=== PATIENT | female | born 1965 | race Caucasian/White ===

== ENCOUNTER 2016-10-03 19:14 | Inpatient (IN) | payer OTHER ==
[~2016-10-03] VITALS: Ht 152.4 cm; Wt 115.0 kg
[2016-10-03] MEDS ORDERED: ASPIRIN 325 MG TAB PO ONE (21:30)
[2016-10-03] MEDS ORDERED: METF1000 PO (21:31)
[2016-10-03] MEDS ORDERED: FLUT16SP17 NASAL (21:31)
[2016-10-03] MEDS ORDERED: FURO40TA4 PO (21:32)
[2016-10-03] MEDS ORDERED: LISI10TA2 PO (21:32)
[2016-10-03] MEDS ORDERED: LORA10TA3 PO (21:33)
[2016-10-03] MEDS ORDERED: FER325 PO (21:33)
[2016-10-03] MEDS ORDERED: MONT10TA24 PO (21:33)
[2016-10-03] MEDS ORDERED: PRAV40TA76 PO (21:34)
[2016-10-03] MEDS ORDERED: APR50 PO (21:34)
[2016-10-03] MEDS ORDERED: ACET1TAB40 PO (21:35)
[2016-10-03] MEDS ORDERED: AMLO-147 PO (21:35)
[2016-10-03] MEDS ORDERED: BISA5TAB6 PO (21:36)
[2016-10-03] MEDS ORDERED: ALBU18HF INHALATION (21:36)
[2016-10-03] MEDS ORDERED: LANT3I SC (21:37)
[2016-10-03] MEDS ORDERED: MOME13HF INHALATION (21:37)
[2016-10-03 21:38] LABS: ADD SCAN DIFF NO
[2016-10-03] MEDS ORDERED: INSU100C SQ (21:38)
[2016-10-03 21:41] LABS: BASOPHILS % 0.4 % (0.0-2.0); EOSINOPHILS # 0.5 10^3/ul (0.0-0.5); EOSINOPHILS % 4.3 % (0.0-7.0); HEMATOCRIT 27.3 % (37.0-47.0); HEMOGLOBIN 8.6 g/dl (12.0-16.0); LYMPHOCYTES % 9.6 % (15.0-51.0); MEAN CORPUSCULAR HEMOGLOBIN 26.5 pg (29.0-33.0); MEAN CORPUSCULAR HGB CONC 31.5 g/dl (32.0-37.0); MEAN PLATELET VOLUME 10.1 fl (7.4-10.4); MONOCYTE # 0.7 10^3/ul (0.3-0.9); MONOCYTES % 6.6 % (0.0-11.0); NEUTROPHIL # 8.2 10^3/ul (1.6-7.5); NEUTROPHILS % 78.7 % (39.0-77.0); PLATELET COUNT 345 10^3/UL (140-415); RED BLOOD COUNT 3.25 10^6/ul (4.20-5.40); WHITE BLOOD COUNT 10.4 10^3/ul (4.8-10.8)
[2016-10-03 21:49] LABS: ALBUMIN 4.3 g/dl (3.3-4.9)
[2016-10-03 21:50] LABS: CHLORIDE 100 mmol/L (97-110); POTASSIUM 5.2 mmol/L (3.5-5.1); SODIUM 141 mmol/L (135-144)
[2016-10-03 21:52] LABS: ALKALINE PHOSPHATASE 79 IU/L (42-121); ANION GAP 21 (8-16); ASPARTATE AMINO TRANSFERASE 23 IU/L (15-46); BILIRUBIN,INDIRECT 0.1 mg/dl (0-1.1); BILIRUBIN,TOTAL 0.1 mg/dl (0.2-1.3); BLOOD UREA NITROGEN 58 mg/dl (7-20); CARBON DIOXIDE 25 mmol/L (21-31); CREATININE 1.66 mg/dl (0.44-1.00); TOTAL PROTEIN 8.2 g/dl (6.1-8.1)
[2016-10-03 21:53] LABS: ALANINE AMINOTRANSFERASE 28 IU/L (13-69); CALCIUM 9.2 mg/dl (8.4-10.2); GLUCOSE 180 mg/dl (70-220)
--- NOTE | 2016-10-03 21:53 | RADRPT ---
PROCEDURE: XR Chest. CLINICAL INDICATION: Shortness of breath. TECHNIQUE: Single frontal view of the chest was obtained COMPARISON: None FINDINGS: The soft tissues are normal. The bony elements are normal. The heart is enlarged. cardiomediastin al silhouette and hilar structures are normal. The pulmonary vasculature is equilibrated. There is a left-sided aorta. there are increased interstitial markings in the perihilar areas in bases of the lungs. The costophrenic angles are poorly visualized due to underpenetration of the radiograph. IMPRESSION: 1. Cardiomegaly with mild pulmonary venous obstruction. 2. Early interstitial pulmonary edema in the bases of the lungs versus interstitial prominence seco ndary to underpenetration of the radiograph. RPTAT:AAJJ Physician Mu Date Time Electronically viewed and signed by Andi Blue Physician on 10/03/2016 21:53 LEYLA/
[2016-10-03 22:00] VITALS: TEMP 98.2
[2016-10-03 22:02] LABS: B-TYPE NATRIURETIC PEPTIDE 2570 PG/ML (0-125)
[2016-10-03 22:15] LABS: TROPONIN-I < 0.012 ng/ml (0.00-0.12)
[2016-10-03] MEDS ORDERED: FUROSEMIDE 40 MG INJ IV ONE (23:00)
[2016-10-03] MEDS ORDERED: morphine 4 MG/ML VIAL IV STA (23:20)
[2016-10-03] MEDS ORDERED: ONDANSETRON 4 MG INJ IV STA (23:20)
--- NOTE | 2016-10-03 23:22 | ERA ---
ER Documentation Chief Complaint Date/Time DATE: 10/03/16 TIME: 23:21 Chief Complaint SHARMIN VILLEDA from [place],c/o SOB,HTN,CHF exacerbation,lower back pain HPI This is a 50-year-old female brought in by rescue ambulance from [place] complaint of shortness of breath hypertension. Patient has history of CHF and feels that she is having a CHF exacerbation. Denies any chest pain. Shortness breath progressively worse. Positive orthopnea. Positive dyspnea on exertion. No nausea no vomiting no fevers no chills. No other current complaints. ROS All systems reviewed and are negative except as per history of present illness. Medications Home Meds Reported Medications Insulin Lispro (Humalog) 100 Unit/1 Ml Cartridge, 5-10 UNIT SQ BEFORE MEALS 10/03/16 Insulin Glargine* (Lantus*) 100 Unit/Ml Soln, 60 UNIT SC QHS, #1 VIAL 10/03/16 Mometasone-Formoterol (Dulera) 200-5 Mcg/Inh - 13 Gm Hfa.aer.ad, 2 PUFFS INHALATION BID, #1 INHALER 10/03/16 Albuterol Sulfate* (Ventolin HFA*) 18 Gm Hfa.aer.ad, 2 PUFF INHALATION Q4H, #1 INHALER 10/03/16 Bisacodyl* (Bisacodyl*) 5 Mg Tablet.dr, 10 MG PO DAILY Y for CONSTIPATION, TAB 10/03/16 Acetaminophen with Codeine (Acetaminophen-Cod #3 Tablet) 1 Each Tablet, 1 TAB PO Q6H, #20 TAB 10/03/16 Amlodipine Besylate* (Amlodipine Besylate*) 10 Mg Tablet, 10 MG PO DAILY, #30 TAB 10/03/16 Hydralazine Hcl* (Hydralazine Hcl*) 50 Mg Tab, 75 MG PO BID, #60 TAB 10/03/16 Pravastatin Sodium* (Pravastatin Sodium*) 40 Mg Tablet, 40 MG PO HS, TAB 10/03/16 Montelukast Sodium* (Montelukast Sodium*) 10 Mg Tablet, 10 MG PO QHS, #30 TAB 10/03/16 Ferrous Sulfate* (Ferrous Sulfate*) 325 Mg Tabec, 325 MG PO DAILY, TAB 10/03/16 Loratadine* (Loratadine*) 10 Mg Tablet, 10 MG PO DAILY, #30 TAB 10/03/16 Lisinopril* (Lisinopril*) 10 Mg Tablet, 10 MG PO DAILY, #30 TAB 10/03/16 Furosemide* (Furosemide*) 40 Mg Tablet, 40 MG PO QAM, TAB 10/03/16 Metformin Hcl* (Metformin Hcl*) 1,000 Mg Tablet, 1000 MG PO WITH BREAKFAST DINNE , #60 TAB 10/03/16 Fluticasone Propionate* (Fluticasone Propionate* Nasal) 50 Mcg/[place] - 16 Gm [place].susp, 1 SPRAY NASAL BID, #1 BOTTLE TO EACH NOSTRIL 10/03/16 Allergies Allergies: Coded Allergies: theophylline (Verified Allergy, Unknown, 10/03/16) PMhx/Soc Anesthesia Reaction: No Hx Neurological Disorder: No Hx Respiratory Disorders: Yes (ASTHMA) Hx Cardiac Disorders: Yes (HTN) Hx Psychiatric Problems: No Hx Miscellaneous Medical Probl: Yes (ANEMIA) Hx Alcohol Use: No Hx Substance Use: No Hx Tobacco Use: No Smoking Status: Never smoker Physical Exam Vitals Vital Signs Date Time Temp Pulse Resp B/P Pulse Ox O2 Delivery O2 Flow Rate FiO2 10/03/16 22:00 98.2 83 18 134/51 100 Room Air 10/03/16 21:00 Nasal Cannula 2.0 10/03/16 19:21 98.1 88 18 138/58 98 Physical Exam Const: [] Head: Atraumatic Eyes: Normal Conjunctiva ENT: Normal External Ears, Nose and Mouth. Neck: Full range of motion..~ No meningismus. Resp: Clear to auscultation bilaterally Cardio: Regular rate and rhythm, no murmurs Abd: Soft, non tender, non distended. Normal bowel sounds Skin: No petechiae or rashes Back: No midline or flank tenderness Ext: No cyanosis, or edema Neur: Awake and alert Psych: Normal Mood and Affect Result Diagram: 10/03/16212910/03/162129 Results 24 hrs Laboratory Tests Test 10/03/16 21:30 10/03/16 21:41 White Blood Count 10.410^3/ul Red Blood Count 3.2510^6/ul Hemoglobin 8.6g/dl Hematocrit 27.3% Mean Corpuscular Volume 84.0fl Mean Corpuscular Hemoglobin 26.5pg Mean Corpuscular Hemoglobin Concent 31.5g/dl Red Cell Distribution Width 16.0% Platelet Count 44694^3/UL Mean Platelet Volume 10.1fl Neutrophils % 78.7% Lymphocytes % 9.6% Monocytes % 6.6% Eosinophils % 4.3% Basophils % 0.4% Nucleated Red Blood Cells % 0.0/100WBC Neutrophils # 8.210^3/ul Lymphocytes # 1.010^3/ul Monocytes # 0.710^3/ul Eosinophils # 0.510^3/ul Basophils # 0.010^3/ul Nucleated Red Blood Cells # 0.010^3/ul Sodium Level 141mmol/L Potassium Level 5.2mmol/L Chloride Level 100mmol/L Carbon Dioxide Level 25mmol/L Anion Gap 21 Blood Urea Nitrogen 58mg/dl Creatinine 1.66mg/dl Glucose Level 180mg/dl Calcium Level 9.2mg/dl Total Bilirubin 0.1mg/dl Direct Bilirubin 0.00mg/dl Indirect Bilirubin 0.1mg/dl Aspartate Amino Transf (AST/SGOT) 23IU/L Alanine Aminotransferase (ALT/SGPT) 28IU/L Alkaline Phosphatase 79IU/L Troponin I < 0.012ng/ml B-Type Natriuretic Peptide 2570PG/ML Total Protein 8.2g/dl Albumin 4.3g/dl Globulin 3.90g/dl Albumin/Globulin Ratio 1.10 Lipase 98U/L Bedside Glucose 181mg/dL Current Medications Medications (Trade) Dose Ordered Sig/Myke Route PRN Reason Start Time Stop Time Status Last Admin Dose Admin Aspirin (Aspirin) 325 mg ONCE ONCE PO 10/03/16 21:30 10/03/16 21:31 DC 10/03/16 21:38 Furosemide (Lasix) 40 mg ONCE ONCE IV 10/03/16 23:00 10/03/16 23:01 DC 10/03/16 23:12 Procedures/MDM EKG: Rate/Rhythm: [Normal Sinus Rhythm] QRS, ST, T-waves: [No changes consistent w/ acute ischemia] Impression: [No evidence of ischemia or arrhythmia] Chest X-ray 1V Interpreted by me: Soft Tissue: No acute abnormalities Bones: No acute abnormalities Mediastinum/Cardiac Silhouette/Lungs: Increased interstitial fluid markings. Impression: CHF Patient's heart failure symptoms is concerning for acute decompensation and will require inpatient workup and monitoring. Further w/u for ischemia, arrhythmia, PE or dissection will be deferred to the inpatient team. Accepting Care Team: Current data and ongoing care discussed. Time: 2320 Primary Provider: Hospitalist Consulting: [LILIBETH] Outstanding Data: none Departure Diagnosis: Primary Impression: CHF (congestive heart failure) Qualified Code: I50.9 - Acute on chronic congestive heart failure, unspecified congestive heart failure type Condition: Serious SUZI NIETO Oct 03, 2016 23:22
--- NOTE | 2016-10-04 00:01 | HP ---
Date/Time of Note Date/Time of Note DATE: 10/04/16 TIME: 00:00 Assessment/Plan VTE Prophylaxis VTE Prophylaxis Intervention: contraindicated VTE Contraindication Reason: bleeding (potential, possibly slow GI Bleed, outpatient work-up in process and LE EDEMA) Assessment/Plan Assessment/Plan 1) CHF (congestive heart failure) Qualified Code: I50.9 - Acute on chronic congestive heart failure, unspecified congestive heart failure type - Admit to Telemetry - Constant Carb Diet with Low Salt - AM Labs : CBC, BMP - Lasix 40 mg IV Q AM - Monitor for hypokalemia - Consider Telemetry Consult, particulllarly is symptoms worsen or don't continue to improve 2) Asthma - DuoNeb QID - Albuterol Neb Q 2 hours prn - Continue Singulair and other Inhalers. (Pharmacy to substitute prn 3) Anemia - Monitor (CBC in AM) - Outpatient work-up in process HPI/ROS Admit Date/Time Admit Date/Time 10/03/16 8711 Hx of Present Illness Chief Complaint SHARMIN VILLEDA from [place],c/o SOB,HTN,CHF exacerbation,lower back pain HPI This patient is transferred to us as a Direct Admit, for Insurance reasons, from [place]. As there are currently no Tele Beds, patient was brought to the ED and was evaluated there first. She originally presented to [place], but I currently have no records from there. Word is that she presented there with SOB. Patient states her main concern is that her legs have been swollen for the past 5 yo 6 days, but really bad for the past 4 days. She a 50-year- old female with a history of CHF and feels that she is having a CHF exacerbation. She is not comfortable laying flat and she gets SOB with walking. She also admits to being anemic, and there is no source. She is due to be scheduled for her first Colonoscopy and she has received an Infusion of Iron. She has had her stool tested for blood at home/stool smeared on cards and tested. Denies any chest pain. She complains of shaking chills off and on for 1 month, but no fevers cough or wheezing. No nausea, vomiting or diarrhea. No headache, vision change, sore throat, cough or wheeze. Patient admits to wearing a CPAP nightly. She can have it brought to her for use tomorrow night. Received IV Lasix in ER and responded very well to it per ER Physician. Currently she feels better, but is still more comfortable sleeping sitting up in chair and not in the bed. ROS General: Admits: Chills, Generally Feels Tired - not a new symptoms/more related to her Anemia Denies: Fever, Poor Appetite, Generalized Body Aches Eyes: Admits: Denies: Blurry Vision, Double Vision HENT: Admits: Denies: Ear Pain/Pressure, Runny/Stuffy Nose, Sore Throat Cardiovascular: Admits: Leg Swelling Denies: Chest Pain, Palpitations Pulmonary: Admits: Shortness of Breath with exertions or laying in bed Denies: Cough, Wheeze Gastrointestinal: Admits: Denies: Abdominal Pain, Nausea, Vomiting, Diarrhea, Blood in Stool, Black-Colored Stool Urogenital: Admits: Denies: Burning with Urination, Urinary Frequency, Blood in Urine, Vaginal Bleeding Musculoskeletal: Admits: Denies: Joint Pain, Joint Swelling, Muscle Pain Neurological: Admits: Denies: Headache, Dizziness, Numbness, Tingling, Shooting Pains Integumentary: Admits: Denies: Rash, Itch Hematological: Admits: Denies: Spontaneous Nose Bleeds, Bleeding Gums, Easy Bruising PMH/Family/Social Past Medical History Asthma; DM Type 2; HTN; Anemia (due to be scheduled for her first Colonoscopy) Past Surgical History Past Surgical Hx: no surgical history Social History Alcohol Use: none Smoking Status: Never smoker Drug Use: none Exam/Review of Systems Vital Signs Vitals Vital Signs Date Time Temp Pulse Resp B/P Pulse Ox O2 Delivery O2 Flow Rate FiO2 10/03/16 23:28 78 22 129/61 100 Nasal Cannula 2.0 10/03/16 22:00 98.2 Exam Exam General: Morbidly obese female who speaks and understands some Y[place]ut , sleeping, sitting up in her chair, rouses fairly easily, alert, in no acute distress with O2 via Nasal BiPAP Eyes: Sclera White, EOMI HENT: Normocephalic/Atraumatic, External Ears/Nose Normal, Moist Mucus Membranes Neck: Supple, Trachea Midline Cardiovascular: Normal Rate, Normal Rhythm, Normal S1 and S2, No Murmur, No Extra Sounds, Radial pulse +2/4. No pedal edema. Pulmonary: Clear to Auscultation Bilaterally, Normal Respiratory Effort, No Rales, Rhonchi or Wheezes Gastrointestinal: Normoactive Bowel Sounds, Soft, Non-Tender/Non-Distended, exam done while patient seated Musculoskeletal: Normal Muscle Bulk and Tone Neurological: CN II - XII Grossly Intact, Non-Focal, Speech Normal Integumentary: Normal Moisture and Temperature, Good Turgor, No Jaundice, No Rash Lymphatic: No Cervical Lymphadenopathy Psychiatric: Appropriate Mood and Affect, Good Eye Contact Labs Result Diagram: 10/03/16212910/03/162129 Medications Medications Home Meds Reported Medications Insulin Lispro (Humalog) 100 Unit/1 Ml Cartridge, 5-10 UNIT SQ BEFORE MEALS 10/03/16 Insulin Glargine* (Lantus*) 100 Unit/Ml Soln, 60 UNIT SC QHS, #1 VIAL 10/03/16 Mometasone-Formoterol (Dulera) 200-5 Mcg/Inh - 13 Gm Hfa.aer.ad, 2 PUFFS INHALATION BID, #1 INHALER 10/03/16 Albuterol Sulfate* (Ventolin HFA*) 18 Gm Hfa.aer.ad, 2 PUFF INHALATION Q4H, #1 INHALER 10/03/16 Bisacodyl* (Bisacodyl*) 5 Mg Tablet.dr, 10 MG PO DAILY Y for CONSTIPATION, TAB 10/03/16 Acetaminophen with Codeine (Acetaminophen-Cod #3 Tablet) 1 Each Tablet, 1 TAB PO Q6H, #20 TAB 10/03/16 Amlodipine Besylate* (Amlodipine Besylate*) 10 Mg Tablet, 10 MG PO DAILY, #30 TAB 10/03/16 Hydralazine Hcl* (Hydralazine Hcl*) 50 Mg Tab, 75 MG PO BID, #60 TAB 10/03/16 Pravastatin Sodium* (Pravastatin Sodium*) 40 Mg Tablet, 40 MG PO HS, TAB 10/03/16 Montelukast Sodium* (Montelukast Sodium*) 10 Mg Tablet, 10 MG PO QHS, #30 TAB 10/03/16 Ferrous Sulfate* (Ferrous Sulfate*) 325 Mg Tabec, 325 MG PO DAILY, TAB 10/03/16 Loratadine* (Loratadine*) 10 Mg Tablet, 10 MG PO DAILY, #30 TAB 10/03/16 Lisinopril* (Lisinopril*) 10 Mg Tablet, 10 MG PO DAILY, #30 TAB 10/03/16 Furosemide* (Furosemide*) 40 Mg Tablet, 40 MG PO QAM, TAB 10/03/16 Metformin Hcl* (Metformin Hcl*) 1,000 Mg Tablet, 1000 MG PO WITH BREAKFAST DINNE , #60 TAB 10/03/16 Fluticasone Propionate* (Fluticasone Propionate* Nasal) 50 Mcg/[place] - 16 Gm [place].susp, 1 SPRAY NASAL BID, #1 BOTTLE TO EACH NOSTRIL 10/03/16 Allergies Allergies: Coded Allergies: theophylline (Verified Allergy, Unknown, 10/03/16) Current Medications Medications (Trade) Dose Ordered Sig/Myke Route PRN Reason Start Time Stop Time Status Last Admin Dose Admin Aspirin (Aspirin) 325 mg ONCE ONCE PO 10/03/16 21:30 10/03/16 21:31 DC 10/03/16 21:38 Furosemide (Lasix) 40 mg ONCE ONCE IV 10/03/16 23:00 10/03/16 23:01 DC 10/03/16 23:12 Procedures Procedures Laboratory Tests Test 10/03/16 21:30 10/03/16 21:41 White Blood Count 10.410^3/ul Red Blood Count 3.2510^6/ul Hemoglobin 8.6g/dl Hematocrit 27.3% Mean Corpuscular Volume 84.0fl Mean Corpuscular Hemoglobin 26.5pg Mean Corpuscular Hemoglobin Concent 31.5g/dl Red Cell Distribution Width 16.0% Platelet Count 17861^3/UL Mean Platelet Volume 10.1fl Neutrophils % 78.7% Lymphocytes % 9.6% Monocytes % 6.6% Eosinophils % 4.3% Basophils % 0.4% Nucleated Red Blood Cells % 0.0/100WBC Neutrophils # 8.210^3/ul Lymphocytes # 1.010^3/ul Monocytes # 0.710^3/ul Eosinophils # 0.510^3/ul Basophils # 0.010^3/ul Nucleated Red Blood Cells # 0.010^3/ul Sodium Level 141mmol/L Potassium Level 5.2mmol/L Chloride Level 100mmol/L Carbon Dioxide Level 25mmol/L Anion Gap 21 Blood Urea Nitrogen 58mg/dl Creatinine 1.66mg/dl Glucose Level 180mg/dl Calcium Level 9.2mg/dl Total Bilirubin 0.1mg/dl Direct Bilirubin 0.00mg/dl Indirect Bilirubin 0.1mg/dl Aspartate Amino Transf (AST/SGOT) 23IU/L Alanine Aminotransferase (ALT/SGPT) 28IU/L Alkaline Phosphatase 79IU/L Troponin I < 0.012ng/ml B-Type Natriuretic Peptide 2570PG/ML Total Protein 8.2g/dl Albumin 4.3g/dl Globulin 3.90g/dl Albumin/Globulin Ratio 1.10 Lipase 98U/L Bedside Glucose 181mg/dL EKG: Rate/Rhythm: [Normal Sinus Rhythm] QRS, ST, T-waves: [No changes consistent w/ acute ischemia] Impression: [No evidence of ischemia or arrhythmia] RADIOLOGY: PROCEDURE: XR Chest. CLINICAL INDICATION: Shortness of breath. TECHNIQUE: Single frontal view of the chest was obtained COMPARISON: None IMPRESSION: 1. Cardiomegaly with mild pulmonary venous obstruction. 2. Early interstitial pulmonary edema in the bases of the lungs versus interstitial prominence secondary to underpenetration of the radiograph. GARY POSEY DO Oct 04, 2016 00:01 GARY POSEY DO Oct 04, 2016 00:01
[2016-10-04] MEDS ORDERED: ALBUTEROL/IPRATROPIUM (NEB) 3 ML AMP HHN PRN (02:00)
[2016-10-04] MEDS ORDERED: NACL 0.9% 3 ML SYG IV SCH (02:00)
[2016-10-04] MEDS ORDERED: METOCLOPRAMIDE 10 MG INJ IV PRN (02:00)
[2016-10-04] MEDS ORDERED: GLUCAGON 1 MG INJ IM PRN (02:30)
[2016-10-04] MEDS ORDERED: GLUCOSE GEL 15 GRAM TUBE PO PRN ×2 (02:30)
[2016-10-04] MEDS ORDERED: GLUCOSE GEL 15 GRAM TUBE BUCCAL PRN (02:30)
[2016-10-04] MEDS ORDERED: DEXTROSE 50% 50 ML SYRINGE IV PRN ×2 (02:30)
[2016-10-04] MEDS: ACETAMINOPHEN 325 MG TAB PO PRN ×3 (02:41→15:35)
[2016-10-04] MEDS ORDERED: ALBUTEROL/IPRATROPIUM (NEB) 3 ML AMP HHN STA (03:21)
[2016-10-04] MEDS ORDERED: NON-FORMULARY/PATIENT OWN MED (Insulin Lispro (Humalog) 0 UNIT) SQ SCH (07:30)
[2016-10-04] MEDS: INSULIN ASPART [NOVOLOG] 3 ML PEN SC SCH ×4 (08:00→21:57)
[2016-10-04] MEDS ORDERED: metFORMIN 500 MG TAB PO SCH (08:00)
[2016-10-04] MEDS ORDERED: NON-FORMULARY/PATIENT OWN MED (Mometasone-Formoterol (Dulera) 2 PUFFS) INHALATION SCH (09:00)
[2016-10-04] MEDS ORDERED: LISINOPRIL 10 MG TAB PO SCH (09:00)
[2016-10-04] MEDS ORDERED: ENOXAPARIN 40 MG/0.4 ML SYG SC SCH (09:00)
[2016-10-04] MEDS: LORATADINE 10 MG TAB PO SCH (09:08)
[2016-10-04] MEDS: FERROUS SULFATE (EC) 325 MG TAB PO SCH (09:09)
[2016-10-04] MEDS: SALMETEROL/FLUTICASONE 250/50 INHA INH SCH ×2 (09:11→21:55)
--- NOTE | 2016-10-04 11:52 | QN ---
Documentation Comment Observation Note: Time: 4 hours Family Hx: Negative for diabetes Evaluation: Multiple exams showed improving symptoms and no evidence of clinical decompensation. JORDANA DIAZ MD Oct 04, 2016 11:51
[2016-10-04 14:39] VITALS: PULSE 86
[2016-10-04 15:03] VITALS: PULSE 86
[2016-10-04 15:36] VITALS: Ht 152.4 cm; Wt 115.0 kg
[2016-10-04 16:00] VITALS: PULSE 85
[2016-10-04 16:16] LABS: CREATINE KINASE 145 IU/L (23-200)
[2016-10-04 16:25] LABS: CK-MB 1.56 ng/ml (0.0-2.4)
[2016-10-04 16:29] LABS: IRON 15 ug/dl (35-150)
[2016-10-04 16:31] LABS: TROPONIN-I < 0.012 ng/ml (0.00-0.12)
[2016-10-04 16:40] LABS: TOTAL IRON BINDING CAPACITY 333 ug/dl (241-421)
--- NOTE | 2016-10-04 17:04 | PN ---
Date/Time of Note Date/Time of Note DATE: 10/04/16 TIME: 16:51 Assessment/Plan VTE Prophylaxis VTE Prophylaxis Intervention: heparin Assessment/Plan Assessment/Plan 50 yo F with 1. CHF exacerbation 2. Asthma exacerbation 3. Acute renal failure r/o ckd 4. Hypochromic anemia r/o iron deficiency 5. Hyperkalemia 2/2 #3 6. Diabetes type 2 PLAN: * Repeat BMP to eval hypokalemia * Renal USS / UA to workup renal failure * Iron profile * Continue gentle diuresis * Hold Metformin and ACEi for now Prophylaxis: Heparin / pepcid Subjective 24 Hr Interval Summary Free Text/Dictation Patient doing better, still mildly SOB however Exam/Review of Systems Vital Signs Vitals Vital Signs Date Time Temp Pulse Resp B/P Pulse Ox O2 Delivery O2 Flow Rate FiO2 10/04/16 16:00 85 10/04/16 12:56 20 126/66 100 Nasal Cannula 2.0 10/03/16 22:00 98.2 Exam Constitutional: alert, obese, oriented Psych: nl mood/affect Head: normocephalic Eyes: PERRL ENMT: mucosa pink and moist Respiratory: diminished breath sounds, wheezing Cardiovascular: regular rate and rhythm, No murmurs/extra sounds Gastrointestinal: bowel sounds, non-tender, soft Extremities: edema (1-2+) Skin: No rash or lesions Results Result Diagram: 10/03/16212910/03/162129 Results 24 hrs Laboratory Tests Test 10/03/16 21:30 10/03/16 21:41 10/04/16 08:45 10/04/16 12:41 White Blood Count 10.4 Red Blood Count 3.25 L Hemoglobin 8.6 L Hematocrit 27.3 L Mean Corpuscular Volume 84.0 Mean Corpuscular Hemoglobin 26.5 L Mean Corpuscular Hemoglobin Concent 31.5 L Red Cell Distribution Width 16.0 H Platelet Count 345 Mean Platelet Volume 10.1 Neutrophils % 78.7 H Lymphocytes % 9.6 L Monocytes % 6.6 Eosinophils % 4.3 Basophils % 0.4 Nucleated Red Blood Cells % 0.0 Neutrophils # 8.2 H Lymphocytes # 1.0 Monocytes # 0.7 Eosinophils # 0.5 Basophils # 0.0 Nucleated Red Blood Cells # 0.0 Sodium Level 141 Potassium Level 5.2 H Chloride Level 100 Carbon Dioxide Level 25 Anion Gap 21 H Blood Urea Nitrogen 58 H Creatinine 1.66 H Glucose Level 180 Calcium Level 9.2 Iron Level 15 L Total Iron Binding Capacity 333 Percent Iron Saturation 5 L Total Bilirubin 0.1 L Direct Bilirubin 0.00 Indirect Bilirubin 0.1 Aspartate Amino Transf (AST/SGOT) 23 Alanine Aminotransferase (ALT/SGPT) 28 Alkaline Phosphatase 79 Troponin I < 0.012 B-Type Natriuretic Peptide 2570 H Total Protein 8.2 H Albumin 4.3 Globulin 3.90 H Albumin/Globulin Ratio 1.10 Lipase 98 Bedside Glucose 181 113 162 Test 10/04/16 15:35 Magnesium Level 2.2 Creatine Kinase 145 Creatine Kinase Index 1.1 Creatinine Kinase MB (Mass) 1.56 Troponin I < 0.012 Medications Medications Current Medications Acetaminophen (Tylenol Tab) 650 mg Q6H PRN PO PAIN LEVEL 1-3 OR FEVER Last administered on 10/04/16 15:35; Admin Dose 650 MG; Start 10/04/16 at 02:00 Ferrous Sulfate (Ferrous Sulfate (Ec)) 325 mg DAILY PO Last administered on 10/04 09:09; Admin Dose 325 MG; Start 10/04/16 at 09:00 Hydralazine HCl (Apresoline) 75 mg BID PO ; Start 10/04/16 at 09:00 Insulin Glargine (Lantus) 60 unit QHS SC ; Start 10/04/16 at 21:00 Loratadine (Claritin) 10 mg DAILY PO Last administered on 10/04/16 09:08; Admin Dose 10 MG; Start 10/04/16 at 09:00 Montelukast Sodium (Singulair) 10 mg QHS PO ; Start 10/04/16 at 21:00 Metoclopramide HCl (Reglan) 10 mg Q6 PRN IV NAUSEA AND/OR VOMITING; Start at 02:00 Diagnostic Test (Pha) (Accu-Chek) 1 ea 02 XX ; Start 10/05/16 at 02:00 Miscellaneous Information 1 ea NOTE XX ; Start 10/04/16 at 02:30 Glucose (Glutose) 15 gm Q15M PRN PO DECREASED GLUCOSE; Start 10/04/16 at 02:30 Glucose (Glutose) 22.5 gm Q15M PRN PO DECREASED GLUCOSE; Start 10/04/16 at 02:30 Dextrose (D50w Syringe) 25 ml Q15M PRN IV DECREASED GLUCOSE; Start 10/04/16 at 02:30 Dextrose (D50w Syringe) 50 ml Q15M PRN IV DECREASED GLUCOSE; Start 10/04/16 at 02:30 Glucagon (Glucagen) 1 mg Q15M PRN IM DECREASED GLUCOSE; Start 10/04/16 at 02:30 Glucose (Glutose) 15 gm Q15M PRN BUCCAL DECREASED GLUCOSE; Start 10/04/16 at 02: 30 Atorvastatin Calcium (Lipitor) 10 mg DAILY@21 PO ; Start 10/04/16 at 21:00 Salmeterol Xinafoate/ Fluticasone (Advair 250/50 Diskus) 1 inh BID INH Last administered on 10/04/16t 09:11; Admin Dose 1 INH; Start 10/04/16 at 09:00 Furosemide (Lasix) 40 mg DAILY IV ; Start 10/05/16 at 09:00; Stop 10/07/16 at 08: 59 Aspirin (Halfprin) 81 mg DAILY PO ; Start 10/05/16 at 09:00 Procedures Procedures PROCEDURE: XR Chest. CLINICAL INDICATION: Shortness of breath. TECHNIQUE: Single frontal view of the chest was obtained COMPARISON: None FINDINGS: The soft tissues are normal. The bony elements are normal. The heart is enlarged. cardiomediastinal silhouette and hilar structures are normal. The pulmonary vasculature is equilibrated. There is a left-sided aorta. there are increased interstitial markings in the perihilar areas in bases of the lungs. The costophrenic angles are poorly visualized due to underpenetration of the radiograph. IMPRESSION: 1. Cardiomegaly with mild pulmonary venous obstruction. 2. Early interstitial pulmonary edema in the bases of the lungs versus interstitial prominence secondary to underpenetration of the radiograph. RPTAT:AAJJ Physician Mu Date Time Electronically viewed and signed by Andi Blue Physician on 10/03/2016 21:53 JM/ CC: BRITTANY PAYNE MD,KACY Song Apr 4, 2017 17:02
[2016-10-04 17:54] LABS: POTASSIUM 5.7 mmol/L (3.5-5.1)
[2016-10-04 17:56] LABS: CREATININE 1.99 mg/dl (0.44-1.00)
[2016-10-04 17:57] LABS: CALCIUM 9.1 mg/dl (8.4-10.2)
--- NOTE | 2016-10-04 18:14 | RADRPT ---
PROCEDURE: Renal US. CLINICAL INDICATION: Renal dysfunction. TECHNIQUE: Multiple sonographic images of the kidneys and urinary bladder were obtained. The imag es were reviewed on a PACS workstation. COMPARISON: No prior studies are available for comparison. FINDINGS: The right kidney measures 9.4 cm. The left kidney measures 9.3 cm. There is no renal mass. There is no hydronephrosis. There is no renal calculus. Renal parenchymal thickness is normal bilaterally. Both kidneys are hyperechoic consistent with med ical renal disease. The perirenal regions are normal with no fluid collection or mass. There is a Iglesias catheter in the bladder. IMPRESSION: 1. Bilateral hyperechoic kidneys consistent with medical renal disease. 2. No hydronephrosis. 3. Iglesias catheter in the bladder. RPTAT: QQ .Willard Pereira MD, MD Date Time Electronically viewed and signed by .Willard Pereira MD, on 10/04/2016 18:13 .R/
[2016-10-04] MEDS: SOD FERRIC GLUC COMPLX 125 MG in SOD CHLORIDE 0.9% 100 ML IVPB SCH (18:30)
[2016-10-04 20:00] VITALS: BP 140/67; RESP 18
[2016-10-04 20:21] VITALS: PULSE 83
[2016-10-04] MEDS: ALBUTEROL 0.083% (NEB) 2.5 MG/3 ML AMP HHN PRN (20:30)
[2016-10-04] MEDS ORDERED: NON-FORMULARY/PATIENT OWN MED (Pravastatin Sodium* 40 MG) PO SCH (21:00)
[2016-10-04] MEDS: MONTELUKAST 10 MG TAB PO SCH (21:00)
[2016-10-04] MEDS: ATORVASTATIN 10 MG TAB PO SCH (21:16)
[2016-10-04] MEDS: FAMOTIDINE 20 MG TAB PO SCH (21:17)
[2016-10-04] MEDS: HEPARIN 5,000 UNIT/0.5 ML VIAL SC SCH (21:22)
[2016-10-04] MEDS: INSULIN GLARGINE [LANtus] 3 ML PEN SC SCH (21:57)
[2016-10-04] MEDS: ZOLPIDEM 5 MG TAB PO PRN (23:28)
[2016-10-05] VITALS (12 sets, daily range): BP systolic 118–164; BP diastolic 58–69; PULSE 77–101; RESP 17–20
[2016-10-05] MEDS: ACETAMINOPHEN 325 MG TAB PO PRN ×3 (01:08→23:27)
[2016-10-05] MEDS: ACCUCHECK AT 2AM (Patients on SS coverage) XX SCH (02:00)
[2016-10-05 06:43] LABS: ADD SCAN DIFF NO
[2016-10-05 06:46] LABS: BASOPHILS % 0.4 % (0.0-2.0); EOSINOPHILS # 0.4 10^3/ul (0.0-0.5); EOSINOPHILS % 6.2 % (0.0-7.0); HEMATOCRIT 24.8 % (37.0-47.0); HEMOGLOBIN 7.5 g/dl (12.0-16.0); LYMPHOCYTES # 0.9 10^3/ul (0.8-2.9); LYMPHOCYTES % 16.5 % (15.0-51.0); MEAN CORPUSCULAR HEMOGLOBIN 25.9 pg (29.0-33.0); MEAN CORPUSCULAR HGB CONC 30.2 g/dl (32.0-37.0); MEAN CORPUSCULAR VOLUME 85.5 fl (82.0-101.0); MEAN PLATELET VOLUME 10.3 fl (7.4-10.4); MONOCYTE # 0.7 10^3/ul (0.3-0.9); MONOCYTES % 11.5 % (0.0-11.0); NEUTROPHIL # 3.7 10^3/ul (1.6-7.5); NEUTROPHILS % 65.2 % (39.0-77.0); PLATELET COUNT 270 10^3/UL (140-415); WHITE BLOOD COUNT 5.7 10^3/ul (4.8-10.8)
[2016-10-05 06:55] LABS: ALBUMIN 3.7 g/dl (3.3-4.9)
[2016-10-05 06:56] LABS: POTASSIUM 5.1 mmol/L (3.5-5.1)
[2016-10-05 06:58] LABS: CREATININE 1.62 mg/dl (0.44-1.00)
[2016-10-05 06:59] LABS: BILIRUBIN,INDIRECT 0.1 mg/dl (0-1.1); BILIRUBIN,TOTAL 0.1 mg/dl (0.2-1.3); PHOSPHORUS 5.2 mg/dl (2.5-4.9); TOTAL PROTEIN 7.1 g/dl (6.1-8.1)
[2016-10-05 07:00] LABS: CALCIUM 8.5 mg/dl (8.4-10.2); CHOL/HDL RATIO 3.7 RATIO; MAGNESIUM 2.3 mg/dl (1.7-2.5)
[2016-10-05 07:29] LABS: THYROID STIMULATING HORMONE 1.14 MIU/L (0.465-4.680)
[2016-10-05] MEDS: INSULIN ASPART [NOVOLOG] 3 ML PEN SC SCH ×4 (08:00→21:00)
[2016-10-05] MEDS: LORATADINE 10 MG TAB PO SCH (10:12)
[2016-10-05] MEDS: FERROUS SULFATE (EC) 325 MG TAB PO SCH (10:12)
[2016-10-05] MEDS: ASPIRIN (EC) 81 MG TAB PO SCH (10:13)
[2016-10-05] MEDS: HEPARIN 5,000 UNIT/0.5 ML VIAL SC SCH ×2 (10:14→20:58)
[2016-10-05] MEDS: FUROSEMIDE 40 MG INJ IV SCH (10:14)
[2016-10-05] MEDS: SALMETEROL/FLUTICASONE 250/50 INHA INH SCH ×2 (10:16→20:53)
[2016-10-05 15:04] LABS: ADD UMIC YES; URINE BILIRUBIN (Dip) NEGATIVE (NEGATIVE); URINE BLOOD (Dip) NEGATIVE (NEGATIVE); URINE COLOR LT. YELLOW (YELLOW); URINE GLUCOSE (Dip) NEGATIVE (NEGATIVE); URINE KETONES (Dip) NEGATIVE (NEGATIVE); URINE LEUKOCYTE ESTERASE (Dip) TRACE (NEGATIVE); URINE NITRITE (Dip) NEGATIVE (NEGATIVE); URINE TOTAL PROTEIN (Dip) NEGATIVE (NEGATIVE); URINE UROBILINOGEN (Dip) 0.2 E.U./dL (0.1-1.0)
[2016-10-05 15:44] LABS: BACTERIA,URINE MANY; URINE RBCS 0-2 /HPF (0)
[2016-10-05] MEDS: SOD FERRIC GLUC COMPLX 125 MG in SOD CHLORIDE 0.9% 100 ML IVPB SCH (17:23)
--- NOTE | 2016-10-05 17:38 | PN ---
Date/Time of Note Date/Time of Note DATE: 10/05/16 TIME: 17:36 Assessment/Plan VTE Prophylaxis VTE Prophylaxis Intervention: heparin Lines/Catheters Urinary Cath still in place: No Assessment/Plan Assessment/Plan 1. CHF exacerbation 2. Asthma exacerbation 3. Acute renal failure r/o ckd 4. Hypochromic anemia r/o iron deficiency 5. Hyperkalemia 2/2 #3 6. Diabetes type 2 PLAN: * Repeat BMP to eval hypokalemia * Renal US showed medical renal disease * ECHO done but no result yet * Iron profile * Continue gentle diuresis Prophylaxis: Heparin / pepcid Subjective 24 Hr Interval Summary Free Text/Dictation doing ok, Bp stable, less SOB, no chest pain Exam/Review of Systems Vital Signs Vitals Vital Signs Date Time Temp Pulse Resp B/P Pulse Ox O2 Delivery O2 Flow Rate FiO2 10/05/16 16:59 101 10/05/16 15:46 98.7 20 145/64 92 10/05/16 05:16 2.0 10/04/16 20:35 21 10/04/16 12:56 Nasal Cannula Intake and Output 10/04/16 10/04/16 10/05/16 15:00 23:00 07:00 Intake Total 460 ml 450 ml Balance 460 ml 450 ml Exam Constitutional: alert, obese, oriented Psych: nl mood/affect Head: normocephalic Eyes: PERRL ENMT: mucosa pink and moist Respiratory: diminished breath sounds, wheezing Cardiovascular: regular rate and rhythm, No murmurs/extra sounds Gastrointestinal: bowel sounds, non-tender, soft Extremities: edema (1-2+) Skin: No rash or lesions Results Result Diagram: 10/05/16 0610 10/05/16 0610 Results 24 hrs Laboratory Tests Test 10/04/16 21:37 10/05/16 02:08 10/05/16 06:10 10/05/16 07:44 Bedside Glucose 196 180 122 White Blood Count 5.7 # Red Blood Count 2.90 L Hemoglobin 7.5 L Hematocrit 24.8 L Mean Corpuscular Volume 85.5 Mean Corpuscular Hemoglobin 25.9 L Mean Corpuscular Hemoglobin Concent 30.2 L Red Cell Distribution Width 16.0 H Platelet Count 270 # Mean Platelet Volume 10.3 Neutrophils % 65.2 Lymphocytes % 16.5 Monocytes % 11.5 H Eosinophils % 6.2 Basophils % 0.4 Nucleated Red Blood Cells % 0.0 Neutrophils # 3.7 Lymphocytes # 0.9 Monocytes # 0.7 Eosinophils # 0.4 Basophils # 0.0 Nucleated Red Blood Cells # 0.0 Sodium Level 137 Potassium Level 5.1 Chloride Level 106 Carbon Dioxide Level 25 Anion Gap 11 # Blood Urea Nitrogen 57 H Creatinine 1.62 H Glucose Level 128 # Hemoglobin A1c 6.2 H Calcium Level 8.5 Phosphorus Level 5.2 H Magnesium Level 2.3 Total Bilirubin 0.1 L Direct Bilirubin 0.00 Indirect Bilirubin 0.1 Aspartate Amino Transf (AST/SGOT) 20 Alanine Aminotransferase (ALT/SGPT) 31 Alkaline Phosphatase 64 Total Protein 7.1 # Albumin 3.7 Triglycerides Level 105 Cholesterol Level 90 L LDL Cholesterol, Calculated 45 HDL Cholesterol 24 L Cholesterol/HDL Ratio 3.7 Thyroid Stimulating Hormone (TSH) 1.140 Test 10/05/16 12:00 10/05/16 12:05 10/05/16 17:11 Urine Color LT. YELLOW Urine Clarity CLEAR Urine pH 5.5 Urine Specific [place] <=1.005 L Urine Ketones NEGATIVE Urine Nitrite NEGATIVE Urine Bilirubin NEGATIVE Urine Urobilinogen 0.2 E.U./dL Urine Leukocyte Esterase TRACE H Urine Microscopic RBC 0-2 Urine Microscopic WBC 2-5 Urine Epithelial Cells FEW Urine Bacteria MANY Urine Hemoglobin NEGATIVE Urine Glucose NEGATIVE Urine Total Protein NEGATIVE Bedside Glucose 184 158 Medications Medications Current Medications Acetaminophen (Tylenol Tab) 650 mg Q6H PRN PO PAIN LEVEL 1-3 OR FEVER Last administered on 10/05/16 13:05; Admin Dose 650 MG; Start 10/04/16 at 02:00 Ferrous Sulfate (Ferrous Sulfate (Ec)) 325 mg DAILY PO Last administered on 10/05 10:12; Admin Dose 325 MG; Start 10/04/16 at 09:00 Hydralazine HCl (Apresoline) 75 mg BID PO Last administered on 10/05/16 10:12; Admin Dose 75 MG; Start 10/04/16 at 09:00 Insulin Glargine (Lantus) 60 unit QHS SC Last administered on 10/04/16 21:57; Admin Dose 60 UNIT; Start 10/04/16 at 21:00 Loratadine (Claritin) 10 mg DAILY PO Last administered on 10/05/16 10:12; Admin Dose 10 MG; Start 10/04/16 at 09:00 Montelukast Sodium (Singulair) 10 mg QHS PO ; Start 10/04/16 at 21:00 Metoclopramide HCl (Reglan) 10 mg Q6 PRN IV NAUSEA AND/OR VOMITING; Start at 02:00 Diagnostic Test (Pha) (Accu-Chek) 1 ea 02 XX ; Start 10/05/16 at 02:00 Miscellaneous Information 1 ea NOTE XX ; Start 10/04/16 at 02:30 Glucose (Glutose) 15 gm Q15M PRN PO DECREASED GLUCOSE; Start 10/04/16 at 02:30 Glucose (Glutose) 22.5 gm Q15M PRN PO DECREASED GLUCOSE; Start 10/04/16 at 02:30 Dextrose (D50w Syringe) 25 ml Q15M PRN IV DECREASED GLUCOSE; Start 10/04/16 at 02:30 Dextrose (D50w Syringe) 50 ml Q15M PRN IV DECREASED GLUCOSE; Start 10/04/16 at 02:30 Glucagon (Glucagen) 1 mg Q15M PRN IM DECREASED GLUCOSE; Start 10/04/16 at 02:30 Glucose (Glutose) 15 gm Q15M PRN BUCCAL DECREASED GLUCOSE; Start 10/04/16 at 02: 30 Atorvastatin Calcium (Lipitor) 10 mg DAILY@21 PO Last administered on 10/04/16 21:16; Admin Dose 10 MG; Start 10/04/16 at 21:00 Salmeterol Xinafoate/ Fluticasone (Advair 250/50 Diskus) 1 inh BID INH Last administered on 10/05/16 10:16; Admin Dose 1 INH; Start 10/04/16 at 09:00 Furosemide (Lasix) 40 mg DAILY IV Last administered on 10/05/16 10:14; Admin Dose 40 MG; Start 10/05/16 at 09:00; Stop 10/07/16 at 08:59 Aspirin 81 mg 81 mg DAILY PO Last administered on 10/05/16 10:13; Admin Dose 81 MG; Start 10/05/16 at 09:00 Ferric Sodium Gluconate Complex/ Sodium Chloride (Ferrlecit/NS) 110 ml @ 100 mls/hr Q24H IVPB Last administered on 10/05/16 17:23; Admin Dose 100 MLS/HR; Start 10/04/16 at 18:00; Stop 10/06/16 at 19:05 Heparin Sodium (Porcine) (Heparin (5000 Units/0.5 ml)) 5,000 unit BID SC Last administered on 10/05/16 10:14; Admin Dose 5,000 UNIT; Start 10/04/16 at 21:00 Famotidine (Pepcid) 20 mg Q24H PO Last administered on 10/04/16 21:17; Admin Dose 20 MG; Start 10/04/16 at 21:00 JENNIFER ONEILL MD Oct 05, 2016 17:38
--- NOTE | 2016-10-05 18:08 | RADRPT ---
Echocardiogram Report Patient Name: NEERU REID Gender: Female Date: 1965 Study Date: 05-Oct-2016 Fighter Pilot: Duncan Pearce [facility] Location: 5562 Ref. Physician: KACY SOLOMON Quality: Adequate Procedures: Transthoracic echocardiogram with complete 2D, M-Mode, and doppler examination. Indications: Congestive Heart Failure. 2D/M Mode Doppler Measurement Value Normal Ranges Measurement Value Normal Ranges LVIDd 2D 6.1 3.5 - 5.6 cm AV Peak Yousuf 1.5 m/sec LVIDs 2D 3.1 2.1 - 4.1 cm AV Peak PG 8.8 mmHg LVPWd 2D 1.0 0.6 - 1.1 cm LVOT Peak Yousuf 1.1 m/sec IVSd 2D 1.0 0.6 - 1.1 cm LVOT Peak PG 5.1 mmHg AoR Diam 2D 2.5 2.0 - 3.7 cm MV E Peak Yousuf 1.0 m/sec EDV 2D 186.4 cm3 MV A Peak Yousuf 1.1 m/sec ESV 2D 29.8 cm3 MV E/A 0.9 LA Dimen 2D 3.7 2.3 - 4.0 cm MV Decel Time 131 msec MV Decel [place] 8 MV E/A 0.9 TR Peak Yousuf 2.6 m/sec TR Peak PG 27.0 mmHg RVSP 35.0 mmHg Findings Left Ventricle: Lower limits of normal systolic function. Mild concentric left ventricular hypertrophy. Moderate enlargement of left ventricle cavity. Ejection fraction is visually estimated at 50 %. Tissue Doppler/Mitral Doppler indices are consistent with impaired relaxation (Stage I diastolic dysfunction). Right Ventricle: Normal right ventricular size. Normal right ventricular systolic function. Left Atrium: The left atrium is normal in size. Right Atrium: The right atrium is normal in size. Mitral Valve: Mitral valve leaflets appear mildly thickened. Mild mitral annular calcification. Trace mitral regurgitation. Aortic Valve: Normal appearance of the aortic valve. No significant aortic stenosis or insufficiency. Tricuspid Valve: Estimated peak PA systolic pressure 35 mmHg. There is trace tricuspid regurgitation. Pulmonic Valve: Normal pulmonic valve appearance. Pericardium: Normal pericardium with no significant pericardial effusion. Aorta: Normal aortic root. IVC: Dilated IVC with respiratory collapse consistent with elevated right atrial pressure. Conclusions 1.Lower limits of normal systolic function. Mild concentric left ventricular hypertrophy. Moderate enlargement of left ventricle cavity. Ejection fraction is visually estimated at 50 %. Tissue Doppler/Mitral Doppler indices are consistent with impaired relaxation (Stage I diastolic dysfunction). 2.Mitral valve leaflets appear mildly thickened. Mild mitral annular calcification. Trace mitral regurgitation. 3.Estimated peak PA systolic pressure 35 mmHg. There is trace tricuspid regurgitation. Electronically Signed By: Darrell Clarke 05-Oct-2016 18:07:44 -0700 Patient Name: NEERU REID Study Date: 05-Oct-2016 [id number]
[2016-10-05] MEDS: ZOLPIDEM 5 MG TAB PO PRN ×2 (20:55→23:27)
[2016-10-05] MEDS: ATORVASTATIN 10 MG TAB PO SCH (20:56)
[2016-10-05] MEDS: MONTELUKAST 10 MG TAB PO SCH (20:56)
[2016-10-05] MEDS: FAMOTIDINE 20 MG TAB PO SCH (20:56)
[2016-10-05] MEDS: INSULIN GLARGINE [LANtus] 3 ML PEN SC SCH (20:58)
[2016-10-05] MEDS: ALBUTEROL 0.083% (NEB) 2.5 MG/3 ML AMP HHN PRN (21:40)
[2016-10-06] VITALS (10 sets, daily range): BP systolic 114–154; BP diastolic 51–70; PULSE 71–98; RESP 18–20
[2016-10-06] MEDS: ACCUCHECK AT 2AM (Patients on SS coverage) XX SCH (02:00)
[2016-10-06 07:41] LABS: ADD SCAN DIFF NO
[2016-10-06 07:53] LABS: BASOPHILS % 0.4 % (0.0-2.0); EOSINOPHILS # 0.3 10^3/ul (0.0-0.5); EOSINOPHILS % 4.5 % (0.0-7.0); HEMATOCRIT 28.5 % (37.0-47.0); HEMOGLOBIN 8.7 g/dl (12.0-16.0); LYMPHOCYTES % 13.6 % (15.0-51.0); MEAN CORPUSCULAR HGB CONC 30.5 g/dl (32.0-37.0); MEAN CORPUSCULAR VOLUME 85.3 fl (82.0-101.0); MEAN PLATELET VOLUME 10.2 fl (7.4-10.4); MONOCYTE # 0.9 10^3/ul (0.3-0.9); MONOCYTES % 11.7 % (0.0-11.0); NEUTROPHIL # 5.1 10^3/ul (1.6-7.5); NEUTROPHILS % 69.5 % (39.0-77.0); PLATELET COUNT 352 10^3/UL (140-415); RED BLOOD COUNT 3.34 10^6/ul (4.20-5.40); RED CELL DISTRIBUTION WIDTH 15.9 % (11.5-14.5); WHITE BLOOD COUNT 7.4 10^3/ul (4.8-10.8)
[2016-10-06] MEDS: INSULIN ASPART [NOVOLOG] 3 ML PEN SC SCH ×4 (08:00→21:35)
[2016-10-06 08:20] LABS: CALCIUM 9.3 mg/dl (8.4-10.2); CREATININE 1.49 mg/dl (0.44-1.00); POTASSIUM 5.2 mmol/L (3.5-5.1)
[2016-10-06] MEDS: ASPIRIN (EC) 81 MG TAB PO SCH (08:32)
[2016-10-06] MEDS: LORATADINE 10 MG TAB PO SCH (08:32)
[2016-10-06] MEDS: SALMETEROL/FLUTICASONE 250/50 INHA INH SCH ×2 (08:32→21:30)
[2016-10-06] MEDS: FERROUS SULFATE (EC) 325 MG TAB PO SCH (08:32)
[2016-10-06] MEDS: FUROSEMIDE 40 MG INJ IV SCH (08:33)
[2016-10-06] MEDS: HEPARIN 5,000 UNIT/0.5 ML VIAL SC SCH ×2 (08:35→21:35)
--- NOTE | 2016-10-06 11:58 | RADRPT ---
PROCEDURE: XR Chest. CLINICAL INDICATION: Shortness of breath. TECHNIQUE: Single frontal view of the chest was obtained COMPARISON: Chest x-ray 10/03/2016 09:44 p.m. FINDINGS: The soft tissues are normal. The bony elements are normal. The heart is enlarged. The cardiomedia stinal silhouette and hilar structures are normal. The pulmonary vasculature is equilibrated. There is a left-sided aorta. The lungs are clear. The costophrenic angles are normal. IMPRESSION: 1. Cardiomegaly. 2. Mild pulmonary venous obstruction which is unchanged. RPTAT:AAJJ Physician Mu Date Time Electronically viewed and signed by Andi Blue Physician on 10/06/2016 11:58 /
--- NOTE | 2016-10-06 13:09 | PN ---
Date/Time of Note Date/Time of Note DATE: 10/06/16 TIME: 13:08 Assessment/Plan VTE Prophylaxis VTE Prophylaxis Intervention: heparin Lines/Catheters IV [facility] Saline Lock Urinary Cath still in place: No Assessment/Plan Assessment/Plan 1. CHF exacerbation,acute, diastolic 2. Asthma exacerbation 3. Acute renal failure r/o ckd 4. Hypochromic anemia r/o iron deficiency 5. Hyperkalemia 2/2 #3 6. Diabetes type 2 PLAN: * ECHo showed EF 50%, stage I DD * Renal US showed medical renal disease * Iron profile * Continue gentle diuresis downgrade to med/surge Prophylaxis: Heparin / pepcid Subjective 24 Hr Interval Summary Free Text/Dictation less SOb, doing better, ECHO showed EF 50%, stage I Disastolic dysfunction Exam/Review of Systems Vital Signs Vitals Vital Signs Date Time Temp Pulse Resp B/P Pulse Ox O2 Delivery O2 Flow Rate FiO2 10/06/16 12:14 97.6 99 19 132/60 96 10/05/16 21:41 21 10/05/16 05:16 2.0 10/04/16 12:56 Nasal Cannula Intake and Output 10/05/16 10/05/16 10/06/16 15:00 23:00 07:00 Intake Total 1610 ml 400 ml Balance 1610 ml 400 ml Results Result Diagram: 10/06/16 0659 10/06/16 0656 Results 24 hrs Laboratory Tests Test 10/05/16 17:11 10/05/16 20:20 10/06/16 06:56 10/06/16 06:59 Bedside Glucose 158 166 Sodium Level 139 Potassium Level 5.2 H Chloride Level 105 Carbon Dioxide Level 26 Anion Gap 13 Blood Urea Nitrogen 43 #H Creatinine 1.49 H Glucose Level 117 Calcium Level 9.3 White Blood Count 7.4 # Red Blood Count 3.34 L Hemoglobin 8.7 L Hematocrit 28.5 L Mean Corpuscular Volume 85.3 Mean Corpuscular Hemoglobin 26.0 L Mean Corpuscular Hemoglobin Concent 30.5 L Red Cell Distribution Width 15.9 H Platelet Count 352 # Mean Platelet Volume 10.2 Neutrophils % 69.5 Lymphocytes % 13.6 L Monocytes % 11.7 H Eosinophils % 4.5 Basophils % 0.4 Nucleated Red Blood Cells % 0.0 Neutrophils # 5.1 Lymphocytes # 1.0 Monocytes # 0.9 Eosinophils # 0.3 Basophils # 0.0 Nucleated Red Blood Cells # 0.0 B-Type Natriuretic Peptide 1160 H Test 10/06/16 07:36 10/06/16 12:11 Bedside Glucose 117 147 Medications Medications Current Medications Acetaminophen (Tylenol Tab) 650 mg Q6H PRN PO PAIN LEVEL 1-3 OR FEVER Last administered on 10/05/16 23:27; Admin Dose 650 MG; Start 10/04/16 at 02:00 Ferrous Sulfate (Ferrous Sulfate (Ec)) 325 mg DAILY PO Last administered on 10/06 08:32; Admin Dose 325 MG; Start 10/04/16 at 09:00 Hydralazine HCl (Apresoline) 75 mg BID PO Last administered on 10/06/16 08:33; Admin Dose 75 MG; Start 10/04/16 at 09:00 Insulin Glargine (Lantus) 60 unit QHS SC Last administered on 10/05/16 20:58; Admin Dose 60 UNIT; Start 10/04/16 at 21:00 Loratadine (Claritin) 10 mg DAILY PO Last administered on 10/06/16 08:32; Admin Dose 10 MG; Start 10/04/16 at 09:00 Montelukast Sodium (Singulair) 10 mg QHS PO Last administered on 10/05/16 20:56 ; Admin Dose 10 MG; Start 10/04/16 at 21:00 Metoclopramide HCl (Reglan) 10 mg Q6 PRN IV NAUSEA AND/OR VOMITING; Start at 02:00 Diagnostic Test (Pha) (Accu-Chek) 1 ea 02 XX ; Start 10/05/16 at 02:00 Miscellaneous Information 1 ea NOTE XX ; Start 10/04/16 at 02:30 Glucose (Glutose) 15 gm Q15M PRN PO DECREASED GLUCOSE; Start 10/04/16 at 02:30 Glucose (Glutose) 22.5 gm Q15M PRN PO DECREASED GLUCOSE; Start 10/04/16 at 02:30 Dextrose (D50w Syringe) 25 ml Q15M PRN IV DECREASED GLUCOSE; Start 10/04/16 at 02:30 Dextrose (D50w Syringe) 50 ml Q15M PRN IV DECREASED GLUCOSE; Start 10/04/16 at 02:30 Glucagon (Glucagen) 1 mg Q15M PRN IM DECREASED GLUCOSE; Start 10/04/16 at 02:30 Glucose (Glutose) 15 gm Q15M PRN BUCCAL DECREASED GLUCOSE; Start 10/04/16 at 02: 30 Atorvastatin Calcium (Lipitor) 10 mg DAILY@21 PO Last administered on 10/05/16 20:56; Admin Dose 10 MG; Start 10/04/16 at 21:00 Salmeterol Xinafoate/ Fluticasone (Advair 250/50 Diskus) 1 inh BID INH Last administered on 10/06/16 08:32; Admin Dose 1 INH; Start 10/04/16 at 09:00 Furosemide (Lasix) 40 mg DAILY IV Last administered on 10/06/16 08:33; Admin Dose 40 MG; Start 10/05/16 at 09:00; Stop 10/07/16 at 08:59 Aspirin 81 mg 81 mg DAILY PO Last administered on 10/06/16 08:32; Admin Dose 81 MG; Start 10/05/16 at 09:00 Ferric Sodium Gluconate Complex/ Sodium Chloride (Ferrlecit/NS) 110 ml @ 100 mls/hr Q24H IVPB Last administered on 10/05/16 17:23; Admin Dose 100 MLS/HR; Start 10/04/16 at 18:00; Stop 10/06/16 at 19:05 Heparin Sodium (Porcine) (Heparin (5000 Units/0.5 ml)) 5,000 unit BID SC Last administered on 10/06/16 08:35; Admin Dose 5,000 UNIT; Start 10/04/16 at 21:00 Famotidine (Pepcid) 20 mg Q24H PO Last administered on 10/05/16 20:56; Admin Dose 20 MG; Start 10/04/16 at 21:00 JENNIFER ONEILL MD Oct 06, 2016 13:09
[2016-10-06] MEDS: SOD FERRIC GLUC COMPLX 125 MG in SOD CHLORIDE 0.9% 100 ML IVPB SCH (17:18)
[2016-10-06] MEDS: ZOLPIDEM 5 MG TAB PO PRN (21:31)
[2016-10-06] MEDS: ATORVASTATIN 10 MG TAB PO SCH (21:31)
[2016-10-06] MEDS: MONTELUKAST 10 MG TAB PO SCH (21:31)
[2016-10-06] MEDS: FAMOTIDINE 20 MG TAB PO SCH (21:31)
[2016-10-06] MEDS: INSULIN GLARGINE [LANtus] 3 ML PEN SC SCH (21:34)
[2016-10-06] MEDS: ALBUTEROL 0.083% (NEB) 2.5 MG/3 ML AMP HHN PRN (21:50)
[2016-10-07 01:50] VITALS: BP 140/58; RESP 20
[2016-10-07] MEDS: ACCUCHECK AT 2AM (Patients on SS coverage) XX SCH (02:00)
[2016-10-07] MEDS: ACETAMINOPHEN 325 MG TAB PO PRN (02:20)
[2016-10-07 05:40] LABS: ADD SCAN DIFF NO
[2016-10-07 05:48] LABS: BASOPHILS % 0.4 % (0.0-2.0); EOSINOPHILS # 0.4 10^3/ul (0.0-0.5); EOSINOPHILS % 3.8 % (0.0-7.0); HEMATOCRIT 28.6 % (37.0-47.0); HEMOGLOBIN 8.8 g/dl (12.0-16.0); LYMPHOCYTES # 1.3 10^3/ul (0.8-2.9); LYMPHOCYTES % 14.6 % (15.0-51.0); MEAN CORPUSCULAR HEMOGLOBIN 26.2 pg (29.0-33.0); MEAN CORPUSCULAR HGB CONC 30.8 g/dl (32.0-37.0); MEAN CORPUSCULAR VOLUME 85.1 fl (82.0-101.0); MEAN PLATELET VOLUME 10.1 fl (7.4-10.4); MONOCYTE # 1.1 10^3/ul (0.3-0.9); NEUTROPHIL # 6.3 10^3/ul (1.6-7.5); NEUTROPHILS % 68.9 % (39.0-77.0); PLATELET COUNT 342 10^3/UL (140-415); RED BLOOD COUNT 3.36 10^6/ul (4.20-5.40); RED CELL DISTRIBUTION WIDTH 16.1 % (11.5-14.5); WHITE BLOOD COUNT 9.2 10^3/ul (4.8-10.8)
[2016-10-07 07:00] LABS: CREATININE 1.48 mg/dl (0.44-1.00); POTASSIUM 4.4 mmol/L (3.5-5.1)
[2016-10-07] MEDS: INSULIN ASPART [NOVOLOG] 3 ML PEN SC SCH ×2 (07:50→11:40)
[2016-10-07 08:21] VITALS: BP 121/58; RESP 20
[2016-10-07] MEDS ORDERED: FUROSEMIDE 20 MG INJ IV SCH (09:00)
[2016-10-07] MEDS: SALMETEROL/FLUTICASONE 250/50 INHA INH SCH (09:27)
[2016-10-07] MEDS: FERROUS SULFATE (EC) 325 MG TAB PO SCH (09:28)
[2016-10-07] MEDS: LORATADINE 10 MG TAB PO SCH (09:28)
[2016-10-07] MEDS: ASPIRIN (EC) 81 MG TAB PO SCH (09:28)
[2016-10-07] MEDS: HEPARIN 5,000 UNIT/0.5 ML VIAL SC SCH (09:53)
--- NOTE | 2016-10-07 12:58 | PN ---
Date/Time of Note Date/Time of Note DATE: 10/07/16 TIME: 12:57 Assessment/Plan VTE Prophylaxis VTE Prophylaxis Intervention: SCD's Lines/Catheters IV [facility] Type (from [facility]): Saline Lock Urinary Cath still in place: No Assessment/Plan Assessment/Plan 1. CHF exacerbation,acute, diastolic 2. Asthma exacerbation 3. Acute renal failure r/o ckd 4. Hypochromic anemia r/o iron deficiency 5. Hyperkalemia 2/2 #3 6. Diabetes type 2 PLAN: * ECHo showed EF 50%, stage I DD * Renal US showed medical renal disease * Iron profile * Continue gentle diuresis downgrade to med/surge Prophylaxis: Heparin / pepcid Subjective 24 Hr Interval Summary Free Text/Dictation doing better, SOB better, no complaints Exam/Review of Systems Vital Signs Vitals Vital Signs Date Time Temp Pulse Resp B/P Pulse Ox O2 Delivery O2 Flow Rate FiO2 10/07/16 08:21 98.3 77 20 121/58 97 10/06/16 21:52 21 10/05/16 05:16 2.0 10/04/16 12:56 Nasal Cannula Intake and Output 10/06/16 10/06/16 10/07/16 15:00 23:00 07:00 Intake Total 1100 ml 750 ml Output Total 700 ml Balance 1100 ml 50 ml Results Result Diagram: 10/07/160 10/07/160 Results 24 hrs Laboratory Tests Test 10/06/16 17:17 10/06/16 20:50 10/07/16 02:17 10/07/16 04:40 Bedside Glucose 146 197 137 White Blood Count 9.2 # Red Blood Count 3.36 L Hemoglobin 8.8 L Hematocrit 28.6 L Mean Corpuscular Volume 85.1 Mean Corpuscular Hemoglobin 26.2 L Mean Corpuscular Hemoglobin Concent 30.8 L Red Cell Distribution Width 16.1 H Platelet Count 342 Mean Platelet Volume 10.1 Neutrophils % 68.9 Lymphocytes % 14.6 L Monocytes % 12.0 H Eosinophils % 3.8 Basophils % 0.4 Nucleated Red Blood Cells % 0.0 Neutrophils # 6.3 Lymphocytes # 1.3 Monocytes # 1.1 H Eosinophils # 0.4 Basophils # 0.0 Nucleated Red Blood Cells # 0.0 Sodium Level 139 Potassium Level 4.4 Chloride Level 105 Carbon Dioxide Level 25 Anion Gap 13 Blood Urea Nitrogen 42 H Creatinine 1.48 H Glucose Level 110 Calcium Level 9.0 Test 10/07/16 07:52 10/07/16 12:32 Bedside Glucose 89 132 Medications Medications Current Medications Acetaminophen (Tylenol Tab) 650 mg Q6H PRN PO PAIN LEVEL 1-3 OR FEVER Last administered on 10/07/16 02:20; Admin Dose 650 MG; Start 10/04/16 at 02:00 Ferrous Sulfate (Ferrous Sulfate (Ec)) 325 mg DAILY PO Last administered on 10/07 09:28; Admin Dose 325 MG; Start 10/04/16 at 09:00 Hydralazine HCl (Apresoline) 75 mg BID PO Last administered on 10/07/16 09:29; Admin Dose 75 MG; Start 10/04/16 at 09:00 Insulin Glargine (Lantus) 60 unit QHS SC Last administered on 10/06/16 21:34; Admin Dose 60 UNIT; Start 10/04/16 at 21:00 Loratadine (Claritin) 10 mg DAILY PO Last administered on 10/07/16 09:28; Admin Dose 10 MG; Start 10/04/16 at 09:00 Montelukast Sodium (Singulair) 10 mg QHS PO Last administered on 10/06/16 21:31 ; Admin Dose 10 MG; Start 10/04/16 at 21:00 Metoclopramide HCl (Reglan) 10 mg Q6 PRN IV NAUSEA AND/OR VOMITING; Start at 02:00 Diagnostic Test (Pha) (Accu-Chek) 1 ea 02 XX ; Start 10/05/16 at 02:00 Miscellaneous Information 1 ea NOTE XX ; Start 10/04/16 at 02:30 Glucose (Glutose) 15 gm Q15M PRN PO DECREASED GLUCOSE; Start 10/04/16 at 02:30 Glucose (Glutose) 22.5 gm Q15M PRN PO DECREASED GLUCOSE; Start 10/04/16 at 02:30 Dextrose (D50w Syringe) 25 ml Q15M PRN IV DECREASED GLUCOSE; Start 10/04/16 at 02:30 Dextrose (D50w Syringe) 50 ml Q15M PRN IV DECREASED GLUCOSE; Start 10/04/16 at 02:30 Glucagon (Glucagen) 1 mg Q15M PRN IM DECREASED GLUCOSE; Start 10/04/16 at 02:30 Glucose (Glutose) 15 gm Q15M PRN BUCCAL DECREASED GLUCOSE; Start 10/04/16 at 02: 30 Atorvastatin Calcium (Lipitor) 10 mg DAILY@21 PO Last administered on 10/06/16 21:31; Admin Dose 10 MG; Start 10/04/16 at 21:00 Salmeterol Xinafoate/ Fluticasone (Advair 250/50 Diskus) 1 inh BID INH Last administered on 10/07/16 09:27; Admin Dose 1 INH; Start 10/04/16 at 09:00 Aspirin (Halfprin) 81 mg DAILY PO Last administered on 10/07/16 09:28; Admin Dose 81 MG; Start 10/05/16 at 09:00 Heparin Sodium (Porcine) (Heparin (5000 Units/0.5 ml)) 5,000 unit BID SC Last administered on 10/07/16 09:53; Admin Dose 5,000 UNIT; Start 10/04/16 at 21:00 Famotidine (Pepcid) 20 mg Q24H PO Last administered on 10/06/16 21:31; Admin Dose 20 MG; Start 10/04/16 at 21:00 Furosemide (Lasix) 20 mg DAILY IV Last administered on 10/07/16 09:29; Admin Dose 20 MG; Start 10/07/16 at 09:00 JENNIFER ONEILL MD Oct 07, 2016 12:58
--- NOTE | 2016-10-07 12:59 | PDOCDIS ---
Discharge Instructions CONDITION Patient Condition: Good HOME CARE INSTRUCTIONS: Special Diet: 1800 yordan ada ACTIVITY: Activity Restrictions: Slowly Increase Activity Rest between Activity Avoid heavy lifting Avoid Heavy Housework FOLLOW UP/APPOINTMENTS Appointments follow up with her own PMD through HMO insurance in 1-2 week after discharge. JENNIFER ONEILL MD Oct 07, 2016 12:59
[2016-10-07] MEDS ORDERED: POTA10TA37 PO (13:00)
[2016-10-07] MEDS ORDERED: FURO40TA4 PO (13:00)
--- NOTE | 2016-10-11 17:04 | DS ---
DATE OF ADMISSION: 10/03/2016 DATE OF DISCHARGE: 10/07/2016 FINAL DISCHARGE DIAGNOSES: 1. Acute congestive heart failure exacerbation, diastolic. 2. Acute asthma exacerbation. 3. Acute kidney injury secondary to possible prerenal azotemia. 4. History of chronic kidney disease secondary to diabetic nephropathy. 5. Acute hyperkalemia secondary to acute kidney injury. 6. Iron deficiency anemia. 7. History of diabetes mellitus type 2. CONSULTATIONS DONE DURING THIS HOSPITALIZATION: None. PROCEDURES PERFORMED DURING THIS HOSPITALIZATION: The patient had an echocardiogram done during thi s hospitalization which shows ejection fraction of 50% with stage I diastolic dysfunction. HOSPITAL COURSE: This is a 50-year-old female with a past medical history of hypertension, hyperlip idemia, history of chronic kidney disease secondary to diabetic nephropathy, who presented with a co mplaint of shortness of breath. She was admitted for acute congestive heart failure exacerbation, w hich was acute on chronic with diastolic heart failure. She was diuresed with IV Lasix while being in the hospital. The patient had a 2D echocardiogram done which revealed ejection fraction 50% with stage I diastolic dysfunction. She remained symptomatically better. Her heart failure was improve d. She also had mild acute asthma exacerbation, which was treated with IV Solu-Medrol, , IV Le vaquin. She symptomatically got better. After getting stable vital signs and stable symptoms, she is getting discharged to home. DISPOSITION: To home. DISCHARGE CONDITION: Stable and improved compared to admission. DISCHARGE ACTIVITIES: As tolerated, slowly resume to normal baseline activities. DISCHARGE DIET: Low fat, low sodium diet. DISCHARGE MEDICATIONS: As per medical reconciliation. She is given prescriptions of Lasix 40 mg p. o. b.i.d. upon discharge, potassium chloride 10 mEq p.o. daily. DISCHARGE FOLLOWUP/INSTRUCTIONS: 1. The patient is to follow up with her own primary care doctor through her HMO insurance 1 to 2 we eks after discharge. 2. The patient is to follow up with Dr. Jennifer Oneill in outpatient nephrology clinic 1 to 2 weeks after discharge. She has been explained about the discharge plan and followup instructions. She un derstood and verbalized understanding. Dictated By: JENNIFER ONEILL MD, KP/EDUARDO Conf#: [id number] DID#: [id number]
== END 2016-10-07 17:20 | disposition home or self-care (01) | DRG 291 ==
LOC: E/R 19:14 → MS4 22:41 → E/R 10-04 14:10 → MS1 10-06 23:28
PROVIDERS: ADMIT Family Medicine; ATTEND Family Medicine
DX: I13.0 Hypertensive heart and chronic kidney disease with heart failure and stage 1 through stage 4 chronic kidney disease, or unspecified chronic kidney disease (principal); I50.33 Acute on chronic diastolic (congestive) heart failure; N17.9 Acute kidney failure, unspecified; E11.21 Type 2 diabetes mellitus with diabetic nephropathy; J45.901 Unspecified asthma with (acute) exacerbation; E87.6 Hypokalemia; E11.9 Type 2 diabetes mellitus without complications; D50.9 Iron deficiency anemia, unspecified; N18.9 Chronic kidney disease, unspecified; M54.5 Low back pain; Z79.4 Long term (current) use of insulin
CPT/HCPCS: 36415; 71010; 76775; 80048; 80053; 80061; 80076; 81001; 81003; 82550; 82553; 82962; 83036; 83540; 83690; 83735; 83880; 84100; 84443; 84484; 85025; 93005; 93306; 94640; 94664; 96372; 96374; 96375; J1940; J1644; J1815; J2270; J2405; J2916

== ENCOUNTER 2016-10-13 14:37 | Outpatient (CLI) | payer OTHER ==
[~2016-10-13] VITALS: Ht 152.4 cm; Wt 111.4 kg
[~2016-10-13 14:37] MED LIST: ACET1TAB40 PO; ALBU18HF INHALATION; AMLO-147 PO; BISA5TAB6 PO; FER325 PO; FLUT16SP17 NASAL; FURO40TA4 PO; HYDR-3672 PO; INSU100C SQ; LANT3I SC; LISI10TA2 PO; LORA10TA3 PO; METF1000 PO; MOME13HF INHALATION; MONT10TA24 PO; POTA10TA37 PO; PRAV40TA76 PO
[2016-10-13 14:43] VITALS: BP 118/58; PULSE 88; RESP 18; Ht 152.4 cm; Wt 111.4 kg
--- NOTE | 2016-10-13 15:20 | PN ---
Date/Time of Note Date/Time of Note DATE: 10/13/16 TIME: 15:14 Outpatient Progress Note Chief Complaint CHF/diabetes/asthma/anemia/hypertension/rheumatoid arthritis/renal insufficiency HPI CHF/patient was recently admitted with a CHF, patient denies any chest pain, no shortness of breath, no palpitation, ankle edema, improved significantly, Diabetes/no polydipsia polyuria hypoglycemia, gastroparesis, patient on insulin and oral medication, Asthma/no cough expectoration or wheezing, hemoptysis, on medication, Hypertension/no headache or dizziness, no local focal weakness, Rheumatoid arthritis/patient has slight back discomfort, no loss of bladder or bowel control, Renal insufficiency/no nausea vomiting, no pruritus, BUN/creatinine widely improved, Review of Systems Const: No Fever, no chills, no Wt. loss, no Fatigue, normal appetite, no diaphoresis. Eyes: No pain, no discharge, no redness, no visual change, no foreign body. ENT: No pain, no bleeding, no congestion, no sore throat, no dysphagia, no discharge or rhinitis. Lymph: No adenopathy, no tender nodes, no lymphedema. Resp: No SOB, no cough, no sputum, no wheezing, no chest pain. CV: No chest pain, no palpitaions, no DAVIDSON, no PND, no edema. GI: Normal appetite, no pain, no nausea, no vomiting, no diarrhea, no blood, no constipation. : No frequency, no urgency, no dysuria, no hematuria, no flank pain, no discharge, no bleeding. Musc: No bone/joint pain, no back pain, no neck pain, no knee pain, no restricted ROM. Skin: No rash, no skin lesions, no erythema, no laceration, no bruising, no pruritus. Neuro: No ZIMMERMAN, no dizziness, no syncope, no seizure, no focal-weakness. Endo: No polyuria, no polydypsia, no dry-skin, no temp-intolerance. Psych: No hallucinations, no depression, no anxiety, no suicidal ideation. Ext: No edema, no pain, no ulcer, no weakness. Physical Exam Vital Signs Date Time Temp Pulse Resp B/P Pulse Ox O2 Delivery O2 Flow Rate FiO2 10/13/16 14:43 98.6 88 18 118/58 93 Room Air General Appearance: A 50 year-old [female who appears well-developed, well- nourished, morbidly obese, in no acute distress. HEENT: Head normocephalic, atraumatic. Pupils equal, round, reactive to light and accommodate. Sclerae are no jaundice. Nasal turbinates pink without erythema or nasal discharge. Mucous membranes pink and moist without lesions. Oropharynx clear without any exudate or discharge. NECK: Supple. Trachea midline, No thyromegaly, No cervical lymphadenopathy, No mass, No carotid bruits, No JVD, Carotid pulses 2+ bilaterally. PULMONARY: Clear to auscultaion bilaterally, No retractions, Chest expansion symmetric bilaterally, no rales, no ronchi, no dulness on percussion. CARDIAC: Normal SI and S2, Regular rate and rythm, no murmur, gallop, or rub. GASTROINTESTINAL: Abdomen is soft, non-tender, Non Rigid, No distention, Positive bowel sounds x4 quadrants, Liver normal. SKIN: Warm, dry, no rash, no bruise, no echmosis. EXTREMITIES: Bilateral lower extremities normal, no edema, no phlabitus, pulse palpable, no contracture. MUSCULOSKELETAL: Spine Normal, Non-tender, Normal range of motion, No swelling, no deformity, no clubbing, or cyanosis, the patient has no edema to bilateral lower extremities, dorsalis pedis pulses palpable bilaterally. NEUROLOGIC: The patient is awake, alert, oriented, responding to yes/no questions appropriately, moving all extremities, cranial nerve intact, normal strenght, normal power, normal coordination, normal gait. Allergies Coded Allergies: theophylline (Verified Allergy, Unknown, 10/03/16) PMH Diabetes/hypertension/asthma/anemia/renal insufficiency/CHF/rheumatoid arthritis /back pain Social Hx No smoking no drinking, Family Hx Noncontributory Assessment/Plan Impression CHF improving/diabetes/ asthma/hypertension/rheumatoid arthritis/renal insufficiency Plan Patient education done about diabetes hypertension renal failure and medication , patient on metformin, when patient went to the hospital patient BUN was 58, and creatinine was 1.6, on a discharge BUN was 42, and creatinine was 1.4, Patient was put on Lasix, 1 twice a day dose, patient BUN and creatinine will go up, Patient advised to stop metformin, and will start Januvia, will start 100 mg p.o. daily, CBC and CMP in 2 weeks, patient to follow with the primary care physician, patient advised to lose weight, if she gained significant weight to check with the primary care physician, risks and complications of diabetes hypertension renal insufficiency explained to the patient, Patient very high risk for repeated admission in future, Patient does not have ferrous sulfate, will start give prescription ferrous sulfate 325 3 times daily, Medications Home Meds Active Scripts Potassium Chloride* (K-Dur*) 10 Meq Tab.prt.sr, 10 MEQ PO DAILY, #90 TAB Prov:JENNIFER ONEILL MD 10/07/16 Furosemide* (Furosemide*) 40 Mg Tablet, 40 MG PO BID, #180 TAB Prov:JENNIFER ONEILL MD 10/07/16 Reported Medications Insulin Lispro (Humalog) 100 Unit/1 Ml Cartridge, 5-10 UNIT SQ BEFORE MEALS 10/03/16 Insulin Glargine* (Lantus*) 100 Unit/Ml Soln, 60 UNIT SC QHS, #1 VIAL 10/03/16 Mometasone-Formoterol (Dulera) 200-5 Mcg/Inh - 13 Gm Hfa.aer.ad, 2 PUFFS INHALATION BID, #1 INHALER 10/03/16 Albuterol Sulfate* (Ventolin HFA*) 18 Gm Hfa.aer.ad, 2 PUFF INHALATION Q4H, #1 INHALER 10/03/16 Bisacodyl* (Bisacodyl*) 5 Mg Tablet.dr, 10 MG PO DAILY Y for CONSTIPATION, TAB 10/03/16 Amlodipine Besylate* (Amlodipine Besylate*) 10 Mg Tablet, 10 MG PO DAILY, #30 TAB 10/03/16 Hydralazine Hcl* (Hydralazine Hcl*) 50 Mg Tab, 75 MG PO BID, #60 TAB 10/03/16 Pravastatin Sodium* (Pravastatin Sodium*) 40 Mg Tablet, 40 MG PO HS, TAB 10/03/16 Montelukast Sodium* (Montelukast Sodium*) 10 Mg Tablet, 10 MG PO QHS, #30 TAB 10/03/16 Ferrous Sulfate* (Ferrous Sulfate*) 325 Mg Tabec, 325 MG PO DAILY, TAB 10/03/16 Loratadine* (Loratadine*) 10 Mg Tablet, 10 MG PO DAILY, #30 TAB 10/03/16 Lisinopril* (Lisinopril*) 10 Mg Tablet, 10 MG PO DAILY, #30 TAB 10/03/16 Metformin Hcl* (Metformin Hcl*) 1,000 Mg Tablet, 1000 MG PO WITH BREAKFAST DINNE , #60 TAB 10/03/16 Fluticasone Propionate* (Fluticasone Propionate* Nasal) 50 Mcg/[place] - 16 Gm [place].susp, 1 SPRAY NASAL BID, #1 BOTTLE TO EACH NOSTRIL 10/03/16 Discontinued Reported Medications Acetaminophen with Codeine (Acetaminophen-Cod #3 Tablet) 1 Each Tablet, 1 TAB PO Q6H, #20 TAB 10/03/16 GAIL ONEILL MD Oct 13, 2016 15:20
== END 2016-10-13 16:22 | disposition home or self-care (01) ==
LOC: DCC 14:37
PROVIDERS: ATTEND Internal Medicine
DX: I50.9 Heart failure, unspecified (principal); J45.909 Unspecified asthma, uncomplicated; I10 Essential (primary) hypertension; M06.9 Rheumatoid arthritis, unspecified; N28.9 Disorder of kidney and ureter, unspecified

== ENCOUNTER 2016-10-27 14:42 | Outpatient (CLI) | payer OTHER ==
[~2016-10-27] VITALS: Ht 152.4 cm; Wt 112.3 kg
[~2016-10-27 14:42] MED LIST changes: -ACET1TAB40 PO
[2016-10-27 14:49] VITALS: BP 153/71; PULSE 90; RESP 18; Ht 152.4 cm; Wt 112.3 kg
--- NOTE | 2016-10-27 15:22 | PN ---
Date/Time of Note Date/Time of Note DATE: 10/27/16 TIME: 15:18 Outpatient Progress Note Chief Complaint Edema/diabetes/asthma/anemia/hypertension/renal insufficiency HPI Ankle edema/patient has minimal ankle edema, no chest pain, no PND orthopnea, patient not drinking a lot of fluid, Diabetes/no polydipsia polyuria hypoglycemia, gastroparesis, blood sugar 90 and Asthma/no cough expectoration, no wheezing, no chest tightness, on medication, Anemia/no hematemesis or melena, no fatigue, no bleeding, Hypertension/no headache or dizziness, patient blood pressure at home 120 or 130 systolic, patient just walked him in few minutes ago, Renal insufficiency/no nausea vomiting, no pruritus, Review of Systems Const: [No Fever, no chills, no Wt. loss, no Fatigue, normal appetite, no diaphoresis.] Eyes: [No pain, no discharge, no redness, no visual change, no foreign body.] ENT: [No pain, no bleeding, no congestion, no sore throat, no dysphagia, no discharge or rhinitis.] Lymph: [No adenopathy, no tender nodes, no lymphedema.] Resp: [No SOB, no cough, no sputum, no wheezing, no chest pain.] CV: [No chest pain, no palpitaions, no DAVIDSON, no PND, no edema.] GI: [Normal appetite, no pain, no nausea, no vomiting, no diarrhea, no blood, no constipation.] : [No frequency, no urgency, no dysuria, no hematuria, no flank pain, no discharge, no bleeding.] Musc: [No bone/joint pain, no back pain, no neck pain, no knee pain, no restricted ROM.] Skin: [No rash, no skin lesions, no erythema, no laceration, no bruising, no pruritus.] Neuro: [No ZIMMERMAN, no dizziness, no syncope, no seizure, no focal-weakness.] Endo: [No polyuria, no polydypsia, no dry-skin, no temp-intolerance.] Psych: [No hallucinations, no depression, no anxiety, no suicidal ideation.] Ext::Mild ankle edema, no pain, no ulcer, no weakness.] Physical Exam Vital Signs Date Time Temp Pulse Resp B/P Pulse Ox O2 Delivery O2 Flow Rate FiO2 10/27/16 14:49 98.6 90 18 153/71 93 Room Air General Appearance: A [50year-old [female[who appears well-developed, well- nourished,morbidly obese, in no acute distress.] HEENT: [Head normocephalic, atraumatic. Pupils equal, round, reactive to light and accommodate. Sclerae are no jaundice. Nasal turbinates pink without erythema or nasal discharge. Mucous membranes pink and moist without lesions. Oropharynx clear without any exudate or discharge.] NECK: [Supple. Trachea midline, No thyromegaly, No cervical lymphadenopathy, No mass, No carotid bruits, No JVD, Carotid pulses 2+ bilaterally.] PULMONARY: [Clear to auscultaion bilaterally, No retractions, Chest expansion symmetric bilaterally, no rales, no ronchi, no dulness on percussion.] CARDIAC: [Normal SI and S2, Regular rate and rythm, no murmur, gallop, or rub.] GASTROINTESTINAL: [Abdomen is soft, non-tender, Non Rigid, No distention, Positive bowel sounds x4 quadrants, Liver normal.] SKIN: [Warm, dry, no rash, no bruise, no echmosis.] EXTREMITIES: [Bilateral lower extremities mild ankle edema, no phlabitus, pulse palpable, no contracture.] MUSCULOSKELETAL: [Spine Normal, Non-tender, Normal range of motion, No swelling , no deformity, no clubbing, or cyanosis, the patient has no edema to bilateral lower extremities, dorsalis pedis pulses palpable bilaterally.] NEUROLOGIC: [The patient is awake, alert, oriented, responding to yes/no questions appropriately, moving all extremities, cranial nerve intact, normal strenght, normal power, normal coordination, normal gait.] Allergies Coded Allergies: theophylline (Verified Allergy, Unknown, 10/03/16) PMH No change Social Hx No change Family Hx No change Assessment/Plan Impression Minimal ankle edema/diabetes/asthma/anemia/hypertension/renal insufficiency Plan Continue all medication, patient has all medication, patient education done, if ankle edema get worse to call the primary care physician's immediately, and patient encouraged to see primary care physician, Patient education done about about disease, Patient has all the medication, no need for new medication, at present, Patient's ankle edema could be secondary to medication, will monitor closely, and patient is not drinking a lot of fluid, so we'll check the kidney functions also, patient to follow with the primary care physician for further lab work, Medications Home Meds Active Scripts Potassium Chloride* (K-Dur*) 10 Meq Tab.prt.sr, 10 MEQ PO DAILY, #90 TAB Prov:JENNIFER ONEILL MD 10/07/16 Furosemide* (Furosemide*) 40 Mg Tablet, 40 MG PO BID, #180 TAB Prov:JENNIFER ONEILL MD 10/07/16 Reported Medications Insulin Lispro (Humalog) 100 Unit/1 Ml Cartridge, 5-10 UNIT SQ BEFORE MEALS 10/03/16 Insulin Glargine* (Lantus*) 100 Unit/Ml Soln, 60 UNIT SC QHS, #1 VIAL 10/03/16 Mometasone-Formoterol (Dulera) 200-5 Mcg/Inh - 13 Gm Hfa.aer.ad, 2 PUFFS INHALATION BID, #1 INHALER 10/03/16 Albuterol Sulfate* (Ventolin HFA*) 18 Gm Hfa.aer.ad, 2 PUFF INHALATION Q4H, #1 INHALER 10/03/16 Amlodipine Besylate* (Amlodipine Besylate*) 10 Mg Tablet, 10 MG PO DAILY, #30 TAB 10/03/16 Hydralazine Hcl* (Hydralazine Hcl*) 50 Mg Tab, 75 MG PO BID, #60 TAB 10/03/16 Pravastatin Sodium* (Pravastatin Sodium*) 40 Mg Tablet, 40 MG PO HS, TAB 10/03/16 Montelukast Sodium* (Montelukast Sodium*) 10 Mg Tablet, 10 MG PO QHS, #30 TAB 10/03/16 Ferrous Sulfate* (Ferrous Sulfate*) 325 Mg Tabec, 325 MG PO DAILY, TAB 10/03/16 Loratadine* (Loratadine*) 10 Mg Tablet, 10 MG PO DAILY, #30 TAB 10/03/16 Lisinopril* (Lisinopril*) 10 Mg Tablet, 10 MG PO DAILY, #30 TAB 10/03/16 Metformin Hcl* (Metformin Hcl*) 1,000 Mg Tablet, 1000 MG PO WITH BREAKFAST DINNE , #60 TAB 10/03/16 Fluticasone Propionate* (Fluticasone Propionate* Nasal) 50 Mcg/[place] - 16 Gm [place].susp, 1 SPRAY NASAL BID, #1 BOTTLE TO EACH NOSTRIL 10/03/16 Discontinued Reported Medications Bisacodyl* (Bisacodyl*) 5 Mg Tablet., 10 MG PO DAILY Y for CONSTIPATION, TAB 10/03/16 GAIL ONEILL MD Oct 27, 2016 15:22
== END 2016-10-27 16:00 | disposition home or self-care (01) ==
LOC: DCC 14:42
PROVIDERS: ATTEND Internal Medicine
DX: R60.0 Localized edema (principal); E11.9 Type 2 diabetes mellitus without complications; I10 Essential (primary) hypertension; D64.9 Anemia, unspecified; N28.9 Disorder of kidney and ureter, unspecified; J45.909 Unspecified asthma, uncomplicated

== ENCOUNTER 2017-01-29 11:01 | Inpatient (IN) | payer OTHER ==
[~2017-01-29] VITALS: Ht 154.9 cm; Wt 107.0 kg
[~2017-01-29 11:01] MED LIST changes: -BISA5TAB6 PO
[2017-01-29 11:05] VITALS: Ht 154.9 cm; Wt 107.0 kg
[2017-01-29] MEDS ORDERED: CLINDAMYCIN 900 MG/D5W (PMX) 50 ML IVPB STA (11:35)
[2017-01-29] MEDS ORDERED: PIPER-TAZO 3.375 GM IV (PMX) 100 ML IVPB STA (11:35)
[2017-01-29] MEDS ORDERED: VANCOMYCIN 1 GM (PMX) 250 ML IVPB STA (11:35)
[2017-01-29] MEDS ORDERED: SODIUM CHLORIDE 0.9% 1L BAG IV* STA (11:35)
[2017-01-29] MEDS ORDERED: morphine 4 MG/ML VIAL IV STA (11:39)
[2017-01-29] MEDS ORDERED: ONDANSETRON 4 MG INJ IV STA ×2 (11:39→12:41)
[2017-01-29 11:53] LABS: BASOPHILS % 0.2 % (0.0-2.0); EOSINOPHILS % 0.1 % (0.0-7.0); HEMATOCRIT 25.4 % (37.0-47.0); LYMPHOCYTES # 1.1 10^3/ul (0.8-2.9); MEAN CORPUSCULAR HEMOGLOBIN 27.1 pg (29.0-33.0); MEAN CORPUSCULAR HGB CONC 31.5 g/dl (32.0-37.0); MEAN CORPUSCULAR VOLUME 86.1 fl (82.0-101.0); MEAN PLATELET VOLUME 10.4 fl (7.4-10.4); MONOCYTES % 5.5 % (0.0-11.0); NEUTROPHIL # 15.4 10^3/ul (1.6-7.5); NEUTROPHILS % 87.6 % (39.0-77.0); PLATELET COUNT 250 10^3/UL (140-415); RED BLOOD COUNT 2.95 10^6/ul (4.20-5.40); WHITE BLOOD COUNT 17.6 10^3/ul (4.8-10.8)
[2017-01-29] MEDS ORDERED: TYL500 PO (11:57)
[2017-01-29] MEDS ORDERED: SITA100T8 PO (11:57)
[2017-01-29] MEDS ORDERED: ALLO100T PO (11:58)
[2017-01-29] MEDS ORDERED: LIRA0.6P SQ (11:58)
[2017-01-29 12:12] LABS: ALBUMIN 3.7 g/dl (3.3-4.9); ALBUMIN/GLOBULIN RATIO 0.94; BILIRUBIN,INDIRECT 0.2 mg/dl (0-1.1); BILIRUBIN,TOTAL 0.2 mg/dl (0.2-1.3); CALCIUM 8.5 mg/dl (8.4-10.2); CREATININE 1.98 mg/dl (0.44-1.00); POTASSIUM 4.3 mmol/L (3.5-5.1); TOTAL PROTEIN 7.6 g/dl (6.1-8.1)
[2017-01-29 12:16] LABS: INR 1.07; PROTIME 13.9 Sec (12.2-14.2); PT RATIO 1.1
[2017-01-29 12:17] LABS: PARTIAL THROMBOPLASTIN TIME 35.8 Sec (25.0-35.0)
[2017-01-29 12:22] LABS: TROPONIN-I 0.02 ng/ml (0.00-0.12)
--- NOTE | 2017-01-29 12:22 | RADRPT ---
PROCEDURE: XR Tibia and Fibula. CLINICAL INDICATION: Pain and swelling after fall TECHNIQUE: Two views of the left tibia and fibula are available for review. COMPARISON: None available FINDINGS: The left tibia and fibula are intact. No acute fracture or dislocation is seen. No radiopaque fore ign body is identified. There is diffuse soft tissue swelling. Atherosclerotic vascular calcificatio ns. IMPRESSION: 1. No acute osseous abnormality. 2. Soft tissue swelling. RPTAT: PP .Abhijeet Prescott MD, MD Date Time Electronically viewed and signed by .Abhijeet Prescott MD, MD on 01/29/2017 12:22 .d/
[2017-01-29 12:30] LABS: CK-MB 0.9 ng/ml (0.0-2.4); TROPONIN-I 0.022 ng/ml (0.00-0.12)
[2017-01-29] MEDS ORDERED: HYDROmorphONE 1 MG/ML SYG IV STA (12:41)
--- NOTE | 2017-01-29 13:10 | ERA ---
ER Documentation Chief Complaint Date/Time DATE: 01/29/17 TIME: 12:56 Chief Complaint LEFT LEG PAIN AND REDNESS SINCE MONDAY HPI This is a 51-year-old female with a known history of insulin-dependent diabetes and hypertension who presents to the emergency department complaining of left leg pain and redness that began , 3 days prior to arrival. The patient denies any blunt or penetrating trauma to the left leg. She denies any fever shaking or chills. He denies any shortness of breath at rest or exertion. She states that she noticed this morning upon awakening that the redness had extended to involve the entire left calf and now she was also experiencing pain in the left femur. There is no alleviating or exacerbating factors to the pain. She states it is 10 out of 10 in intensity and she did not take any analgesic medication prior to arrival. She denies any shortness of breath at rest or exertion. She denies any prolonged immobilization or recent surgical intervention. She has no chest pain or pressure that radiates the neck arm back or jaw. The patient does also state that she has kidney disease but is not on dialysis ROS All systems reviewed and are negative except as per history of present illness. Medications Home Meds Active Scripts Furosemide* (Furosemide*) 40 Mg Tablet, 40 MG PO BID, #180 TAB Prov:JENNIFER ONEILL MD 10/07/16 Reported Medications Liraglutide (Victoza 2-Amauri) 0.6 Mg/0.1 Ml Pen.injctr, 1.2 MG SQ QAM, SYR 01/29/17 Allopurinol* (Allopurinol*) 100 Mg Tablet, 100 MG PO DAILY, TAB 01/29/17 Sitagliptin* (Januvia*) 100 Mg Tablet, 100 MG PO DAILY, #30 TAB 01/29/17 Acetaminophen* (Tylenol*) 500 Mg Tab, 1000 MG PO Q4H Y for PAIN AND OR ELEVATED TEMP, TAB 01/29/17 Insulin Glargine* (Lantus*) 100 Unit/Ml Soln, 60 UNIT SC QHS, #1 VIAL 10/03/16 Mometasone-Formoterol (Dulera) 200-5 Mcg/Inh - 13 Gm Hfa.aer.ad, 2 PUFFS INHALATION BID, #1 INHALER 10/03/16 Amlodipine Besylate* (Amlodipine Besylate*) 10 Mg Tablet, 10 MG PO DAILY, #30 TAB 10/03/16 Hydralazine Hcl* (Hydralazine Hcl*) 50 Mg Tab, 75 MG PO BID, #60 TAB 10/03/16 Montelukast Sodium* (Montelukast Sodium*) 10 Mg Tablet, 10 MG PO QHS, #30 TAB 10/03/16 Ferrous Sulfate* (Ferrous Sulfate*) 325 Mg Tabec, 325 MG PO DAILY, TAB 10/03/16 Loratadine* (Loratadine*) 10 Mg Tablet, 10 MG PO DAILY, #30 TAB 10/03/16 Discontinued Reported Medications Insulin Lispro (Humalog) 100 Unit/1 Ml Cartridge, 5-10 UNIT SQ BEFORE MEALS 10/03/16 Albuterol Sulfate* (Ventolin HFA*) 18 Gm Hfa.aer.ad, 2 PUFF INHALATION Q4H, #1 INHALER 10/03/16 Pravastatin Sodium* (Pravastatin Sodium*) 40 Mg Tablet, 40 MG PO HS, TAB 10/03/16 Lisinopril* (Lisinopril*) 10 Mg Tablet, 10 MG PO DAILY, #30 TAB 10/03/16 Metformin Hcl* (Metformin Hcl*) 1,000 Mg Tablet, 1000 MG PO WITH BREAKFAST DINNE , #60 TAB 10/03/16 Fluticasone Propionate* (Fluticasone Propionate* Nasal) 50 Mcg/[place] - 16 Gm [place].susp, 1 SPRAY NASAL BID, #1 BOTTLE TO EACH NOSTRIL 10/03/16 Discontinued Scripts Potassium Chloride* (K-Dur*) 10 Meq Tab.prt.sr, 10 MEQ PO DAILY, #90 TAB Prov:JENNIFER ONEILL MD 10/07/16 Allergies Allergies: Coded Allergies: theophylline (Verified Allergy, Unknown, 01/29/17) PMhx/Soc History of Surgery: Yes (eye surgery) Anesthesia Reaction: No Hx Neurological Disorder: Yes (back pain) Hx Respiratory Disorders: Yes (Asthma) Hx Cardiac Disorders: Yes (enlarged heart, CHF) Hx Psychiatric Problems: No Hx Miscellaneous Medical Probl: No Hx Alcohol Use: No Hx Substance Use: No Hx Tobacco Use: No (many years since quit smoking) Smoking Status: Never smoker Physical Exam Vitals Vital Signs Date Time Temp Pulse Resp B/P Pulse Ox O2 Delivery O2 Flow Rate FiO2 7/30/17 11:05 98.1 96 18 131/59 99 Physical Exam Constitutional:Well-developed. Well-nourished. HEENT:Normocephalic. Atraumatic.Pupils were equal round reactive to light. Moist mucous membranes.No tonsillar exudates. Neck: No nuchal rigidity. No lymphadenopathy. No posterior cervical spine tenderness or step-offs. Respiratory: Not using accessory muscles of respiration.Lungs were clear to auscultation bilaterally. No rhonchi. No rales. No wheezing. Cardiovascular: Regular rate regular rhythm.No murmurs. No rubs were appreciated.S1, S2 normal. Distal pulses are palpable 2+ bilaterally. GI: Abdomen was soft. Nontender. Non Distended. No pulsatile abdominal masses or bruits. No rebound. No guarding. Bowel sounds were present and normal. Muscle skeletal: Full range of motion of both the upper and lower extremities bilaterally.Normal muscle tone. Positive Homans sign with significant tenderness and swelling of the left calf compared to the right Skin: No petechia, no purpura. No lesions on the palms or the soles of the feet. No maculopapular rash. Warmth and erythremia circumferentially of the left lower extremity with no evidence of compartment syndrome. Significant tenderness with palpation of the left calf and medial aspect of the distal left femur with no obvious bony deformity. No subcutaneous emphysema of the left lower extremity. NEURO: Patient was alert, awake, orientated x3.No facial droop. Gait observed and normal with no ataxia.Speech had regular rate and rhythm. No focal neurological deficits. Result Diagram: 01/29/17 1126 01/29/17 1126 Results 24 hrs Laboratory Tests Test 01/29/17 11:26 White Blood Count 17.610^3/ul Red Blood Count 2.9510^6/ul Hemoglobin 8.0g/dl Hematocrit 25.4% Mean Corpuscular Volume 86.1fl Mean Corpuscular Hemoglobin 27.1pg Mean Corpuscular Hemoglobin Concent 31.5g/dl Red Cell Distribution Width 15.0% Platelet Count 35155^3/UL Mean Platelet Volume 10.4fl Neutrophils % 87.6% Lymphocytes % 6.0% Monocytes % 5.5% Eosinophils % 0.1% Basophils % 0.2% Nucleated Red Blood Cells % 0.0/100WBC Neutrophils # 15.410^3/ul Lymphocytes # 1.110^3/ul Monocytes # 1.010^3/ul Eosinophils # 0.010^3/ul Basophils # 0.010^3/ul Nucleated Red Blood Cells # 0.010^3/ul Prothrombin Time 13.9Sec Prothrombin Time Ratio 1.1 INR International Normalized Ratio 1.07 Activated Partial Thromboplast Time 35.8Sec Sodium Level 138mmol/L Potassium Level 4.3mmol/L Chloride Level 100mmol/L Carbon Dioxide Level 22mmol/L Anion Gap 20 Blood Urea Nitrogen 38mg/dl Creatinine 1.98mg/dl Glucose Level 301mg/dl Lactic Acid Level 1.2mmol/L Calcium Level 8.5mg/dl Total Bilirubin 0.2mg/dl Direct Bilirubin 0.00mg/dl Indirect Bilirubin 0.2mg/dl Aspartate Amino Transf (AST/SGOT) 41IU/L Alanine Aminotransferase (ALT/SGPT) 40IU/L Alkaline Phosphatase 83IU/L Creatine Kinase 809IU/L Creatine Kinase Index 0.1 Creatinine Kinase MB (Mass) 0.90ng/ml Troponin I 0.022ng/ml C-Reactive Protein mg/dl B-Type Natriuretic Peptide 1920PG/ML Total Protein 7.6g/dl Albumin 3.7g/dl Globulin 3.90g/dl Albumin/Globulin Ratio 0.94 Current Medications Medications (Trade) Dose Ordered Sig/Myke Route PRN Reason Start Time Stop Time Status Last Admin Dose Admin Sodium Chloride 3320 ml 3,320 ml BOLUS OVER 2 HOURS STAT IV* 01/29/17 11:35 01/29/17 11:37 DC 01/29/17 11:49 Vancomycin HCl 250 ml @ 125 mls/hr ONCE STAT IVPB 01/29/17 11:35 01/29/17 13:34 Clindamycin HCl/ Dextrose 50 ml @ 50 mls/hr ONCE STAT IVPB 01/29/17 11:35 01/29/17 12:34 DC Piperacillin Sod/ Tazobactam Sod (Zosyn 3.375gm/ 100 ml (Pmx)) 100 ml @ 100 mls/hr ONCE STAT IVPB 01/29/17 11:35 01/29/17 12:34 DC 01/29/17 12:28 Morphine Sulfate (morphine) 4 mg ONCE STAT IV 01/29/17 11:39 01/29/17 11:44 DC 01/29/17 11:50 Ondansetron HCl (Zofran Inj) 4 mg ONCE STAT IV 01/29/17 11:39 01/29/17 11:44 DC 01/29/17 11:50 Hydromorphone HCl (Dilaudid) 1 mg ONCE STAT IV 01/29/17 12:41 01/29/17 12:42 DC 01/29/17 12:44 Ondansetron HCl (Zofran Inj) 4 mg ONCE STAT IV 01/29/17 12:41 01/29/17 12:42 DC 01/29/17 12:44 Ondansetron HCl (Zofran Inj) 4 mg ER BRIDGE PRN IV NAUSEA AND/OR VOMITING 01/29/17 13:30 01/30/17 13:29 Acetaminophen (Tylenol Tab) 650 mg ER BRIDGE PRN PO MILD PAIN/FEVER 01/29/17 13:30 01/30/17 13:29 Enoxaparin Sodium (Lovenox) 100 mg ONCE ONCE SC 01/29/17 13:30 01/29/17 13:31 Procedures/MDM The patient presented to the emergency department with a spreading erythematous superficial infection of the skin and subcutaneous tissues and left calf tenderness. My differential diagnosis included but was not limited to necrotizing fasciitis, lymphangitis, thrombophlebitis, deep vein thrombosis, allergic reaction, neoplasm, gout or abscess. Predisposing factors of the progressive spread of erythema, warmth, pain and tenderness was considered such as lymphedema, tinea pedis, open wounds, prior trauma or surgery, pre-existing skin lesion (furuncle), retained foreign body, injection drug use or vascular or immune compromise. The patient was placed on antibiotics to cover Staphylococcus aureus, including resistant strains such as community-acquired methicillin-resistant S. aureus. I felt it was necessary to broaden the spectrum given that the patient has underlying diabetes and therefore she received vancomycin and clindamycin and Zosyn. Blood cultures and urine cultures were obtained prior to antibiotic coverage. Venous duplex ultrasound of the left lower extremity ordered and reviewed by myself as well as the radiologist indicated that the patient had a deep vein nonocclusive thrombus in the mid and distal left superficial femoral vein. The patient was anemic with a hemoglobin of 8 and denied any signs of an upper or lower gastrointestinal bleed. The patient indicates she has never required a blood transfusion in the past. The patient was typed and screened. She was given subcutaneous Lovenox after she was described the risks and benefits of this medication. 12 Lead EKG tracing ordered and reviewed by myself showed: Normal sinus rhythm of 95 bpm and no arrhythmia. DC interval normal. QRS duration normal. No ST segment elevation No ST segment depression. No changes consistent with acute ischemia. Given that the patient had severe pain that could be from ischemia I also felt it was necessary to rule out the possibility of necrotizing fasciitis and therefore the patient is receiving an MRI. She will be admitted in serious condition to the hospitalist Dr. Bowling with an anticipated stay of greater than 2 midnights. The patient had hyperglycemia without ketosis. Blood glucose improved with IV fluids and insulin. Critical Care: Time: 50 minutes Treatments/Evaluations: Close monitoring and treatment of unstable vital signs, cardiorespiratory, and neurologic status, while maintaining tight balance of fluid, respiratory, and cardiac interventions. Time does not include performing any of the above billable procedures. Departure Diagnosis: Primary Impression: Deep vein thrombosis Qualified Code: I82.412 - Acute deep vein thrombosis (DVT) of femoral vein of left lower extremity Additional Impressions: Hyperglycemia without ketosis Leukocytosis Qualified Code: D72.829 - Leukocytosis, unspecified type Chronic kidney disease Qualified Code: N18.9 - Chronic kidney disease, unspecified stage Cellulitis Qualified Code: L03.116 - Cellulitis of left lower extremity Condition: SEB Najera Jan 29, 2017 13:06
--- NOTE | 2017-01-29 13:12 | RADRPT ---
PROCEDURE: Bilateral lower extremity venous ultrasound CLINICAL INDICATION: Bilateral leg pain and swelling TECHNIQUE: Multiple transverse and longitudinal images of the bilateral lower extremity were obtai tonya. COMPARISON: None FINDINGS: Right lower extremity: Normal compressibility and color flow in the bilateral common femoral vein t o the popliteal vein is seen. Normal respiratory variability and augmentation is seen. Left lower extremity: Normal compressibility and color flow is seen in the left common femoral vein and proximal segment of the left superficial femoral vein. In addition, normal compressibility and color flow in the left popliteal vein is seen. Noncompressibility is seen in the mid and distal le ft superficial femoral vein which demonstrates color flow. IMPRESSION: Nonocclusive thrombus in the mid and distal left superficial femoral vein. Results were discussed with Shanice Sherman at 01/29/2017 1:12:28 PM RPTAT: HPNM Physician Reuben Date Time Electronically viewed and signed by Yasmany Mooney Physician on 01/29/2017 13:12 /
[2017-01-29] MEDS ORDERED: ACETAMINOPHEN 325 MG TAB PO PRN ×2 (13:30→16:00)
[2017-01-29] MEDS ORDERED: ENOXAPARIN 100 MG/ML SYG SC ONE (13:30)
[2017-01-29] MEDS ORDERED: ONDANSETRON 4 MG INJ IV PRN ×2 (13:30→16:00)
[2017-01-29 13:40] LABS: C-REACTIVE PROTEIN 32.1 mg/dl (0.0-0.9)
[2017-01-29 14:57] VITALS: PULSE 101
[2017-01-29 15:27] VITALS: BP 145/67; RESP 18
[2017-01-29 15:42] LABS: ADD UMIC YES; UR ASCORBIC ACID NEGATIVE (NEGATIVE); UR BACTERIA FEW /HPF (NONE SEEN); UR BILIRUBIN (Dip) NEGATIVE (NEGATIVE); UR BLOOD (Dip) NEGATIVE (NEGATIVE); UR CLARITY SLIGHTLY CLOUDY (CLEAR); UR COLOR YELLOW (YELLOW); UR GLUCOSE (Dip) NEGATIVE (NEGATIVE); UR KETONES (Dip) NEGATIVE (NEGATIVE); UR LEUKOCYTE ESTERASE (Dip) 3+ Leu/ul (NEGATIVE); UR NITRITE (Dip) NEGATIVE (NEGATIVE); UR RBC 2 /HPF (0-5); UR SPECIFIC GRAVITY (Dip) 1.014 (1.003-1.030); UR SQUAMOUS EPITHELIAL CELL FEW /HPF (FEW); UR TOTAL PROTEIN (Dip) 1+ mg/dl (NEGATIVE); UR UROBILINOGEN (Dip) NEGATIVE (NEGATIVE)
[2017-01-29] MEDS: SOD CHLORIDE 0.9% 1,000 ML IV SCH (15:52)
[2017-01-29] MEDS ORDERED: ACETAMINOPHEN 500 MG TAB PO PRN (16:00)
[2017-01-29] MEDS ORDERED: ACETAMINOPHEN 650 MG SUPP PR PRN (16:00)
[2017-01-29] MEDS ORDERED: NACL 0.9% 3 ML SYG IV SCH (16:00)
[2017-01-29] MEDS ORDERED: morphine 2 MG INJ IV PRN (16:00)
[2017-01-29] MEDS ORDERED: BISACODYL 10 MG SUPP PR PRN (16:00)
--- NOTE | 2017-01-29 16:06 | HP ---
Date/Time of Note Date/Time of Note DATE: 01/29/17 TIME: 15:53 Assessment/Plan VTE Prophylaxis VTE Prophylaxis Intervention: LMWH Assessment/Plan Chief Complaint/Hosp Course Assessment and plan 1. Left lower extremity DVT. Patient was started on therapeutic dose of Lovenox. Surgical consult to follow. MRI was ordered in ER to rule out necrotizing fasciitis. Follow-up in result 2. Sepsis UTI. Follow-up on urine culture. Start on antibiotic. Will adjust to sensitivity 3. Diabetes. Follow-up on A1c. Several insulin regimen. Will adjust as needed. 4. Essential hypertension. Continue antihypertensives and adjust needed 5. Acute on insufficiency.Renal function unknown. Medications to be renally dosed. Start on IV fluids. Will get pharmacy delivery driver to follow. 6. Anemia. Monitor H&H. Follow-up on iron panel. 7. Suspect CHF exacerbation. Resume on diuretic. Follow-up with pharmacy delivery driver recommendations. Admission Process time: 40 minutes Discussed plan of care with Dr. Bowling Problems: HPI/ROS Admit Date/Time Admit Date/Time Jan 29, 2017 at 13:15 Hx of Present Illness This is a 51-year-old female with history of asthma, diabetes, hypertension, obesity, who came to [facility] due to reports of left lower extremity pain. According to the patient she started to have left lower extremity pain for 3 days duration. She reported increasing erythema and swelling. She reports unable inability to bear weight on foot. She denies any chest pain or shortness of breath or taking any contraceptives or any recent long travel or long travels in the car. She did report prior to incident that she was able to ambulate without difficulty. She subsequently went to [facility] for further evaluation. Upon examination she did have ultrasound of left lower extremity that did show a nonocclusive thrombus in the mid and distal left superficial femoral vein. She was also noted with a white count of 17.6 and slightly anemic with hemoglobin of 8.0 and hematocrit 25.4. She also was with acute renal insufficiency with creatinine of 1.98. An elevated creatinine kinase of 809. She also had elevated C-reactive protein and elevated BNP at 1820. She denies any chest pain or shortness of breath at this time. She was seen with a temperature 100.3 as well. And tachycardic. We will evaluate her for the aformentiond issues. ROS 12 point review of systems obtained and entirely negative except that mentioned in history of present illness PMH/Family/Social Past Medical History asthma, diabetes, hypertension, obesity Past Surgical History Past Surgical Hx: no surgical history Social History Alcohol Use: none Smoking Status: Never smoker Drug Use: none Exam/Review of Systems Vital Signs Vitals Vital Signs Date Time Temp Pulse Resp B/P Pulse Ox O2 Delivery O2 Flow Rate FiO2 01/29/17 15:27 100.3 109 18 145/67 94 01/29/17 14:01 Nasal Cannula 2.0 Exam Constitutional: alert, other (morbidly obese) Psych: nl mood/affect Respiratory: diminished breath sounds Cardiovascular: other (tachycardic) Gastrointestinal: soft, No tender Musculoskeletal: swelling (LLE with erythema) Neurological: WOOD TILE INSTALLATION HELPER II-XII intact, nl mental status, nl speech Labs Result Diagram: 01/29/17 1126 01/29/17 1126 Medications Medications Current Medications Acetaminophen (Tylenol Tab) 325 mg Q6H PRN PO PAIN AND OR ELEVATED TEMP; Start 01/29/17 at 16:00; Status UNV PING CLARK Jan 29, 2017 16:06
[2017-01-29 16:08] VITALS: PULSE 110
[2017-01-29] MEDS ORDERED: ALBUTEROL 0.083% (NEB) 2.5 MG/3 ML AMP ONE (16:32)
[2017-01-29] MEDS: ALBUTEROL 0.083% (NEB) 2.5 MG/3 ML AMP HHN PRN (16:49)
[2017-01-29] MEDS ORDERED: GLUCOSE GEL 15 GRAM TUBE BUCCAL PRN (17:00)
[2017-01-29] MEDS ORDERED: DEXTROSE 50% 50 ML SYRINGE IV PRN ×2 (17:00)
[2017-01-29] MEDS ORDERED: GLUCOSE GEL 15 GRAM TUBE PO PRN ×2 (17:00)
[2017-01-29] MEDS ORDERED: GLUCAGON 1 MG INJ IM PRN (17:00)
[2017-01-29] MEDS: HYDROCODONE/APAP (5/325) TAB PO PRN (17:22)
[2017-01-29] MEDS: INSULIN ASPART [NOVOLOG] 3 ML PEN SC SCH ×3 (19:06→21:08)
[2017-01-29] MEDS: CEFTRIAXONE 2 GM/50 ML (PMX) 50 ML IVPB SCH (19:16)
[2017-01-29 20:07] VITALS: PULSE 100
[2017-01-29 20:12] VITALS: BP 145/67; RESP 16
[2017-01-29] MEDS: SALMETEROL/FLUTICASONE 250/50 INHA INH SCH (20:56)
[2017-01-29] MEDS: MONTELUKAST 10 MG TAB PO SCH (20:58)
[2017-01-29] MEDS ORDERED: NON-FORMULARY/PATIENT OWN MED (Mometasone-Formoterol (Dulera) 2 PUFFS) INHALATION SCH (21:00)
[2017-01-29] MEDS: FUROSEMIDE 40 MG TAB PO SCH (21:00)
[2017-01-29] MEDS: INSULIN GLARGINE [LANtus] 3 ML PEN SC SCH (21:06)
[2017-01-29] MEDS: ENOXAPARIN 100 MG/ML SYG SC SCH (21:08)
[2017-01-30] VITALS (13 sets, daily range): BP systolic 126–139; BP diastolic 59–78; PULSE 95–119; RESP 17–22
[2017-01-30] MEDS: HYDROCODONE/APAP (5/325) TAB PO PRN ×3 (00:13→18:01)
[2017-01-30] MEDS ORDERED: ACCU-CHEK XX SCH (02:00)
[2017-01-30] MEDS: ACCU-CHEK XX SCH (02:28)
[2017-01-30] MEDS: PANTOPRAZOLE 40 MG INJ IV SCH (05:15)
[2017-01-30] MEDS: ALBUTEROL 0.083% (NEB) 2.5 MG/3 ML AMP HHN PRN ×3 (05:28→11:29)
[2017-01-30 05:45] LABS: WHITE BLOOD COUNT 12.5 10^3/ul (4.8-10.8)
[2017-01-30 05:46] LABS: BASOPHILS % 0.2 % (0.0-2.0); EOSINOPHILS % 0.2 % (0.0-7.0); HEMATOCRIT 22.3 % (37.0-47.0); HEMOGLOBIN 7.2 g/dl (12.0-16.0); LYMPHOCYTES % 7.6 % (15.0-51.0); MEAN CORPUSCULAR HEMOGLOBIN 28.2 pg (29.0-33.0); MEAN CORPUSCULAR HGB CONC 32.3 g/dl (32.0-37.0); MEAN CORPUSCULAR VOLUME 87.5 fl (82.0-101.0); MEAN PLATELET VOLUME 10.4 fl (7.4-10.4); MONOCYTE # 0.8 10^3/ul (0.3-0.9); MONOCYTES % 6.3 % (0.0-11.0); NEUTROPHIL # 10.5 10^3/ul (1.6-7.5); NEUTROPHILS % 84.5 % (39.0-77.0); PLATELET COUNT 211 10^3/UL (140-415); RED BLOOD COUNT 2.55 10^6/ul (4.20-5.40); RED CELL DISTRIBUTION WIDTH 14.9 % (11.5-14.5)
[2017-01-30 05:51] LABS: POSITIVE DIFF @See below
[2017-01-30 06:21] LABS: ALBUMIN 3.4 g/dl (3.3-4.9); ALBUMIN/GLOBULIN RATIO 0.91; BILIRUBIN,INDIRECT 0.1 mg/dl (0-1.1); BILIRUBIN,TOTAL 0.1 mg/dl (0.2-1.3); CHOL/HDL RATIO 5.5 RATIO; CREATININE 1.84 mg/dl (0.44-1.00); MAGNESIUM 1.8 mg/dl (1.7-2.5); PHOSPHORUS 3.9 mg/dl (2.5-4.9); POTASSIUM 4.4 mmol/L (3.5-5.1); TOTAL PROTEIN 7.1 g/dl (6.1-8.1)
[2017-01-30 06:52] LABS: T3 UPTAKE 49.2 % (23.5-40.5)
[2017-01-30 07:06] LABS: THYROID STIMULATING HORMONE 0.617 MIU/L (0.465-4.680)
[2017-01-30] MEDS: SOD CHLORIDE 0.9% 1,000 ML IV SCH ×2 (07:38→17:32)
[2017-01-30] MEDS: INSULIN ASPART [NOVOLOG] 3 ML PEN SC SCH ×7 (08:49→20:53)
[2017-01-30] MEDS ORDERED: AMLODIPINE 10 MG TAB PO SCH (09:00)
[2017-01-30] MEDS: SALMETEROL/FLUTICASONE 250/50 INHA INH SCH ×2 (09:03→20:48)
[2017-01-30] MEDS: ALLOPURINOL 100 MG TAB PO SCH (09:05)
[2017-01-30] MEDS: FUROSEMIDE 40 MG TAB PO SCH ×2 (09:05→20:46)
[2017-01-30] MEDS: FERROUS SULFATE (EC) 325 MG TAB PO SCH (09:06)
[2017-01-30] MEDS: LORATADINE 10 MG TAB PO SCH (09:06)
[2017-01-30] MEDS: ENOXAPARIN 100 MG/ML SYG SC SCH ×2 (09:47→20:51)
--- NOTE | 2017-01-30 10:26 | PN ---
Date/Time of Note Date/Time of Note DATE: 01/30/17 TIME: 10:00 Assessment/Plan VTE Prophylaxis VTE Prophylaxis Intervention: LMWH Lines/Catheters IV Catheter Type (from Nrsg): Peripheral IV Assessment/Plan Chief Complaint/Hosp Course 1. Left lower extremity cellulitis/ left second toe gangrenous ulcer. Xray with soft tissue swelling on Fibula/Tibia.Pending MRI to rule out necrotizing fasciitis. --ID/Podiatry consult -Broad spectrum abx -Wound care 2.Left lower extremity acute deep vein thrombosis with --Vascular on board and on therapeutic anticoagulation-Will monitor HH closely 3. Sepsis secondary to gram negative UTI and #1 -Continue current abx and will follow ID recs. -UC&S with gram negative growing and BC&S growing gram positive cocci.-f/u final cultures. 4. DMII. A1c 6.8. -Continue checks/ISS/Lantus.Resume Tradjenta 5. Essential hypertension. -DC CCB( patient with LE edema) and start Coreg and adjust needed 6. REMI on CKD with Diabetic nephropathy. -Renally dose meds-Monitor renal fxn closely and f/u with nephro recs. 7. Acute on Chronic Anemia. -Monitor H&H (pt on anticoagulation). Obtain iron panel and treat accordingly. 8. Congestive heart failure,not in exacerbation.Last known EF 50% (10/2016) -Start low dose Coreg and aspirin to prevent cardioembolic events. 9.Asthma. Stable. -Continue home meds. 10.Morbid obesity. Weight reduction advised. PLAN:F/u with consultants recs. Continue current medical management. Case discussed with . Problems: Subjective 24 Hr Interval Summary Free Text/Dictation Patient remains afebrile. Having minimal pain on LLE. Exam/Review of Systems Vital Signs Vitals Vital Signs Date Time Temp Pulse Resp B/P Pulse Ox O2 Delivery O2 Flow Rate FiO2 01/30/17 07:59 100 01/30/17 07:35 98.2 18 133/77 96 01/30/17 05:28 Nasal Cannula 6.0 Exam General: Obese female, not in any acute distress . HEENT: Normocephalic, Atraumatic, No laceration or hematoma; Eyes: PEERL, Conjunctiva clear, Anicteric sclera Neck: Supple without any lymphadenopathy, nontender, no JVD, no carotid bruits, trachea midline, no thyromegaly Cardiac: S1, S2 auscultated, regular rhythm and rate, no mumurs or gallop Pulmonary: Normal respiratory effort. Chest clear to auscultation bilaterally, no adventitious breath sounds GI: Abdomen obese to inspection. Soft, non- distended, no masses, no rebound tenderness or guarding. Bowel sounds active on all four quadrants Genitourinary: Deferred Extremities:Edema+ on BLE. LLE with edema/warmth/redness/tenderness,Dressing dry/intact. No cyanosis, clubbing, or edema. Pulses [2+] bilaterally. Full ROM on all four extremities. No focal weakness appreciated. Neurologic: Alert to person, place, time, and situation. Affect appropriate, intact sensation. Skin: Clean,dry, and intact. No ecchymosis, no rashes, or lesions Results Result Diagram: 01/30/17 0507 01/30/17 0507 Results 24 hrs Laboratory Tests Test 01/29/17 11:26 01/29/17 15:13 01/29/17 18:29 01/29/17 20:51 White Blood Count 17.6 #H Red Blood Count 2.95 L Hemoglobin 8.0 L Hematocrit 25.4 L Mean Corpuscular Volume 86.1 Mean Corpuscular Hemoglobin 27.1 L Mean Corpuscular Hemoglobin Concent 31.5 L Red Cell Distribution Width 15.0 H Platelet Count 250 # Mean Platelet Volume 10.4 Neutrophils % 87.6 H Lymphocytes % 6.0 L Monocytes % 5.5 Eosinophils % 0.1 Basophils % 0.2 Nucleated Red Blood Cells % 0.0 Neutrophils # 15.4 H Lymphocytes # 1.1 Monocytes # 1.0 H Eosinophils # 0.0 Basophils # 0.0 Nucleated Red Blood Cells # 0.0 Erythrocyte Sedimentation Rate 85 H Prothrombin Time 13.9 Prothrombin Time Ratio 1.1 INR International Normalized Ratio 1.07 Activated Partial Thromboplast Time 35.8 H Sodium Level 138 Potassium Level 4.3 Chloride Level 100 Carbon Dioxide Level 22 Anion Gap 20 H Blood Urea Nitrogen 38 H Creatinine 1.98 H Glucose Level 301 H Lactic Acid Level 1.2 Calcium Level 8.5 Total Bilirubin 0.2 Direct Bilirubin 0.00 Indirect Bilirubin 0.2 Aspartate Amino Transf (AST/SGOT) 41 Alanine Aminotransferase (ALT/SGPT) 40 Alkaline Phosphatase 83 Creatine Kinase 809 H Creatine Kinase Index 0.1 Creatinine Kinase MB (Mass) 0.90 Troponin I 0.022 C-Reactive Protein 32.1 H B-Type Natriuretic Peptide 1920 H Total Protein 7.6 Albumin 3.7 Globulin 3.90 H Albumin/Globulin Ratio 0.94 Urine Color YELLOW Urine Clarity SLIGHTLY CLOUDY A Urine pH 5.0 Urine Specific [place] 1.014 Urine Ketones NEGATIVE Urine Nitrite NEGATIVE Urine Bilirubin NEGATIVE Urine Urobilinogen NEGATIVE Urine Leukocyte Esterase 3+ H Urine Microscopic RBC 2 Urine Microscopic WBC 99 H Urine Squamous Epithelial Cells FEW Urine Bacteria FEW A Urine Hemoglobin NEGATIVE Urine Glucose NEGATIVE Urine Total Protein 1+ H Bedside Glucose 279 H 242 H Test 01/30/17 02:11 01/30/17 05:06 01/30/17 05:07 01/30/17 08:20 Bedside Glucose 215 194 Hemoglobin A1c 6.8 H White Blood Count 12.5 #H Red Blood Count 2.55 L Hemoglobin 7.2 L Hematocrit 22.3 L Mean Corpuscular Volume 87.5 Mean Corpuscular Hemoglobin 28.2 L Mean Corpuscular Hemoglobin Concent 32.3 Red Cell Distribution Width 14.9 H Platelet Count 211 Mean Platelet Volume 10.4 Neutrophils % 84.5 H Lymphocytes % 7.6 L Monocytes % 6.3 Eosinophils % 0.2 Basophils % 0.2 Nucleated Red Blood Cells % 0.0 Neutrophils # 10.5 H Lymphocytes # 1.0 Monocytes # 0.8 Eosinophils # 0.0 Basophils # 0.0 Nucleated Red Blood Cells # 0.0 Sodium Level 140 Potassium Level 4.4 Chloride Level 103 Carbon Dioxide Level 23 Anion Gap 18 H Blood Urea Nitrogen 36 H Creatinine 1.84 H Glucose Level 195 # Calcium Level 8.0 L Phosphorus Level 3.9 Magnesium Level 1.8 Total Bilirubin 0.1 L Direct Bilirubin 0.00 Indirect Bilirubin 0.1 Aspartate Amino Transf (AST/SGOT) 34 Alanine Aminotransferase (ALT/SGPT) 37 Alkaline Phosphatase 70 Total Protein 7.1 Albumin 3.4 Globulin 3.70 H Albumin/Globulin Ratio 0.91 Triglycerides Level 120 Cholesterol Level 110 LDL Cholesterol, Calculated 66 HDL Cholesterol 20 L Cholesterol/HDL Ratio 5.5 Thyroid Stimulating Hormone (TSH) 0.617 Free Thyroxine Index 3.49 Thyroxine (T4) 7.1 Triiodothyronine (T3) Uptake 49.2 H Medications Medications Current Medications Ceftriaxone Sodium (Rocephin) 50 ml @ 100 mls/hr Q24H IVPB Last administered on 01/29/17 19:16; Admin Dose 100 MLS/HR; Start 01/29/17 at 18:00 Acetaminophen (Tylenol Tab) 1,000 mg Q4H PRN PO PAIN AND OR ELEVATED TEMP; Start 01/29/17 at 16:00 Allopurinol (Zyloprim) 100 mg DAILY PO Last administered on 01/30/17 09:05; Admin Dose 100 MG; Start 01/30/17 at 09:00 Amlodipine Besylate (Norvasc) 10 mg DAILY PO Last administered on 01/30/17 09: 06; Admin Dose 10 MG; Start 01/30/17 at 09:00 Ferrous Sulfate (Ferrous Sulfate (Ec)) 325 mg DAILY PO Last administered on 09:06; Admin Dose 325 MG; Start 01/30/17 at 09:00 Furosemide (Lasix) 40 mg BID PO Last administered on 01/30/17 09:05; Admin Dose 40 MG; Start 01/29/17 at 21:00 Hydralazine HCl (Apresoline) 75 mg BID PO Last administered on 01/30/17 09:04 ; Admin Dose 75 MG; Start 01/29/17 at 21:00 Insulin Glargine (Lantus) 60 unit QHS SC Last administered on 01/29/17 21:06; Admin Dose 60 UNIT; Start 01/29/17 at 21:00 Loratadine (Claritin) 10 mg DAILY PO Last administered on 01/30/17 09:06; Admin Dose 10 MG; Start 01/30/17 at 09:00 Montelukast Sodium 10 mg 10 mg QHS PO Last administered on 01/29/17 20:58; Admin Dose 10 MG; Start 01/29/17 at 21:00 Sodium Chloride (NS) 1,000 ml @ 80 mls/hr [id number] IV Last administered on 01/29 15:52; Admin Dose 80 MLS/HR; Start 01/29/17 at 15:52 Ondansetron HCl (Zofran Inj) 4 mg Q6H PRN IV NAUSEA AND/OR VOMITING; Start at 16:00 Acetaminophen (Tylenol Tab) 650 mg Q6H PRN PO PAIN LEVEL 1-3 OR FEVER; Start at 16:00 Acetaminophen (Tylenol Supp) 650 mg Q6H PRN [place] PAIN LEVEL 1-3 OR FEVER; Start 01/29/17 at 16:00 Acetaminophen/ Hydrocodone Bitart ([employer] [place] (5/325)) 1 tab Q6H PRN PO MODERATE PAIN LEVEL 4-6; Start 01/29/17 at 16:00 Acetaminophen/ Hydrocodone Bitart ([employer] (5/325)) 2 tab Q6H PRN PO SEVERE PAIN LEVEL 7-10 Last administered on 01/30/17 00:13; Admin Dose 2 TAB; Start at 16:00 Morphine Sulfate (morphine) 2 mg Q4H PRN IV SEVERE PAIN LEVEL 7-10 Last administered on 01/30/17 09:04; Admin Dose 2 MG; Start 01/29/17 at 16:00 Docusate Sodium (Colace) 100 mg Q12H PRN PO CONSTIPATION; Start 01/29/17 at 16: 00 Magnesium Hydroxide (Milk Of Mag) 30 ml DAILY PRN PO CONSTIPATION; Start at 16:00 Bisacodyl (Dulcolax Supp) 10 mg DAILY PRN [place] CONSTIPATION; Start 01/29/17 at 16 :00 Pantoprazole (Protonix Iv) 40 mg DAILY@06 IV Last administered on 01/30/17 05: 15; Admin Dose 40 MG; Start 01/30/17 at 06:00 Diagnostic Test (Pha) (Accu-Chek) 1 ea 02 XX Last administered on 01/30/17 02: 28; Admin Dose 1 EA; Start 01/30/17 at 02:00 Enoxaparin Sodium (Lovenox) 105 mg Q12 SC Last administered on 01/30/17 09:47 ; Admin Dose 105 MG; Start 01/29/17 at 21:00 Salmeterol Xinafoate/ Fluticasone (Advair 250/50 Diskus) 1 inh BID INH Last administered on 01/30/17 09:03; Admin Dose 1 INH; Start 01/29/17 at 21:00 Albuterol (Proventil 0.083% (Neb)) 2.5 mg Q3 PRN HHN SHORTNESS OF BREATH Last administered on 01/30/17t 05:28; Admin Dose 2.5 MG; Start 01/29/17 at 16:20 Miscellaneous Information 1 ea NOTE XX ; Start 01/29/17 at 17:00 Glucose (Glutose) 15 gm Q15M PRN PO DECREASED GLUCOSE; Start 01/29/17 at 17:00 Glucose (Glutose) 22.5 gm Q15M PRN PO DECREASED GLUCOSE; Start 01/29/17 at 17: 00 Dextrose (D50w Syringe) 25 ml Q15M PRN IV DECREASED GLUCOSE; Start 01/29/17 at 17:00 Dextrose (D50w Syringe) 50 ml Q15M PRN IV DECREASED GLUCOSE; Start 01/29/17 at 17:00 Glucagon (Glucagen) 1 mg Q15M PRN IM DECREASED GLUCOSE; Start 01/29/17 at 17:00 Glucose (Glutose) 15 gm Q15M PRN BUCCAL DECREASED GLUCOSE; Start 01/29/17 at 17 :00 Linagliptin (Tradjenta) 5 mg DAILY PO ; Start 01/31/17 at 09:00 DEBBIE MESA NP Jan 30, 2017 10:13 DEBBIE MESA NP Jan 30, 2017 10:13
--- NOTE | 2017-01-30 10:42 | CONS ---
DATE OF ADMISSION: 01/29/2017 DATE OF CONSULTATION: 01/30/2017 REASON FOR CONSULTATION: Acute kidney injury. HISTORY OF PRESENT ILLNESS: This is a 51-year-old female with a past medical history of chronic kidney disease stage 2 with a baseline creatinine around 1.5-1.7 mg/dL, history of asthma, diabetes, history of diabetic nephropathy, hypertension, obesity, who presented to [facility] with left lower extremity pain. The patient states she started having left lower extremity pain for 3 days with noted erythema, swelling. She denied any shortness of breath. The patient came into the emergency room for evaluation. Upon arrival, the patient had an ultrasound of her left lower extremity which showed nonocclusive thrombus in the mid and distal superficial femoral vein. The patient also had a white count of 17,000 and was anemic, had a hemoglobin of 8 with a creatinine of 1.98 mg/dL. The patient in the emergency room was given IV fluids, IV antibiotics. Was given Lovenox and admitted to telemetry for evaluation. In terms of the patient's renal history, the patient has a baseline creatinine ranging from 1.5-1.7 mg/dL. The patient denies any recent NSAID use. The patient, however, does take diuretics at home. She denies any hemoptysis, hematemesis, or hematochezia. PAST MEDICAL HISTORY: As stated above. History of chronic kidney disease, history of asthma, diabetes, morbid obesity, hypertension. PAST SURGICAL HISTORY: None. ALLERGIES: NONE. FAMILY HISTORY: No family history of . SOCIAL HISTORY: Does not drink, smoke, or do drugs. MEDICATION: The patient's medications been reviewed. REVIEW OF SYSTEMS: A 14-point review of systems conducted. Pertinent positives in the HPI. Otherwise negative. PHYSICAL EXAMINATION: VITAL SIGNS: Blood pressure is 133/77, respirations 18, pulse 105, temperature 98.2. HEENT: Head is normocephalic. Pupils are reactive to light. NECK: Supple. HEART: Regular rate. LUNGS: Diminished breath sounds at the bases. ABDOMEN: Soft, nontender to palpation. No rebound or guarding. EXTREMITIES: No clubbing, cyanosis. Trace edema in the right lower leg. Left lower extremity is noted to have erythema, edema, and tenderness to palpation. NEUROLOGIC: No focal deficits. LABORATORY: The patient's laboratory data shows sodium 140, potassium , chloride 103. BUN 36, creatinine 1.84. White count 12.5, hemoglobin 10.2, hematocrit 22.3, platelet count of 211. IMAGING STUDIES: Doppler ultrasound shows nonocclusive thrombus of the superficial femoral vein, and x-ray shows no soft tissue swelling. ASSESSMENT AND PLAN: This is a 51-year-old female who presents with problem 1. Nonoliguric acute kidney injury on top of chronic kidney disease (CKD) stage 3 with previous baseline creatinine of 1.5- 1.8 mg/dL. Etiology of acute kidney injury (REMI) is likely secondary to hemodynamics, recent diuretic use. The patient's urinalysis is positive pyuria, proteinuria. No significant hematuria. The plan at this point is to continue gentle IV hydration. Would otherwise continue supportive care. Renally dose all medications. Avoid nephrotoxins. Monitor closely. 2. Anemia. Monitor hemoglobin and hematocrit levels. Consider blood transfusion. Will check an iron panel. 3. Mineral bone disorder. Monitor calcium and phosphorus levels. 4. Left lower extremity deep vein thrombosis (DVT). Continue Lovenox. 5. Sepsis secondary to urinary tract infection (UTI). Continue current antibiotic regimen. 6. Diabetes. Continue current insulin regimen. 7. Hypertension. Continue current blood pressure regimen. Thank you so much for this interesting consult. It will be a pleasure to follow the patient with you throughout the hospital course. Dictated By: Atul Wellington DO /cuca/sergey /Document#: [id number]
[2017-01-30] MEDS: ACETAMINOPHEN 325 MG TAB PO PRN (11:09)
[2017-01-30] MEDS ORDERED: FUROSEMIDE 40 MG INJ ONE (11:54)
[2017-01-30] MEDS ORDERED: FUROSEMIDE 40 MG INJ IV ONE (12:00)
[2017-01-30 13:19] LABS: AADO2 Arterial 114.4 mmHg (7.0-24.0); Allen Test ACCEPTAB; Arterial COHb 0.3 % (0.0-3.0); Arterial Fraction of Oxyhgb 94.4 % (93.0-99.0); Arterial HCO3 21.7 mmol/L (22.0-26.0); Arterial MetHb 0.5 % (0.0-1.5); Arterial Total Hemglobin 8.4 g/dl (12.0-18.0); MODE NASAL CANNULA
[2017-01-30] MEDS ORDERED: morphine 4 MG/ML VIAL IV PRN (14:30)
--- NOTE | 2017-01-30 15:01 | CONS ---
Date/Time of Note Date/Time of Note DATE: 01/30/17 TIME: 15:00 Consultation Date/Type/Reason Admit Date/Time Jan 29, 2017 at 13:15 Date of Consultation: Jan 30, 2017 Type of Consultation: ID Reason for Consultation Antibiotic management Psychological: nl mood/affect Past Surgical History Past Surgical Hx: no surgical history Social History Alcohol Use: none Smoking Status: Never smoker Drug Use: none Exam/Review of Systems Vital Signs Vitals Vital Signs Date Time Temp Pulse Resp B/P Pulse Ox O2 Delivery O2 Flow Rate FiO2 01/30/17 14:53 100.9 78 18 126/59 96 01/30/17 11:29 Nasal Cannula 5.0 Results Result Diagram: 01/30/17 0507 01/30/17 0507 Results 24 hrs Laboratory Tests Test 01/29/17 15:13 01/29/17 18:29 01/29/17 20:51 01/30/17 02:11 Urine Color YELLOW Urine Clarity SLIGHTLY CLOUDY A Urine pH 5.0 Urine Specific [place] 1.014 Urine Ketones NEGATIVE Urine Nitrite NEGATIVE Urine Bilirubin NEGATIVE Urine Urobilinogen NEGATIVE Urine Leukocyte Esterase 3+ H Urine Microscopic RBC 2 Urine Microscopic WBC 99 H Urine Squamous Epithelial Cells FEW Urine Bacteria FEW A Urine Hemoglobin NEGATIVE Urine Glucose NEGATIVE Urine Total Protein 1+ H Bedside Glucose 279 H 242 H 215 Test 01/30/17 05:06 01/30/17 05:07 01/30/17 08:20 01/30/17 11:48 Hemoglobin A1c 6.8 H White Blood Count 12.5 #H Red Blood Count 2.55 L Hemoglobin 7.2 L Hematocrit 22.3 L Mean Corpuscular Volume 87.5 Mean Corpuscular Hemoglobin 28.2 L Mean Corpuscular Hemoglobin Concent 32.3 Red Cell Distribution Width 14.9 H Platelet Count 211 Mean Platelet Volume 10.4 Neutrophils % 84.5 H Lymphocytes % 7.6 L Monocytes % 6.3 Eosinophils % 0.2 Basophils % 0.2 Nucleated Red Blood Cells % 0.0 Neutrophils # 10.5 H Lymphocytes # 1.0 Monocytes # 0.8 Eosinophils # 0.0 Basophils # 0.0 Nucleated Red Blood Cells # 0.0 Sodium Level 140 Potassium Level 4.4 Chloride Level 103 Carbon Dioxide Level 23 Anion Gap 18 H Blood Urea Nitrogen 36 H Creatinine 1.84 H Glucose Level 195 # Calcium Level 8.0 L Phosphorus Level 3.9 Magnesium Level 1.8 Total Bilirubin 0.1 L Direct Bilirubin 0.00 Indirect Bilirubin 0.1 Aspartate Amino Transf (AST/SGOT) 34 Alanine Aminotransferase (ALT/SGPT) 37 Alkaline Phosphatase 70 Total Protein 7.1 Albumin 3.4 Globulin 3.70 H Albumin/Globulin Ratio 0.91 Triglycerides Level 120 Cholesterol Level 110 LDL Cholesterol, Calculated 66 HDL Cholesterol 20 L Cholesterol/HDL Ratio 5.5 Thyroid Stimulating Hormone (TSH) 0.617 Free Thyroxine Index 3.49 Thyroxine (T4) 7.1 Triiodothyronine (T3) Uptake 49.2 H Bedside Glucose 194 Blood Gas Specimen Source Blood arterial Arterial Blood Date Drawn 01/30/2017 1:11:16 PM Arterial Blood pH (Temp corrected) 7.385 Arterial Blood pCO2 (Temp correct) 37.1 Arterial Blood pO2 (Temp corrected) 77.6 L Arterial Blood HCO3 21.7 L Arterial Blood Base Excess -3.0 Arterial Blood Oxygen Saturation 95.2 Rony Test ACCEPTAB Arterial Blood Gas Puncture Site Right Radial Arterial Blood Carboxyhemoglobin 0.3 Arterial Blood Methemoglobin 0.5 Blood Gas A-a O2 Differential 114.4 H Oxyhemoglobin Percent 94.4 Total Hemoglobin 8.4 L Blood Gas Temperature 37.0 Blood Gas Modality NASAL CANNULA FiO2 33.0 Blood Gas Notified Whom M.D. Blood Gas Notified Time 01/30/2017 1:19:49 PM Test 01/30/17 12:00 Bedside Glucose 140 Medications Medications Current Medications Ceftriaxone Sodium (Rocephin) 50 ml @ 100 mls/hr Q24H IVPB Last administered on 01/29/17 19:16; Admin Dose 100 MLS/HR; Start 01/29/17 at 18:00 Acetaminophen (Tylenol Tab) 1,000 mg Q4H PRN PO PAIN AND OR ELEVATED TEMP; Start 01/29/17 at 16:00 Allopurinol (Zyloprim) 100 mg DAILY PO Last administered on 01/30/17 09:05; Admin Dose 100 MG; Start 01/30/17 at 09:00 Ferrous Sulfate (Ferrous Sulfate (Ec)) 325 mg DAILY PO Last administered on 09:06; Admin Dose 325 MG; Start 01/30/17 at 09:00 Furosemide (Lasix) 40 mg BID PO Last administered on 01/30/17 09:05; Admin Dose 40 MG; Start 01/29/17 at 21:00 Hydralazine HCl (Apresoline) 75 mg BID PO Last administered on 01/30/17 09:04 ; Admin Dose 75 MG; Start 01/29/17 at 21:00 Insulin Glargine (Lantus) 60 unit QHS SC Last administered on 01/29/17 21:06; Admin Dose 60 UNIT; Start 01/29/17 at 21:00 Loratadine (Claritin) 10 mg DAILY PO Last administered on 01/30/17 09:06; Admin Dose 10 MG; Start 01/30/17 at 09:00 Montelukast Sodium 10 mg 10 mg QHS PO Last administered on 01/29/17 20:58; Admin Dose 10 MG; Start 01/29/17 at 21:00 Sodium Chloride (NS) 1,000 ml @ 80 mls/hr [id number] IV Last administered on 01/29 15:52; Admin Dose 80 MLS/HR; Start 01/29/17 at 15:52 Ondansetron HCl (Zofran Inj) 4 mg Q6H PRN IV NAUSEA AND/OR VOMITING; Start at 16:00 Acetaminophen (Tylenol Tab) 650 mg Q6H PRN PO PAIN LEVEL 1-3 OR FEVER Last administered on 01/30/17 11:09; Admin Dose 650 MG; Start 01/29/17 at 16:00 Acetaminophen (Tylenol Supp) 650 mg Q6H PRN [place] PAIN LEVEL 1-3 OR FEVER; Start 01/29/17 at 16:00 Acetaminophen/ Hydrocodone Bitart ([place] (5/325)) 1 tab Q6H PRN PO MODERATE PAIN LEVEL 4-6 Last administered on 01/30/17 11:09; Admin Dose 1 TAB; Start at 16:00 Acetaminophen/ Hydrocodone Bitart ([place] (5/325)) 2 tab Q6H PRN PO SEVERE PAIN LEVEL 7-10 Last administered on 01/30/17 00:13; Admin Dose 2 TAB; Start at 16:00 Docusate Sodium (Colace) 100 mg Q12H PRN PO CONSTIPATION; Start 01/29/17 at 16: 00 Magnesium Hydroxide (Milk Of Mag) 30 ml DAILY PRN PO CONSTIPATION; Start at 16:00 Bisacodyl (Dulcolax Supp) 10 mg DAILY PRN [place] CONSTIPATION; Start 01/29/17 at 16 :00 Pantoprazole (Protonix Iv) 40 mg DAILY@06 IV Last administered on 01/30/17 05: 15; Admin Dose 40 MG; Start 01/30/17 at 06:00 Diagnostic Test (Pha) (Accu-Chek) 1 ea 02 XX Last administered on 01/30/17 02: 28; Admin Dose 1 EA; Start 01/30/17 at 02:00 Enoxaparin Sodium (Lovenox) 105 mg Q12 SC Last administered on 01/30/17 09:47 ; Admin Dose 105 MG; Start 01/29/17 at 21:00 Salmeterol Xinafoate/ Fluticasone (Advair 250/50 Diskus) 1 inh BID INH Last administered on 01/30/17 09:03; Admin Dose 1 INH; Start 01/29/17 at 21:00 Miscellaneous Information 1 ea NOTE XX ; Start 01/29/17 at 17:00 Glucose (Glutose) 15 gm Q15M PRN PO DECREASED GLUCOSE; Start 01/29/17 at 17:00 Glucose (Glutose) 22.5 gm Q15M PRN PO DECREASED GLUCOSE; Start 01/29/17 at 17: 00 Dextrose (D50w Syringe) 25 ml Q15M PRN IV DECREASED GLUCOSE; Start 01/29/17 at 17:00 Dextrose (D50w Syringe) 50 ml Q15M PRN IV DECREASED GLUCOSE; Start 01/29/17 at 17:00 Glucagon (Glucagen) 1 mg Q15M PRN IM DECREASED GLUCOSE; Start 01/29/17 at 17:00 Glucose (Glutose) 15 gm Q15M PRN BUCCAL DECREASED GLUCOSE; Start 01/29/17 at 17 :00 Linagliptin (Tradjenta) 5 mg DAILY PO ; Start 01/31/17 at 09:00 Carvedilol (Coreg) 3.125 mg BID PO ; Start 01/30/17 at 21:00 Aspirin (Aspirin) 81 mg DAILY PO ; Start 01/31/17 at 09:00 Morphine Sulfate (morphine) 2 mg Q4H PRN IV SEVERE PAIN LEVEL 7-10; Start 01/30 at 14:30 JUN PIPER MD Jan 30, 2017 15:01
[2017-01-30] MEDS: ALBUTEROL/IPRATROPIUM (NEB) 3 ML AMP HHN PRN (17:20)
[2017-01-30] MEDS: CEFTRIAXONE 2 GM/50 ML (PMX) 50 ML IVPB SCH (17:31)
[2017-01-30] MEDS: MONTELUKAST 10 MG TAB PO SCH (20:46)
[2017-01-30] MEDS: INSULIN GLARGINE [LANtus] 3 ML PEN SC SCH (20:52)
[2017-01-31] VITALS (12 sets, daily range): BP systolic 130–159; BP diastolic 60–77; PULSE 80–100; RESP 18–24
[2017-01-31] MEDS: ACCU-CHEK XX SCH (02:00)
[2017-01-31] MEDS: ALBUTEROL/IPRATROPIUM (NEB) 3 ML AMP HHN PRN ×4 (02:25→22:19)
[2017-01-31] MEDS: HYDROCODONE/APAP (5/325) TAB PO PRN (02:48)
--- NOTE | 2017-01-31 05:06 | CONS ---
DATE OF ADMISSION: 01/29/2017 DATE OF CONSULTATION: 01/30/2017 INFECTIOUS DISEASE CONSULTATION REASON FOR CONSULTATION: Antibiotic management. HISTORY OF PRESENT ILLNESS: Nereida Raygoza is a 51-year-old female who has numerous problems and comes in with left lower extremity pain with erythema and swelling. Her past problems include: 1. Adult-onset diabetes mellitus. 2. Asthma. 3. Hypertension. 4. Obesity. The patient has had left lower extremity pain for 3 days. She reported increasing erythema and swelling and is unable to bear weight on her foot. She denies chest pain, or shortness of breath or taking any contraceptives, nor did she have long travel in a car. An ultrasound of the left lower extremity showed a nonocclusive thrombus in the mid and distal left superior superficial femoral vein. She was also noted to have a white count of 17.6, hemoglobin of 8.0, hematocrit 25.4. She had acute renal insufficiency with a creatinine of 1.98, a CPK of 809, an elevated C-reactive protein, and her BNP was 1820. Her temperature was 100.3 and she was tachycardic. PAST MEDICAL HISTORY: Operations none. FAMILY HISTORY: Noncontributory. SOCIAL HISTORY: She does not smoke, drink or abuse drugs. ALLERGIES: NONE TO PENICILLIN, SULFA OR FOODS. MEDICATIONS: Per chart. REVIEW OF SYSTEMS: As per HPI. PHYSICAL EXAMINATION: GENERAL: The patient is a moderately obese female who is alert, responsive, and in no acute distress. VITAL SIGNS: Stable. T-max is 100.3. SKIN: Without generalized rash. HEENT: Within normal limits. NECK: Supple. Lymph nodes nonpalpable. CHEST: Decreased breath sounds at the bases. HEART: Without murmur or gallop. ABDOMEN: Soft, nontender, without organosplenomegaly or masses. EXTREMITIES: She has a swollen left lower extremity with erythema. GENITOURINARY: Exam deferred. RECTAL: Exam deferred. NEUROLOGIC: No focal neurological abnormality. LABORATORY: Her BUN was 38, creatinine 1.98, random glucose of 301. Blood cultures were done. One set of blood cultures grew out gram-positive cocci in clusters. Her urine grew out gram-negative rods, from a catheter; at 1530 hours the clean catch had no growth. The patient currently is on ceftriaxone. We may want to do recheck of her blood cultures. An x-ray with soft tissue showed soft tissue swelling in the fibula and tibia area. MRI to rule out necrotizing fasciitis. ASSESSMENT AND PLAN: The patient is on broad-spectrum antibiotics. She was also seen by Dr. Atul Wellington for acute kidney injury. She has 4 sets of blood cultures pending, which should be enough. I will dictate my findings to the hospitalist. Dictated By: Jeff Cisneros MD JD/cuca/naya /Document#: [id number]
[2017-01-31] MEDS: PANTOPRAZOLE 40 MG INJ IV SCH (06:19)
[2017-01-31] MEDS: SOD CHLORIDE 0.9% 1,000 ML IV SCH ×2 (06:19→17:52)
[2017-01-31 06:24] LABS: ABNORMAL IP MESSAGE 1; HEMATOCRIT 21.7 % (37.0-47.0); MEAN CORPUSCULAR HEMOGLOBIN 27.9 pg (29.0-33.0); MEAN CORPUSCULAR HGB CONC 31.8 g/dl (32.0-37.0); MEAN CORPUSCULAR VOLUME 87.9 fl (82.0-101.0); MEAN PLATELET VOLUME 11.1 fl (7.4-10.4); PLATELET COUNT 205 10^3/UL (140-415); RED BLOOD COUNT 2.47 10^6/ul (4.20-5.40); RED CELL DISTRIBUTION WIDTH 15.4 % (11.5-14.5); WHITE BLOOD COUNT 9.7 10^3/ul (4.8-10.8)
[2017-01-31 06:33] LABS: POSITIVE DIFF @See below
[2017-01-31 06:35] LABS: HEMOGLOBIN 6.9 g/dl (12.0-16.0)
[2017-01-31 07:01] LABS: CALCIUM 8.5 mg/dl (8.4-10.2); CREATININE 1.86 mg/dl (0.44-1.00); POTASSIUM 4.3 mmol/L (3.5-5.1)
[2017-01-31 07:45] LABS: ADD UMIC NO; UR ASCORBIC ACID NEGATIVE (NEGATIVE); UR BILIRUBIN (Dip) NEGATIVE (NEGATIVE); UR BLOOD (Dip) NEGATIVE (NEGATIVE); UR CLARITY CLEAR (CLEAR); UR COLOR YELLOW (YELLOW); UR GLUCOSE (Dip) NEGATIVE (NEGATIVE); UR KETONES (Dip) NEGATIVE (NEGATIVE); UR LEUKOCYTE ESTERASE (Dip) NEGATIVE Leu/ul (NEGATIVE); UR NITRITE (Dip) NEGATIVE (NEGATIVE); UR SPECIFIC GRAVITY (Dip) 1.008 (1.003-1.030); UR TOTAL PROTEIN (Dip) NEGATIVE (NEGATIVE); UR UROBILINOGEN (Dip) NEGATIVE (NEGATIVE)
[2017-01-31] MEDS: INSULIN ASPART [NOVOLOG] 3 ML PEN SC SCH ×7 (08:27→20:44)
[2017-01-31] MEDS: ACETAMINOPHEN 325 MG TAB PO PRN ×2 (08:28→18:08)
--- NOTE | 2017-01-31 08:38 | HP ---
DATE OF ADMISSION: 01/29/2017 VASCULAR SURGERY HISTORY AND PHYSICAL: Dear Doctors: Ms. Raygoza is a 51-year-old female with a history of noncompliance with her diabetes who presented to [facility] secondary to having a left lower extremity, pain, swelling, discomfort and redness over the past three days. The patient had mentioned that her swelling and pain that had been increasingly getting worse. She is not necessarily an ambulatory patient and she has also had histories of prior cellulitis of the lower extremities. The patient has had a history of non-healing ulcer of her left second toe and she presented with acute renal failure as well. At the moment the patient has been started on antibiotics and upon ultrasound findings of the left lower extremity was identified the patient having a femoral vein deep vein thrombosis. Vascular surgery consultation was obtained for further evaluation. REVIEW OF SYSTEMS: 14-point review performed negative, except was mentioned in history of present illness. PAST MEDICAL HISTORY: 1. Asthma. 2. Diabetes. 3. Hypertension. 4. Morbidly obese, BMI of 44.6. 5. Noncompliance. 6. Hyperlipidemia. 7. Coronary artery disease. 8. Left lower extremity nonhealing ulcer. SURGICAL HISTORY: None reported. SOCIAL HISTORY: Denies tobacco, alcohol, or illicit drug use. FAMILY HISTORY: Positive for hypertension and diabetes. PHYSICAL EXAMINATION: Alert, oriented x3. No apparent distress. HEENT: Normocephalic, atraumatic. PERRLA. EOMI. Mucosa moist. NECK: Supple. No carotid bruit. LUNGS: Clear to auscultation bilaterally. No crackles. CARDIOVASCULAR: S1, S2 present. No murmurs. ABDOMEN: Soft, nontender, nondistended. Bowel sounds positive. Truncal obesity and pannus. EXTREMITIES: Right lower extremity, palpable femoral pulse. A faint pedal pulse. Motor sensory intact. Capillary refill 3 seconds. Presence of spider veins and telangiectasias. Left lower extremity, palpable femoral pulse. Nonpalpable pedal pulse. Motor sensory intact. Capillary refill 3 seconds. Left 2nd toe ulcer, nonhealing at the tip of the toe. Presence of edema that is about 4+ extending from the forefoot all the way up to the upper calf, tender upon palpation. Area of erythema extending from the medial aspect of the ankle all the way up to the knee. ASSESSMENT AND PLAN: 1. Bilateral lower extremity atherosclerosis with a left second toe nonhealing ulcer: The patient has some component of atherosclerotic disease in addition to her diabetes. At the moment, we will plan to obtain noninvasive vascular studies with arterial duplex for further evaluation of her infrainguinal disease. 2. Left lower extremity acute deep vein thrombosis: It seems that the patient has presented with femoral vein deep vein thrombosis and at the moment would recommend continue with anticoagulation and we will plan to follow the patient, as she has recurrent cellulitis and would require antibiotic treatment. 3. Optimize vascular status (nutrition, exercise, sugar control, antiplatelets weight loss). 4. Diabetic education on compliance. 5. Keep the left lower extremity elevated and apply [facility] wrap for alleviating her discomfort. Discussed findings, plan and management with the patient with a certified compliance nurse and she understands. Thank for allowing us to partake in the care of your patient. Please call with any questions. Dictated By: Barney Thornton MD /cuca/wade /Document#: [id number]
[2017-01-31] MEDS: LORATADINE 10 MG TAB PO SCH (09:00)
[2017-01-31] MEDS: SALMETEROL/FLUTICASONE 250/50 INHA INH SCH ×2 (09:00→20:41)
[2017-01-31 09:20] LABS: IRON 15 ug/dl (35-150)
[2017-01-31 09:29] LABS: TOTAL IRON BINDING CAPACITY 191 ug/dl (241-421)
--- NOTE | 2017-01-31 09:44 | PN ---
Date/Time of Note Date/Time of Note DATE: 01/31/17 TIME: 09:35 Assessment/Plan VTE Prophylaxis VTE Prophylaxis Intervention: LMWH Lines/Catheters IV Catheter Type (from Nrs): Peripheral IV Urinary Cath still in place: No Assessment/Plan Chief Complaint/Hosp Course 1. . Left lower extremity cellulitis/ left second toe gangrenous ulcer. Xray with soft tissue swelling on Fibula/Tibia.Pending MRI to rule out necrotizing fasciitis. --ID/Podiatry on board and will follow recs. -Continue Broad spectrum abx and follow-up final cultures. -Wound care protocol 2.Left lower extremity acute deep vein thrombosis with --Vascular on board and on therapeutic anticoagulation-Will monitor HH closely 3. Hypoxic respiratory failure, multifactorial most likely secondary to acute anemia, sepsis and underlying asthma and obesity induced hypoventilation. Will also rule out pulmonary embolism. -Due to poor renal clearance, patient is not a candidate for CT with IV contrast. Therefore, we will proceed with a VQ scan. -Meanwhile, transfuse blood, Continue [id number] bronchodilators. Obtain 2D echocardiogram and monitor chest x-ray and ABG -BiPAP standby and consider pulmonary if indicated. 4. Anemia, now acute on chronic. -Transfuse 2 units PRBC stat. -Monitor H&H closely and monitor for any bleeding. Of note, patient required anticoagulation per vascular. 5. Sepsis secondary to ESBL UTI -ID on board and we will follow recommendation on antibiotics. -Follow final blood culture. 6. DMII. A1c 6.8. -Continue accuchecks/ISS/Lantus/tradjenta 7. Essential hypertension. -Continue Coreg and adjust needed 8. REMI on CKD with Diabetic nephropathy. -Renally dose meds-Monitor renal fxn closely and f/u with nephro recs. 9. Diastolic congestive heart failure,not in exacerbation.Last known EF 50% () -Obtain 2D echocardiogram for reevaluation. -Continue Coreg and aspirin to prevent cardioembolic events. 10.Asthma. -Continue bronchodilators 11.Morbid obesity. Weight reduction advised. PLAN:F/u with consultants recs. Continue current medical management. Case discussed with . Problems: Subjective 24 Hr Interval Summary Free Text/Dictation Today patient feels more weaker, at present saturating 70s in room air requiring nasal cannula at 4-5 L/min. Exam/Review of Systems Vital Signs Vitals Vital Signs Date Time Temp Pulse Resp B/P Pulse Ox O2 Delivery O2 Flow Rate FiO2 01/31/17 08:00 100 01/31/17 07:25 101.3 18 130/65 93 01/31/17 02:27 4.0 01/30/17 19:53 Nasal Cannula Intake and Output 01/30/17 01/30/17 01/31/17 15:00 23:00 07:00 Intake Total 1330 ml 1380 ml Balance 1330 ml 1380 ml Exam General: Frail looking obese female HEENT: Normocephalic, Atraumatic, No laceration or hematoma; Eyes: PEERL, Conjunctiva clear, Anicteric sclera Neck: Supple without any lymphadenopathy, nontender, no JVD, no carotid bruits, trachea midline, no thyromegaly Cardiac: S1, S2 auscultated, regular rhythm and rate, no mumurs or gallop Pulmonary: Decreased breath sounds bibasilar. Normal respiratory effort. Chest clear to auscultation bilaterally, no adventitious breath sounds GI: Abdomen obese to inspection. Soft, non- distended, no masses, no rebound tenderness or guarding. Bowel sounds active on all four quadrants Genitourinary: Deferred Extremities:Edema+ on BLE. LLE with edema/warmth/redness/tenderness,Dressing dry/intact. No cyanosis, clubbing, or edema. Pulses [2+] bilaterally. Full ROM on all four extremities. No focal weakness appreciated. Neurologic: Alert to person, place, time, and situation. Affect appropriate, intact sensation. Skin: Pale looking. Clean,dry, and intact. No ecchymosis, no rashes, or lesions Results Result Diagram: 01/31/17 0545 01/31/17 0545 Results 24 hrs Laboratory Tests Test 01/30/17 11:48 01/30/17 12:00 01/30/17 17:03 01/30/17 17:07 Blood Gas Specimen Source Blood arterial Arterial Blood Date Drawn 01/30/2017 1:11:16 PM Arterial Blood pH (Temp corrected) 7.385 Arterial Blood pCO2 (Temp correct) 37.1 Arterial Blood pO2 (Temp corrected) 77.6 L Arterial Blood HCO3 21.7 L Arterial Blood Base Excess -3.0 Arterial Blood Oxygen Saturation 95.2 Rony Test ACCEPTAB Arterial Blood Gas Puncture Site Right Radial Arterial Blood Carboxyhemoglobin 0.3 Arterial Blood Methemoglobin 0.5 Blood Gas A-a O2 Differential 114.4 H Oxyhemoglobin Percent 94.4 Total Hemoglobin 8.4 L Blood Gas Temperature 37.0 Blood Gas Modality NASAL CANNULA FiO2 33.0 Blood Gas Notified Whom M.Omer Blood Gas Notified Time 01/30/2017 1:19:49 PM Bedside Glucose 140 163 Urine Color YELLOW Urine Clarity CLEAR Urine pH 5.0 Urine Specific [place] 1.008 Urine Ketones NEGATIVE Urine Nitrite NEGATIVE Urine Bilirubin NEGATIVE Urine Urobilinogen NEGATIVE Urine Leukocyte Esterase NEGATIVE Urine Hemoglobin NEGATIVE Urine Random Creatinine 36.00 Urine Random Sodium 89 Urine Glucose NEGATIVE Urine Total Protein 19.0 H Test 01/30/17 20:41 01/31/17 05:45 01/31/17 08:15 Bedside Glucose 146 172 White Blood Count 9.7 # Red Blood Count 2.47 L Hemoglobin 6.9 *L Hematocrit 21.7 L Mean Corpuscular Volume 87.9 Mean Corpuscular Hemoglobin 27.9 L Mean Corpuscular Hemoglobin Concent 31.8 L Red Cell Distribution Width 15.4 H Platelet Count 205 Mean Platelet Volume 11.1 H Neutrophils % Lymphocytes % Monocytes % Eosinophils % Basophils % Nucleated Red Blood Cells % 0.0 Neutrophils # Lymphocytes # Monocytes # Eosinophils # Basophils # Nucleated Red Blood Cells # Sodium Level 139 Potassium Level 4.3 Chloride Level 99 Carbon Dioxide Level 24 Anion Gap 20 H Blood Urea Nitrogen 42 H Creatinine 1.86 H Glucose Level 147 # Calcium Level 8.5 Iron Level 15 L Total Iron Binding Capacity 191 L Percent Iron Saturation 8 L Medications Medications Current Medications Ceftriaxone Sodium (Rocephin) 50 ml @ 100 mls/hr Q24H IVPB Last administered on 01/30/17 17:31; Admin Dose 100 MLS/HR; Start 01/29/17 at 18:00 Acetaminophen (Tylenol Tab) 1,000 mg Q4H PRN PO PAIN AND OR ELEVATED TEMP; Start 01/29/17 at 16:00 Allopurinol (Zyloprim) 100 mg DAILY PO Last administered on 01/30/17 09:05; Admin Dose 100 MG; Start 01/30/17 at 09:00 Ferrous Sulfate (Ferrous Sulfate (Ec)) 325 mg DAILY PO Last administered on 09:06; Admin Dose 325 MG; Start 01/30/17 at 09:00 Furosemide (Lasix) 40 mg BID PO Last administered on 01/30/17 20:46; Admin Dose 40 MG; Start 01/29/17 at 21:00 Hydralazine HCl (Apresoline) 75 mg BID PO Last administered on 01/30/17 20:47 ; Admin Dose 75 MG; Start 01/29/17 at 21:00 Insulin Glargine (Lantus) 60 unit QHS SC Last administered on 01/30/17 20:52; Admin Dose 60 UNIT; Start 01/29/17 at 21:00 Loratadine (Claritin) 10 mg DAILY PO Last administered on 01/30/17 09:06; Admin Dose 10 MG; Start 01/30/17 at 09:00 Montelukast Sodium 10 mg 10 mg QHS PO Last administered on 01/30/17 20:46; Admin Dose 10 MG; Start 01/29/17 at 21:00 Sodium Chloride (NS) 1,000 ml @ 80 mls/hr [id number] IV Last administered on 06:19; Admin Dose 80 MLS/HR; Start 01/29/17 at 15:52 Ondansetron HCl (Zofran Inj) 4 mg Q6H PRN IV NAUSEA AND/OR VOMITING; Start at 16:00 Acetaminophen (Tylenol Tab) 650 mg Q6H PRN PO PAIN LEVEL 1-3 OR FEVER Last administered on 01/31/17 08:28; Admin Dose 650 MG; Start 01/29/17 at 16:00 Acetaminophen (Tylenol Supp) 650 mg Q6H PRN [place] PAIN LEVEL 1-3 OR FEVER; Start 01/29/17 at 16:00 Acetaminophen/ Hydrocodone Bitart ([place] (5/325)) 1 tab Q6H PRN PO MODERATE PAIN LEVEL 4-6 Last administered on 01/30/17 18:01; Admin Dose 1 TAB; Start at 16:00 Acetaminophen/ Hydrocodone Bitart ([place] (5/325)) 2 tab Q6H PRN PO SEVERE PAIN LEVEL 7-10 Last administered on 01/31/17 02:48; Admin Dose 2 TAB; Start at 16:00 Docusate Sodium (Colace) 100 mg Q12H PRN PO CONSTIPATION; Start 01/29/17 at 16: 00 Magnesium Hydroxide (Milk Of Mag) 30 ml DAILY PRN PO CONSTIPATION; Start at 16:00 Bisacodyl (Dulcolax Supp) 10 mg DAILY PRN [place] CONSTIPATION; Start 01/29/17 at 16 :00 Pantoprazole (Protonix Iv) 40 mg DAILY@06 IV Last administered on 01/31/17 06: 19; Admin Dose 40 MG; Start 01/30/17 at 06:00 Diagnostic Test (Pha) (Accu-Chek) 1 ea 02 XX Last administered on 01/30/17 02: 28; Admin Dose 1 EA; Start 01/30/17 at 02:00 Enoxaparin Sodium (Lovenox) 105 mg Q12 SC Last administered on 01/30/17 20:51 ; Admin Dose 105 MG; Start 01/29/17 at 21:00 Salmeterol Xinafoate/ Fluticasone (Advair 250/50 Diskus) 1 inh BID INH Last administered on 01/30/17 20:48; Admin Dose 1 INH; Start 01/29/17 at 21:00 Miscellaneous Information 1 ea NOTE XX ; Start 01/29/17 at 17:00 Glucose (Glutose) 15 gm Q15M PRN PO DECREASED GLUCOSE; Start 01/29/17 at 17:00 Glucose (Glutose) 22.5 gm Q15M PRN PO DECREASED GLUCOSE; Start 01/29/17 at 17: 00 Dextrose (D50w Syringe) 25 ml Q15M PRN IV DECREASED GLUCOSE; Start 01/29/17 at 17:00 Dextrose (D50w Syringe) 50 ml Q15M PRN IV DECREASED GLUCOSE; Start 01/29/17 at 17:00 Glucagon (Glucagen) 1 mg Q15M PRN IM DECREASED GLUCOSE; Start 01/29/17 at 17:00 Glucose (Glutose) 15 gm Q15M PRN BUCCAL DECREASED GLUCOSE; Start 01/29/17 at 17 :00 Linagliptin (Tradjenta) 5 mg DAILY PO ; Start 01/31/17 at 09:00 Carvedilol (Coreg) 3.125 mg BID PO Last administered on 01/30/17 21:02; Admin Dose 3.125 MG; Start 01/30/17 at 21:00 Aspirin (Aspirin) 81 mg DAILY PO ; Start 01/31/17 at 09:00 Morphine Sulfate 2 mg 2 mg Q4H PRN IV SEVERE PAIN LEVEL 7-10; Start 01/30/17 at 14:30 Sodium Chloride (NS) 250 ml @ 0 mls/hr Q0M ONCE IV* ; Start 01/31/17 at 10:00; Stop 01/31/17 at 10:01 DEBBIE MESA NP Jan 31, 2017 09:44
[2017-01-31 09:59] LABS: ANISOCYTOSIS 1+ (0-0); MONOCYTES % (M) 9 % (0-11); PLATELET ESTIMATE NORMAL; POIKILOCYTOSIS 2+ (0-0); POLYCHROMASIA 3+ (0-0)
[2017-01-31] MEDS ORDERED: SOD CHLORIDE 0.9% 250 ML IV* ONE ×2 (10:00→21:42)
--- NOTE | 2017-01-31 10:42 | PN ---
DATE: 01/31/2017 SUBJECTIVE DATA: The patient continues to be febrile. No other acute events noted. No hemoptysis, hematemesis, hematochezia. OBJECTIVE DATA: VITAL SIGNS: Pressure is 130/68, temperature 101.3, pulse 70, respirations 18. HEENT: Head is normocephalic. Pupils are reactive to light. NECK: Supple. HEART: Regular rate. LUNGS: Diminished breath sounds at the base. ABDOMEN: Soft, nontender to palpation. No rebound or guarding. EXTREMITIES: Negative for clubbing, cyanosis. Positive edema. Positive erythema. DERMATOLOGIC: Clean, no rashes. MUSCULOSKELETAL: No joint effusion. NEUROLOGIC: No change in exam. MEDICATIONS: Reviewed. LABORATORY AND DIAGNOSTIC DATA: Sodium 139, potassium 4.3, BUN 42, creatinine 1.86. White count 9.7, hemoglobin 6.9, crit 21.7, platelet count is 205. The patient's urinalysis is bland with a protein/creatinine ratio of 500 mg/g of creatinine. ASSESSMENT AND PLAN: 1. Nonoliguric acute kidney injury on top of chronic kidney disease stage 3, P with previous baseline creatinine 1.5 to 1.8 mg/dL. Etiology of acute kidney injury is secondary to hemodynamics. The patient's renal function is near baseline. At this point, continue current treatment plan, supportive care, renally dose all meds. 2. Anemia. The patient had a drop in H and H levels. Consider blood transfusion. 3. Mineral bone disorder. Will monitor calcium and phosphorus levels. 4. Left lower extremity deep vein thrombosis. Continue Lovenox. 5. Sepsis secondary to urinary tract infection . Continue current antibiotic regimen. 6. Diabetes. Continue current insulin regimen. 7. Hypertension. Continue current blood pressure regimen. Dictated By: Atul Wellington DO /cuca/pieter /Document#: [id number]
[2017-01-31] MEDS: ASPIRIN 81 MG TAB PO SCH (10:45)
[2017-01-31] MEDS: FUROSEMIDE 40 MG TAB PO SCH ×2 (10:46→20:41)
[2017-01-31] MEDS: LINAGLIPTIN 5 MG TABLET PO SCH (10:46)
[2017-01-31] MEDS: ALLOPURINOL 100 MG TAB PO SCH (10:46)
[2017-01-31] MEDS: FERROUS SULFATE (EC) 325 MG TAB PO SCH (10:47)
[2017-01-31] MEDS: ENOXAPARIN 100 MG/ML SYG SC SCH ×2 (10:50→21:29)
[2017-01-31] MEDS: traMADol 50 MG TAB PO PRN (16:00)
--- NOTE | 2017-01-31 16:14 | RADRPT ---
PROCEDURE: Ventilation-perfusion lung scan CLINICAL INDICATION: 51 -year-old patient with DVT, shortness of breath. TECHNIQUE: Following the inhalation of approximately 1.0 mCi of Tc-99m stannous DTPA aerosol, vent ilation images were obtained. The patient was then given an intravenous injection of 4.0 mCi of Tc- 99m MAA, in perfusion images were obtained. COMPARISON: No prior VQ scans. FINDINGS: The cardiac silhouette is enlarged. Ventilation images demonstrate a central deposition of the radionuclide in both lungs and mildly non homogeneous distribution of activity in the lungs bilaterally. Perfusion images reveal matched nonhomogeneous distribution of activity in both lungs. The findings represent low probability for pulmonary embolus. IMPRESSION: 1. Low probability for pulmonary embolus. 2. Cardiomegaly. RPTAT: HH .Clary Sanders MD, MD Date Time Electronically viewed and signed by .Clary Sanders MD, on 01/31/2017 16:13 .L/
[2017-01-31] MEDS: CEFTRIAXONE 2 GM/50 ML (PMX) 50 ML IVPB SCH (18:08)
--- NOTE | 2017-01-31 18:25 | RADRPT ---
PROCEDURE: US bilateral lower extremity arteries. CLINICAL INDICATION: Bilateral leg pain. Claudication that interferes significantly with the yudy ent's lifestyle. TECHNIQUE: Multiple longitudinal and transverse images of the bilateral lower extremity arteries w ere obtained with dinero scale, pulsed Doppler, and color Doppler imaging. COMPARISON: No prior studies are available for comparison. FINDINGS: Right RUSSET REPAIRER:145 cm/sec PSFA:98 cm/sec MSFA:83 cm/sec DSFA:106 cm/sec POP:134 cm/sec BUSINESS MANAGER:70 cm/sec DPA:20 cm/sec Left RUSSET REPAIRER:131 cm/sec PSFA:175 cm/sec MSFA:356 cm/sec DSFA:156 cm/sec POP:156 cm/sec BUSINESS MANAGER:91 cm/sec DPA:92 cm/sec The right ankle-brachial index is 0.70 and the left ankle-brachial index is 0.53. Normal triphasic flow is present bilaterally in the femoral and popliteal systems. There is monopha sic flow bilaterally in the calf arteries. High velocity flow is present in the mid left superficia l femoral artery consistent with significant stenosis. IMPRESSION: 1. Abnormal flow bilaterally in the calf arteries consistent with significant stenosis. 2. Significant stenosis in the left mid superficial femoral artery. RPTAT: QQ .Willard Pereira MD, MD Date Time Electronically viewed and signed by .Wlilard Pereira MD, on 01/31/2017 18:25 .R/
[2017-01-31] MEDS: MONTELUKAST 10 MG TAB PO SCH (20:40)
[2017-01-31] MEDS: INSULIN GLARGINE [LANtus] 3 ML PEN SC SCH (21:23)
--- NOTE | 2017-01-31 23:52 | CONS ---
Date/Time of Note Date/Time of Note DATE: 01/31/17 TIME: 23:47 Assessment/Plan Assessment/Plan Problems: (1) Morbid obesity (2) Cellulitis Status: Acute Qualifiers: Qualified Code: L03.116 - Cellulitis of left lower extremity (3) Leukocytosis Status: Acute Qualifiers: Qualified Code: D72.829 - Leukocytosis, unspecified type (4) Deep vein thrombosis Status: Acute Qualifiers: Qualified Code: I82.412 - Acute deep vein thrombosis (DVT) of femoral vein of left lower extremity (5) Chronic kidney disease Status: Acute Qualifiers: Qualified Code: N18.9 - Chronic kidney disease, unspecified stage (6) Hyperglycemia without ketosis Status: Acute Additional Assessment/Plan No surgery recommended for patient as far as her feet. Patient is on IV antibiotics I would like her to continue that. I will follow patient in-house. Thank you very much for involving me in the care of this patient. Consultation Date/Type/Reason Admit Date/Time Jan 29, 2017 at 13:15 Date of Consultation: Jan 31, 2017 Type of Consultation: Foot and ankle surgery Reason for Consultation Left lower extremity cellulitis Hx of Present Illness Thank you very much for involving in the care of this patient. As you very well know this is a 51-year-old female patient with multiple medical problems including diabetes mellitus, hypertension, obesity and asthma who came to [facility] secondary to reports of left lower extremity pain. According to patient patient has had pain for about 3-4 days. Patient stated that the redness and swelling of her left lower leg is increased. She points to the mid leg area and reports pain in that site. She denies trauma and reports no open wound. I was consulted for evaluation and treatment.l Constitutional: no complaints Eyes: no complaints ENT: no complaints Respiratory: no complaints Cardiovascular: no complaints Psychological: nl mood/affect Past Medical History As per history of present illness. Past Surgical History As per history of present illness. Past Surgical Hx: no surgical history Social History As per history of present illness. Alcohol Use: none Smoking Status: Never smoker Drug Use: none Exam/Review of Systems Vital Signs Vitals Vital Signs Date Time Temp Pulse Resp B/P Pulse Ox O2 Delivery O2 Flow Rate FiO2 01/31/17 22:20 92 20 92 Nasal Cannula 6.0 01/31/17 20:38 98.0 146/65 01/31/17 09:42 21 Intake and Output 01/30/17 01/30/17 01/31/17 15:00 23:00 07:00 Intake Total 1330 ml 1380 ml Balance 1330 ml 1380 ml Exam Morbidly obese female laying supine in bed. There is an Duke bandage intact to the left lower extremity which appears to be loose and not properly applied. Duke bandage was removed from the left lower extremity. I do not see any open wound in the left lower leg but there is erythema and edema of the leg. Temperature gradient has decreased. Dorsalis pedis and posterior tibial pulse is weak on both feet. Patient has decreased sensation to sharp, dull, vibratory temperature stimuli. Labs reviewed. Imaging reviewed. There is nonocclusive thrombus noted on the lower extremity venous ultrasound. Results Result Diagram: 01/31/17 0545 01/31/17 0545 Results 24 hrs Laboratory Tests Test 01/31/17 05:45 01/31/17 08:15 01/31/17 12:14 01/31/17 17:39 White Blood Count 9.7 # Red Blood Count 2.47 L Hemoglobin 6.9 *L Hematocrit 21.7 L Mean Corpuscular Volume 87.9 Mean Corpuscular Hemoglobin 27.9 L Mean Corpuscular Hemoglobin Concent 31.8 L Red Cell Distribution Width 15.4 H Platelet Count 205 Mean Platelet Volume 11.1 H Neutrophils % Segmented Neutrophils % (Manual) 81 H Band Neutrophils % (Manual) 1 Lymphocytes % Lymphocytes % (Manual) 10 L Monocytes % Monocytes % (Manual) 9 Eosinophils % Basophils % Nucleated Red Blood Cells % 0.0 Neutrophils # Neutrophils # (Manual) 7.9 H Band Neutrophils # 0.0 Absolute Lymphocytes (Manual) 0.9 Lymphocytes # Monocytes # Absolute Monocytes (Manual) 0.8 Eosinophils # Basophils # Nucleated Red Blood Cells # Smudge Cells % 1 H Platelet Estimate NORMAL Polychromasia 3+ Poikilocytosis 2+ Anisocytosis 1+ Macrocytosis 1+ Sodium Level 139 Potassium Level 4.3 Chloride Level 99 Carbon Dioxide Level 24 Anion Gap 20 H Blood Urea Nitrogen 42 H Creatinine 1.86 H Glucose Level 147 # Calcium Level 8.5 Iron Level 15 L Total Iron Binding Capacity 191 L Percent Iron Saturation 8 L Bedside Glucose 172 212 191 Test 01/31/17 20:38 Bedside Glucose 163 Medications Medications Current Medications Ceftriaxone Sodium (Rocephin) 50 ml @ 100 mls/hr Q24H IVPB Last administered on 01/31/17 18:08; Admin Dose 100 MLS/HR; Start 01/29/17 at 18:00 Acetaminophen (Tylenol Tab) 1,000 mg Q4H PRN PO PAIN AND OR ELEVATED TEMP; Start 01/29/17 at 16:00 Allopurinol (Zyloprim) 100 mg DAILY PO Last administered on 01/31/17 10:46; Admin Dose 100 MG; Start 01/30/17 at 09:00 Ferrous Sulfate (Ferrous Sulfate (Ec)) 325 mg DAILY PO Last administered on 01/31 10:47; Admin Dose 325 MG; Start 01/30/17 at 09:00 Furosemide (Lasix) 40 mg BID PO Last administered on 01/31/17 20:41; Admin Dose 40 MG; Start 01/29/17 at 21:00 Hydralazine HCl (Apresoline) 75 mg BID PO Last administered on 01/31/17 20:40; Admin Dose 75 MG; Start 01/29/17 at 21:00 Insulin Glargine (Lantus) 60 unit QHS SC Last administered on 01/31/17 21:23; Admin Dose 60 UNIT; Start 01/29/17 at 21:00 Loratadine (Claritin) 10 mg DAILY PO Last administered on 01/30/17 09:06; Admin Dose 10 MG; Start 01/30/17 at 09:00 Montelukast Sodium 10 mg 10 mg QHS PO Last administered on 01/31/17 20:40; Admin Dose 10 MG; Start 01/29/17 at 21:00 Sodium Chloride (NS) 1,000 ml @ 80 mls/hr [id number] IV Last administered on 06:19; Admin Dose 80 MLS/HR; Start 01/29/17 at 15:52 Ondansetron HCl (Zofran Inj) 4 mg Q6H PRN IV NAUSEA AND/OR VOMITING; Start at 16:00 Acetaminophen (Tylenol Tab) 650 mg Q6H PRN PO PAIN LEVEL 1-3 OR FEVER Last administered on 01/31/17 18:08; Admin Dose 650 MG; Start 01/29/17 at 16:00 Acetaminophen (Tylenol Supp) 650 mg Q6H PRN [place] PAIN LEVEL 1-3 OR FEVER; Start 01/29/17 at 16:00 Acetaminophen/ Hydrocodone Bitart ([place] (5/325)) 1 tab Q6H PRN PO MODERATE PAIN LEVEL 4-6 Last administered on 01/30/17 18:01; Admin Dose 1 TAB; Start at 16:00 Acetaminophen/ Hydrocodone Bitart ([place] (5/325)) 2 tab Q6H PRN PO SEVERE PAIN LEVEL 7-10 Last administered on 01/31/17 02:48; Admin Dose 2 TAB; Start at 16:00 Docusate Sodium (Colace) 100 mg Q12H PRN PO CONSTIPATION; Start 01/29/17 at 16: 00 Magnesium Hydroxide (Milk Of Mag) 30 ml DAILY PRN PO CONSTIPATION; Start at 16:00 Bisacodyl (Dulcolax Supp) 10 mg DAILY PRN [place] CONSTIPATION; Start 01/29/17 at 16 :00 Pantoprazole (Protonix Iv) 40 mg DAILY@06 IV Last administered on 01/31/17 06: 19; Admin Dose 40 MG; Start 01/30/17 at 06:00 Diagnostic Test (Pha) (Accu-Chek) 1 ea 02 XX Last administered on 01/30/17 02: 28; Admin Dose 1 EA; Start 01/30/17 at 02:00 Enoxaparin Sodium (Lovenox) 105 mg Q12 SC Last administered on 01/31/17 21:29; Admin Dose 105 MG; Start 01/29/17 at 21:00 Salmeterol Xinafoate/ Fluticasone (Advair 250/50 Diskus) 1 inh BID INH Last administered on 01/31/17 20:41; Admin Dose 1 INH; Start 01/29/17 at 21:00 Miscellaneous Information 1 ea NOTE XX ; Start 01/29/17 at 17:00 Glucose (Glutose) 15 gm Q15M PRN PO DECREASED GLUCOSE; Start 01/29/17 at 17:00 Glucose (Glutose) 22.5 gm Q15M PRN PO DECREASED GLUCOSE; Start 01/29/17 at 17: 00 Dextrose (D50w Syringe) 25 ml Q15M PRN IV DECREASED GLUCOSE; Start 01/29/17 at 17:00 Dextrose (D50w Syringe) 50 ml Q15M PRN IV DECREASED GLUCOSE; Start 01/29/17 at 17:00 Glucagon (Glucagen) 1 mg Q15M PRN IM DECREASED GLUCOSE; Start 01/29/17 at 17:00 Glucose (Glutose) 15 gm Q15M PRN BUCCAL DECREASED GLUCOSE; Start 01/29/17 at 17 :00 Linagliptin (Tradjenta) 5 mg DAILY PO Last administered on 01/31/17 10:46; Admin Dose 5 MG; Start 01/31/17 at 09:00 Carvedilol (Coreg) 3.125 mg BID PO Last administered on 01/31/17 20:51; Admin Dose 3.125 MG; Start 01/30/17 at 21:00 Aspirin (Aspirin) 81 mg DAILY PO Last administered on 01/31/17 10:45; Admin Dose 81 MG; Start 01/31/17 at 09:00 Morphine Sulfate (morphine) 2 mg Q4H PRN IV SEVERE PAIN LEVEL 7-10; Start 01/30 at 14:30 Tramadol HCl (Ultram) 50 mg Q6H PRN PO pain 6-10 Last administered on 01/31/17 16:00; Admin Dose 50 MG; Start 01/31/17 at 10:30 FARA HADLEY DPM Jan 31, 2017 23:52
[2017-02-01] VITALS (11 sets, daily range): BP systolic 136–152; BP diastolic 60–75; PULSE 76–94; RESP 20
[2017-02-01] MEDS: HYDROCODONE/APAP (5/325) TAB PO PRN (00:54)
[2017-02-01] MEDS: ACCU-CHEK XX SCH (01:40)
[2017-02-01] MEDS: SOD CHLORIDE 0.9% 1,000 ML IV SCH (06:22)
[2017-02-01 06:40] LABS: BASOPHILS % 0.2 % (0.0-2.0); EOSINOPHILS % 0.4 % (0.0-7.0); HEMOGLOBIN 7.6 g/dl (12.0-16.0); LYMPHOCYTES # 1.2 10^3/ul (0.8-2.9); LYMPHOCYTES % 10.9 % (15.0-51.0); MEAN CORPUSCULAR HEMOGLOBIN 28.4 pg (29.0-33.0); MEAN CORPUSCULAR VOLUME 85.8 fl (82.0-101.0); MEAN PLATELET VOLUME 10.8 fl (7.4-10.4); MONOCYTE # 0.8 10^3/ul (0.3-0.9); MONOCYTES % 7.3 % (0.0-11.0); NEUTROPHIL # 8.8 10^3/ul (1.6-7.5); NEUTROPHILS % 79.5 % (39.0-77.0); PLATELET COUNT 246 10^3/UL (140-415); RED BLOOD COUNT 2.68 10^6/ul (4.20-5.40); RED CELL DISTRIBUTION WIDTH 15.1 % (11.5-14.5); WHITE BLOOD COUNT 11.1 10^3/ul (4.8-10.8)
[2017-02-01] MEDS: ALBUTEROL/IPRATROPIUM (NEB) 3 ML AMP HHN PRN (06:45)
[2017-02-01 07:07] LABS: CALCIUM 8.4 mg/dl (8.4-10.2); CREATININE 1.85 mg/dl (0.44-1.00); POTASSIUM 3.7 mmol/L (3.5-5.1)
[2017-02-01 07:14] LABS: MAGNESIUM 1.7 mg/dl (1.7-2.5); PHOSPHORUS 4.1 mg/dl (2.5-4.9)
[2017-02-01] MEDS: PANTOPRAZOLE 40 MG INJ IV SCH (07:17)
[2017-02-01] MEDS ORDERED: SOD CHLORIDE 0.9% 250 ML IV* ONE (08:03)
--- NOTE | 2017-02-01 08:03 | PN ---
Date/Time of Note Date/Time of Note DATE: 02/01/17 TIME: 08:01 Assessment/Plan VTE Prophylaxis VTE Prophylaxis Intervention: LMWH Lines/Catheters IV Catheter Type (from Nrs): Peripheral IV Urinary Cath still in place: No Assessment/Plan Chief Complaint/Hosp Course 1. . Left lower extremity cellulitis/ left second toe gangrenous ulcer. Xray with soft tissue swelling on Fibula/Tibia.Pending MRI to rule out necrotizing fasciitis. --ID/Podiatry on board and will follow recs. -Continue Broad spectrum abx and follow-up final cultures. -Wound care protocol 2.Left lower extremity acute deep vein thrombosis. VQ scan with low probability for PE. --Vascular on board and was placed on therapeutic anticoagulation-now with significant drop in H&H, we will hold Lovenox dose today and will have GI evaluate patient for endoscopy. Consider IVC filter and this will be deferred to vascular. 3. Hypoxic respiratory failure, multifactorial most likely secondary to acute anemia, sepsis and underlying asthma and obesity -Continue [id number] bronchodilators. Follow-up with 2D echocardiogram and monitor chest x-ray and ABG as needed -BiPAP standby and consider pulmonary if indicated. 4. Anemia, now acute on chronic. H&H improved with transfusion. No evidence of bleeding. -We will transfuse 2 more unit PRBC today to optimize H&H status as patient is receiving anticoagulation. -Hold anticoagulation for now and obtain GI consult to rule out GI bleed, patient would need endoscopic evaluation. -Monitor H&H closely and monitor for any bleeding. 5. Sepsis secondary to ESBL UTI -ID on board and on appropriate antibiotics.. -Follow final blood culture. 6. DMII. A1c 6.8. -Continue accuchecks/ISS/Lantus/tradjenta 7. Essential hypertension. -Continue Coreg and adjust needed 8. REMI on CKD with Diabetic nephropathy. -Renally dose meds-Monitor renal fxn closely and f/u with nephro recs. 9. Diastolic congestive heart failure,not in exacerbation.Last known EF 50% () -Follow-up 1 2D echocardiogram for reevaluation. -Continue Coreg and aspirin to prevent cardioembolic events. 10.Asthma. -Continue bronchodilators 11.Morbid obesity. Weight reduction advised. PLAN: We will keep patient n.p.o. for possible plan for endoscopy and IVC filter today. This will be discussed with GI team and vascular team. Continue current medical management. Case discussed with . Problems: Subjective 24 Hr Interval Summary Free Text/Dictation Today, patient feels much improvement in respiratory status. Tolerating nasal cannula well. Had low-grade fever overnight. Denied any hematochezia, melena, hematemesis or other bleeding episodes. Exam/Review of Systems Vital Signs Vitals Vital Signs Date Time Temp Pulse Resp B/P Pulse Ox O2 Delivery O2 Flow Rate FiO2 02/01/17 07:50 97.6 75 20 139/60 100 02/01/17 06:48 6.0 02/01/17 06:48 Nasal Cannula 01/31/17 09:42 21 Intake and Output 01/31/17 01/31/17 02/01/17 15:00 23:00 07:00 Intake Total 660 ml 1250 ml Output Total 700 ml 1200 ml Balance -40 ml 50 ml Exam General: Frail looking obese female HEENT: Normocephalic, Atraumatic, No laceration or hematoma; Eyes: PEERL, Conjunctiva clear, Anicteric sclera Neck: Supple without any lymphadenopathy, nontender, no JVD, no carotid bruits, trachea midline, no thyromegaly Cardiac: S1, S2 auscultated, regular rhythm and rate, no mumurs or gallop Pulmonary: Decreased breath sounds bibasilar. Normal respiratory effort. Chest clear to auscultation bilaterally, no adventitious breath sounds GI: Abdomen obese to inspection. Soft, non- distended, no masses, no rebound tenderness or guarding. Bowel sounds active on all four quadrants Genitourinary: Deferred Extremities:Edema+ on BLE. LLE with edema/warmth/redness/tenderness,Dressing dry/intact. No cyanosis, clubbing, or edema. Pulses [2+] bilaterally. Full ROM on all four extremities. No focal weakness appreciated. Neurologic: Alert to person, place, time, and situation. Affect appropriate, intact sensation. Skin: Pale looking. Clean,dry, and intact. No ecchymosis, no rashes, or lesions Results Result Diagram: 02/01/17 0534 02/01/17 0534 Results 24 hrs Laboratory Tests Test 01/31/17 08:15 01/31/17 12:14 01/31/17 17:39 01/31/17 20:38 Bedside Glucose 172 212 191 163 Test 02/01/17 05:34 02/01/17 05:44 White Blood Count 11.1 H Red Blood Count 2.68 L Hemoglobin 7.6 L Hematocrit 23.0 L Mean Corpuscular Volume 85.8 Mean Corpuscular Hemoglobin 28.4 L Mean Corpuscular Hemoglobin Concent 33.0 Red Cell Distribution Width 15.1 H Platelet Count 246 Mean Platelet Volume 10.8 H Neutrophils % 79.5 H Lymphocytes % 10.9 L Monocytes % 7.3 Eosinophils % 0.4 Basophils % 0.2 Nucleated Red Blood Cells % 0.0 Neutrophils # 8.8 H Lymphocytes # 1.2 Monocytes # 0.8 Eosinophils # 0.0 Basophils # 0.0 Nucleated Red Blood Cells # 0.0 Sodium Level 139 Potassium Level 3.7 Chloride Level 99 Carbon Dioxide Level 24 Anion Gap 20 H Blood Urea Nitrogen 42 H Creatinine 1.85 H Glucose Level 172 Calcium Level 8.4 Phosphorus Level 4.1 Magnesium Level 1.7 Lab Scanned Report BLOOD TRANSFUSION Medications Medications Current Medications Ceftriaxone Sodium (Rocephin) 50 ml @ 100 mls/hr Q24H IVPB Last administered on 01/31/17 18:08; Admin Dose 100 MLS/HR; Start 01/29/17 at 18:00 Acetaminophen (Tylenol Tab) 1,000 mg Q4H PRN PO PAIN AND OR ELEVATED TEMP; Start 01/29/17 at 16:00 Allopurinol (Zyloprim) 100 mg DAILY PO Last administered on 01/31/17 10:46; Admin Dose 100 MG; Start 01/30/17 at 09:00 Ferrous Sulfate (Ferrous Sulfate (Ec)) 325 mg DAILY PO Last administered on 01/31 10:47; Admin Dose 325 MG; Start 01/30/17 at 09:00 Furosemide (Lasix) 40 mg BID PO Last administered on 01/31/17 20:41; Admin Dose 40 MG; Start 01/29/17 at 21:00 Hydralazine HCl (Apresoline) 75 mg BID PO Last administered on 01/31/17 20:40; Admin Dose 75 MG; Start 01/29/17 at 21:00 Insulin Glargine (Lantus) 60 unit QHS SC Last administered on 01/31/17 21:23; Admin Dose 60 UNIT; Start 01/29/17 at 21:00 Loratadine (Claritin) 10 mg DAILY PO Last administered on 01/30/17 09:06; Admin Dose 10 MG; Start 01/30/17 at 09:00 Montelukast Sodium 10 mg 10 mg QHS PO Last administered on 01/31/17 20:40; Admin Dose 10 MG; Start 01/29/17 at 21:00 Sodium Chloride (NS) 1,000 ml @ 80 mls/hr [id number] IV Last administered on 06:19; Admin Dose 80 MLS/HR; Start 01/29/17 at 15:52 Ondansetron HCl (Zofran Inj) 4 mg Q6H PRN IV NAUSEA AND/OR VOMITING; Start at 16:00 Acetaminophen (Tylenol Tab) 650 mg Q6H PRN PO PAIN LEVEL 1-3 OR FEVER Last administered on 01/31/17 18:08; Admin Dose 650 MG; Start 01/29/17 at 16:00 Acetaminophen (Tylenol Supp) 650 mg Q6H PRN [place] PAIN LEVEL 1-3 OR FEVER; Start 01/29/17 at 16:00 Acetaminophen/ Hydrocodone Bitart ([place] (5/325)) 1 tab Q6H PRN PO MODERATE PAIN LEVEL 4-6 Last administered on 01/30/17 18:01; Admin Dose 1 TAB; Start at 16:00 Acetaminophen/ Hydrocodone Bitart ([place] (5/325)) 2 tab Q6H PRN PO SEVERE PAIN LEVEL 7-10 Last administered on 02/01/17 00:54; Admin Dose 2 TAB; Start at 16:00 Docusate Sodium (Colace) 100 mg Q12H PRN PO CONSTIPATION; Start 01/29/17 at 16: 00 Magnesium Hydroxide (Milk Of Mag) 30 ml DAILY PRN PO CONSTIPATION; Start at 16:00 Bisacodyl (Dulcolax Supp) 10 mg DAILY PRN [place] CONSTIPATION; Start 01/29/17 at 16 :00 Pantoprazole (Protonix Iv) 40 mg DAILY@06 IV Last administered on 02/01/17 07: 17; Admin Dose 40 MG; Start 01/30/17 at 06:00 Diagnostic Test (Pha) (Accu-Chek) 1 ea 02 XX Last administered on 01/30/17 02: 28; Admin Dose 1 EA; Start 01/30/17 at 02:00 Enoxaparin Sodium (Lovenox) 105 mg Q12 SC Last administered on 01/31/17 21:29; Admin Dose 105 MG; Start 01/29/17 at 21:00 Salmeterol Xinafoate/ Fluticasone (Advair 250/50 Diskus) 1 inh BID INH Last administered on 01/31/17 20:41; Admin Dose 1 INH; Start 01/29/17 at 21:00 Miscellaneous Information 1 ea NOTE XX ; Start 01/29/17 at 17:00 Glucose (Glutose) 15 gm Q15M PRN PO DECREASED GLUCOSE; Start 01/29/17 at 17:00 Glucose (Glutose) 22.5 gm Q15M PRN PO DECREASED GLUCOSE; Start 01/29/17 at 17: 00 Dextrose (D50w Syringe) 25 ml Q15M PRN IV DECREASED GLUCOSE; Start 01/29/17 at 17:00 Dextrose (D50w Syringe) 50 ml Q15M PRN IV DECREASED GLUCOSE; Start 01/29/17 at 17:00 Glucagon (Glucagen) 1 mg Q15M PRN IM DECREASED GLUCOSE; Start 01/29/17 at 17:00 Glucose (Glutose) 15 gm Q15M PRN BUCCAL DECREASED GLUCOSE; Start 01/29/17 at 17 :00 Linagliptin (Tradjenta) 5 mg DAILY PO Last administered on 01/31/17 10:46; Admin Dose 5 MG; Start 01/31/17 at 09:00 Carvedilol (Coreg) 3.125 mg BID PO Last administered on 01/31/17 20:51; Admin Dose 3.125 MG; Start 01/30/17 at 21:00 Aspirin (Aspirin) 81 mg DAILY PO Last administered on 01/31/17 10:45; Admin Dose 81 MG; Start 01/31/17 at 09:00 Morphine Sulfate (morphine) 2 mg Q4H PRN IV SEVERE PAIN LEVEL 7-10; Start 01/30 at 14:30 Tramadol HCl (Ultram) 50 mg Q6H PRN PO pain 6-10 Last administered on 01/31/17t 16:00; Admin Dose 50 MG; Start 01/31/17 at 10:30 DEBBIE MESA NP Feb 01, 2017 08:03
[2017-02-01] MEDS: INSULIN ASPART [NOVOLOG] 3 ML PEN SC SCH ×7 (08:42→21:00)
[2017-02-01] MEDS: LORATADINE 10 MG TAB PO SCH (09:23)
[2017-02-01] MEDS: ALLOPURINOL 100 MG TAB PO SCH (09:23)
[2017-02-01] MEDS: LINAGLIPTIN 5 MG TABLET PO SCH (09:23)
[2017-02-01] MEDS: ASPIRIN 81 MG TAB PO SCH (09:23)
[2017-02-01] MEDS: FERROUS SULFATE (EC) 325 MG TAB PO SCH (09:23)
[2017-02-01] MEDS: FUROSEMIDE 40 MG TAB PO SCH ×2 (09:25→22:07)
--- NOTE | 2017-02-01 09:28 | PN ---
DATE: 02/01/2017 SUBJECTIVE DATA: Patient remains in some mild distress. She is on 6 L nasal cannula. No other events noted. No hemoptysis, hematemesis, hematochezia. OBJECTIVE DATA: VITAL SIGNS: Blood pressure 139/67, respirations 20, pulse 75, temperature 97.6. I's and O's: 1900 in, 1900 out. HEENT: Head is normocephalic. NECK: Supple. HEART: Regular rate. LUNGS: Showed diminished breath sounds at the base. Positive rhonchi. ABDOMEN: Soft, nontender to palpation. No rebound or guarding. EXTREMITIES: Negative for clubbing, cyanosis. Positive for edema and erythema in the lower extremity. DERMATOLOGIC: Clean. No rashes. MUSCULOSKELETAL: No joint effusion. NEUROLOGIC: No change in exam. LABORATORY AND DIAGNOSTIC DATA: Shows white count 11.1, hemoglobin 7.6, crit of 23.0, platelet count is 236. Sodium 139, potassium 3.7, chloride 99, BUN 42, creatinine 1.85. ASSESSMENT AND PLAN: 1. Nonoliguric acute kidney injury on top of chronic kidney disease stage 3B with a previous baseline creatinine 1.5 to 1.8 mg/dL. Etiology of acute kidney injury secondary to hemodynamics. Renal function appears to be stabilizing near baseline. Would continue current treatment plans, supportive care. Renally dose all meds. 2. Anemia. The patient's hemoglobin levels remained low. Continue to monitor. The patient is status post Epogen. Monitor closely for any signs of bleeding. 3. Mineral bone disorder. Monitor calcium and phosphorus levels. 4. Left lower extremity deep vein thrombosis. The patient's anticoagulation will continue. 5. Sepsis secondary to urinary tract infection. Continue current medical management. Continue intravenous antibiotics. 6. Hypoxemic respiratory failure. Etiology is multifactorial secondary to anemia, asthma, obesity. The patient is status post CT scan. Low suspicion for pulmonary embolus. Continue current medical management. Continue supplemental oxygen. Continue BiPAP. Consider pulmonary consult. 7. History of diastolic heart failure. Continue current medical management. We will give intermittent diuretic therapy as needed. 8. History of asthma. Continue current medical management. 9. Morbid obesity. Continue dietary modification. 10. Hypertension. Continue current blood pressure regimen. Dictated By: Atul Wellington DO /cuca/pieter /Document#: [id number]
[2017-02-01] MEDS: SALMETEROL/FLUTICASONE 250/50 INHA INH SCH ×2 (09:30→21:58)
[2017-02-01] MEDS: ENOXAPARIN 100 MG/ML SYG SC SCH (09:30)
[2017-02-01] MEDS: traMADol 50 MG TAB PO PRN (09:41)
[2017-02-01] MEDS: ALBUTEROL/IPRATROPIUM (NEB) 3 ML AMP HHN SCH ×3 (12:05→20:07)
--- NOTE | 2017-02-01 14:08 | CONS ---
Date/Time of Note Date/Time of Note DATE: 02/01/17 TIME: 13:55 Assessment/Plan Assessment/Plan Additional Assessment/Plan Assessment * Anemia Upper GI bleed Bleeding peptic ulcer vs others vs iron deficiency * Deep venous thrombosis left femoral * Cellulitis left lower extremities * Acute kidney injury Plan * EGD on Monday ,risks and benefit explained to patient agreed with the planned procedure * continue present management * IVC filter c/o vascular surgery Consultation Date/Type/Reason Admit Date/Time Jan 29, 2017 at 13:15 Date of Consultation: Feb 01, 2017 Type of Consultation: Gastroenterology Reason for Consultation Anemia Referring Provider: ALEJO CARTER MD Hx of Present Illness 51 year old female referred for evaluation of sudden drop of Hemoglobin.Past medical history includes asthma,diabetes mellitus,hypertension .Patient initially consulted at emergency room because of left leg pain x1 week.Workup revealed Nonocclusive thrombus in the mid and distal left superficial femoral vein.by venous Doppler.Arterial study revealed . Abnormal flow bilaterally in the calf arteries consistent with significant stenosis. Significant stenosis in the left mid superficial femoral artery.Patient was subsequently admitted diagnosis of DVT,Cellulitis.On the floor hemoglobin dropped to 6.9 transfuse 2 units of PRBC ,present hemoglobin 7.6,PT 13.9.INR 1.07 No evidenced of abdominal pain,hematemesis ,hematochezia.She is scheduled for IVC filter today , so planned EGD after IVC filter placement Constitutional: no complaints Eyes: no complaints ENT: no complaints Respiratory: no complaints Cardiovascular: no complaints Gastrointestinal: no complaints Genitourinary: no complaints Musculoskeletal: other (leg pain), swelling Skin: no complaints Neurologic: no complaints Endocrine: no complaints Lymphatic: no complaints Psychological: nl mood/affect Immunologic: no complaints Past Medical History Medical History: deep vein thrombosis, diabetes, hypertension Past Surgical History Past Surgical Hx: no surgical history Social History Alcohol Use: none Smoking Status: Never smoker Drug Use: none Exam/Review of Systems Vital Signs Vitals Vital Signs Date Time Temp Pulse Resp B/P Pulse Ox O2 Delivery O2 Flow Rate FiO2 02/01/17 12:05 87 20 97 Nasal Cannula 6.0 02/01/17 11:15 98.0 141/66 01/31/17 09:42 21 Intake and Output 01/31/17 01/31/17 02/01/17 14:59 22:59 06:59 Intake Total 660 ml 1250 ml Output Total 700 ml 1200 ml Balance -40 ml 50 ml Exam Constitutional: alert, oriented, well developed Psych: nl mood/affect, no complaints Head: atraumatic, normocephalic Eyes: EOMI, PERRL, nl conjunctiva, nl lids, nl sclera ENMT: nl external ears & nose, nl lips & teeth, nl nasal mucosa & septum Neck: non-tender, supple Respiratory: clear to auscultation, normal air movement Cardiovascular: nl pulses, regular rate and rhythm Gastrointestinal: nl liver, spleen, non-tender, soft Musculoskeletal: swelling (left leg,tender) Extremities: normal pulses Neurological: nl speech, nl strength Skin: nl turgor, No rash or lesions Lymph: nl lymph nodes Results Result Diagram: 02/01/17 0534 02/01/17 0534 Results 24 hrs Laboratory Tests Test 01/31/17 17:39 01/31/17 20:38 02/01/17 05:34 02/01/17 05:44 Bedside Glucose 191 163 White Blood Count 11.1 H Red Blood Count 2.68 L Hemoglobin 7.6 L Hematocrit 23.0 L Mean Corpuscular Volume 85.8 Mean Corpuscular Hemoglobin 28.4 L Mean Corpuscular Hemoglobin Concent 33.0 Red Cell Distribution Width 15.1 H Platelet Count 246 Mean Platelet Volume 10.8 H Neutrophils % 79.5 H Lymphocytes % 10.9 L Monocytes % 7.3 Eosinophils % 0.4 Basophils % 0.2 Nucleated Red Blood Cells % 0.0 Neutrophils # 8.8 H Lymphocytes # 1.2 Monocytes # 0.8 Eosinophils # 0.0 Basophils # 0.0 Nucleated Red Blood Cells # 0.0 Sodium Level 139 Potassium Level 3.7 Chloride Level 99 Carbon Dioxide Level 24 Anion Gap 20 H Blood Urea Nitrogen 42 H Creatinine 1.85 H Glucose Level 172 Calcium Level 8.4 Phosphorus Level 4.1 Magnesium Level 1.7 Lab Scanned Report BLOOD TRANSFUSION Test 02/01/17 08:27 02/01/17 11:39 Bedside Glucose 170 175 Medications Medications Current Medications Ceftriaxone Sodium (Rocephin) 50 ml @ 100 mls/hr Q24H IVPB Last administered on 01/31/17t 18:08; Admin Dose 100 MLS/HR; Start 01/29/17 at 18:00 Acetaminophen (Tylenol Tab) 1,000 mg Q4H PRN PO PAIN AND OR ELEVATED TEMP; Start 01/29/17 at 16:00 Allopurinol (Zyloprim) 100 mg DAILY PO Last administered on 02/01/17 09:23; Admin Dose 100 MG; Start 01/30/17 at 09:00 Ferrous Sulfate (Ferrous Sulfate (Ec)) 325 mg DAILY PO Last administered on 02/01 09:23; Admin Dose 325 MG; Start 01/30/17 at 09:00 Furosemide (Lasix) 40 mg BID PO Last administered on 02/01/17 09:25; Admin Dose 40 MG; Start 01/29/17 at 21:00 Hydralazine HCl (Apresoline) 75 mg BID PO Last administered on 02/01/17 09:25; Admin Dose 75 MG; Start 01/29/17 at 21:00 Insulin Glargine (Lantus) 60 unit QHS SC Last administered on 01/31/17 21:23; Admin Dose 60 UNIT; Start 01/29/17 at 21:00 Loratadine (Claritin) 10 mg DAILY PO Last administered on 02/01/17 09:23; Admin Dose 10 MG; Start 01/30/17 at 09:00 Montelukast Sodium (Singulair) 10 mg QHS PO Last administered on 01/31/17 20:40 ; Admin Dose 10 MG; Start 01/29/17 at 21:00 Ondansetron HCl (Zofran Inj) 4 mg Q6H PRN IV NAUSEA AND/OR VOMITING; Start at 16:00 Acetaminophen (Tylenol Tab) 650 mg Q6H PRN PO PAIN LEVEL 1-3 OR FEVER Last administered on 01/31/17 18:08; Admin Dose 650 MG; Start 01/29/17 at 16:00 Acetaminophen (Tylenol Supp) 650 mg Q6H PRN MD PAIN LEVEL 1-3 OR FEVER; Start 01/29/17 at 16:00 Acetaminophen/ Hydrocodone Bitart ([place] (5/325)) 1 tab Q6H PRN PO MODERATE PAIN LEVEL 4-6 Last administered on 01/30/17 18:01; Admin Dose 1 TAB; Start at 16:00 Acetaminophen/ Hydrocodone Bitart ([place] (5/325)) 2 tab Q6H PRN PO SEVERE PAIN LEVEL 7-10 Last administered on 02/01/17 00:54; Admin Dose 2 TAB; Start at 16:00 Docusate Sodium (Colace) 100 mg Q12H PRN PO CONSTIPATION; Start 01/29/17 at 16: 00 Magnesium Hydroxide (Milk Of Mag) 30 ml DAILY PRN PO CONSTIPATION; Start at 16:00 Bisacodyl (Dulcolax Supp) 10 mg DAILY PRN MD CONSTIPATION; Start 01/29/17 at 16 :00 Pantoprazole (Protonix Iv) 40 mg DAILY@06 IV Last administered on 02/01/17 07: 17; Admin Dose 40 MG; Start 01/30/17 at 06:00 Diagnostic Test (Pha) (Accu-Chek) 1 ea 02 XX Last administered on 01/30/17 02: 28; Admin Dose 1 EA; Start 01/30/17 at 02:00 Enoxaparin Sodium (Lovenox) 105 mg Q12 SC Last administered on 02/01/17 09:30; Admin Dose 105 MG; Start 01/29/17 at 21:00; Status Future Hold Salmeterol Xinafoate/ Fluticasone (Advair 250/50 Diskus) 1 inh BID INH Last administered on 02/01/17 09:30; Admin Dose 1 INH; Start 01/29/17 at 21:00 Miscellaneous Information 1 ea NOTE XX ; Start 01/29/17 at 17:00 Glucose (Glutose) 15 gm Q15M PRN PO DECREASED GLUCOSE; Start 01/29/17 at 17:00 Glucose (Glutose) 22.5 gm Q15M PRN PO DECREASED GLUCOSE; Start 01/29/17 at 17: 00 Dextrose (D50w Syringe) 25 ml Q15M PRN IV DECREASED GLUCOSE; Start 01/29/17 at 17:00 Dextrose (D50w Syringe) 50 ml Q15M PRN IV DECREASED GLUCOSE; Start 01/29/17 at 17:00 Glucagon (Glucagen) 1 mg Q15M PRN IM DECREASED GLUCOSE; Start 01/29/17 at 17:00 Glucose (Glutose) 15 gm Q15M PRN BUCCAL DECREASED GLUCOSE; Start 01/29/17 at 17 :00 Linagliptin (Tradjenta) 5 mg DAILY PO Last administered on 02/01/17 09:23; Admin Dose 5 MG; Start 01/31/17 at 09:00 Carvedilol (Coreg) 3.125 mg BID PO Last administered on 02/01/17 09:24; Admin Dose 3.125 MG; Start 01/30/17 at 21:00 Aspirin (Aspirin) 81 mg DAILY PO Last administered on 02/01/17 09:23; Admin Dose 81 MG; Start 01/31/17 at 09:00 Morphine Sulfate (morphine) 2 mg Q4H PRN IV SEVERE PAIN LEVEL 7-10; Start 01/30 at 14:30 Tramadol HCl (Ultram) 50 mg Q6H PRN PO pain 6-10 Last administered on 02/01/17 09:41; Admin Dose 50 MG; Start 01/31/17 at 10:30 ANGE CALDERÓN MD Feb 01, 2017 14:08
[2017-02-01 14:22] LABS: MICROALBUMIN 2.1 mg/dL
[2017-02-01] MEDS: ACETAMINOPHEN 325 MG TAB PO PRN (14:23)
--- NOTE | 2017-02-01 14:26 | RADRPT ---
Echocardiogram Report Patient Name: NEERU REID Gender: Female Date: 1965 Study Date: 31-Jan-2017 Trimming Machine Operator: Duncan Pearce RDCS Location: [facility] Ref. Physician: DEBBIE MESA Quality: Adequate Procedures: Transthoracic echocardiogram with complete 2D, M-Mode, and doppler examination. Indications: Shortness of breath. 2D/M Mode Doppler Measurement Value Normal Ranges Measurement Value Normal Ranges LVIDd 2D 6.2 3.5 - 5.6 cm AV Peak Yousuf 1.8 m/sec LVIDs 2D 4.9 2.1 - 4.1 cm AV Peak PG 13.4 mmHg LVPWd 2D 1.2 0.6 - 1.1 cm LVOT Peak Yousuf 1.0 m/sec IVSd 2D 1.1 0.6 - 1.1 cm LVOT Peak PG 4.1 mmHg AoR Diam 2D 3.0 2.0 - 3.7 cm MV E Peak Yousuf 1.0 m/sec EDV 2D 191.1 cm3 MV A Peak Yousuf 0.9 m/sec ESV 2D 116.9 cm3 MV E/A 1.2 LA Dimen 2D 3.9 2.3 - 4.0 cm MV Decel Time 164 msec MV Decel [place] 6 MV E/A 1.2 TR Peak Yousuf 3.2 m/sec TR Peak PG 41.8 mmHg RVSP 57.0 mmHg Findings Left Ventricle: Lower limits of normal systolic function. Severe enlargement of left ventricle cavity. Ejection fraction is visually estimated at 5055 %. Right Ventricle: Normal right ventricular size. Normal right ventricular systolic function. Left Atrium: The left atrium is normal in size. Right Atrium: The right atrium is normal in size. Mitral Valve: Normal appearance of the mitral valve. Mild mitral annular calcification. Mild mitral valve regurgitation. Aortic Valve: Normal appearance of the aortic valve. No significant aortic stenosis or insufficiency. Tricuspid Valve: Normal appearance of the tricuspid valve. Estimated peak PA systolic pressure 57 mmHg. There is mild tricuspid regurgitation. Pulmonic Valve: Pulmonic valve not well visualized. Pericardium: Trivial pericardial effusion. Aorta: Normal aortic root. IVC: Dilated IVC without respiratory collapse consistent with elevated right atrial pressure. Conclusions 1.The left ventricle is severely enlarged with lower limits of normal systolic function. 2.Estimated left ventricular ejection fraction of 50-55%. 3.Pulmonary hypertension with estimated RVSP of 57 mmHg. Electronically Signed By: Miles Morris 01-Feb-2017 14:25:22 -0700 Patient Name: NEERU REID Study Date: 31-Jan-2017 [id number]
[2017-02-01] MEDS ORDERED: MIDAZOLAM 1 MG/ML 2 ML INJ ONE (17:54)
[2017-02-01] MEDS ORDERED: FENTAnyl 50 MCG/ML VIAL ONE (17:54)
--- NOTE | 2017-02-01 17:57 | OPR ---
Date/Time of Note Date/Time of Note DATE: 02/01/17 TIME: 17:54 Operative Report Free Text/Dictation DATE OF OPERATION: 02/01/17 SURGEON: Barney Ayala MD PREOPERATIVE DIAGNOSIS: Left lower extremity DVT and GI Bleed POSTOPERATIVE DIAGNOSIS: same ANESTHESIA: Local with Sedation BLOOD LOSS: minimal COMPLICATIONS: None. HEPARIN: None CONTRAST: CO2 Angiogram ACCESS: 6Fr Sheath right BRAIN SURGEON CLOSURE: Manual compression INDICATIONS: This is a 51-year-old female whom had presented with left lower extremity deep vein thrombosis, and acute GI Bleed with dropping hemoglobin and hematocrit. Patient has been informed of the alternatives, risks, and benefits of angiogram, balloon angioplasty, and filter placement. Risks including but not limited to bleeding, thrombosis, embolization, myocardial infarction, , stroke, device malfunction, infection, and nephrotoxicity and patient has agreed to proceed. This is the first diagnostic angiogram in this clinical setting PROCEDURE: 1. Ultrasound guided access of the right common femoral vein 2. Right Iliac venogram 3. Inferior vena cava venogram 4. Intravascular ultrasound of Right common femoral, external iliac, common iliac veins, and inferior vena cava 5. Placement of IVC Filter FINDINGS: -Patent right iliac venous system -Patent IVC DESCRIPTION OF THE PROCEDURE: The patient was brought to the angio suite and positioned in the supine position on the fluoroscopic table. The right groin was prepped and draped in the standard fashion. Using 1% lidocaine, the area overlying the common femoral vein was anesthetized. The common femoral vein was punctured with the Seldinger needle and a guide wire placed into the vena cava to the level of the second lumbar vertebrae under fluoroscopic guidance. A pigtail catheter was placed into the vena cava over a guide wire. Contrast venography was performed and there was no thrombus within the vena cava or iliac veins. Intravascular ultrasound was performed and findings as stated above. The vena cava is 20 mm in diameter. The renal veins and iliac veins confluence is identified and marked on the screen. The tract was serially dilated over the guide wire and the provided sheath placed into the vena cava under fluoroscopy. The sheath was flushed with heparin solution. The device was inserted over the wire into the sheath and positioned below the lowest renal vein. The sheath was withdrawn, exposing the filter. With continuous fluoroscopic imaging, the filter was deployed in the infrarenal vena cava. Completion venogram and IVUS shows good filter position within the vena cava without thrombus formation. The device and sheath were removed and 15 min of pressure applied to the puncture site for hemostasis. Dressings were applied. The patient tolerated the procedure well and was taken to the postanesthesia care unit in stable condition. BARNEY AYALA MD Feb 01, 2017 17:57
[2017-02-01] MEDS ORDERED: LIDOCAINE 1% (MDV) 20 ML INJ ONE (17:58)
[2017-02-01] MEDS: INSULIN GLARGINE [LANtus] 3 ML PEN SC SCH (22:03)
[2017-02-01] MEDS: MONTELUKAST 10 MG TAB PO SCH (22:07)
[2017-02-01] MEDS: CEFTRIAXONE 2 GM/50 ML (PMX) 50 ML IVPB SCH (22:10)
[2017-02-02] VITALS (12 sets, daily range): BP systolic 121–149; BP diastolic 56–76; PULSE 74–91; RESP 19–23
[2017-02-02] MEDS: ALBUTEROL/IPRATROPIUM (NEB) 3 ML AMP HHN PRN ×2 (00:25→04:13)
--- NOTE | 2017-02-02 01:05 | RADRPT ---
PROCEDURE: Noncontrast MRI of the left lower extremity. CLINICAL INDICATION: Cellulitis. DVT. Severe pain in the left lower extremity with concern for nec rotizing fasciitis. TECHNIQUE: Noncontrast MRI examination left lower extremity, from knee to ankle, with axial, sagitta l and coronal reformatted images. T1-weighted and T2-weighted images were obtained. Fat saturation technique was employed. COMPARISON: Ultrasound examination of the bilateral lower extremities dated 01/31/2017. Ultrasound examination of the bilateral lower extremities dated 01/29/2017 FINDINGS: No acute fracture, dislocation or marrow replacement process. Extensive subcutaneous edema is seen throughout the left leg. Fatty atrophy seen in the distal gastrocnemius, and the Achilles tendon is unremarkable. No evident edema in the musculature of the left leg. No fluid collections is seen to suggest an abs cess. IV contrast enhanced MRI examination may be of further use if there is strong persistent adela rn for necrotizing fasciitis. IMPRESSION: 1. Subcutaneous edema over the left leg. 2. No fluid collection to suggest an abscess. 3. Fatty atrophy in the distal gastrocnemius, and the Achilles tendon is otherwise unremarkable. 4. No evident muscular edema. 5. No acute fracture. RPTAT: [facility] Physician Lucinda Date Time Electronically viewed and signed by Physician Lucinda on 02/02/2017 01:05 NELLIE/
[2017-02-02] MEDS: ACCU-CHEK XX SCH (02:00)
[2017-02-02] MEDS: PANTOPRAZOLE 40 MG INJ IV SCH (05:14)
[2017-02-02 06:42] LABS: BASOPHILS % 0.2 % (0.0-2.0); EOSINOPHILS % 0.3 % (0.0-7.0); HEMATOCRIT 24.7 % (37.0-47.0); LYMPHOCYTES % 7.9 % (15.0-51.0); MEAN CORPUSCULAR HEMOGLOBIN 27.7 pg (29.0-33.0); MEAN CORPUSCULAR HGB CONC 32.4 g/dl (32.0-37.0); MEAN CORPUSCULAR VOLUME 85.5 fl (82.0-101.0); MEAN PLATELET VOLUME 10.5 fl (7.4-10.4); MONOCYTE # 0.8 10^3/ul (0.3-0.9); MONOCYTES % 6.5 % (0.0-11.0); NEUTROPHIL # 10.1 10^3/ul (1.6-7.5); NEUTROPHILS % 82.3 % (39.0-77.0); PLATELET COUNT 305 10^3/UL (140-415); RED BLOOD COUNT 2.89 10^6/ul (4.20-5.40); RED CELL DISTRIBUTION WIDTH 15.1 % (11.5-14.5); WHITE BLOOD COUNT 12.3 10^3/ul (4.8-10.8)
[2017-02-02 07:16] LABS: CALCIUM 8.5 mg/dl (8.4-10.2); CREATININE 1.57 mg/dl (0.44-1.00)
[2017-02-02] MEDS: INSULIN ASPART [NOVOLOG] 3 ML PEN SC SCH ×7 (08:40→20:37)
[2017-02-02] MEDS: ALBUTEROL/IPRATROPIUM (NEB) 3 ML AMP HHN SCH ×4 (08:43→20:31)
[2017-02-02] MEDS: SALMETEROL/FLUTICASONE 250/50 INHA INH SCH ×2 (09:20→20:15)
[2017-02-02] MEDS: MAGNESIUM HYDROXIDE 30ML CUP PO PRN (09:20)
[2017-02-02] MEDS: FERROUS SULFATE (EC) 325 MG TAB PO SCH (09:21)
[2017-02-02] MEDS: FUROSEMIDE 40 MG TAB PO SCH (09:22)
[2017-02-02] MEDS: ASPIRIN 81 MG TAB PO SCH (09:22)
[2017-02-02] MEDS: LORATADINE 10 MG TAB PO SCH (09:22)
[2017-02-02] MEDS: LINAGLIPTIN 5 MG TABLET PO SCH (09:22)
[2017-02-02] MEDS: ALLOPURINOL 100 MG TAB PO SCH (09:22)
--- NOTE | 2017-02-02 10:36 | PN ---
DATE: 02/02/2017 SUBJECTIVE DATA: The patient is stable. No events overnight. No fevers, chills, nausea or vomiting. OBJECTIVE DATA: VITAL SIGNS: Blood pressure 149/72, temperature 98.3, pulse 81. HEENT: Head is normocephalic. NECK: Supple. HEART: Regular rate. LUNGS: Diminished breath sounds at the base. ABDOMEN: Soft, nontender to palpation. No guarding. EXTREMITIES: Negative for clubbing or cyanosis. Positive edema. DERMATOLOGIC: No rashes. MUSCULOSKELETAL: No joint effusion. NEUROLOGIC: Unchanged exam. MEDICATIONS: Reviewed. LABORATORY AND DIAGNOSTIC DATA: Sodium 140, potassium 4.2, chloride 145, creatinine 1.57. White count 12.3, hemoglobin 8.0, hematocrit 24.7, platelet count 305. ASSESSMENT AND PLAN: 1. Nonoliguric acute kidney injury on top of chronic kidney disease stage IIIB with previous baseline creatinine 1.5 to 1.8 mg/dL. Etiology of acute kidney injury secondary to hemodynamics. Renal function appears to be stabilizing. Returning back to baseline. At this point, continue current treatment plan. Supportive care. Renally dose all medications. 2. Anemia. Monitor H and H levels. The patient is status post Epogen. 3. Minderal bone disorder. Monitor calcium and phosphorus levels. 4. Left lower extremity deep vein thrombosis. Continue current anticoagulation. 5. Sepsis secondary to urinary tract infection. Continue current antibiotic regimen. 6. Hypoxic respiratory failure. Etiology multifactorial secondary to anemia, asthma and obesity. Continue current medical management. 7. History of diastolic heart failure. Continue current treatment plan. Continue diuretic therapy. 8. History of asthma. 9. Morbid obesity. Continue dietary modification. 10. Hypertension. Continue current blood pressure regimen. Dictated By: Atul Wellington DO /cuca/ /Document#: [id number]
--- NOTE | 2017-02-02 10:44 | PN ---
Date/Time of Note Date/Time of Note DATE: 02/02/17 TIME: 10:35 Assessment/Plan VTE Prophylaxis VTE Prophylaxis Intervention: other (hold for today for procedure.) Lines/Catheters IV Catheter Type (from Nrs): Peripheral IV Urinary Cath still in place: No Assessment/Plan Chief Complaint/Hosp Course 1. . Left lower extremity cellulitis/ left second toe gangrenous ulcer. Xray with soft tissue swelling on Fibula/Tibia. MRI without evidence of necrotizing fasciitis. No improvement. --ID/Podiatry on board and will follow recs. -On Broad spectrum abx and follow-up final cultures. -Wound care protocol 2.Left lower extremity acute deep vein thrombosis. VQ scan with low probability for PE. --Status post IVC filter placed on 02/01/2017. Given the plan for endoscopic tomorrow, we will hold anticoagulation today. -As per vascular, patient will need Eliquis versus Xarelto-this will be taken care after endoscopy. 3. Systolic and diastolic congestive heart failure. Echocardiogram with lower limits systolic function with ejection fraction 50-55%. -IV diuretics-we will change to 20 twice daily, monitor renal function closely as diuretics can worsen renal function further. -Continue beta-blockers and aspirin and cardiology consult. 4. Hypoxic respiratory failure, multifactorial most likely secondary to possible CHF, pulmonary hypertension, acute anemia, sepsis and underlying asthma and obesity. Resolved. -Continue oxygen and bronchodilators. 5. Anemia, now acute on chronic. H&H improved with transfusion. No evidence of bleeding. -Hold anticoagulation for now and obtain GI consult to rule out GI bleed, patient would need endoscopic evaluation. -Monitor H&H closely and monitor for any bleeding. -Pending stool OB 5. Resolving sepsis secondary to ESBL UTI -ID on board . On ceftriaxone ?? Start carbapenem?? -Repeat cultures negative. 6. DMII. A1c 6.8. -Continue accuchecks/ISS/Lantus/tradjenta 7. Essential hypertension. -Continue Coreg and adjust needed 8. REMI on CKD with Diabetic nephropathy. -Renally dose meds-Monitor renal fxn closely and f/u with nephro recs. 9. Pulmonary hypertension -Oxygen and diuretics. 10.Asthma. -Continue bronchodilators 11.Morbid obesity. Weight reduction advised. PLAN: Continue current medical management. Follow-up with endoscopy findings. Follow-up with cardiology recommendations Case discussed with . Problems: Subjective 24 Hr Interval Summary Free Text/Dictation No acute overnight episodes. LLE remains edematous and tender. No reported bleeding. Remains on O2. Exam/Review of Systems Vital Signs Vitals Vital Signs Date Time Temp Pulse Resp B/P Pulse Ox O2 Delivery O2 Flow Rate FiO2 02/02/17 08:47 95 5.0 02/02/17 08:45 80 24 Nasal Cannula 02/02/17 07:14 98.3 149/70 01/31/17 09:42 21 Intake and Output 02/01/17 02/01/17 02/02/17 15:00 23:00 07:00 Intake Total 50 ml 700 ml Balance 50 ml 700 ml Exam General: Morbidly obese female HEENT: Normocephalic, Atraumatic, No laceration or hematoma; Eyes: PEERL, Conjunctiva clear, Anicteric sclera Neck: Supple without any lymphadenopathy, nontender, no JVD, no carotid bruits, trachea midline, no thyromegaly Cardiac: S1, S2 auscultated, regular rhythm and rate, no mumurs or gallop Pulmonary: Decreased breath sounds bibasilar. Normal respiratory effort. Chest clear to auscultation bilaterally, no adventitious breath sounds GI: Abdomen obese to inspection. Soft, non- distended, no masses, no rebound tenderness or guarding. Bowel sounds active on all four quadrants Genitourinary: Deferred Extremities:Edema+ on BLE. LLE with edema/warmth/redness/tenderness- no significant improvement. Dressing dry/intact. No cyanosis, clubbing, or edema. Pulses [2+] bilaterally. Full ROM on all four extremities. No focal weakness appreciated. Neurologic: Alert to person, place, time, and situation. Affect appropriate, intact sensation. Skin: Pale looking. Clean,dry, and intact. No ecchymosis, no rashes, or lesions Results Result Diagram: 02/02/17 0551 02/02/17 0551 Results 24 hrs Laboratory Tests Test 02/01/17 11:39 02/01/17 21:57 02/02/17 05:27 02/02/17 05:51 Bedside Glucose 175 175 Lab Scanned Report BLOOD TRANSFUSION White Blood Count 12.3 H Red Blood Count 2.89 L Hemoglobin 8.0 L Hematocrit 24.7 L Mean Corpuscular Volume 85.5 Mean Corpuscular Hemoglobin 27.7 L Mean Corpuscular Hemoglobin Concent 32.4 Red Cell Distribution Width 15.1 H Platelet Count 305 # Mean Platelet Volume 10.5 H Neutrophils % 82.3 H Lymphocytes % 7.9 L Monocytes % 6.5 Eosinophils % 0.3 Basophils % 0.2 Nucleated Red Blood Cells % 0.0 Neutrophils # 10.1 H Lymphocytes # 1.0 Monocytes # 0.8 Eosinophils # 0.0 Basophils # 0.0 Nucleated Red Blood Cells # 0.0 Sodium Level 140 Potassium Level 4.0 Chloride Level 100 Carbon Dioxide Level 26 Anion Gap 18 H Blood Urea Nitrogen 45 H Creatinine 1.57 H Glucose Level 151 Calcium Level 8.5 Test 02/02/17 08:18 Bedside Glucose 140 Medications Medications Current Medications Ceftriaxone Sodium (Rocephin) 50 ml @ 100 mls/hr Q24H IVPB Last administered on 02/01/17 22:10; Admin Dose 100 MLS/HR; Start 01/29/17 at 18:00 Acetaminophen (Tylenol Tab) 1,000 mg Q4H PRN PO PAIN AND OR ELEVATED TEMP; Start 01/29/17 at 16:00 Allopurinol (Zyloprim) 100 mg DAILY PO Last administered on 02/02/17 09:22; Admin Dose 100 MG; Start 01/30/17 at 09:00 Ferrous Sulfate (Ferrous Sulfate (Ec)) 325 mg DAILY PO Last administered on 02/02 09:21; Admin Dose 325 MG; Start 01/30/17 at 09:00 Furosemide (Lasix) 40 mg BID PO Last administered on 02/02/17 09:22; Admin Dose 40 MG; Start 01/29/17 at 21:00 Hydralazine HCl (Apresoline) 75 mg BID PO Last administered on 02/02/17 09:29; Admin Dose 75 MG; Start 01/29/17 at 21:00 Insulin Glargine (Lantus) 60 unit QHS SC Last administered on 02/01/17 22:03; Admin Dose 60 UNIT; Start 01/29/17 at 21:00 Loratadine (Claritin) 10 mg DAILY PO Last administered on 02/02/17 09:22; Admin Dose 10 MG; Start 01/30/17 at 09:00 Montelukast Sodium (Singulair) 10 mg QHS PO Last administered on 02/01/17 22:07 ; Admin Dose 10 MG; Start 01/29/17 at 21:00 Ondansetron HCl (Zofran Inj) 4 mg Q6H PRN IV NAUSEA AND/OR VOMITING; Start at 16:00 Acetaminophen (Tylenol Tab) 650 mg Q6H PRN PO PAIN LEVEL 1-3 OR FEVER Last administered on 02/01/17 14:23; Admin Dose 650 MG; Start 01/29/17 at 16:00 Acetaminophen (Tylenol Supp) 650 mg Q6H PRN [place] PAIN LEVEL 1-3 OR FEVER; Start 01/29/17 at 16:00 Acetaminophen/ Hydrocodone Bitart ([place] (5/325)) 1 tab Q6H PRN PO MODERATE PAIN LEVEL 4-6 Last administered on 01/30/17 18:01; Admin Dose 1 TAB; Start at 16:00 Acetaminophen/ Hydrocodone Bitart ([place] (5/325)) 2 tab Q6H PRN PO SEVERE PAIN LEVEL 7-10 Last administered on 02/01/17 00:54; Admin Dose 2 TAB; Start at 16:00 Docusate Sodium (Colace) 100 mg Q12H PRN PO CONSTIPATION; Start 01/29/17 at 16: 00 Magnesium Hydroxide (Milk Of Mag) 30 ml DAILY PRN PO CONSTIPATION Last administered on 02/02/17 09:20; Admin Dose 30 ML; Start 01/29/17 at 16:00 Bisacodyl (Dulcolax Supp) 10 mg DAILY PRN [place] CONSTIPATION; Start 01/29/17 at 16 :00 Pantoprazole (Protonix Iv) 40 mg DAILY@06 IV Last administered on 02/02/17 05: 14; Admin Dose 40 MG; Start 01/30/17 at 06:00 Diagnostic Test (Pha) (Accu-Chek) 1 ea 02 XX Last administered on 01/30/17 02: 28; Admin Dose 1 EA; Start 01/30/17 at 02:00 Enoxaparin Sodium (Lovenox) 105 mg Q12 SC Last administered on 02/01/17 09:30; Admin Dose 105 MG; Start 01/29/17 at 21:00; Status Future Hold Salmeterol Xinafoate/ Fluticasone (Advair 250/50 Diskus) 1 inh BID INH Last administered on 02/02/17 09:20; Admin Dose 1 INH; Start 01/29/17 at 21:00 Miscellaneous Information 1 ea NOTE XX ; Start 01/29/17 at 17:00 Glucose (Glutose) 15 gm Q15M PRN PO DECREASED GLUCOSE; Start 01/29/17 at 17:00 Glucose (Glutose) 22.5 gm Q15M PRN PO DECREASED GLUCOSE; Start 01/29/17 at 17: 00 Dextrose (D50w Syringe) 25 ml Q15M PRN IV DECREASED GLUCOSE; Start 01/29/17 at 17:00 Dextrose (D50w Syringe) 50 ml Q15M PRN IV DECREASED GLUCOSE; Start 01/29/17 at 17:00 Glucagon (Glucagen) 1 mg Q15M PRN IM DECREASED GLUCOSE; Start 01/29/17 at 17:00 Glucose (Glutose) 15 gm Q15M PRN BUCCAL DECREASED GLUCOSE; Start 01/29/17 at 17 :00 Linagliptin (Tradjenta) 5 mg DAILY PO Last administered on 02/02/17 09:22; Admin Dose 5 MG; Start 01/31/17 at 09:00 Carvedilol (Coreg) 3.125 mg BID PO Last administered on 02/02/17 09:23; Admin Dose 3.125 MG; Start 01/30/17 at 21:00 Aspirin (Aspirin) 81 mg DAILY PO Last administered on 02/02/17 09:22; Admin Dose 81 MG; Start 01/31/17 at 09:00 Morphine Sulfate (morphine) 2 mg Q4H PRN IV SEVERE PAIN LEVEL 7-10; Start 01/30 at 14:30 Tramadol HCl (Ultram) 50 mg Q6H PRN PO pain 6-10 Last administered on 02/01/17 09:41; Admin Dose 50 MG; Start 01/31/17 at 10:30 DEBBIE MESA NP Feb 02, 2017 10:44
[2017-02-02] MEDS: HYDROCODONE/APAP (5/325) TAB PO PRN ×2 (11:53→22:47)
--- NOTE | 2017-02-02 12:09 | RADRPT ---
PROCEDURE: Chest radiograph. CLINICAL INDICATION: Congestive heart failure. TECHNIQUE: Single portable frontal view. COMPARISON: Radiograph from 10/06/2016. FINDINGS: Mild pulmonary vascular congestion. Small left and trace right pleural effusion, which have increased since October 2016. The heart is mildly enlarged. No suspicious bone lesion. IMPRESSION: Mild pulmonary vascular congestion with pleural effusions, findings suggesting congestive heart fail ure. RPTAT: PP Soheila Spears Physician Date Time Electronically viewed and signed by Soheila Spears Physician on 02/02/2017 12:09 LG/
--- NOTE | 2017-02-02 15:11 | PN ---
Date/Time of Note Date/Time of Note DATE: 02/02/17 TIME: 15:08 Assessment/Plan VTE Prophylaxis VTE Prophylaxis Intervention: contraindicated VTE Contraindication Reason: bleeding Lines/Catheters IV Catheter Type (from Nrs): Peripheral IV Urinary Cath still in place: No Assessment/Plan Assessment/Plan Assessment * Anemia Upper GI bleed Bleeding peptic ulcer vs others vs iron deficiency * Deep venous thrombosis left femoral * Cellulitis left lower extremities * Acute kidney injury Plan * EGD on Monday ,risks and benefit explained to patient agreed with the planned procedure * continue present management * case discussed with DR Okeefe * further orders will depend on clinical course Subjective 24 Hr Interval Summary Free Text/Dictation * Course reviewed with RN * Patient seen and examined * No untoward events overnight Exam/Review of Systems Vital Signs Vitals Vital Signs Date Time Temp Pulse Resp B/P Pulse Ox O2 Delivery O2 Flow Rate FiO2 02/02/17 13:52 98 5.0 02/02/17 13:51 77 22 Nasal Cannula 02/02/17 11:06 99.4 121/56 01/31/17 09:42 21 Intake and Output 02/01/17 02/01/17 02/02/17 15:00 23:00 07:00 Intake Total 50 ml 700 ml Balance 50 ml 700 ml Exam Constitutional: alert, oriented Psych: no complaints Neck: non-tender, supple Respiratory: clear to auscultation, normal air movement Cardiovascular: nl pulses, regular rate and rhythm Gastrointestinal: nl liver, spleen, non-tender, soft Musculoskeletal: muscle weakness Extremities: normal pulses Neurological: nl speech, nl strength Skin: nl turgor, No rash or lesions Lymph: nl lymph nodes Results Result Diagram: 02/02/17 0551 02/02/17 0551 Results 24 hrs Laboratory Tests Test 02/01/17 21:57 02/02/17 05:27 02/02/17 05:51 02/02/17 08:18 Bedside Glucose 175 140 Lab Scanned Report BLOOD TRANSFUSION White Blood Count 12.3 H Red Blood Count 2.89 L Hemoglobin 8.0 L Hematocrit 24.7 L Mean Corpuscular Volume 85.5 Mean Corpuscular Hemoglobin 27.7 L Mean Corpuscular Hemoglobin Concent 32.4 Red Cell Distribution Width 15.1 H Platelet Count 305 # Mean Platelet Volume 10.5 H Neutrophils % 82.3 H Lymphocytes % 7.9 L Monocytes % 6.5 Eosinophils % 0.3 Basophils % 0.2 Nucleated Red Blood Cells % 0.0 Neutrophils # 10.1 H Lymphocytes # 1.0 Monocytes # 0.8 Eosinophils # 0.0 Basophils # 0.0 Nucleated Red Blood Cells # 0.0 Sodium Level 140 Potassium Level 4.0 Chloride Level 100 Carbon Dioxide Level 26 Anion Gap 18 H Blood Urea Nitrogen 45 H Creatinine 1.57 H Glucose Level 151 Calcium Level 8.5 Test 02/02/17 11:52 Bedside Glucose 199 Medications Medications Current Medications Ceftriaxone Sodium (Rocephin) 50 ml @ 100 mls/hr Q24H IVPB Last administered on 02/01/17 22:10; Admin Dose 100 MLS/HR; Start 01/29/17 at 18:00 Acetaminophen (Tylenol Tab) 1,000 mg Q4H PRN PO PAIN AND OR ELEVATED TEMP; Start 01/29/17 at 16:00 Allopurinol (Zyloprim) 100 mg DAILY PO Last administered on 02/02/17 09:22; Admin Dose 100 MG; Start 01/30/17 at 09:00 Ferrous Sulfate (Ferrous Sulfate (Ec)) 325 mg DAILY PO Last administered on 02/02 09:21; Admin Dose 325 MG; Start 01/30/17 at 09:00 Hydralazine HCl (Apresoline) 75 mg BID PO Last administered on 02/02/17 09:29; Admin Dose 75 MG; Start 01/29/17 at 21:00 Insulin Glargine (Lantus) 60 unit QHS SC Last administered on 02/01/17 22:03; Admin Dose 60 UNIT; Start 01/29/17 at 21:00 Loratadine (Claritin) 10 mg DAILY PO Last administered on 02/02/17 09:22; Admin Dose 10 MG; Start 01/30/17 at 09:00 Montelukast Sodium (Singulair) 10 mg QHS PO Last administered on 02/01/17 22:07 ; Admin Dose 10 MG; Start 01/29/17 at 21:00 Ondansetron HCl (Zofran Inj) 4 mg Q6H PRN IV NAUSEA AND/OR VOMITING; Start at 16:00 Acetaminophen (Tylenol Tab) 650 mg Q6H PRN PO PAIN LEVEL 1-3 OR FEVER Last administered on 02/01/17 14:23; Admin Dose 650 MG; Start 01/29/17 at 16:00 Acetaminophen (Tylenol Supp) 650 mg Q6H PRN [place] PAIN LEVEL 1-3 OR FEVER; Start 01/29/17 at 16:00 Acetaminophen/ Hydrocodone Bitart ([place] (5/325)) 1 tab Q6H PRN PO MODERATE PAIN LEVEL 4-6 Last administered on 02/02/17 11:53; Admin Dose 1 TAB; Start at 16:00 Acetaminophen/ Hydrocodone Bitart ([place] (5/325)) 2 tab Q6H PRN PO SEVERE PAIN LEVEL 7-10 Last administered on 02/01/17 00:54; Admin Dose 2 TAB; Start at 16:00 Docusate Sodium (Colace) 100 mg Q12H PRN PO CONSTIPATION; Start 01/29/17 at 16: 00 Magnesium Hydroxide (Milk Of Mag) 30 ml DAILY PRN PO CONSTIPATION Last administered on 02/02/17 09:20; Admin Dose 30 ML; Start 01/29/17 at 16:00 Bisacodyl (Dulcolax Supp) 10 mg DAILY PRN [place] CONSTIPATION; Start 01/29/17 at 16 :00 Pantoprazole (Protonix Iv) 40 mg DAILY@06 IV Last administered on 02/02/17 05: 14; Admin Dose 40 MG; Start 01/30/17 at 06:00 Diagnostic Test (Pha) (Accu-Chek) 1 ea 02 XX Last administered on 01/30/17 02: 28; Admin Dose 1 EA; Start 01/30/17 at 02:00 Enoxaparin Sodium (Lovenox) 105 mg Q12 SC Last administered on 02/01/17 09:30; Admin Dose 105 MG; Start 01/29/17 at 21:00; Status Future Hold Salmeterol Xinafoate/ Fluticasone (Advair 250/50 Diskus) 1 inh BID INH Last administered on 02/02/17 09:20; Admin Dose 1 INH; Start 01/29/17 at 21:00 Miscellaneous Information 1 ea NOTE XX ; Start 01/29/17 at 17:00 Glucose (Glutose) 15 gm Q15M PRN PO DECREASED GLUCOSE; Start 01/29/17 at 17:00 Glucose (Glutose) 22.5 gm Q15M PRN PO DECREASED GLUCOSE; Start 01/29/17 at 17: 00 Dextrose (D50w Syringe) 25 ml Q15M PRN IV DECREASED GLUCOSE; Start 01/29/17 at 17:00 Dextrose (D50w Syringe) 50 ml Q15M PRN IV DECREASED GLUCOSE; Start 01/29/17 at 17:00 Glucagon (Glucagen) 1 mg Q15M PRN IM DECREASED GLUCOSE; Start 01/29/17 at 17:00 Glucose (Glutose) 15 gm Q15M PRN BUCCAL DECREASED GLUCOSE; Start 01/29/17 at 17 :00 Linagliptin (Tradjenta) 5 mg DAILY PO Last administered on 02/02/17 09:22; Admin Dose 5 MG; Start 01/31/17 at 09:00 Carvedilol (Coreg) 3.125 mg BID PO Last administered on 02/02/17 09:23; Admin Dose 3.125 MG; Start 01/30/17 at 21:00 Aspirin (Aspirin) 81 mg DAILY PO Last administered on 02/02/17 09:22; Admin Dose 81 MG; Start 01/31/17 at 09:00 Morphine Sulfate (morphine) 2 mg Q4H PRN IV SEVERE PAIN LEVEL 7-10; Start 01/30 at 14:30 Tramadol HCl (Ultram) 50 mg Q6H PRN PO pain 6-10 Last administered on 02/01/17 09:41; Admin Dose 50 MG; Start 01/31/17 at 10:30 JIMMY MICHAUD NP Feb 02, 2017 15:11
[2017-02-02] MEDS: FUROSEMIDE 20 MG INJ IV SCH (17:36)
--- NOTE | 2017-02-02 18:43 | CONS ---
Date/Time of Note Date/Time of Note DATE: 02/02/17 TIME: 18:14 Assessment/Plan Assessment/Plan Chief Complaint/Hosp Course ID PROGRESS NOTE CURRENT ABX: Ceftriaxone #5-> DC today + START MERREM TOTAL ABX DAY #5 s/p Zosyn/Clinda 01/29-> DC'd 24 HOUR INTERVAL SUMMARY * Feeling better, no fevers, WBC down * [facility] ES[facility] RX --------- --- AMPICILLIN >=32 R CEFAZOLIN R CEFEPIME 8 S CEFOTAXIME R CEFTAZIDIME 16 R CIPROFLOXACIN >=4 R GENTAMICIN <=1 S IMIPENEM <=0.25 S LEVOFLOXACIN >=8 R NITROFURANTOIN <=16 S TOBRAMYCIN <=1 S TRIMETHOPRIM/SULFAMETHOXAZOLE <=20 S PIPERACILLIN/TAZOBACTAM <=4 S Exam Constitutional: alert, oriented, well developed Head: atraumatic, normocephalic Eyes: EOMI, PERRL Respiratory: clear to auscultation, normal air movement Cardiovascular: nl pulses, regular rate and rhythm Gastrointestinal: Soft (+)BS Extremities: LLEXT cellulitis + gangrenous changes 2nd toe ulcer Neurological: nl mental status, nl speech, nl strength ID ASSESSMENT 51 yo F PMHx morbid obesity admit with: 1. Resolving sepsis secondary to ESBL UTI 2. E.Coli-ESBL UTI 01/29 * Repeat Urine 01/29 (-) 3. Bacteremia 07/04 bottles from ED: BLOOD CULTURE Final COAGULASE NEGATIVE STAPH * Repeat cultures negative. 4. Left lower extremity cellulitis/ left second toe gangrenous ulcer. * Xray with soft tissue swelling on Fibula/Tibia. MRI without evidence of necrotizing fasciitis. 5. Peripheral vascular disease (PVD)=> Venous + Arterial * PAD:Arterial Duplex=> 1. Abnormal flow bilaterally in the calf arteries consistent with significant stenosis. 2. Significant stenosis in the left mid superficial femoral artery. * VENOUS: Left lower extremity acute deep vein thrombosis. VQ scan with low probability for PE. -- -Status post IVC filter placed on 02/01/2017 6. Systolic and diastolic congestive heart failure. Echo EF ~50-55%. 7 . Hypoxic respiratory failure, multifactorial most likely secondary to possible CHF, pulmonary hypertension, acute anemia, sepsis and underlying asthma and obesity=> RESOLVED 8. Anemia, now acute on chronic. H&H improved with transfusion. No evidence of bleeding. * GI -> EGD planned 02/03/17 9. DMII. A1c 6.8. 10. Essential hypertension. 11. REMI on CKD with Diabetic nephropathy. * Avoid renal toxic ABX - patient need diuretic Rx per card 13. COPD: Asthma + restrictive component due to obesity; possibly obesity hypoventilation syndrome suspected 14. Pulmonary hypertension-> 08/04 #13 15. DDx silent aspiration pneumonitis vs pna per multiple risk factors below: * CXR: Mild pulmonary vascular congestion with pleural effusions, findings suggesting congestive heart failure. * Wet lungs at risk bacterial infection * Asthma * Obesity * Suspect GERD * Suspect obesity hypoventilation syndrome CURRENT ABX: Ceftriaxone #5-> DC today + START MERREM TOTAL ABX DAY #5 s/p Zosyn/Clinda 01/29-> DC'd ID RECOMMENDATIONS 1. Start Merrem for ESBL coverage; although urine has cleared ESBL; her LLEXT cellulitis/gangrene at risk of ESBL 2. Swab nares for MRSA -> check need for empiric MRSA coverage for cellulitis 3. Send toe ulcer wound for culture 4. Avoid renal toxic ABX-> Cards needs room for diuretics . Problems: Consultation Date/Type/Reason Admit Date/Time Jan 29, 2017 at 13:15 Initial Consult Date Type of Consultation: ID Referring Provider: ALEJO CARTER MD Exam/Review of Systems Vital Signs Vitals Vital Signs Date Time Temp Pulse Resp B/P Pulse Ox O2 Delivery O2 Flow Rate FiO2 02/02/17 16:47 5.0 02/02/17 16:46 88 22 95 Nasal Cannula 02/02/17 15:23 98.1 146/71 01/31/17 09:42 21 Intake and Output 02/01/17 02/01/17 02/02/17 15:00 23:00 07:00 Intake Total 50 ml 700 ml Balance 50 ml 700 ml Results Result Diagram: 02/02/17 0551 02/02/17 0551 Results 24 hrs Laboratory Tests Test 02/01/17 21:57 8/3/17 05:27 02/02/17 05:51 02/02/17 08:18 Bedside Glucose 175 140 Lab Scanned Report BLOOD TRANSFUSION White Blood Count 12.3 H Red Blood Count 2.89 L Hemoglobin 8.0 L Hematocrit 24.7 L Mean Corpuscular Volume 85.5 Mean Corpuscular Hemoglobin 27.7 L Mean Corpuscular Hemoglobin Concent 32.4 Red Cell Distribution Width 15.1 H Platelet Count 305 # Mean Platelet Volume 10.5 H Neutrophils % 82.3 H Lymphocytes % 7.9 L Monocytes % 6.5 Eosinophils % 0.3 Basophils % 0.2 Nucleated Red Blood Cells % 0.0 Neutrophils # 10.1 H Lymphocytes # 1.0 Monocytes # 0.8 Eosinophils # 0.0 Basophils # 0.0 Nucleated Red Blood Cells # 0.0 Sodium Level 140 Potassium Level 4.0 Chloride Level 100 Carbon Dioxide Level 26 Anion Gap 18 H Blood Urea Nitrogen 45 H Creatinine 1.57 H Glucose Level 151 Calcium Level 8.5 Test 02/02/17 11:52 02/02/17 17:35 Bedside Glucose 199 181 Medications Medications Current Medications Ceftriaxone Sodium (Rocephin) 50 ml @ 100 mls/hr Q24H IVPB Last administered on 02/01/17 22:10; Admin Dose 100 MLS/HR; Start 01/29/17 at 18:00 Acetaminophen (Tylenol Tab) 1,000 mg Q4H PRN PO PAIN AND OR ELEVATED TEMP; Start 01/29/17 at 16:00 Allopurinol (Zyloprim) 100 mg DAILY PO Last administered on 02/02/17 09:22; Admin Dose 100 MG; Start 01/30/17 at 09:00 Ferrous Sulfate (Ferrous Sulfate (Ec)) 325 mg DAILY PO Last administered on 02/02 09:21; Admin Dose 325 MG; Start 01/30/17 at 09:00 Hydralazine HCl (Apresoline) 75 mg BID PO Last administered on 02/02/17 09:29; Admin Dose 75 MG; Start 01/29/17 at 21:00 Insulin Glargine (Lantus) 60 unit QHS SC Last administered on 02/01/17 22:03; Admin Dose 60 UNIT; Start 01/29/17 at 21:00 Loratadine (Claritin) 10 mg DAILY PO Last administered on 02/02/17 09:22; Admin Dose 10 MG; Start 01/30/17 at 09:00 Montelukast Sodium (Singulair) 10 mg QHS PO Last administered on 02/01/17 22:07 ; Admin Dose 10 MG; Start 01/29/17 at 21:00 Ondansetron HCl (Zofran Inj) 4 mg Q6H PRN IV NAUSEA AND/OR VOMITING; Start at 16:00 Acetaminophen (Tylenol Tab) 650 mg Q6H PRN PO PAIN LEVEL 1-3 OR FEVER Last administered on 02/01/17 14:23; Admin Dose 650 MG; Start 01/29/17 at 16:00 Acetaminophen (Tylenol Supp) 650 mg Q6H PRN [place] PAIN LEVEL 1-3 OR FEVER; Start 01/29/17 at 16:00 Acetaminophen/ Hydrocodone Bitart ([place] (5/325)) 1 tab Q6H PRN PO MODERATE PAIN LEVEL 4-6 Last administered on 02/02/17 11:53; Admin Dose 1 TAB; Start at 16:00 Acetaminophen/ Hydrocodone Bitart ([place] (5/325)) 2 tab Q6H PRN PO SEVERE PAIN LEVEL 7-10 Last administered on 02/01/17 00:54; Admin Dose 2 TAB; Start at 16:00 Docusate Sodium (Colace) 100 mg Q12H PRN PO CONSTIPATION; Start 01/29/17 at 16: 00 Magnesium Hydroxide (Milk Of Mag) 30 ml DAILY PRN PO CONSTIPATION Last administered on 02/02/17 09:20; Admin Dose 30 ML; Start 01/29/17 at 16:00 Bisacodyl (Dulcolax Supp) 10 mg DAILY PRN [place] CONSTIPATION; Start 01/29/17 at 16 :00 Pantoprazole (Protonix Iv) 40 mg DAILY@06 IV Last administered on 02/02/17 05: 14; Admin Dose 40 MG; Start 01/30/17 at 06:00 Diagnostic Test (Pha) (Accu-Chek) 1 ea 02 XX Last administered on 01/30/17 02: 28; Admin Dose 1 EA; Start 01/30/17 at 02:00 Enoxaparin Sodium (Lovenox) 105 mg Q12 SC Last administered on 02/01/17 09:30; Admin Dose 105 MG; Start 01/29/17 at 21:00; Status Future Hold Salmeterol Xinafoate/ Fluticasone (Advair 250/50 Diskus) 1 inh BID INH Last administered on 02/02/17 09:20; Admin Dose 1 INH; Start 01/29/17 at 21:00 Miscellaneous Information 1 ea NOTE XX ; Start 01/29/17 at 17:00 Glucose (Glutose) 15 gm Q15M PRN PO DECREASED GLUCOSE; Start 01/29/17 at 17:00 Glucose (Glutose) 22.5 gm Q15M PRN PO DECREASED GLUCOSE; Start 01/29/17 at 17: 00 Dextrose (D50w Syringe) 25 ml Q15M PRN IV DECREASED GLUCOSE; Start 01/29/17 at 17:00 Dextrose (D50w Syringe) 50 ml Q15M PRN IV DECREASED GLUCOSE; Start 01/29/17 at 17:00 Glucagon (Glucagen) 1 mg Q15M PRN IM DECREASED GLUCOSE; Start 01/29/17 at 17:00 Glucose (Glutose) 15 gm Q15M PRN BUCCAL DECREASED GLUCOSE; Start 01/29/17 at 17 :00 Linagliptin (Tradjenta) 5 mg DAILY PO Last administered on 02/02/17 09:22; Admin Dose 5 MG; Start 01/31/17 at 09:00 Carvedilol (Coreg) 3.125 mg BID PO Last administered on 02/02/17 09:23; Admin Dose 3.125 MG; Start 01/30/17 at 21:00 Aspirin (Aspirin) 81 mg DAILY PO Last administered on 02/02/17 09:22; Admin Dose 81 MG; Start 01/31/17 at 09:00 Morphine Sulfate (morphine) 2 mg Q4H PRN IV SEVERE PAIN LEVEL 7-10; Start 01/30 at 14:30 Tramadol HCl (Ultram) 50 mg Q6H PRN PO pain 6-10 Last administered on 02/01/17 09:41; Admin Dose 50 MG; Start 01/31/17 at 10:30 TAHIR LOPEZ NP Feb 02, 2017 18:29
[2017-02-02] MEDS: MEROPENEM 1 GM/50ML(PMX) 50 ML IVPB SCH (20:15)
--- NOTE | 2017-02-02 20:18 | CONS ---
Date/Time of Note Date/Time of Note DATE: 02/02/17 TIME: 20:05 Assessment/Plan Assessment/Plan Chief Complaint/Hosp Course Assessment: Acute on chronic diastolic heart failure - LVEF 50-55% on echocardiogram Pulmonary hypertension - RVSP 57 mmHg on echocardiogram Acute kidney injury on chronic kidney disease Acute on chronic anemia - status post pRBC transfusions, upper endoscopy pending Left lower extremity cellulitis and left second toe gangrenous ulcer - on antibiotics per infectious disease Bilateral peripheral vascular disease - per vascular surgery Left lower extremity deep vein thrombosis - V/Q scan low probability for pulmonary embolism, status post IVC filter 02/01/2017 ESBL urinary tract infection - resolving Hypertension Diabetes mellitus Asthma Morbid obesity Recommendations: -continue Lasix 20mg IV BID, monitor renal function -continue carvedilol 3.125mg BID and hydralazine 75mg BID, up titrate as needed for blood pressure control -follow up endoscopy results, resume on anticoagulation as able Problems: Consultation Date/Type/Reason Admit Date/Time Jan 29, 2017 at 13:15 Type of Consultation: Cardiology Reason for Consultation congestive heart failure Hx of Present Illness The patient is a 51 year-old female who presented with left lower extremity pain. She has been found to have left lower extremity cellulitis, left second toe gangrenous ulcer, nonocclusive left lower extremity deep vein thrombosis, and bilateral lower extremity peripheral arterial disease. She was initially started on anticoagulation, but this has been held after a drop in hemoglobin to 6.9. She is status post IVC filter placement, and she is planned for upper endoscopy. She is noted to have mild pulmonary vascular congestion on chest x-ray and BNP is elevated at 1920, consistent with congestive heart failure. Transthoracic echocardiogram showed a left ventricular ejection fraction of 50-55%. She denies shortness of breath, though she is currently requiring supplemental oxygen via nasal canula. 14 point review of systems negative other than per HPI. Past Medical History Hypertension Diabetes mellitus Asthma Past Surgical History Past Surgical Hx: no surgical history Family History Significant Family History: no pertinent family hx Social History Alcohol Use: none Smoking Status: Never smoker Drug Use: none Exam/Review of Systems Vital Signs Vitals Vital Signs Date Time Temp Pulse Resp B/P Pulse Ox O2 Delivery O2 Flow Rate FiO2 02/02/17 20:00 83 02/02/17 19:55 99.0 19 144/73 98 02/02/17 16:47 5.0 02/02/17 16:46 Nasal Cannula 01/31/17 09:42 21 Intake and Output 02/01/17 02/01/17 02/02/17 15:00 23:00 07:00 Intake Total 50 ml 700 ml Balance 50 ml 700 ml Exam Constitutional: alert, obese Psych: nl mood/affect, no complaints Head: atraumatic, normocephalic Eyes: nl conjunctiva, nl lids ENMT: nl external ears & nose, nl nasal mucosa & septum Neck: non-tender, supple Respiratory: diminished breath sounds, No wheezing Cardiovascular: regular rate and rhythm, No murmurs/extra sounds Gastrointestinal: non-tender, soft Extremities: edema, pitting pedal edema, No clubbing, No cyanosis Neurological: nl mental status, nl speech Skin: other (left lower extremity erythema) Results Result Diagram: 02/02/17 0551 02/02/17 0551 Results 24 hrs Laboratory Tests Test 02/01/17 21:57 02/02/17 05:27 02/02/17 05:51 02/02/17 08:18 Bedside Glucose 175 140 Lab Scanned Report BLOOD TRANSFUSION White Blood Count 12.3 H Red Blood Count 2.89 L Hemoglobin 8.0 L Hematocrit 24.7 L Mean Corpuscular Volume 85.5 Mean Corpuscular Hemoglobin 27.7 L Mean Corpuscular Hemoglobin Concent 32.4 Red Cell Distribution Width 15.1 H Platelet Count 305 # Mean Platelet Volume 10.5 H Neutrophils % 82.3 H Lymphocytes % 7.9 L Monocytes % 6.5 Eosinophils % 0.3 Basophils % 0.2 Nucleated Red Blood Cells % 0.0 Neutrophils # 10.1 H Lymphocytes # 1.0 Monocytes # 0.8 Eosinophils # 0.0 Basophils # 0.0 Nucleated Red Blood Cells # 0.0 Sodium Level 140 Potassium Level 4.0 Chloride Level 100 Carbon Dioxide Level 26 Anion Gap 18 H Blood Urea Nitrogen 45 H Creatinine 1.57 H Glucose Level 151 Calcium Level 8.5 Test 02/02/17 11:52 02/02/17 17:35 Bedside Glucose 199 181 Medications Medications Current Medications Acetaminophen (Tylenol Tab) 1,000 mg Q4H PRN PO PAIN AND OR ELEVATED TEMP; Start 01/29/17 at 16:00 Allopurinol (Zyloprim) 100 mg DAILY PO Last administered on 02/02/17 09:22; Admin Dose 100 MG; Start 01/30/17 at 09:00 Ferrous Sulfate (Ferrous Sulfate (Ec)) 325 mg DAILY PO Last administered on 02/02 09:21; Admin Dose 325 MG; Start 01/30/17 at 09:00 Hydralazine HCl (Apresoline) 75 mg BID PO Last administered on 02/02/17 09:29; Admin Dose 75 MG; Start 01/29/17 at 21:00 Insulin Glargine (Lantus) 60 unit QHS SC Last administered on 02/01/17 22:03; Admin Dose 60 UNIT; Start 01/29/17 at 21:00 Loratadine (Claritin) 10 mg DAILY PO Last administered on 02/02/17 09:22; Admin Dose 10 MG; Start 01/30/17 at 09:00 Montelukast Sodium (Singulair) 10 mg QHS PO Last administered on 02/01/17 22:07 ; Admin Dose 10 MG; Start 01/29/17 at 21:00 Ondansetron HCl (Zofran Inj) 4 mg Q6H PRN IV NAUSEA AND/OR VOMITING; Start at 16:00 Acetaminophen (Tylenol Tab) 650 mg Q6H PRN PO PAIN LEVEL 1-3 OR FEVER Last administered on 02/01/17 14:23; Admin Dose 650 MG; Start 01/29/17 at 16:00 Acetaminophen (Tylenol Supp) 650 mg Q6H PRN [place] PAIN LEVEL 1-3 OR FEVER; Start 01/29/17 at 16:00 Acetaminophen/ Hydrocodone Bitart ([place] (5/325)) 1 tab Q6H PRN PO MODERATE PAIN LEVEL 4-6 Last administered on 02/02/17 11:53; Admin Dose 1 TAB; Start at 16:00 Acetaminophen/ Hydrocodone Bitart ([place] (5/325)) 2 tab Q6H PRN PO SEVERE PAIN LEVEL 7-10 Last administered on 02/01/17 00:54; Admin Dose 2 TAB; Start at 16:00 Docusate Sodium (Colace) 100 mg Q12H PRN PO CONSTIPATION; Start 01/29/17 at 16: 00 Magnesium Hydroxide (Milk Of Mag) 30 ml DAILY PRN PO CONSTIPATION Last administered on 02/02/17 09:20; Admin Dose 30 ML; Start 01/29/17 at 16:00 Bisacodyl (Dulcolax Supp) 10 mg DAILY PRN [place] CONSTIPATION; Start 01/29/17 at 16 :00 Pantoprazole (Protonix Iv) 40 mg DAILY@06 IV Last administered on 02/02/17 05: 14; Admin Dose 40 MG; Start 01/30/17 at 06:00 Diagnostic Test (Pha) (Accu-Chek) 1 ea 02 XX Last administered on 01/30/17 02: 28; Admin Dose 1 EA; Start 01/30/17 at 02:00 Enoxaparin Sodium (Lovenox) 105 mg Q12 SC Last administered on 02/01/17 09:30; Admin Dose 105 MG; Start 01/29/17 at 21:00; Status Future Hold Salmeterol Xinafoate/ Fluticasone (Advair 250/50 Diskus) 1 inh BID INH Last administered on 02/02/17 09:20; Admin Dose 1 INH; Start 01/29/17 at 21:00 Miscellaneous Information 1 ea NOTE XX ; Start 01/29/17 at 17:00 Glucose (Glutose) 15 gm Q15M PRN PO DECREASED GLUCOSE; Start 01/29/17 at 17:00 Glucose (Glutose) 22.5 gm Q15M PRN PO DECREASED GLUCOSE; Start 01/29/17 at 17: 00 Dextrose (D50w Syringe) 25 ml Q15M PRN IV DECREASED GLUCOSE; Start 01/29/17 at 17:00 Dextrose (D50w Syringe) 50 ml Q15M PRN IV DECREASED GLUCOSE; Start 01/29/17 at 17:00 Glucagon (Glucagen) 1 mg Q15M PRN IM DECREASED GLUCOSE; Start 01/29/17 at 17:00 Glucose (Glutose) 15 gm Q15M PRN BUCCAL DECREASED GLUCOSE; Start 01/29/17 at 17 :00 Linagliptin (Tradjenta) 5 mg DAILY PO Last administered on 02/02/17 09:22; Admin Dose 5 MG; Start 01/31/17 at 09:00 Carvedilol (Coreg) 3.125 mg BID PO Last administered on 02/02/17 09:23; Admin Dose 3.125 MG; Start 01/30/17 at 21:00 Aspirin (Aspirin) 81 mg DAILY PO Last administered on 02/02/17 09:22; Admin Dose 81 MG; Start 01/31/17 at 09:00 Morphine Sulfate (morphine) 2 mg Q4H PRN IV SEVERE PAIN LEVEL 7-10; Start 01/30 at 14:30 Tramadol HCl 50 mg 50 mg Q6H PRN PO pain 6-10 Last administered on 02/01/17 09: 41; Admin Dose 50 MG; Start 01/31/17 at 10:30 Meropenem/Sodium Chloride (Merrem 1 Gm/50 ml (Pmx)) 50 ml @ 100 mls/hr Q12 IVPB ; Start 02/02/17 at 20:00 BONNY MIGUEL MD Feb 02, 2017 20:15
[2017-02-02] MEDS: MONTELUKAST 10 MG TAB PO SCH (20:21)
[2017-02-02] MEDS: INSULIN GLARGINE [LANtus] 3 ML PEN SC SCH (20:36)
[2017-02-03] VITALS (17 sets, daily range): BP systolic 133–175; BP diastolic 62–89; PULSE 63–99; RESP 16–28
[2017-02-03] MEDS: ACCU-CHEK XX SCH (02:00)
[2017-02-03] MEDS: PANTOPRAZOLE 40 MG INJ IV SCH ×2 (05:20→18:52)
[2017-02-03] MEDS: FUROSEMIDE 20 MG INJ IV SCH ×2 (05:21→18:53)
[2017-02-03] MEDS: DOCUSATE SODIUM 100 MG CAP PO PRN ×2 (05:31→09:05)
[2017-02-03 06:27] LABS: BASOPHILS % 0.3 % (0.0-2.0); EOSINOPHILS # 0.1 10^3/ul (0.0-0.5); EOSINOPHILS % 0.6 % (0.0-7.0); HEMATOCRIT 25.7 % (37.0-47.0); HEMOGLOBIN 8.2 g/dl (12.0-16.0); LYMPHOCYTES # 1.1 10^3/ul (0.8-2.9); LYMPHOCYTES % 9.6 % (15.0-51.0); MEAN CORPUSCULAR HEMOGLOBIN 27.6 pg (29.0-33.0); MEAN CORPUSCULAR HGB CONC 31.9 g/dl (32.0-37.0); MEAN CORPUSCULAR VOLUME 86.5 fl (82.0-101.0); MEAN PLATELET VOLUME 9.9 fl (7.4-10.4); MONOCYTE # 0.9 10^3/ul (0.3-0.9); MONOCYTES % 7.4 % (0.0-11.0); NEUTROPHIL # 9.5 10^3/ul (1.6-7.5); NEUTROPHILS % 79.7 % (39.0-77.0); PLATELET COUNT 350 10^3/UL (140-415); RED BLOOD COUNT 2.97 10^6/ul (4.20-5.40); RED CELL DISTRIBUTION WIDTH 14.8 % (11.5-14.5); WHITE BLOOD COUNT 11.9 10^3/ul (4.8-10.8)
[2017-02-03 06:47] LABS: CALCIUM 8.8 mg/dl (8.4-10.2); CREATININE 1.45 mg/dl (0.44-1.00)
[2017-02-03] MEDS: ALBUTEROL/IPRATROPIUM (NEB) 3 ML AMP HHN SCH ×3 (07:52→20:28)
[2017-02-03] MEDS: INSULIN ASPART [NOVOLOG] 3 ML PEN SC SCH ×7 (07:55→21:47)
[2017-02-03] MEDS: LORATADINE 10 MG TAB PO SCH (09:05)
[2017-02-03] MEDS: ASPIRIN 81 MG TAB PO SCH (09:05)
[2017-02-03] MEDS: LINAGLIPTIN 5 MG TABLET PO SCH (09:05)
[2017-02-03] MEDS: SALMETEROL/FLUTICASONE 250/50 INHA INH SCH ×2 (09:05→21:35)
[2017-02-03] MEDS: FERROUS SULFATE (EC) 325 MG TAB PO SCH (09:05)
[2017-02-03] MEDS: ALLOPURINOL 100 MG TAB PO SCH (09:06)
[2017-02-03] MEDS: MEROPENEM 1 GM/50ML(PMX) 50 ML IVPB SCH ×2 (09:08→20:24)
[2017-02-03] MEDS: MAGNESIUM HYDROXIDE 30ML CUP PO PRN (09:09)
--- NOTE | 2017-02-03 09:17 | PN ---
DATE: 02/03/2017 SUBJECTIVE DATA: The patient is stable. No acute events overnight. No fevers, chills, nausea, vomiting. OBJECTIVE DATA: VITAL SIGNS: Blood pressure is 149/62, respirations 19, pulse 81, temperature 98.2. HEENT: Head is normocephalic. NECK: Supple. HEART: Regular rate. LUNGS: Show diminished breath sounds at the base. ABDOMEN: Soft, nontender to palpation. No rebound or guarding. EXTREMITIES: Negative for clubbing, cyanosis. No edema. DERMATOLOGIC: Clean. No rashes. MUSCULOSKELETAL: No joint effusion. NEUROLOGIC: Unchanged exam. MEDICATIONS: Reviewed. LABORATORY AND DIAGNOSTIC DATA: Shows sodium 143, potassium 4.0, chloride 99, BUN 26, creatinine 1.45. White count 11.9, hemoglobin 8.2, crit 25.7, platelet count is 350. ASSESSMENT AND PLAN: 1. Nonoliguric acute kidney injury on top of chronic kidney disease, stage 3B, with previous baseline creatinine 1.5 to 1.0 mg/dL. Etiology of acute kidney injury secondary to hemodynamics. Renal function is stabilizing. At this point, continue current treatment, supportive care. Renally dose all meds. 2. Anemia. Monitor H and H levels. The patient is status post Epogen. 3. Mineral bone disorder. Continue to monitor calcium and phosphorus levels. 4. Lower extremity deep vein thrombosis. Continue current anticoagulation. 5. Sepsis secondary to urinary tract infection. Continue current antibiotic regimen. 6. Hypoxemic respiratory failure. Etiology is multifactorial, improving. Continue to monitor. Continue medical management. 7. History of diastolic heart failure. Continue current treatment plan. 8. History of asthma. 9. Morbid obesity. Continue dietary modification. 10. Hypertension. Continue current blood pressure regimen. Dictated By: Atul Wellington DO /cuca/pieter /Document#: [id number]
--- NOTE | 2017-02-03 10:28 | PN ---
Date/Time of Note Date/Time of Note DATE: 02/03/17 TIME: 10:19 Assessment/Plan VTE Prophylaxis VTE Prophylaxis Intervention: other (Eliquis) Lines/Catheters IV Catheter Type (from Nrs): Peripheral IV Urinary Cath still in place: No Assessment/Plan Chief Complaint/Hosp Course 1. . Left lower extremity cellulitis/ left second toe gangrenous ulcer.No significant improvement. --ID/Podiatry on board and will follow recs. -On [employer] spectrum abx -Wound care protocol 2.Left lower extremity acute deep vein thrombosis. VQ scan with low probability for PE. --Status post IVC filter placed on 02/01/2017. -Start Eliquis today after endoscopy. 3. Systolic and diastolic congestive heart failure. Echocardiogram with lower limits systolic function with ejection fraction 50-55%. -Cardiology on board. -Continue Lasix 20 twice daily- monitor renal function closely -Continue beta-blockers and aspirin 4. Hypoxic respiratory failure, multifactorial most likely secondary to possible CHF, pulmonary hypertension, acute anemia, sepsis and underlying asthma and obesity. Still requiring 5L O2. -Pulmonary consult -Continue oxygen and bronchodilators. 5. Anemia, now acute on chronic. H&H improved with transfusion. No evidence of bleeding. -For EGD eval today -Monitor H&H closely and monitor for any bleeding. -Pending stool OB 5. Resolving sepsis secondary to ESBL UTI -ID on board and on appropriate antibiotics.. -Repeat cultures negative. 6. DMII. A1c 6.8. -Continue accuchecks/ISS/Lantus/tradjenta 7. Essential hypertension. -Continue Coreg and adjust needed 8. REMI on CKD with Diabetic nephropathy. -Renally dose meds-Monitor renal fxn closely and f/u with nephro recs. 9. Pulmonary hypertension -Oxygen and diuretics. 10.Asthma. -Continue bronchodilators 11.Morbid obesity. Weight reduction advised. PLAN: Overall LLE symptoms without significant improvement. Morbid obesity is a major issue with recovery for this pleasant lady. I have repeatedly educated her on TLC and adherence to PCP follow-up and medications. Case discussed with . Problems: Subjective 24 Hr Interval Summary Free Text/Dictation Sitting up in chair. Needs 5 L oxygen. No chest pain/SOB/Fever or chills. LLE edema and erythema has worsened. Exam/Review of Systems Vital Signs Vitals Vital Signs Date Time Temp Pulse Resp B/P Pulse Ox O2 Delivery O2 Flow Rate FiO2 02/03/17 08:09 81 02/03/17 07:56 5.0 02/03/17 07:53 22 96 Nasal Cannula 02/03/17 07:46 98.2 149/62 01/31/17 09:42 21 Intake and Output 02/02/17 02/02/17 02/03/17 15:00 23:00 07:00 Intake Total 600 ml Balance 600 ml Exam General: Morbidly obese female HEENT: Normocephalic, Atraumatic, No laceration or hematoma; Eyes: PEERL, Conjunctiva clear, Anicteric sclera Neck: Supple without any lymphadenopathy, nontender, no JVD, no carotid bruits, trachea midline, no thyromegaly Cardiac: S1, S2 auscultated, regular rhythm and rate, no mumurs or gallop Pulmonary: Decreased breath sounds bibasilar. Normal respiratory effort. Chest clear to auscultation bilaterally, no adventitious breath sounds GI: Abdomen obese to inspection. Soft, non- distended, no masses, no rebound tenderness or guarding. Bowel sounds active on all four quadrants Genitourinary: Deferred Extremities:Edema+ on BLE. LLE with edema/warmth/redness/tenderness-Worsened from previous exam.Dressing dry/intact. Pulses [1+] bilaterally. Full ROM on all four extremities. No focal weakness appreciated. Neurologic: Alert to person, place, time, and situation. Affect appropriate, intact sensation. Skin: Pale looking. Clean,dry, and intact. No ecchymosis, no rashes, or lesions Results Result Diagram: 02/03/17 0600 02/03/17 0600 Results 24 hrs Laboratory Tests Test 02/02/17 11:52 02/02/17 17:35 02/02/17 20:29 02/03/17 02:09 Bedside Glucose 199 181 244 H 144 Test 02/03/17 06:00 02/03/17 08:11 White Blood Count 11.9 H Red Blood Count 2.97 L Hemoglobin 8.2 L Hematocrit 25.7 L Mean Corpuscular Volume 86.5 Mean Corpuscular Hemoglobin 27.6 L Mean Corpuscular Hemoglobin Concent 31.9 L Red Cell Distribution Width 14.8 H Platelet Count 350 Mean Platelet Volume 9.9 Neutrophils % 79.7 H Lymphocytes % 9.6 L Monocytes % 7.4 Eosinophils % 0.6 Basophils % 0.3 Nucleated Red Blood Cells % 0.0 Neutrophils # 9.5 H Lymphocytes # 1.1 Monocytes # 0.9 Eosinophils # 0.1 Basophils # 0.0 Nucleated Red Blood Cells # 0.0 Sodium Level 143 Potassium Level 4.0 Chloride Level 99 Carbon Dioxide Level 27 Anion Gap 21 H Blood Urea Nitrogen 46 H Creatinine 1.45 H Glucose Level 136 Calcium Level 8.8 Bedside Glucose 131 Medications Medications Current Medications Acetaminophen (Tylenol Tab) 1,000 mg Q4H PRN PO PAIN AND OR ELEVATED TEMP; Start 01/29/17 at 16:00 Allopurinol (Zyloprim) 100 mg DAILY PO Last administered on 02/03/17 09:06; Admin Dose 100 MG; Start 01/30/17 at 09:00 Ferrous Sulfate (Ferrous Sulfate (Ec)) 325 mg DAILY PO Last administered on 02/03 09:05; Admin Dose 325 MG; Start 01/30/17 at 09:00 Hydralazine HCl (Apresoline) 75 mg BID PO Last administered on 02/03/17 09:08; Admin Dose 75 MG; Start 01/29/17 at 21:00 Insulin Glargine (Lantus) 60 unit QHS SC Last administered on 02/02/17 20:36; Admin Dose 60 UNIT; Start 01/29/17 at 21:00 Loratadine (Claritin) 10 mg DAILY PO Last administered on 02/03/17 09:05; Admin Dose 10 MG; Start 01/30/17 at 09:00 Montelukast Sodium (Singulair) 10 mg QHS PO Last administered on 02/02/17 20:21 ; Admin Dose 10 MG; Start 01/29/17 at 21:00 Ondansetron HCl (Zofran Inj) 4 mg Q6H PRN IV NAUSEA AND/OR VOMITING; Start at 16:00 Acetaminophen (Tylenol Tab) 650 mg Q6H PRN PO PAIN LEVEL 1-3 OR FEVER Last administered on 02/01/17 14:23; Admin Dose 650 MG; Start 01/29/17 at 16:00 Acetaminophen (Tylenol Supp) 650 mg Q6H PRN [place] PAIN LEVEL 1-3 OR FEVER; Start 01/29/17 at 16:00 Acetaminophen/ Hydrocodone Bitart ([place] (5/325)) 1 tab Q6H PRN PO MODERATE PAIN LEVEL 4-6 Last administered on 02/02/17 22:47; Admin Dose 1 TAB; Start at 16:00 Acetaminophen/ Hydrocodone Bitart ([place] (5/325)) 2 tab Q6H PRN PO SEVERE PAIN LEVEL 7-10 Last administered on 02/01/17 00:54; Admin Dose 2 TAB; Start at 16:00 Docusate Sodium (Colace) 100 mg Q12H PRN PO CONSTIPATION Last administered on 09:05; Admin Dose 100 MG; Start 01/29/17 at 16:00 Magnesium Hydroxide (Milk Of Mag) 30 ml DAILY PRN PO CONSTIPATION Last administered on 02/03/17 09:09; Admin Dose 30 ML; Start 01/29/17 at 16:00 Bisacodyl (Dulcolax Supp) 10 mg DAILY PRN [place] CONSTIPATION; Start 01/29/17 at 16 :00 Pantoprazole (Protonix Iv) 40 mg DAILY@06 IV Last administered on 02/03/17 05: 20; Admin Dose 40 MG; Start 01/30/17 at 06:00 Diagnostic Test (Pha) (Accu-Chek) 1 ea 02 XX Last administered on 02/03/17 02: 00; Admin Dose 1 EA; Start 01/30/17 at 02:00 Salmeterol Xinafoate/ Fluticasone (Advair 250/50 Diskus) 1 inh BID INH Last administered on 02/03/17 09:05; Admin Dose 1 INH; Start 01/29/17 at 21:00 Miscellaneous Information 1 ea NOTE XX ; Start 01/29/17 at 17:00 Glucose (Glutose) 15 gm Q15M PRN PO DECREASED GLUCOSE; Start 01/29/17 at 17:00 Glucose (Glutose) 22.5 gm Q15M PRN PO DECREASED GLUCOSE; Start 01/29/17 at 17: 00 Dextrose (D50w Syringe) 25 ml Q15M PRN IV DECREASED GLUCOSE; Start 01/29/17 at 17:00 Dextrose (D50w Syringe) 50 ml Q15M PRN IV DECREASED GLUCOSE; Start 01/29/17 at 17:00 Glucagon (Glucagen) 1 mg Q15M PRN IM DECREASED GLUCOSE; Start 01/29/17 at 17:00 Glucose (Glutose) 15 gm Q15M PRN BUCCAL DECREASED GLUCOSE; Start 01/29/17 at 17 :00 Linagliptin (Tradjenta) 5 mg DAILY PO Last administered on 02/03/17 09:05; Admin Dose 5 MG; Start 01/31/17 at 09:00 Carvedilol (Coreg) 3.125 mg BID PO Last administered on 02/03/17 09:08; Admin Dose 3.125 MG; Start 01/30/17 at 21:00 Aspirin (Aspirin) 81 mg DAILY PO Last administered on 02/03/17 09:05; Admin Dose 81 MG; Start 01/31/17 at 09:00 Morphine Sulfate (morphine) 2 mg Q4H PRN IV SEVERE PAIN LEVEL 7-10; Start 01/30 at 14:30 Tramadol HCl 50 mg 50 mg Q6H PRN PO pain 6-10 Last administered on 02/01/17 09: 41; Admin Dose 50 MG; Start 01/31/17 at 10:30 Meropenem/Sodium Chloride (Merrem 1 Gm/50 ml (Pmx)) 50 ml @ 100 mls/hr Q12 IVPB Last administered on 02/03/17 09:08; Admin Dose 100 MLS/HR; Start 02/02/17 at 20:00 Apixaban (Eliquis) 10 mg BID PO ; Start 02/03/17 at 21:00; Stop 02/10/17 at 20:59 Apixaban (Eliquis) 5 mg BID PO ; Start 02/11/17 at 09:00 DEBBIE MESA NP Feb 03, 2017 10:28
--- NOTE | 2017-02-03 13:58 | CONS ---
Date/Time of Note Date/Time of Note DATE: 02/03/17 TIME: 13:53 Assessment/Plan Assessment/Plan Additional Assessment/Plan Multiple imaging studies were reviewed including lower extremity ultrasound which is showing left common superficial femoral vein thrombus. Chest x-ray also was reviewed from admission which is showing mild vascular congestion. Assessment recommendations; 1. Patient admitted with left lower extremity DVT with possibly superimposed cellulitis. 2. Gram-positive bacteremia. 3. Morbid obesity. Possibly underlying sleep apnea. 4. Hypertension. 5. Diabetes. 6. Status post [place] filter placement. 7. Renal insufficiency. Continue current treatment. Consultation Date/Type/Reason Admit Date/Time Jan 29, 2017 at 13:15 Date of Consultation: Feb 03, 2017 Type of Consultation: Pulmonary Reason for Consultation Pulmonary consultation requested for evaluation of shortness of breath. Patient admitted for left lower extremity DVT. History of present illness; patient is a pleasant 51-year-old lady was admitted on the of last month with complaints of sore throat. Upon further evaluation patient was diagnosed with left lower extremity DVT because of significant swelling and pain. Which according to the patient has been going on for the last few days prior to presentation to the hospital. Since then the patient has undergone inferior vena cava filter placement. And has been started on chronic anticoagulation. Patient is feeling significantly improved. Still complains of pain and swelling involving left lower extremity. But denies any shortness of breath, chest pain, hemoptysis coughing or sputum production. Past medical history; 1. Patient with a history of diabetes 2. Renal insufficiency. 3. Hypertension next #4. No prior history of DVT or cellulitis. Medications; reviewed. Allergies; theophylline. Social history; patient quit smoking 7 years ago was smoking pack a day at that time. No strep alcohol or drug abuse. Family history; she is single. She has 2 children. Occupational history; patient works at a store. Review of systems; denies any headache, visual changes. Sinus symptoms. Denies any chest pain, angina, wheezing, cough or sputum production. Denies any abdominal pain, nausea vomiting. Denies any skin changes other than redness involving left lower extremity. Has gained weight. Complains of snoring off and on. General exam; middle-aged woman, morbidly obese, currently in no distress. Awake and alert. Psychological: nl mood/affect, no complaints Past Surgical History Past Surgical Hx: no surgical history Social History Alcohol Use: none Smoking Status: Never smoker Drug Use: none Exam/Review of Systems Vital Signs Vitals Vital Signs Date Time Temp Pulse Resp B/P Pulse Ox O2 Delivery O2 Flow Rate FiO2 02/03/17 13:14 4.0 02/03/17 12:14 63 02/03/17 12:06 20 98 Nasal Cannula 02/03/17 11:43 98.5 152/62 01/31/17 09:42 21 Intake and Output 02/02/17 02/02/17 02/03/17 15:00 23:00 07:00 Intake Total 600 ml Balance 600 ml Exam HEENT exam; supple neck, no JVD. No lymphadenopathy. Midline trachea. No thyromegaly. Pharynx is clear. Patient has fair dentition. Nipples are midsize and reactive to light. Neck Chest exam; clear to auscultation. S1-S2 audible, no murmurs. Regular rhythm. Abdomen exam; soft, no organomegaly. Bowel sounds audible. Protuberant. Extremity exam; there is significant erythema and tenderness as well as edema involving left lower extremity from knee below. [employer] exam; no focal deficit. Results Result Diagram: 02/03/17 0600 02/03/17 0600 Results 24 hrs Laboratory Tests Test 02/02/17 17:35 02/02/17 20:29 02/03/17 02:09 02/03/17 06:00 Bedside Glucose 181 244 H 144 White Blood Count 11.9 H Red Blood Count 2.97 L Hemoglobin 8.2 L Hematocrit 25.7 L Mean Corpuscular Volume 86.5 Mean Corpuscular Hemoglobin 27.6 L Mean Corpuscular Hemoglobin Concent 31.9 L Red Cell Distribution Width 14.8 H Platelet Count 350 Mean Platelet Volume 9.9 Neutrophils % 79.7 H Lymphocytes % 9.6 L Monocytes % 7.4 Eosinophils % 0.6 Basophils % 0.3 Nucleated Red Blood Cells % 0.0 Neutrophils # 9.5 H Lymphocytes # 1.1 Monocytes # 0.9 Eosinophils # 0.1 Basophils # 0.0 Nucleated Red Blood Cells # 0.0 Sodium Level 143 Potassium Level 4.0 Chloride Level 99 Carbon Dioxide Level 27 Anion Gap 21 H Blood Urea Nitrogen 46 H Creatinine 1.45 H Glucose Level 136 Calcium Level 8.8 Test 02/03/17 08:11 02/03/17 11:46 Bedside Glucose 131 171 Medications Medications Current Medications Acetaminophen (Tylenol Tab) 1,000 mg Q4H PRN PO PAIN AND OR ELEVATED TEMP; Start 01/29/17 at 16:00 Allopurinol (Zyloprim) 100 mg DAILY PO Last administered on 02/03/17 09:06; Admin Dose 100 MG; Start 01/30/17 at 09:00 Ferrous Sulfate (Ferrous Sulfate (Ec)) 325 mg DAILY PO Last administered on 02/03 09:05; Admin Dose 325 MG; Start 01/30/17 at 09:00 Hydralazine HCl (Apresoline) 75 mg BID PO Last administered on 02/03/17 09:08; Admin Dose 75 MG; Start 01/29/17 at 21:00 Insulin Glargine (Lantus) 60 unit QHS SC Last administered on 02/02/17 20:36; Admin Dose 60 UNIT; Start 01/29/17 at 21:00 Loratadine (Claritin) 10 mg DAILY PO Last administered on 02/03/17 09:05; Admin Dose 10 MG; Start 01/30/17 at 09:00 Montelukast Sodium (Singulair) 10 mg QHS PO Last administered on 02/02/17 20:21 ; Admin Dose 10 MG; Start 01/29/17 at 21:00 Ondansetron HCl (Zofran Inj) 4 mg Q6H PRN IV NAUSEA AND/OR VOMITING; Start at 16:00 Acetaminophen (Tylenol Tab) 650 mg Q6H PRN PO PAIN LEVEL 1-3 OR FEVER Last administered on 02/01/17 14:23; Admin Dose 650 MG; Start 01/29/17 at 16:00 Acetaminophen (Tylenol Supp) 650 mg Q6H PRN [place] PAIN LEVEL 1-3 OR FEVER; Start 01/29/17 at 16:00 Acetaminophen/ Hydrocodone Bitart ([place] (5/325)) 1 tab Q6H PRN PO MODERATE PAIN LEVEL 4-6 Last administered on 02/02/17 22:47; Admin Dose 1 TAB; Start at 16:00 Acetaminophen/ Hydrocodone Bitart ([place] (5/325)) 2 tab Q6H PRN PO SEVERE PAIN LEVEL 7-10 Last administered on 02/01/17 00:54; Admin Dose 2 TAB; Start at 16:00 Docusate Sodium (Colace) 100 mg Q12H PRN PO CONSTIPATION Last administered on 09:05; Admin Dose 100 MG; Start 01/29/17 at 16:00 Magnesium Hydroxide (Milk Of Mag) 30 ml DAILY PRN PO CONSTIPATION Last administered on 02/03/17 09:09; Admin Dose 30 ML; Start 01/29/17 at 16:00 Bisacodyl (Dulcolax Supp) 10 mg DAILY PRN [place] CONSTIPATION; Start 01/29/17 at 16 :00 Pantoprazole (Protonix Iv) 40 mg DAILY@06 IV Last administered on 02/03/17 05: 20; Admin Dose 40 MG; Start 01/30/17 at 06:00 Diagnostic Test (Pha) (Accu-Chek) 1 ea 02 XX Last administered on 02/03/17 02: 00; Admin Dose 1 EA; Start 01/30/17 at 02:00 Salmeterol Xinafoate/ Fluticasone (Advair 250/50 Diskus) 1 inh BID INH Last administered on 02/03/17 09:05; Admin Dose 1 INH; Start 01/29/17 at 21:00 Miscellaneous Information 1 ea NOTE XX ; Start 01/29/17 at 17:00 Glucose (Glutose) 15 gm Q15M PRN PO DECREASED GLUCOSE; Start 01/29/17 at 17:00 Glucose (Glutose) 22.5 gm Q15M PRN PO DECREASED GLUCOSE; Start 01/29/17 at 17: 00 Dextrose (D50w Syringe) 25 ml Q15M PRN IV DECREASED GLUCOSE; Start 01/29/17 at 17:00 Dextrose (D50w Syringe) 50 ml Q15M PRN IV DECREASED GLUCOSE; Start 01/29/17 at 17:00 Glucagon (Glucagen) 1 mg Q15M PRN IM DECREASED GLUCOSE; Start 01/29/17 at 17:00 Glucose (Glutose) 15 gm Q15M PRN BUCCAL DECREASED GLUCOSE; Start 01/29/17 at 17 :00 Linagliptin (Tradjenta) 5 mg DAILY PO Last administered on 02/03/17 09:05; Admin Dose 5 MG; Start 01/31/17 at 09:00 Carvedilol (Coreg) 3.125 mg BID PO Last administered on 02/03/17 09:08; Admin Dose 3.125 MG; Start 01/30/17 at 21:00 Aspirin (Aspirin) 81 mg DAILY PO Last administered on 02/03/17 09:05; Admin Dose 81 MG; Start 01/31/17 at 09:00 Morphine Sulfate (morphine) 2 mg Q4H PRN IV SEVERE PAIN LEVEL 7-10; Start 01/30 at 14:30 Tramadol HCl 50 mg 50 mg Q6H PRN PO pain 6-10 Last administered on 02/01/17 09: 41; Admin Dose 50 MG; Start 01/31/17 at 10:30 Meropenem/Sodium Chloride (Merrem 1 Gm/50 ml (Pmx)) 50 ml @ 100 mls/hr Q12 IVPB Last administered on 02/03/17 09:08; Admin Dose 100 MLS/HR; Start 02/02/17 at 20:00 Apixaban (Eliquis) 10 mg BID PO ; Start 02/03/17 at 21:00; Stop 02/10/17 at 20:59 Apixaban (Eliquis) 5 mg BID PO ; Start 02/11/17 at 09:00 CHINO STRICKLAND Feb 03, 2017 13:58
--- NOTE | 2017-02-03 14:52 | CONS ---
Date/Time of Note Date/Time of Note DATE: 02/03/17 TIME: 14:39 Assessment/Plan Assessment/Plan Chief Complaint/Hosp Course ID PROGRESS NOTE CURRENT ABX: => MERREM #2 + Daptomycin #1 TOTAL ABX DAY #5 Ceftriaxone #5-> DC 8/3 s/p Zosyn/Clinda 01/29-> DC'd 24 HOUR INTERVAL SUMMARY * A/A./O-> No fevers, WBC still elevated , s/p IVC filter placed for (+)DVT LLEXT * LLEXT still w/significant edema and fluid small vesicle formation weeping edema * [facility] ESBL [facility].I.[facility]. RX --------- --- AMPICILLIN >=32 R CEFAZOLIN R CEFEPIME 8 S CEFOTAXIME R CEFTAZIDIME 16 R CIPROFLOXACIN >=4 R GENTAMICIN <=1 S IMIPENEM <=0.25 S LEVOFLOXACIN >=8 R NITROFURANTOIN <=16 S TOBRAMYCIN <=1 S TRIMETHOPRIM/SULFAMETHOXAZOLE <=20 S PIPERACILLIN/TAZOBACTAM <=4 S Exam Constitutional: alert, oriented, well developed Head: atraumatic, normocephalic Eyes: EOMI, PERRL Respiratory: clear to auscultation, normal air movement Cardiovascular: nl pulses, regular rate and rhythm Gastrointestinal: Soft (+)BS Extremities: LLEXT cellulitis + gangrenous changes 2nd toe ulcer Neurological: nl mental status, nl speech, nl strength ID ASSESSMENT 51 yo F PMHx morbid obesity admit with: 1. Resolving sepsis secondary to ESBL UTI 2. E.Coli-ESBL UTI 01/29 * Repeat Urine 01/29 (-) 3. Bacteremia 07/04 bottles from ED: BLOOD CULTURE Final COAGULASE NEGATIVE STAPH * Repeat cultures negative. 4. Left lower extremity cellulitis/ left second toe gangrenous ulcer. * Xray with soft tissue swelling on Fibula/Tibia. MRI without evidence of necrotizing fasciitis. 5. Peripheral vascular disease (PVD)=> Venous + Arterial * PAD:Arterial Duplex=> 1. Abnormal flow bilaterally in the calf arteries consistent with significant stenosis. 2. Significant stenosis in the left mid superficial femoral artery. * VENOUS: Left lower extremity acute deep vein thrombosis. VQ scan with low probability for PE. -- -Status post IVC filter placed on 02/01/2017 6. Systolic and diastolic congestive heart failure. Echo EF ~50-55%. 7 . Hypoxic respiratory failure, multifactorial most likely secondary to possible CHF, pulmonary hypertension, acute anemia, sepsis and underlying asthma and obesity=> RESOLVED 8. Anemia, now acute on chronic. H&H improved with transfusion. No evidence of bleeding. * GI -> EGD planned 02/03/17 9. DMII. A1c 6.8. 10. Essential hypertension. 11. REMI on CKD with Diabetic nephropathy. * Avoid renal toxic ABX - patient need diuretic Rx per card 13. COPD: Asthma + restrictive component due to obesity; possibly obesity hypoventilation syndrome suspected 14. Pulmonary hypertension-> / #13 15. DDx silent aspiration pneumonitis vs pna per multiple risk factors below: * CXR: Mild pulmonary vascular congestion with pleural effusions, findings suggesting congestive heart failure. * Wet lungs at risk bacterial infection * Asthma * Obesity * Suspect GERD * Suspect obesity hypoventilation syndrome CURRENT ABX: => MERREM #2 + Daptomycin #1 TOTAL ABX DAY #5 Ceftriaxone #5-> DC 02/02 s/p Zosyn/Clinda 01/29-> DC'd ID RECOMMENDATIONS 1. Continue MERREM for hx of ESBL + Start Daptomycin for empiric MRSA coverage * Send baseline CK, ESR,CRP to guide DAPTO Rx * NO STATIN RX WHILE ON DAPTO => Please do not start vs HOLD Statin 2. Swab nares for MRSA ->pending 3 Avoid renal toxic ABX-> Cards needs room for diuretics . . Problems: Consultation Date/Type/Reason Admit Date/Time Jan 29, 2017 at 13:15 Initial Consult Date Type of Consultation: id Referring Provider: ALEJO CARTER MD Exam/Review of Systems Vital Signs Vitals Vital Signs Date Time Temp Pulse Resp B/P Pulse Ox O2 Delivery O2 Flow Rate FiO2 02/03/17 13:14 4.0 02/03/17 12:14 63 02/03/17 12:06 20 98 Nasal Cannula 02/03/17 11:43 98.5 152/62 01/31/17 09:42 21 Intake and Output 8/3/17 8/3/17 8/4/17 15:00 23:00 07:00 Intake Total 600 ml Balance 600 ml Results Result Diagram: 02/03/17 0600 02/03/17 0600 Results 24 hrs Laboratory Tests Test 02/02/17 17:35 02/02/17 20:29 02/03/17 02:09 02/03/17 06:00 Bedside Glucose 181 244 H 144 White Blood Count 11.9 H Red Blood Count 2.97 L Hemoglobin 8.2 L Hematocrit 25.7 L Mean Corpuscular Volume 86.5 Mean Corpuscular Hemoglobin 27.6 L Mean Corpuscular Hemoglobin Concent 31.9 L Red Cell Distribution Width 14.8 H Platelet Count 350 Mean Platelet Volume 9.9 Neutrophils % 79.7 H Lymphocytes % 9.6 L Monocytes % 7.4 Eosinophils % 0.6 Basophils % 0.3 Nucleated Red Blood Cells % 0.0 Neutrophils # 9.5 H Lymphocytes # 1.1 Monocytes # 0.9 Eosinophils # 0.1 Basophils # 0.0 Nucleated Red Blood Cells # 0.0 Sodium Level 143 Potassium Level 4.0 Chloride Level 99 Carbon Dioxide Level 27 Anion Gap 21 H Blood Urea Nitrogen 46 H Creatinine 1.45 H Glucose Level 136 Calcium Level 8.8 Test 02/03/17 08:11 02/03/17 11:46 Bedside Glucose 131 171 Medications Medications Current Medications Acetaminophen (Tylenol Tab) 1,000 mg Q4H PRN PO PAIN AND OR ELEVATED TEMP; Start 01/29/17 at 16:00 Allopurinol (Zyloprim) 100 mg DAILY PO Last administered on 02/03/17 09:06; Admin Dose 100 MG; Start 01/30/17 at 09:00 Ferrous Sulfate (Ferrous Sulfate (Ec)) 325 mg DAILY PO Last administered on 02/03 09:05; Admin Dose 325 MG; Start 01/30/17 at 09:00 Hydralazine HCl (Apresoline) 75 mg BID PO Last administered on 02/03/17 09:08; Admin Dose 75 MG; Start 01/29/17 at 21:00 Insulin Glargine (Lantus) 60 unit QHS SC Last administered on 02/02/17 20:36; Admin Dose 60 UNIT; Start 01/29/17 at 21:00 Loratadine (Claritin) 10 mg DAILY PO Last administered on 02/03/17 09:05; Admin Dose 10 MG; Start 01/30/17 at 09:00 Montelukast Sodium (Singulair) 10 mg QHS PO Last administered on 02/02/17 20:21 ; Admin Dose 10 MG; Start 01/29/17 at 21:00 Ondansetron HCl (Zofran Inj) 4 mg Q6H PRN IV NAUSEA AND/OR VOMITING; Start at 16:00 Acetaminophen (Tylenol Tab) 650 mg Q6H PRN PO PAIN LEVEL 1-3 OR FEVER Last administered on 02/01/17 14:23; Admin Dose 650 MG; Start 01/29/17 at 16:00 Acetaminophen (Tylenol Supp) 650 mg Q6H PRN [place] PAIN LEVEL 1-3 OR FEVER; Start 01/29/17 at 16:00 Acetaminophen/ Hydrocodone Bitart ([place] (5/325)) 1 tab Q6H PRN PO MODERATE PAIN LEVEL 4-6 Last administered on 02/02/17 22:47; Admin Dose 1 TAB; Start at 16:00 Acetaminophen/ Hydrocodone Bitart ([place] (5/325)) 2 tab Q6H PRN PO SEVERE PAIN LEVEL 7-10 Last administered on 02/01/17 00:54; Admin Dose 2 TAB; Start at 16:00 Docusate Sodium (Colace) 100 mg Q12H PRN PO CONSTIPATION Last administered on 09:05; Admin Dose 100 MG; Start 01/29/17 at 16:00 Magnesium Hydroxide (Milk Of Mag) 30 ml DAILY PRN PO CONSTIPATION Last administered on 02/03/17 09:09; Admin Dose 30 ML; Start 01/29/17 at 16:00 Bisacodyl (Dulcolax Supp) 10 mg DAILY PRN [place] CONSTIPATION; Start 01/29/17 at 16 :00 Pantoprazole (Protonix Iv) 40 mg DAILY@06 IV Last administered on 02/03/17 05: 20; Admin Dose 40 MG; Start 01/30/17 at 06:00 Diagnostic Test (Pha) (Accu-Chek) 1 ea 02 XX Last administered on 02/03/17 02: 00; Admin Dose 1 EA; Start 01/30/17 at 02:00 Salmeterol Xinafoate/ Fluticasone (Advair 250/50 Diskus) 1 inh BID INH Last administered on 02/03/17 09:05; Admin Dose 1 INH; Start 01/29/17 at 21:00 Miscellaneous Information 1 ea NOTE XX ; Start 01/29/17 at 17:00 Glucose (Glutose) 15 gm Q15M PRN PO DECREASED GLUCOSE; Start 01/29/17 at 17:00 Glucose (Glutose) 22.5 gm Q15M PRN PO DECREASED GLUCOSE; Start 01/29/17 at 17: 00 Dextrose (D50w Syringe) 25 ml Q15M PRN IV DECREASED GLUCOSE; Start 01/29/17 at 17:00 Dextrose (D50w Syringe) 50 ml Q15M PRN IV DECREASED GLUCOSE; Start 01/29/17 at 17:00 Glucagon (Glucagen) 1 mg Q15M PRN IM DECREASED GLUCOSE; Start 01/29/17 at 17:00 Glucose (Glutose) 15 gm Q15M PRN BUCCAL DECREASED GLUCOSE; Start 01/29/17 at 17 :00 Linagliptin (Tradjenta) 5 mg DAILY PO Last administered on 02/03/17 09:05; Admin Dose 5 MG; Start 01/31/17 at 09:00 Carvedilol (Coreg) 3.125 mg BID PO Last administered on 02/03/17 09:08; Admin Dose 3.125 MG; Start 01/30/17 at 21:00 Aspirin (Aspirin) 81 mg DAILY PO Last administered on 02/03/17 09:05; Admin Dose 81 MG; Start 01/31/17 at 09:00 Morphine Sulfate (morphine) 2 mg Q4H PRN IV SEVERE PAIN LEVEL 7-10; Start 01/30 at 14:30 Tramadol HCl 50 mg 50 mg Q6H PRN PO pain 6-10 Last administered on 02/01/17 09: 41; Admin Dose 50 MG; Start 01/31/17 at 10:30 Meropenem/Sodium Chloride (Merrem 1 Gm/50 ml (Pmx)) 50 ml @ 100 mls/hr Q12 IVPB Last administered on 02/03/17 09:08; Admin Dose 100 MLS/HR; Start 02/02/17 at 20:00 Apixaban (Eliquis) 10 mg BID PO ; Start 02/03/17 at 21:00; Stop 02/10/17 at 20:59 Apixaban (Eliquis) 5 mg BID PO ; Start 02/11/17 at 09:00 TAHIR LOPEZ NP Feb 03, 2017 14:52
--- NOTE | 2017-02-03 15:43 | CONS ---
Date/Time of Note Date/Time of Note DATE: 02/03/17 TIME: 15:41 Assessment/Plan Assessment/Plan Chief Complaint/Hosp Course Assessment: Acute on chronic diastolic heart failure - LVEF 50-55% on echocardiogram Pulmonary hypertension - RVSP 57 mmHg on echocardiogram Acute kidney injury on chronic kidney disease Acute on chronic anemia - status post pRBC transfusions, upper endoscopy pending Left lower extremity cellulitis and left second toe gangrenous ulcer - on antibiotics per infectious disease Bilateral peripheral vascular disease - per vascular surgery Left lower extremity deep vein thrombosis - V/Q scan low probability for pulmonary embolism, status post IVC filter 02/01/2017 ESBL urinary tract infection - resolving Hypertension Diabetes mellitus Asthma Morbid obesity Recommendations: -continue Lasix 20mg IV BID, monitor renal function -increase hydralazine to 75mg TID, continue carvedilol 3.125mg BID, up titrate as needed for blood pressure control -follow up endoscopy results, resume on anticoagulation as able Problems: Consultation Date/Type/Reason Admit Date/Time Jan 29, 2017 at 13:15 Initial Consult Date 02/03/17 Type of Consultation: Cardiology 24 HR Interval Summary Free Text/Dictation No acute events. Awaiting upper endoscopy today. Detailed Summary Additional Comments 14 point review of systems without changes. Exam/Review of Systems Vital Signs Vitals Vital Signs Date Time Temp Pulse Resp B/P Pulse Ox O2 Delivery O2 Flow Rate FiO2 02/03/17 15:36 98.0 80 19 160/67 96 02/03/17 13:14 4.0 02/03/17 12:06 Nasal Cannula 01/31/17 09:42 21 Intake and Output 02/02/17 02/02/17 02/03/17 15:00 23:00 07:00 Intake Total 600 ml Balance 600 ml Exam Constitutional: alert, obese Psych: nl mood/affect, no complaints Head: atraumatic, normocephalic Eyes: nl conjunctiva, nl lids ENMT: nl external ears & nose, nl nasal mucosa & septum Neck: non-tender, supple Respiratory: diminished breath sounds, No wheezing Cardiovascular: regular rate and rhythm, No murmurs/extra sounds Gastrointestinal: non-tender, soft Extremities: edema, pitting pedal edema, No clubbing, No cyanosis Neurological: nl mental status, nl speech Skin: other (left lower extremity erythema) Results Result Diagram: 02/03/17 0600 02/03/17 0600 Results 24 hrs Laboratory Tests Test 02/02/17 17:35 02/02/17 20:29 02/03/17 02:09 02/03/17 06:00 Bedside Glucose 181 244 H 144 White Blood Count 11.9 H Red Blood Count 2.97 L Hemoglobin 8.2 L Hematocrit 25.7 L Mean Corpuscular Volume 86.5 Mean Corpuscular Hemoglobin 27.6 L Mean Corpuscular Hemoglobin Concent 31.9 L Red Cell Distribution Width 14.8 H Platelet Count 350 Mean Platelet Volume 9.9 Neutrophils % 79.7 H Lymphocytes % 9.6 L Monocytes % 7.4 Eosinophils % 0.6 Basophils % 0.3 Nucleated Red Blood Cells % 0.0 Neutrophils # 9.5 H Lymphocytes # 1.1 Monocytes # 0.9 Eosinophils # 0.1 Basophils # 0.0 Nucleated Red Blood Cells # 0.0 Sodium Level 143 Potassium Level 4.0 Chloride Level 99 Carbon Dioxide Level 27 Anion Gap 21 H Blood Urea Nitrogen 46 H Creatinine 1.45 H Glucose Level 136 Calcium Level 8.8 Test 02/03/17 08:11 02/03/17 11:46 Bedside Glucose 131 171 Medications Medications Current Medications Acetaminophen (Tylenol Tab) 1,000 mg Q4H PRN PO PAIN AND OR ELEVATED TEMP; Start 01/29/17 at 16:00 Allopurinol (Zyloprim) 100 mg DAILY PO Last administered on 02/03/17 09:06; Admin Dose 100 MG; Start 01/30/17 at 09:00 Ferrous Sulfate (Ferrous Sulfate (Ec)) 325 mg DAILY PO Last administered on 02/03 09:05; Admin Dose 325 MG; Start 01/30/17 at 09:00 Hydralazine HCl (Apresoline) 75 mg BID PO Last administered on 02/03/17 09:08; Admin Dose 75 MG; Start 01/29/17 at 21:00 Insulin Glargine (Lantus) 60 unit QHS SC Last administered on 02/02/17 20:36; Admin Dose 60 UNIT; Start 01/29/17 at 21:00 Loratadine (Claritin) 10 mg DAILY PO Last administered on 02/03/17 09:05; Admin Dose 10 MG; Start 01/30/17 at 09:00 Montelukast Sodium (Singulair) 10 mg QHS PO Last administered on 02/02/17 20:21 ; Admin Dose 10 MG; Start 01/29/17 at 21:00 Ondansetron HCl (Zofran Inj) 4 mg Q6H PRN IV NAUSEA AND/OR VOMITING; Start at 16:00 Acetaminophen (Tylenol Tab) 650 mg Q6H PRN PO PAIN LEVEL 1-3 OR FEVER Last administered on 02/01/17 14:23; Admin Dose 650 MG; Start 01/29/17 at 16:00 Acetaminophen (Tylenol Supp) [address] PAIN LEVEL 1-3 OR FEVER; Start 01/29/17 at 16:00 Acetaminophen/ Hydrocodone Bitart ([place] (5/325)) 1 tab Q6H PRN PO MODERATE PAIN LEVEL 4-6 Last administered on 02/02/17 22:47; Admin Dose 1 TAB; Start at 16:00 Acetaminophen/ Hydrocodone Bitart ([place] (5/325)) 2 tab Q6H PRN PO SEVERE PAIN LEVEL 7-10 Last administered on 02/01/17 00:54; Admin Dose 2 TAB; Start at 16:00 Docusate Sodium (Colace) 100 mg Q12H PRN PO CONSTIPATION Last administered on 09:05; Admin Dose 100 MG; Start 01/29/17 at 16:00 Magnesium Hydroxide (Milk Of Mag) 30 ml DAILY PRN PO CONSTIPATION Last administered on 02/03/17 09:09; Admin Dose 30 ML; Start 01/29/17 at 16:00 Bisacodyl (Dulcolax Supp) [address] CONSTIPATION; Start 01/29/17 at 16 :00 Pantoprazole (Protonix Iv) 40 mg DAILY@06 IV Last administered on 02/03/17 05: 20; Admin Dose 40 MG; Start 01/30/17 at 06:00 Diagnostic Test (Pha) (Accu-Chek) 1 ea 02 XX Last administered on 02/03/17 02: 00; Admin Dose 1 EA; Start 01/30/17 at 02:00 Salmeterol Xinafoate/ Fluticasone (Advair 250/50 Diskus) 1 inh BID INH Last administered on 02/03/17 09:05; Admin Dose 1 INH; Start 01/29/17 at 21:00 Miscellaneous Information 1 ea NOTE XX ; Start 01/29/17 at 17:00 Glucose (Glutose) 15 gm Q15M PRN PO DECREASED GLUCOSE; Start 01/29/17 at 17:00 Glucose (Glutose) 22.5 gm Q15M PRN PO DECREASED GLUCOSE; Start 01/29/17 at 17: 00 Dextrose (D50w Syringe) 25 ml Q15M PRN IV DECREASED GLUCOSE; Start 01/29/17 at 17:00 Dextrose (D50w Syringe) 50 ml Q15M PRN IV DECREASED GLUCOSE; Start 01/29/17 at 17:00 Glucagon (Glucagen) 1 mg Q15M PRN IM DECREASED GLUCOSE; Start 01/29/17 at 17:00 Glucose (Glutose) 15 gm Q15M PRN BUCCAL DECREASED GLUCOSE; Start 01/29/17 at 17 :00 Linagliptin (Tradjenta) 5 mg DAILY PO Last administered on 02/03/17 09:05; Admin Dose 5 MG; Start 01/31/17 at 09:00 Carvedilol (Coreg) 3.125 mg BID PO Last administered on 02/03/17 09:08; Admin Dose 3.125 MG; Start 01/30/17 at 21:00 Aspirin (Aspirin) 81 mg DAILY PO Last administered on 02/03/17 09:05; Admin Dose 81 MG; Start 01/31/17 at 09:00 Morphine Sulfate (morphine) 2 mg Q4H PRN IV SEVERE PAIN LEVEL 7-10; Start 01/30 at 14:30 Tramadol HCl 50 mg 50 mg Q6H PRN PO pain 6-10 Last administered on 02/01/17 09: 41; Admin Dose 50 MG; Start 01/31/17 at 10:30 Meropenem/Sodium Chloride (Merrem 1 Gm/50 ml (Pmx)) 50 ml @ 100 mls/hr Q12 IVPB Last administered on 02/03/17 09:08; Admin Dose 100 MLS/HR; Start 02/02/17 at 20:00 Apixaban (Eliquis) 10 mg BID PO ; Start 02/03/17 at 21:00; Stop 02/10/17 at 20:59 Apixaban 5 mg 5 mg BID PO ; Start 02/11/17 at 09:00 Daptomycin/Sodium Chloride (Cubicin/NS) 100 ml @ 200 mls/hr Q24H IVPB ; Start 02/03/17 at 17:00 BONNY MIGUEL MD Feb 03, 2017 15:43
[2017-02-03 16:12] LABS: CREATINE KINASE 105 IU/L (23-200)
[2017-02-03 16:23] LABS: CK-MB 1.24 ng/ml (0.0-2.4)
[2017-02-03 16:33] LABS: TROPONIN-I < 0.012 ng/ml (0.00-0.12)
[2017-02-03 17:07] LABS: C-REACTIVE PROTEIN 14.7 mg/dl (0.0-0.9)
[2017-02-03] MEDS ORDERED: PROPOFOL 40 ML ONE (17:52)
--- NOTE | 2017-02-03 18:13 | OPR ---
Date/Time of Note Date/Time of Note DATE: 02/03/17 TIME: 18:11 Operative Report Preoperative Diagnosis Anemia/GI bleeding Postoperative Diagnosis Impression: * Severe erosive/ulcerated esophagitis * Probable [place] esophagitis. Biopsies obtained * Moderate gastritis. Rule out H. pylori infection. Biopsies obtained Plan: * Protonix 40 mg twice daily * Diflucan 100 mg daily 5 days . Operation/Procedure Performed EGD of plus biopsies Surgeon: ANGE CALDERÓN MD Anesthesia: MAC Estimated Blood Loss: minimal Specimens Gastric body and antrum Esophagus Grafts/Implants None Complications: None ANGE CALDERÓN MD Feb 03, 2017 18:13
[2017-02-03] MEDS: FLUCONAZOLE 100 MG TAB PO SCH (18:53)
[2017-02-03] MEDS: SOD CHLORIDE 0.9% IVPB SCH (19:58)
[2017-02-03] MEDS: DAPTOMYCIN IVPB SCH (19:58)
[2017-02-03] MEDS: HYDROCODONE/APAP (5/325) TAB PO PRN (19:58)
[2017-02-03] MEDS: MONTELUKAST 10 MG TAB PO SCH (20:26)
[2017-02-03] MEDS: APIXABAN 5 MG TABLET PO SCH (20:26)
[2017-02-03] MEDS: INSULIN GLARGINE [LANtus] 3 ML PEN SC SCH ×2 (21:00→21:30)
[2017-02-04] VITALS (11 sets, daily range): BP systolic 133–169; BP diastolic 64–78; PULSE 60–86; RESP 19–24
[2017-02-04] MEDS: ACCU-CHEK XX SCH (02:00)
[2017-02-04] MEDS: HYDROCODONE/APAP (5/325) TAB PO PRN ×2 (02:06→20:45)
[2017-02-04 05:42] LABS: BASOPHILS % 0.2 % (0.0-2.0); EOSINOPHILS # 0.1 10^3/ul (0.0-0.5); EOSINOPHILS % 0.6 % (0.0-7.0); HEMATOCRIT 24.3 % (37.0-47.0); HEMOGLOBIN 7.7 g/dl (12.0-16.0); LYMPHOCYTES # 1.1 10^3/ul (0.8-2.9); LYMPHOCYTES % 10.8 % (15.0-51.0); MEAN CORPUSCULAR HGB CONC 31.7 g/dl (32.0-37.0); MEAN CORPUSCULAR VOLUME 88.4 fl (82.0-101.0); MEAN PLATELET VOLUME 9.7 fl (7.4-10.4); MONOCYTE # 0.9 10^3/ul (0.3-0.9); MONOCYTES % 8.4 % (0.0-11.0); NEUTROPHIL # 7.9 10^3/ul (1.6-7.5); NEUTROPHILS % 78.5 % (39.0-77.0); PLATELET COUNT 382 10^3/UL (140-415); RED BLOOD COUNT 2.75 10^6/ul (4.20-5.40); RED CELL DISTRIBUTION WIDTH 14.7 % (11.5-14.5); WHITE BLOOD COUNT 10.1 10^3/ul (4.8-10.8)
[2017-02-04] MEDS: PANTOPRAZOLE 40 MG INJ IV SCH ×2 (06:00→17:33)
[2017-02-04] MEDS: FUROSEMIDE 20 MG INJ IV SCH ×2 (06:00→17:34)
[2017-02-04 06:01] LABS: CALCIUM 8.6 mg/dl (8.4-10.2); CREATININE 1.48 mg/dl (0.44-1.00); POTASSIUM 4.1 mmol/L (3.5-5.1)
[2017-02-04] MEDS: ALBUTEROL/IPRATROPIUM (NEB) 3 ML AMP HHN SCH ×4 (07:44→20:04)
[2017-02-04] MEDS: INSULIN ASPART [NOVOLOG] 3 ML PEN SC SCH ×7 (07:55→20:41)
[2017-02-04] MEDS: ASPIRIN 81 MG TAB PO SCH (08:26)
[2017-02-04] MEDS: FLUCONAZOLE 100 MG TAB PO SCH (08:26)
[2017-02-04] MEDS: LINAGLIPTIN 5 MG TABLET PO SCH (08:26)
[2017-02-04] MEDS: ALLOPURINOL 100 MG TAB PO SCH (08:26)
[2017-02-04] MEDS: FERROUS SULFATE (EC) 325 MG TAB PO SCH ×2 (08:26→20:36)
[2017-02-04] MEDS: APIXABAN 5 MG TABLET PO SCH ×2 (08:28→20:36)
[2017-02-04] MEDS: LORATADINE 10 MG TAB PO SCH (08:28)
[2017-02-04] MEDS: SALMETEROL/FLUTICASONE 250/50 INHA INH SCH ×2 (08:28→20:35)
[2017-02-04] MEDS: MEROPENEM 1 GM/50ML(PMX) 50 ML IVPB SCH ×2 (08:31→20:45)
--- NOTE | 2017-02-04 09:46 | PN ---
Date/Time of Note Date/Time of Note DATE: 02/04/17 TIME: 09:39 Assessment/Plan VTE Prophylaxis VTE Prophylaxis Intervention: LMWH, other (Novel oral anticoagulant) Lines/Catheters [facility] Saline Lock Urinary Cath still in place: No Assessment/Plan Problems: (1) UTI due to extended-spectrum beta lactamase (ESBL) producing Escherichia coli Status: Acute Comment: Her antibiotics have been adjusted by infectious diseases to be Merrem. In addition she is on an antifungal agent and is on treatment presumptively for MRSA while those results are pending. She is clinically improving nicely. We will continue the antibiotics as appropriate. Appreciate input from infectious diseases (2) S/P insertion of IVC (inferior vena caval) filter Onset Date: ~ 02/01/2017 Status: Acute Comment: She had had an acute DVT with no evidence on imaging studies for pulmonary embolism and none clinically. Regardless she now has the IVC filter will be on long-term novel oral anticoagulant therapy. This does not appear to be a suppurative DVT (3) Peripheral vascular disease due to secondary diabetes Status: Chronic Comment: Vascular surgery is involved with the case. At this time there is no specific indication for immediate intervention although I suspect she will be needing something in the future. (4) Obesity hypoventilation syndrome Status: Chronic Comment: Patient has been counseled on this. Calorie restriction diet (5) Asthma, moderate persistent Status: Chronic Comment: She is stable on her current regimen using a controller medication and Montelukast. Qualifiers: Asthma complication type: uncomplicated Qualified Code: J45.40 - Moderate persistent asthma without complication (6) Hyperuricemia Status: Chronic Comment: She is on low-dose allopurinol without complications. (7) Diastolic dysfunction with chronic heart failure Status: Chronic Comment: Given her asthma a disagree with usage of the noncardioselective beta- koko carvedilol. This would be best treated with metoprolol XL which is indicated for this function. (8) Acute kidney injury (nontraumatic) Status: Acute Comment: This is resolved (9) Chronic kidney disease, stage III (moderate) Status: Chronic Comment: She had previously been on lisinopril and this was discontinued due to modest hyperkalemia not to not due to aggravation of her serum creatinine. An ideal world I would actually resume the lisinopril with very low-dose Florinef as a protective effect of the lisinopril as far in excess of what she was given as an outpatient which was amlodipine. Should also be a better drug given her known heart disease. Would appreciate input from renal and cardio. (10) Iron deficiency anemia Status: Chronic Comment: She is on iron replacement. GI is involved in the case to look for possible secondary causes. Please see report for upper endoscopy. Please note that the medications for her to treat this will modestly interfere with absorption of iron. Qualifiers: Iron deficiency anemia type: chronic blood loss Qualified Code: D50.0 - Iron deficiency anemia due to chronic blood loss (11) Left leg DVT Status: Acute Comment: She has an IVC filter in and she is anticoagulated. Please note the anticoagulation must be done in tempered fashion given the GI issues in the anemia. I do believe that the anticoagulation benefits exceed the risks Qualifiers: Affected thrombotic vein of extremity: femoral Chronicity: acute Qualified Code: I82.412 - Acute deep vein thrombosis (DVT) of femoral vein of left lower extremity (12) Cellulitis of left leg Status: Acute Comment: She is on antibiotics for this and this is improving. Please note we may have to be forced to address the peripheral vascular disease (13) Diabetes mellitus type 2, controlled, with complications Status: Chronic Comment: Well-controlled on current regimen. Qualifiers: Diabetes mellitus fpc insulin use: with ferry terminal agent use Qualified Code : E11.8 - Controlled type 2 diabetes mellitus with complication, with long- term current use of insulin Assessment/Plan Please note that her primary care physician is Dr. Armando Hebert Subjective 24 Hr Interval Summary Free Text/Dictation Patient reports she is feeling somewhat better. Constitutional: no complaints (Denies fevers chills or sweats) Respiratory: no complaints Cardiovascular: no complaints Gastrointestinal: no complaints Genitourinary: no complaints Exam/Review of Systems Vital Signs Vitals Vital Signs Date Time Temp Pulse Resp B/P Pulse Ox O2 Delivery O2 Flow Rate FiO2 02/04/17 08:00 60 02/04/17 07:44 4.0 02/04/17 07:40 20 98 Nasal Cannula 02/04/17 06:59 98.2 138/65 01/31/17 09:42 21 Intake and Output 02/03/17 02/03/17 02/04/17 15:00 23:00 07:00 Intake Total 300 ml 400 ml Output Total 600 ml Balance 300 ml -200 ml Exam Constitutional: alert, oriented Respiratory: clear to auscultation, normal air movement Cardiovascular: nl pulses, regular rate and rhythm Gastrointestinal: nl liver, spleen, non-tender, soft Results Result Diagram: 02/04/17 0519 02/04/17 0519 Results 24 hrs Laboratory Tests Test 02/03/17 11:46 02/03/17 15:32 02/03/17 16:51 02/03/17 21:36 Bedside Glucose 171 134 245 H Erythrocyte Sedimentation Rate 120 H Creatine Kinase 105 Creatine Kinase Index 1.2 Creatinine Kinase MB (Mass) 1.24 Troponin I < 0.012 C-Reactive Protein 14.7 H Test 02/04/17 01:58 02/04/17 05:19 02/04/17 08:08 Bedside Glucose 153 101 White Blood Count 10.1 Red Blood Count 2.75 L Hemoglobin 7.7 L Hematocrit 24.3 L Mean Corpuscular Volume 88.4 Mean Corpuscular Hemoglobin 28.0 L Mean Corpuscular Hemoglobin Concent 31.7 L Red Cell Distribution Width 14.7 H Platelet Count 382 Mean Platelet Volume 9.7 Neutrophils % 78.5 H Lymphocytes % 10.8 L Monocytes % 8.4 Eosinophils % 0.6 Basophils % 0.2 Nucleated Red Blood Cells % 0.0 Neutrophils # 7.9 H Lymphocytes # 1.1 Monocytes # 0.9 Eosinophils # 0.1 Basophils # 0.0 Nucleated Red Blood Cells # 0.0 Sodium Level 144 Potassium Level 4.1 Chloride Level 100 Carbon Dioxide Level 30 Anion Gap 18 H Blood Urea Nitrogen 43 H Creatinine 1.48 H Glucose Level 114 Calcium Level 8.6 Medications Medications Current Medications Acetaminophen (Tylenol Tab) 1,000 mg Q4H PRN PO PAIN AND OR ELEVATED TEMP; Start 01/29/17 at 16:00 Allopurinol (Zyloprim) 100 mg DAILY PO Last administered on 02/04/17 08:26; Admin Dose 100 MG; Start 01/30/17 at 09:00 Ferrous Sulfate (Ferrous Sulfate (Ec)) 325 mg DAILY PO Last administered on 02/04 08:26; Admin Dose 325 MG; Start 01/30/17 at 09:00 Insulin Glargine (Lantus) 60 unit QHS SC Last administered on 02/03/17 21:30; Admin Dose 60 UNIT; Start 01/29/17 at 21:00 Loratadine (Claritin) 10 mg DAILY PO Last administered on 02/04/17 08:28; Admin Dose 10 MG; Start 01/30/17 at 09:00 Montelukast Sodium (Singulair) 10 mg QHS PO Last administered on 02/03/17 20:26 ; Admin Dose 10 MG; Start 01/29/17 at 21:00 Ondansetron HCl (Zofran Inj) 4 mg Q6H PRN IV NAUSEA AND/OR VOMITING; Start at 16:00 Acetaminophen (Tylenol Tab) 650 mg Q6H PRN PO PAIN LEVEL 1-3 OR FEVER Last administered on 02/01/17 14:23; Admin Dose 650 MG; Start 01/29/17 at 16:00 Acetaminophen (Tylenol Supp) 650 mg Q6H PRN [place] PAIN LEVEL 1-3 OR FEVER; Start 01/29/17 at 16:00 Acetaminophen/ Hydrocodone Bitart ([place] (5/325)) 1 tab Q6H PRN PO MODERATE PAIN LEVEL 4-6 Last administered on 02/02/17 22:47; Admin Dose 1 TAB; Start at 16:00 Acetaminophen/ Hydrocodone Bitart ([place] (5/325)) 2 tab Q6H PRN PO SEVERE PAIN LEVEL 7-10 Last administered on 02/04/17 02:06; Admin Dose 2 TAB; Start at 16:00 Docusate Sodium (Colace) 100 mg Q12H PRN PO CONSTIPATION Last administered on 09:05; Admin Dose 100 MG; Start 01/29/17 at 16:00 Magnesium Hydroxide (Milk Of Mag) 30 ml DAILY PRN PO CONSTIPATION Last administered on 02/03/17 09:09; Admin Dose 30 ML; Start 01/29/17 at 16:00 Bisacodyl (Dulcolax Supp) 10 mg DAILY PRN [place] CONSTIPATION; Start 01/29/17 at 16 :00 Diagnostic Test (Pha) (Accu-Chek) 1 ea 02 XX Last administered on 02/03/17 02: 00; Admin Dose 1 EA; Start 01/30/17 at 02:00 Salmeterol Xinafoate/ Fluticasone (Advair 250/50 Diskus) 1 inh BID INH Last administered on 02/04/17 08:28; Admin Dose 1 INH; Start 01/29/17 at 21:00 Miscellaneous Information 1 ea NOTE XX ; Start 01/29/17 at 17:00 Glucose (Glutose) 15 gm Q15M PRN PO DECREASED GLUCOSE; Start 01/29/17 at 17:00 Glucose (Glutose) 22.5 gm Q15M PRN PO DECREASED GLUCOSE; Start 01/29/17 at 17: 00 Dextrose (D50w Syringe) 25 ml Q15M PRN IV DECREASED GLUCOSE; Start 01/29/17 at 17:00 Dextrose (D50w Syringe) 50 ml Q15M PRN IV DECREASED GLUCOSE; Start 01/29/17 at 17:00 Glucagon (Glucagen) 1 mg Q15M PRN IM DECREASED GLUCOSE; Start 01/29/17 at 17:00 Glucose (Glutose) 15 gm Q15M PRN BUCCAL DECREASED GLUCOSE; Start 01/29/17 at 17 :00 Linagliptin (Tradjenta) 5 mg DAILY PO Last administered on 02/04/17 08:26; Admin Dose 5 MG; Start 01/31/17 at 09:00 Carvedilol (Coreg) 3.125 mg BID PO Last administered on 02/04/17 08:27; Admin Dose 3.125 MG; Start 01/30/17 at 21:00 Aspirin (Aspirin) 81 mg DAILY PO Last administered on 02/04/17 08:26; Admin Dose 81 MG; Start 01/31/17 at 09:00 Morphine Sulfate (morphine) 2 mg Q4H PRN IV SEVERE PAIN LEVEL 7-10; Start 01/30 at 14:30 Tramadol HCl 50 mg 50 mg Q6H PRN PO pain 6-10 Last administered on 02/01/17 09: 41; Admin Dose 50 MG; Start 01/31/17 at 10:30 Meropenem/Sodium Chloride (Merrem 1 Gm/50 ml (Pmx)) 50 ml @ 100 mls/hr Q12 IVPB Last administered on 02/04/17 08:31; Admin Dose 100 MLS/HR; Start 02/02/17 at 20:00 Apixaban (Eliquis) 10 mg BID PO Last administered on 02/04/17 08:28; Admin Dose 10 MG; Start 02/03/17 at 21:00; Stop 02/10/17 at 20:59 Apixaban 5 mg 5 mg BID PO ; Start 02/11/17 at 09:00 Daptomycin/Sodium Chloride (Cubicin/NS) 100 ml @ 200 mls/hr Q24H IVPB Last administered on 02/03/17 19:58; Admin Dose 200 MLS/HR; Start 02/03/17 at 17:00 Hydralazine HCl (Apresoline) 75 mg TID PO Last administered on 02/04/17 08:27; Admin Dose 75 MG; Start 02/03/17 at 16:00 Pantoprazole (Protonix Iv) 40 mg BID@06,18 IV Last administered on 02/04/17 06: 00; Admin Dose 40 MG; Start 02/03/17 at 18:30 Fluconazole (Diflucan) 100 mg DAILY PO Last administered on 02/04/17 08:26; Admin Dose 100 MG; Start 02/03/17 at 18:30; Stop 02/07/17 at 09:01 VALERIY RUDOLPH MD Feb 04, 2017 09:46
[2017-02-04] MEDS: FLUDROCORTISONE 0.1 MG TAB PO SCH (11:15)
[2017-02-04] MEDS: LISINOPRIL 5 MG TAB PO SCH (11:15)
--- NOTE | 2017-02-04 11:48 | PN ---
Date/Time of Note Date/Time of Note DATE: 02/04/17 TIME: 11:40 Assessment/Plan VTE Prophylaxis VTE Prophylaxis Intervention: SCD's Lines/Catheters IV [facility] (from [facility] Saline Lock Urinary Cath still in place: No Assessment/Plan Assessment/Plan Assessment * Anemia * GI bleed EGD 02/03/2017 Impression: * Severe erosive/ulcerated esophagitis * Probable [place] esophagitis. Biopsies obtained * Moderate gastritis. Rule out H. pylori infection. Biopsies obtained * Deep venous thrombosis left femoral * Cellulitis left lower extremities * Acute kidney injury Plan * Continue Protonix twice daily plus Diflucan * Review pathology as soon as available * Monitor H&H Subjective 24 Hr Interval Summary Free Text/Dictation Course reviewed with nursing staff Results from endoscopy explained to the patient She has no GI complaints at present time Complains of leg pain Tolerating diet Pathology pending Exam/Review of Systems Vital Signs Vitals Vital Signs Date Time Temp Pulse Resp B/P Pulse Ox O2 Delivery O2 Flow Rate FiO2 02/04/17 11:03 98.5 69 19 140/78 98 02/04/17 10:33 Nasal Cannula 5.0 01/31/17 09:42 21 Intake and Output 02/03/17 02/03/17 02/04/17 15:00 23:00 07:00 Intake Total 300 ml 400 ml Output Total 600 ml Balance 300 ml -200 ml Exam Constitutional: alert, oriented, morbidly obese Psych: no complaints Neck: non-tender, supple Respiratory: clear to auscultation, normal air movement Cardiovascular: nl pulses, regular rate and rhythm Gastrointestinal: nl liver, spleen, non-tender, soft Musculoskeletal: muscle weakness Extremities: normal pulses Neurological: nl speech, nl strength Skin: nl turgor, No rash or lesions Lymph: nl lymph nodes Results Result Diagram: 02/04/17 0519 02/04/17 0519 Results 24 hrs Laboratory Tests Test 02/03/17 11:46 02/03/17 15:32 02/03/17 16:51 02/03/17 21:36 Bedside Glucose 171 134 245 H Erythrocyte Sedimentation Rate 120 H Creatine Kinase 105 Creatine Kinase Index 1.2 Creatinine Kinase MB (Mass) 1.24 Troponin I < 0.012 C-Reactive Protein 14.7 H Test 02/04/17 01:58 02/04/17 05:19 02/04/17 08:08 02/04/17 11:16 Bedside Glucose 153 101 167 White Blood Count 10.1 Red Blood Count 2.75 L Hemoglobin 7.7 L Hematocrit 24.3 L Mean Corpuscular Volume 88.4 Mean Corpuscular Hemoglobin 28.0 L Mean Corpuscular Hemoglobin Concent 31.7 L Red Cell Distribution Width 14.7 H Platelet Count 382 Mean Platelet Volume 9.7 Neutrophils % 78.5 H Lymphocytes % 10.8 L Monocytes % 8.4 Eosinophils % 0.6 Basophils % 0.2 Nucleated Red Blood Cells % 0.0 Neutrophils # 7.9 H Lymphocytes # 1.1 Monocytes # 0.9 Eosinophils # 0.1 Basophils # 0.0 Nucleated Red Blood Cells # 0.0 Sodium Level 144 Potassium Level 4.1 Chloride Level 100 Carbon Dioxide Level 30 Anion Gap 18 H Blood Urea Nitrogen 43 H Creatinine 1.48 H Glucose Level 114 Calcium Level 8.6 Medications Medications Current Medications Acetaminophen (Tylenol Tab) 1,000 mg Q4H PRN PO PAIN AND OR ELEVATED TEMP; Start 01/29/17 at 16:00 Allopurinol (Zyloprim) 100 mg DAILY PO Last administered on 02/04/17 08:26; Admin Dose 100 MG; Start 01/30/17 at 09:00 Insulin Glargine (Lantus) 60 unit QHS SC Last administered on 02/03/17 21:30; Admin Dose 60 UNIT; Start 01/29/17 at 21:00 Loratadine (Claritin) 10 mg DAILY PO Last administered on 02/04/17 08:28; Admin Dose 10 MG; Start 01/30/17 at 09:00 Montelukast Sodium (Singulair) 10 mg QHS PO Last administered on 02/03/17 20:26 ; Admin Dose 10 MG; Start 01/29/17 at 21:00 Ondansetron HCl (Zofran Inj) 4 mg Q6H PRN IV NAUSEA AND/OR VOMITING; Start at 16:00 Acetaminophen (Tylenol Tab) 650 mg Q6H PRN PO PAIN LEVEL 1-3 OR FEVER Last administered on 02/01/17 14:23; Admin Dose 650 MG; Start 01/29/17 at 16:00 Acetaminophen (Tylenol Supp) 650 mg Q6H PRN [place] PAIN LEVEL 1-3 OR FEVER; Start 01/29/17 at 16:00 Acetaminophen/ Hydrocodone Bitart ([place] (5/325)) 1 tab Q6H PRN PO MODERATE PAIN LEVEL 4-6 Last administered on 02/02/17 22:47; Admin Dose 1 TAB; Start at 16:00 Acetaminophen/ Hydrocodone Bitart ([place] (5/325)) 2 tab Q6H PRN PO SEVERE PAIN LEVEL 7-10 Last administered on 02/04/17 02:06; Admin Dose 2 TAB; Start at 16:00 Docusate Sodium (Colace) 100 mg Q12H PRN PO CONSTIPATION Last administered on 09:05; Admin Dose 100 MG; Start 01/29/17 at 16:00 Magnesium Hydroxide (Milk Of Mag) 30 ml DAILY PRN PO CONSTIPATION Last administered on 02/03/17 09:09; Admin Dose 30 ML; Start 01/29/17 at 16:00 Bisacodyl (Dulcolax Supp) 10 mg DAILY PRN [place] CONSTIPATION; Start 01/29/17 at 16 :00 Diagnostic Test (Pha) (Accu-Chek) 1 ea 02 XX Last administered on 02/03/17 02: 00; Admin Dose 1 EA; Start 01/30/17 at 02:00 Salmeterol Xinafoate/ Fluticasone (Advair 250/50 Diskus) 1 inh BID INH Last administered on 02/04/17 08:28; Admin Dose 1 INH; Start 01/29/17 at 21:00 Miscellaneous Information 1 ea NOTE XX ; Start 01/29/17 at 17:00 Glucose (Glutose) 15 gm Q15M PRN PO DECREASED GLUCOSE; Start 01/29/17 at 17:00 Glucose (Glutose) 22.5 gm Q15M PRN PO DECREASED GLUCOSE; Start 01/29/17 at 17: 00 Dextrose (D50w Syringe) 25 ml Q15M PRN IV DECREASED GLUCOSE; Start 01/29/17 at 17:00 Dextrose (D50w Syringe) 50 ml Q15M PRN IV DECREASED GLUCOSE; Start 01/29/17 at 17:00 Glucagon (Glucagen) 1 mg Q15M PRN IM DECREASED GLUCOSE; Start 01/29/17 at 17:00 Glucose (Glutose) 15 gm Q15M PRN BUCCAL DECREASED GLUCOSE; Start 01/29/17 at 17 :00 Linagliptin (Tradjenta) 5 mg DAILY PO Last administered on 02/04/17 08:26; Admin Dose 5 MG; Start 01/31/17 at 09:00 Aspirin (Aspirin) 81 mg DAILY PO Last administered on 02/04/17 08:26; Admin Dose 81 MG; Start 01/31/17 at 09:00 Morphine Sulfate (morphine) 2 mg Q4H PRN IV SEVERE PAIN LEVEL 7-10; Start 01/30 at 14:30 Tramadol HCl 50 mg 50 mg Q6H PRN PO pain 6-10 Last administered on 02/01/17 09: 41; Admin Dose 50 MG; Start 01/31/17 at 10:30 Meropenem/Sodium Chloride (Merrem 1 Gm/50 ml (Pmx)) 50 ml @ 100 mls/hr Q12 IVPB Last administered on 02/04/17 08:31; Admin Dose 100 MLS/HR; Start 02/02/17 at 20:00 Apixaban (Eliquis) 10 mg BID PO Last administered on 02/04/17 08:28; Admin Dose 10 MG; Start 02/03/17 at 21:00; Stop 02/10/17 at 20:59 Apixaban 5 mg 5 mg BID PO ; Start 02/11/17 at 09:00 Daptomycin/Sodium Chloride (Cubicin/NS) 100 ml @ 200 mls/hr Q24H IVPB Last administered on 02/03/17 19:58; Admin Dose 200 MLS/HR; Start 02/03/17 at 17:00 Pantoprazole (Protonix Iv) 40 mg BID@06,18 IV Last administered on 02/04/17 06: 00; Admin Dose 40 MG; Start 02/03/17 at 18:30 Fluconazole (Diflucan) 100 mg DAILY PO Last administered on 02/04/17 08:26; Admin Dose 100 MG; Start 02/03/17 at 18:30; Stop 02/07/17 at 09:01 Ferrous Sulfate (Ferrous Sulfate (Ec)) 325 mg BID PO ; Start 02/04/17 at 21:00; Stop 03/06/17 at 20:59 Hydralazine HCl (Apresoline) 50 mg BID PO ; Start 02/04/17 at 21:00 Metoprolol Succinate (Toprol Xl) 25 mg BID PO ; Start 02/04/17 at 21:00 Ascorbic Acid (Vitamin C) 500 mg BID PO ; Start 02/04/17 at 21:00; Stop 03/06/17 at 20:59 Lisinopril (Zestril) 5 mg DAILY PO Last administered on 02/04/17 11:15; Admin Dose 5 MG; Start 02/04/17 at 09:30 Fludrocortisone Acetate 0.05 mg 0.05 mg DAILY PO Last administered on 02/04/17 11:15; Admin Dose 0.05 MG; Start 02/04/17 at 11:00 Ferric Sodium Gluconate Complex/ Sodium Chloride (Ferrlecit/NS) 110 ml @ 100 mls/hr Q24H IVPB ; Start 02/04/17 at 11:00; Stop 02/06/17 at 12:05 ANGE CALDERÓN MD Feb 04, 2017 11:48
[2017-02-04] MEDS ORDERED: morphine 2 MG INJ IV PRN (12:00)
[2017-02-04] MEDS: SOD FERRIC GLUC COMPLX 125 MG in SOD CHLORIDE 0.9% 100 ML IVPB SCH (12:37)
--- NOTE | 2017-02-04 15:28 | CONS ---
Date/Time of Note Date/Time of Note DATE: 02/04/17 TIME: 15:26 Consult Date/Type/Reason Admit Date/Time Jan 29, 2017 at 13:15 Initial Consult Date 02/03/17 Type of Consultation: Pulm Subjective No events. Remains on 4 L/NC Objective Vital Signs Date Time Temp Pulse Resp B/P Pulse Ox O2 Delivery O2 Flow Rate FiO2 02/04/17 15:20 98.2 74 19 143/64 96 02/04/17 12:41 Nasal Cannula 4.0 01/31/17 09:42 21 Intake and Output 02/03/17 02/03/17 02/04/17 15:00 23:00 07:00 Intake Total 300 ml 400 ml Output Total 600 ml Balance 300 ml -200 ml Exam HEENT: Neck supple; no JVD; no LAD CVS: RRR, S1 and S2 CHEST: Clear with mild basilar rales ABD: obese, NT, + BS EXT: No c/c/ + edema and erythema Results/Medications Result Diagram: 02/04/17 0519 02/04/17 0519 Results 24 hrs Laboratory Tests Test 02/03/17 15:32 02/03/17 16:51 02/03/17 21:36 02/04/17 01:58 Erythrocyte Sedimentation Rate 120 H Creatine Kinase 105 Creatine Kinase Index 1.2 Creatinine Kinase MB (Mass) 1.24 Troponin I < 0.012 C-Reactive Protein 14.7 H Bedside Glucose 134 245 H 153 Test 02/04/17 05:19 02/04/17 08:08 02/04/17 11:16 White Blood Count 10.1 Red Blood Count 2.75 L Hemoglobin 7.7 L Hematocrit 24.3 L Mean Corpuscular Volume 88.4 Mean Corpuscular Hemoglobin 28.0 L Mean Corpuscular Hemoglobin Concent 31.7 L Red Cell Distribution Width 14.7 H Platelet Count 382 Mean Platelet Volume 9.7 Neutrophils % 78.5 H Lymphocytes % 10.8 L Monocytes % 8.4 Eosinophils % 0.6 Basophils % 0.2 Nucleated Red Blood Cells % 0.0 Neutrophils # 7.9 H Lymphocytes # 1.1 Monocytes # 0.9 Eosinophils # 0.1 Basophils # 0.0 Nucleated Red Blood Cells # 0.0 Sodium Level 144 Potassium Level 4.1 Chloride Level 100 Carbon Dioxide Level 30 Anion Gap 18 H Blood Urea Nitrogen 43 H Creatinine 1.48 H Glucose Level 114 Calcium Level 8.6 Hepatitis B Surface Antigen NEGATIVE Hepatitis C Antibody NEGATIVE Bedside Glucose 101 167 Medications Current Medications Acetaminophen (Tylenol Tab) 1,000 mg Q4H PRN PO PAIN AND OR ELEVATED TEMP; Start 01/29/17 at 16:00 Allopurinol (Zyloprim) 100 mg DAILY PO Last administered on 02/04/17 08:26; Admin Dose 100 MG; Start 01/30/17 at 09:00 Insulin Glargine (Lantus) 60 unit QHS SC Last administered on 02/03/17 21:30; Admin Dose 60 UNIT; Start 01/29/17 at 21:00 Loratadine (Claritin) 10 mg DAILY PO Last administered on 02/04/17 08:28; Admin Dose 10 MG; Start 01/30/17 at 09:00 Montelukast Sodium (Singulair) 10 mg QHS PO Last administered on 02/03/17 20:26 ; Admin Dose 10 MG; Start 01/29/17 at 21:00 Ondansetron HCl (Zofran Inj) 4 mg Q6H PRN IV NAUSEA AND/OR VOMITING; Start at 16:00 Acetaminophen (Tylenol Tab) 650 mg Q6H PRN PO PAIN LEVEL 1-3 OR FEVER Last administered on 02/01/17 14:23; Admin Dose 650 MG; Start 01/29/17 at 16:00 Acetaminophen (Tylenol Supp) 650 mg Q6H PRN [place] PAIN LEVEL 1-3 OR FEVER; Start 01/29/17 at 16:00 Acetaminophen/ Hydrocodone Bitart ([place] (5/325)) 1 tab Q6H PRN PO MODERATE PAIN LEVEL 4-6 Last administered on 02/02/17 22:47; Admin Dose 1 TAB; Start at 16:00 Acetaminophen/ Hydrocodone Bitart ([place] (5/325)) 2 tab Q6H PRN PO SEVERE PAIN LEVEL 7-10 Last administered on 02/04/17 02:06; Admin Dose 2 TAB; Start at 16:00 Docusate Sodium (Colace) 100 mg Q12H PRN PO CONSTIPATION Last administered on 09:05; Admin Dose 100 MG; Start 01/29/17 at 16:00 Magnesium Hydroxide (Milk Of Mag) 30 ml DAILY PRN PO CONSTIPATION Last administered on 02/03/17 09:09; Admin Dose 30 ML; Start 01/29/17 at 16:00 Bisacodyl (Dulcolax Supp) 10 mg DAILY PRN [place] CONSTIPATION; Start 01/29/17 at 16 :00 Diagnostic Test (Pha) (Accu-Chek) 1 ea 02 XX Last administered on 02/03/17 02: 00; Admin Dose 1 EA; Start 01/30/17 at 02:00 Salmeterol Xinafoate/ Fluticasone (Advair 250/50 Diskus) 1 inh BID INH Last administered on 02/04/17 08:28; Admin Dose 1 INH; Start 01/29/17 at 21:00 Miscellaneous Information 1 ea NOTE XX ; Start 01/29/17 at 17:00 Glucose (Glutose) 15 gm Q15M PRN PO DECREASED GLUCOSE; Start 01/29/17 at 17:00 Glucose (Glutose) 22.5 gm Q15M PRN PO DECREASED GLUCOSE; Start 01/29/17 at 17: 00 Dextrose (D50w Syringe) 25 ml Q15M PRN IV DECREASED GLUCOSE; Start 01/29/17 at 17:00 Dextrose (D50w Syringe) 50 ml Q15M PRN IV DECREASED GLUCOSE; Start 01/29/17 at 17:00 Glucagon (Glucagen) 1 mg Q15M PRN IM DECREASED GLUCOSE; Start 01/29/17 at 17:00 Glucose (Glutose) 15 gm Q15M PRN BUCCAL DECREASED GLUCOSE; Start 01/29/17 at 17 :00 Linagliptin (Tradjenta) 5 mg DAILY PO Last administered on 02/04/17 08:26; Admin Dose 5 MG; Start 01/31/17 at 09:00 Aspirin (Aspirin) 81 mg DAILY PO Last administered on 02/04/17 08:26; Admin Dose 81 MG; Start 01/31/17 at 09:00 Tramadol HCl 50 mg 50 mg Q6H PRN PO pain 6-10 Last administered on 02/01/17 09: 41; Admin Dose 50 MG; Start 01/31/17 at 10:30 Meropenem/Sodium Chloride (Merrem 1 Gm/50 ml (Pmx)) 50 ml @ 100 mls/hr Q12 IVPB Last administered on 02/04/17 08:31; Admin Dose 100 MLS/HR; Start 02/02/17 at 20:00 Apixaban (Eliquis) 10 mg BID PO Last administered on 02/04/17 08:28; Admin Dose 10 MG; Start 02/03/17 at 21:00; Stop 02/10/17 at 20:59 Apixaban 5 mg 5 mg BID PO ; Start 02/11/17 at 09:00 Daptomycin/Sodium Chloride (Cubicin/NS) 100 ml @ 200 mls/hr Q24H IVPB Last administered on 02/03/17 19:58; Admin Dose 200 MLS/HR; Start 02/03/17 at 17:00 Pantoprazole (Protonix Iv) 40 mg BID@06,18 IV Last administered on 02/04/17 06: 00; Admin Dose 40 MG; Start 02/03/17 at 18:30 Fluconazole (Diflucan) 100 mg DAILY PO Last administered on 02/04/17 08:26; Admin Dose 100 MG; Start 02/03/17 at 18:30; Stop 02/07/17 at 09:01 Ferrous Sulfate (Ferrous Sulfate (Ec)) 325 mg BID PO ; Start 02/04/17 at 21:00; Stop 03/06/17 at 20:59 Hydralazine HCl (Apresoline) 50 mg BID PO ; Start 02/04/17 at 21:00 Metoprolol Succinate (Toprol Xl) 25 mg BID PO ; Start 02/04/17 at 21:00 Ascorbic Acid (Vitamin C) 500 mg BID PO ; Start 02/04/17 at 21:00; Stop 03/06/17 at 20:59 Lisinopril (Zestril) 5 mg DAILY PO Last administered on 02/04/17 11:15; Admin Dose 5 MG; Start 02/04/17 at 09:30 Fludrocortisone Acetate 0.05 mg 0.05 mg DAILY PO Last administered on 02/04/17 11:15; Admin Dose 0.05 MG; Start 02/04/17 at 11:00 Ferric Sodium Gluconate Complex/ Sodium Chloride (Ferrlecit/NS) 110 ml @ 100 mls/hr Q24H IVPB Last administered on 02/04/17 12:37; Admin Dose 100 MLS/HR; Start 02/04/17 at 11:00; Stop 02/06/17 at 12:05 Morphine Sulfate (morphine) 2 mg Q4H PRN IV SEVERE PAIN LEVEL 7-10; Start at 12:00 Assessment/Plan Additional Assessment/Plan IMP: 1. Mild hypoxemic resp insufficiency--likely due to pulm edema and ATX. Doubt PE 2. DVT s/p IVCF and anticoag 3. Cellulitis 4. UTI RECS: 1. ICS 2. Mobilize OOB 3. Gentle diuresis LORETA ESPINOSA MD Feb 04, 2017 15:28
[2017-02-04] MEDS: DAPTOMYCIN IVPB SCH (17:33)
[2017-02-04] MEDS: SOD CHLORIDE 0.9% IVPB SCH (17:33)
--- NOTE | 2017-02-04 17:51 | CONS ---
Date/Time of Note Date/Time of Note DATE: 02/04/17 TIME: 17:48 Assessment/Plan Assessment/Plan Chief Complaint/Hosp Course ID PROGRESS NOTE CURRENT ABX: => MERREM #3 + Daptomycin #2 TOTAL ABX DAY #6 Ceftriaxone #5-> DC 8/3 s/p Zosyn/Clinda 01/29-> DC'd 24 HOUR INTERVAL SUMMARY * OOB->Commode -- still has LLEXT edema without much improvement * fevers, WBC still elevated , s/p IVC filter placed for (+)DVT LLEXT * UTI (+)ESBL ECOLI ESBL M.I.C. RX --------- --- AMPICILLIN >=32 R CEFAZOLIN R CEFEPIME 8 S CEFOTAXIME R CEFTAZIDIME 16 R CIPROFLOXACIN >=4 R GENTAMICIN <=1 S IMIPENEM <=0.25 S LEVOFLOXACIN >=8 R NITROFURANTOIN <=16 S TOBRAMYCIN <=1 S TRIMETHOPRIM/SULFAMETHOXAZOLE <=20 S PIPERACILLIN/TAZOBACTAM <=4 S Exam Constitutional: alert, oriented, well developed Head: atraumatic, normocephalic Eyes: EOMI, PERRL Respiratory: clear to auscultation, normal air movement Cardiovascular: nl pulses, regular rate and rhythm Gastrointestinal: Soft (+)BS Extremities: LLEXT cellulitis + gangrenous changes 2nd toe ulcer * LLEXT still w/significant edema and fluid small vesicle formation weeping edema Neurological: nl mental status, nl speech, nl strength ID ASSESSMENT 51 yo F PMHx morbid obesity admit with: 1. Resolving sepsis secondary to ESBL UTI 2. E.Coli-ESBL UTI 01/29 * Repeat Urine 01/29 (-) 3. Bacteremia / bottles from ED: BLOOD CULTURE Final COAGULASE NEGATIVE STAPH * Repeat cultures negative. 4. Left lower extremity cellulitis/ left second toe gangrenous ulcer. * Xray with soft tissue swelling on Fibula/Tibia. MRI without evidence of necrotizing fasciitis. 5. Peripheral vascular disease (PVD)=> Venous + Arterial * PAD:Arterial Duplex=> 1. Abnormal flow bilaterally in the calf arteries consistent with significant stenosis. 2. Significant stenosis in the left mid superficial femoral artery. * VENOUS: Left lower extremity acute deep vein thrombosis. VQ scan with low probability for PE. -- -Status post IVC filter placed on 02/01/2017 6. Systolic and diastolic congestive heart failure. Echo EF ~50-55%. 7 . Hypoxic respiratory failure, multifactorial most likely secondary to possible CHF, pulmonary hypertension, acute anemia, sepsis and underlying asthma and obesity=> RESOLVED 8. Anemia, now acute on chronic. H&H improved with transfusion. No evidence of bleeding. * GI -> EGD planned 02/03/17 9. DMII. A1c 6.8. 10. Essential hypertension. 11. REMI on CKD with Diabetic nephropathy. * Avoid renal toxic ABX - patient need diuretic Rx per card 13. COPD: Asthma + restrictive component due to obesity; possibly obesity hypoventilation syndrome suspected 14. Pulmonary hypertension-> 2/2 #13 15. DDx silent aspiration pneumonitis vs pna per multiple risk factors below: * CXR: Mild pulmonary vascular congestion with pleural effusions, findings suggesting congestive heart failure. * Wet lungs at risk bacterial infection * Asthma * Obesity * Suspect GERD * Suspect obesity hypoventilation syndrome CURRENT ABX: => MERREM #3 + Daptomycin #2 TOTAL ABX DAY #6 Ceftriaxone #5-> DC 02/02 s/p Zosyn/Clinda 01/29-> DC'd ID RECOMMENDATIONS 1. Continue MERREM for hx of ESBL + Start Daptomycin for empiric MRSA coverage * Send baseline CK, ESR,CRP to guide DAPTO Rx * NO STATIN RX WHILE ON DAPTO => Please do not start vs HOLD Statin 2. Swab nares for MRSA ->pending 3 Avoid renal toxic ABX-> Cards needs room for diuretics . . Problems: Consultation Date/Type/Reason Admit Date/Time Jan 29, 2017 at 13:15 Initial Consult Date Type of Consultation: ID Exam/Review of Systems Vital Signs Vitals Vital Signs Date Time Temp Pulse Resp B/P Pulse Ox O2 Delivery O2 Flow Rate FiO2 02/04/17 17:06 70 20 97 Nasal Cannula 4.0 02/04/17 15:20 98.2 143/64 01/31/17 09:42 21 Intake and Output 8/402/03/17 02/04/17 15:00 23:00 07:00 Intake Total 300 ml 400 ml Output Total 600 ml Balance 300 ml -200 ml Results Result Diagram: 02/04/17 0519 02/04/17 0519 Results 24 hrs Laboratory Tests Test 02/03/17 21:36 02/04/17 01:58 02/04/17 05:19 02/04/17 08:08 Bedside Glucose 245 H 153 101 White Blood Count 10.1 Red Blood Count 2.75 L Hemoglobin 7.7 L Hematocrit 24.3 L Mean Corpuscular Volume 88.4 Mean Corpuscular Hemoglobin 28.0 L Mean Corpuscular Hemoglobin Concent 31.7 L Red Cell Distribution Width 14.7 H Platelet Count 382 Mean Platelet Volume 9.7 Neutrophils % 78.5 H Lymphocytes % 10.8 L Monocytes % 8.4 Eosinophils % 0.6 Basophils % 0.2 Nucleated Red Blood Cells % 0.0 Neutrophils # 7.9 H Lymphocytes # 1.1 Monocytes # 0.9 Eosinophils # 0.1 Basophils # 0.0 Nucleated Red Blood Cells # 0.0 Sodium Level 144 Potassium Level 4.1 Chloride Level 100 Carbon Dioxide Level 30 Anion Gap 18 H Blood Urea Nitrogen 43 H Creatinine 1.48 H Glucose Level 114 Calcium Level 8.6 Hepatitis B Surface Antigen NEGATIVE Hepatitis C Antibody NEGATIVE Test 02/04/17 11:16 02/04/17 17:32 Bedside Glucose 167 174 Medications Medications Current Medications Acetaminophen (Tylenol Tab) 1,000 mg Q4H PRN PO PAIN AND OR ELEVATED TEMP; Start 01/29/17 at 16:00 Allopurinol (Zyloprim) 100 mg DAILY PO Last administered on 02/04/17 08:26; Admin Dose 100 MG; Start 01/30/17 at 09:00 Insulin Glargine (Lantus) 60 unit QHS SC Last administered on 02/03/17 21:30; Admin Dose 60 UNIT; Start 01/29/17 at 21:00 Loratadine (Claritin) 10 mg DAILY PO Last administered on 02/04/17 08:28; Admin Dose 10 MG; Start 01/30/17 at 09:00 Montelukast Sodium (Singulair) 10 mg QHS PO Last administered on 02/03/17 20:26 ; Admin Dose 10 MG; Start 01/29/17 at 21:00 Ondansetron HCl (Zofran Inj) 4 mg Q6H PRN IV NAUSEA AND/OR VOMITING; Start at 16:00 Acetaminophen (Tylenol Tab) 650 mg Q6H PRN PO PAIN LEVEL 1-3 OR FEVER Last administered on 02/01/17 14:23; Admin Dose 650 MG; Start 01/29/17 at 16:00 Acetaminophen (Tylenol Supp) 650 mg Q6H PRN [place] PAIN LEVEL 1-3 OR FEVER; Start 01/29/17 at 16:00 Acetaminophen/ Hydrocodone Bitart ([place] (5/325)) 1 tab Q6H PRN PO MODERATE PAIN LEVEL 4-6 Last administered on 02/02/17 22:47; Admin Dose 1 TAB; Start at 16:00 Acetaminophen/ Hydrocodone Bitart ([place] (5/325)) 2 tab Q6H PRN PO SEVERE PAIN LEVEL 7-10 Last administered on 02/04/17 02:06; Admin Dose 2 TAB; Start at 16:00 Docusate Sodium (Colace) 100 mg Q12H PRN PO CONSTIPATION Last administered on 09:05; Admin Dose 100 MG; Start 01/29/17 at 16:00 Magnesium Hydroxide (Milk Of Mag) 30 ml DAILY PRN PO CONSTIPATION Last administered on 02/03/17 09:09; Admin Dose 30 ML; Start 01/29/17 at 16:00 Bisacodyl (Dulcolax Supp) 10 mg DAILY PRN [place] CONSTIPATION; Start 01/29/17 at 16 :00 Diagnostic Test (Pha) (Accu-Chek) 1 ea 02 XX Last administered on 02/03/17 02: 00; Admin Dose 1 EA; Start 01/30/17 at 02:00 Salmeterol Xinafoate/ Fluticasone (Advair 250/50 Diskus) 1 inh BID INH Last administered on 02/04/17 08:28; Admin Dose 1 INH; Start 01/29/17 at 21:00 Miscellaneous Information 1 ea NOTE XX ; Start 01/29/17 at 17:00 Glucose (Glutose) 15 gm Q15M PRN PO DECREASED GLUCOSE; Start 01/29/17 at 17:00 Glucose (Glutose) 22.5 gm Q15M PRN PO DECREASED GLUCOSE; Start 01/29/17 at 17: 00 Dextrose (D50w Syringe) 25 ml Q15M PRN IV DECREASED GLUCOSE; Start 01/29/17 at 17:00 Dextrose (D50w Syringe) 50 ml Q15M PRN IV DECREASED GLUCOSE; Start 01/29/17 at 17:00 Glucagon (Glucagen) 1 mg Q15M PRN IM DECREASED GLUCOSE; Start 01/29/17 at 17:00 Glucose (Glutose) 15 gm Q15M PRN BUCCAL DECREASED GLUCOSE; Start 01/29/17 at 17 :00 Linagliptin (Tradjenta) 5 mg DAILY PO Last administered on 02/04/17 08:26; Admin Dose 5 MG; Start 01/31/17 at 09:00 Aspirin (Aspirin) 81 mg DAILY PO Last administered on 02/04/17 08:26; Admin Dose 81 MG; Start 01/31/17 at 09:00 Tramadol HCl 50 mg 50 mg Q6H PRN PO pain 6-10 Last administered on 02/01/17 09: 41; Admin Dose 50 MG; Start 01/31/17 at 10:30 Meropenem/Sodium Chloride ([place] 1 Gm/50 ml (Pmx)) 50 ml @ 100 mls/hr Q12 IVPB Last administered on 02/04/17 08:31; Admin Dose 100 MLS/HR; Start 02/02/17 at 20:00 Apixaban (Eliquis) 10 mg BID PO Last administered on 02/04/17 08:28; Admin Dose 10 MG; Start 02/03/17 at 21:00; Stop 02/10/17 at 20:59 Apixaban 5 mg 5 mg BID PO ; Start 02/11/17 at 09:00 Daptomycin/Sodium Chloride (Cubicin/NS) 100 ml @ 200 mls/hr Q24H IVPB Last administered on 02/04/17 17:33; Admin Dose 200 MLS/HR; Start 02/03/17 at 17:00 Pantoprazole (Protonix Iv) 40 mg BID@06,18 IV Last administered on 02/04/17 17: 33; Admin Dose 40 MG; Start 02/03/17 at 18:30 Fluconazole (Diflucan) 100 mg DAILY PO Last administered on 02/04/17 08:26; Admin Dose 100 MG; Start 02/03/17 at 18:30; Stop 02/07/17 at 09:01 Ferrous Sulfate (Ferrous Sulfate (Ec)) 325 mg BID PO ; Start 02/04/17 at 21:00; Stop 03/06/17 at 20:59 Hydralazine HCl (Apresoline) 50 mg BID PO ; Start 02/04/17 at 21:00 Metoprolol Succinate (Toprol Xl) 25 mg BID PO ; Start 02/04/17 at 21:00 Ascorbic Acid (Vitamin C) 500 mg BID PO ; Start 02/04/17 at 21:00; Stop 03/06/17 at 20:59 Lisinopril (Zestril) 5 mg DAILY PO Last administered on 02/04/17 11:15; Admin Dose 5 MG; Start 02/04/17 at 09:30 Fludrocortisone Acetate 0.05 mg 0.05 mg DAILY PO Last administered on 02/04/17 11:15; Admin Dose 0.05 MG; Start 02/04/17 at 11:00 Ferric Sodium Gluconate Complex/ Sodium Chloride (Ferrlecit/NS) 110 ml @ 100 mls/hr Q24H IVPB Last administered on 02/04/17 12:37; Admin Dose 100 MLS/HR; Start 02/04/17 at 11:00; Stop 02/06/17 at 12:05 Morphine Sulfate (morphine) 2 mg Q4H PRN IV SEVERE PAIN LEVEL 7-10; Start at 12:00 TAHIR LOPEZ NP Feb 04, 2017 17:51
[2017-02-04] MEDS: ASCORBIC ACID 500 MG TAB PO SCH (20:36)
[2017-02-04] MEDS: MONTELUKAST 10 MG TAB PO SCH (20:36)
[2017-02-04] MEDS: METOPROLOL (XL) 25 MG TAB PO SCH (20:37)
[2017-02-04] MEDS: INSULIN GLARGINE [LANtus] 3 ML PEN SC SCH (20:41)
--- NOTE | 2017-02-04 22:23 | CONS ---
Date/Time of Note Date/Time of Note DATE: 02/04/17 TIME: 22:18 Assessment/Plan Assessment/Plan Chief Complaint/Hosp Course Assessment: Acute on chronic diastolic heart failure - LVEF 50-55% on echocardiogram Pulmonary hypertension - RVSP 57 mmHg on echocardiogram Acute kidney injury on chronic kidney disease Acute on chronic anemia - status post pRBC transfusions, upper endoscopy pending Left lower extremity cellulitis and left second toe gangrenous ulcer - on antibiotics per infectious disease Bilateral peripheral vascular disease - per vascular surgery Left lower extremity deep vein thrombosis - V/Q scan low probability for pulmonary embolism, status post IVC filter 02/01/2017 ESBL urinary tract infection - resolving Hypertension Diabetes mellitus Asthma Morbid obesity Recommendations: -continue Lasix 20mg IV BID, monitor renal function -carvedilol was switched to metoprolol succinate by primary team -continue hydralazine Problems: Consultation Date/Type/Reason Admit Date/Time Jan 29, 2017 at 13:15 Initial Consult Date 02/03/17 Type of Consultation: Cardiology 24 HR Interval Summary Free Text/Dictation Upper endoscopy yesterday showed esophagitis and gastritis, but no active bleeding. Detailed Summary Additional Comments 14 point review of systems without changes. Exam/Review of Systems Vital Signs Vitals Vital Signs Date Time Temp Pulse Resp B/P Pulse Ox O2 Delivery O2 Flow Rate FiO2 02/04/17 20:07 78 02/04/17 20:05 4.0 02/04/17 20:05 18 98 Nasal Cannula 02/04/17 20:00 98.6 169/74 01/31/17 09:42 21 Intake and Output 02/03/17 02/03/17 02/04/17 15:00 23:00 07:00 Intake Total 300 ml 400 ml Output Total 600 ml Balance 300 ml -200 ml Exam Constitutional: alert, obese Psych: nl mood/affect, no complaints Head: atraumatic, normocephalic Eyes: nl conjunctiva, nl lids ENMT: nl external ears & nose, nl nasal mucosa & septum Neck: non-tender, supple Respiratory: diminished breath sounds, No wheezing Cardiovascular: regular rate and rhythm, No murmurs/extra sounds Gastrointestinal: non-tender, soft Extremities: edema, pitting pedal edema, No clubbing, No cyanosis Neurological: nl mental status, nl speech Skin: other (left lower extremity erythema) Results Result Diagram: 02/04/17 0519 02/04/17 0519 Results 24 hrs Laboratory Tests Test 02/04/17 01:58 02/04/17 05:19 02/04/17 08:08 02/04/17 11:16 Bedside Glucose 153 101 167 White Blood Count 10.1 Red Blood Count 2.75 L Hemoglobin 7.7 L Hematocrit 24.3 L Mean Corpuscular Volume 88.4 Mean Corpuscular Hemoglobin 28.0 L Mean Corpuscular Hemoglobin Concent 31.7 L Red Cell Distribution Width 14.7 H Platelet Count 382 Mean Platelet Volume 9.7 Neutrophils % 78.5 H Lymphocytes % 10.8 L Monocytes % 8.4 Eosinophils % 0.6 Basophils % 0.2 Nucleated Red Blood Cells % 0.0 Neutrophils # 7.9 H Lymphocytes # 1.1 Monocytes # 0.9 Eosinophils # 0.1 Basophils # 0.0 Nucleated Red Blood Cells # 0.0 Sodium Level 144 Potassium Level 4.1 Chloride Level 100 Carbon Dioxide Level 30 Anion Gap 18 H Blood Urea Nitrogen 43 H Creatinine 1.48 H Glucose Level 114 Calcium Level 8.6 Hepatitis B Surface Antigen NEGATIVE Hepatitis C Antibody NEGATIVE Test 02/04/17 17:32 02/04/17 20:34 Bedside Glucose 174 225 H Medications Medications Current Medications Acetaminophen (Tylenol Tab) 1,000 mg Q4H PRN PO PAIN AND OR ELEVATED TEMP; Start 01/29/17 at 16:00 Allopurinol (Zyloprim) 100 mg DAILY PO Last administered on 02/04/17 08:26; Admin Dose 100 MG; Start 01/30/17 at 09:00 Insulin Glargine (Lantus) 60 unit QHS SC Last administered on 02/04/17 20:41; Admin Dose 60 UNIT; Start 01/29/17 at 21:00 Loratadine (Claritin) 10 mg DAILY PO Last administered on 02/04/17 08:28; Admin Dose 10 MG; Start 01/30/17 at 09:00 Montelukast Sodium (Singulair) 10 mg QHS PO Last administered on 02/04/17 20:36 ; Admin Dose 10 MG; Start 01/29/17 at 21:00 Ondansetron HCl (Zofran Inj) 4 mg Q6H PRN IV NAUSEA AND/OR VOMITING; Start at 16:00 Acetaminophen (Tylenol Tab) 650 mg Q6H PRN PO PAIN LEVEL 1-3 OR FEVER Last administered on 02/01/17 14:23; Admin Dose 650 MG; Start 01/29/17 at 16:00 Acetaminophen (Tylenol Supp) 650 mg Q6H PRN [place] PAIN LEVEL 1-3 OR FEVER; Start 01/29/17 at 16:00 Acetaminophen/ Hydrocodone Bitart ([place] (5/325)) 1 tab Q6H PRN PO MODERATE PAIN LEVEL 4-6 Last administered on 02/04/17 20:45; Admin Dose 1 TAB; Start at 16:00 Acetaminophen/ Hydrocodone Bitart ([place] (5/325)) 2 tab Q6H PRN PO SEVERE PAIN LEVEL 7-10 Last administered on 02/04/17 02:06; Admin Dose 2 TAB; Start at 16:00 Docusate Sodium (Colace) 100 mg Q12H PRN PO CONSTIPATION Last administered on 09:05; Admin Dose 100 MG; Start 01/29/17 at 16:00 Magnesium Hydroxide (Milk Of Mag) 30 ml DAILY PRN PO CONSTIPATION Last administered on 02/03/17 09:09; Admin Dose 30 ML; Start 01/29/17 at 16:00 Bisacodyl (Dulcolax Supp) 10 mg DAILY PRN [place] CONSTIPATION; Start 01/29/17 at 16 :00 Diagnostic Test (Pha) (Accu-Chek) 1 ea 02 XX Last administered on 02/03/17 02: 00; Admin Dose 1 EA; Start 01/30/17 at 02:00 Salmeterol Xinafoate/ Fluticasone (Advair 250/50 Diskus) 1 inh BID INH Last administered on 02/04/17 20:35; Admin Dose 1 INH; Start 01/29/17 at 21:00 Miscellaneous Information 1 ea NOTE XX ; Start 01/29/17 at 17:00 Glucose (Glutose) 15 gm Q15M PRN PO DECREASED GLUCOSE; Start 01/29/17 at 17:00 Glucose (Glutose) 22.5 gm Q15M PRN PO DECREASED GLUCOSE; Start 01/29/17 at 17: 00 Dextrose (D50w Syringe) 25 ml Q15M PRN IV DECREASED GLUCOSE; Start 01/29/17 at 17:00 Dextrose (D50w Syringe) 50 ml Q15M PRN IV DECREASED GLUCOSE; Start 01/29/17 at 17:00 Glucagon (Glucagen) 1 mg Q15M PRN IM DECREASED GLUCOSE; Start 01/29/17 at 17:00 Glucose (Glutose) 15 gm Q15M PRN BUCCAL DECREASED GLUCOSE; Start 01/29/17 at 17 :00 Linagliptin (Tradjenta) 5 mg DAILY PO Last administered on 02/04/17 08:26; Admin Dose 5 MG; Start 01/31/17 at 09:00 Aspirin (Aspirin) 81 mg DAILY PO Last administered on 02/04/17 08:26; Admin Dose 81 MG; Start 01/31/17 at 09:00 Tramadol HCl 50 mg 50 mg Q6H PRN PO pain 6-10 Last administered on 02/01/17 09: 41; Admin Dose 50 MG; Start 01/31/17 at 10:30 Meropenem/Sodium Chloride (Merrem 1 Gm/50 ml (Pmx)) 50 ml @ 100 mls/hr Q12 IVPB Last administered on 02/04/17 20:45; Admin Dose 100 MLS/HR; Start 02/02/17 at 20:00 Apixaban (Eliquis) 10 mg BID PO Last administered on 02/04/17 20:36; Admin Dose 10 MG; Start 02/03/17 at 21:00; Stop 02/10/17 at 20:59 Apixaban 5 mg 5 mg BID PO ; Start 02/11/17 at 09:00 Daptomycin/Sodium Chloride (Cubicin/NS) 100 ml @ 200 mls/hr Q24H IVPB Last administered on 02/04/17 17:33; Admin Dose 200 MLS/HR; Start 02/03/17 at 17:00 Pantoprazole (Protonix Iv) 40 mg BID@06,18 IV Last administered on 02/04/17 17: 33; Admin Dose 40 MG; Start 02/03/17 at 18:30 Fluconazole (Diflucan) 100 mg DAILY PO Last administered on 02/04/17 08:26; Admin Dose 100 MG; Start 02/03/17 at 18:30; Stop 02/07/17 at 09:01 Ferrous Sulfate (Ferrous Sulfate (Ec)) 325 mg BID PO Last administered on 20:36; Admin Dose 325 MG; Start 02/04/17 at 21:00; Stop 03/06/17 at 20:59 Hydralazine HCl (Apresoline) 50 mg BID PO Last administered on 02/04/17 20:36; Admin Dose 50 MG; Start 02/04/17 at 21:00 Metoprolol Succinate (Toprol Xl) 25 mg BID PO Last administered on 02/04/17 20: 37; Admin Dose 25 MG; Start 02/04/17 at 21:00 Ascorbic Acid (Vitamin C) 500 mg BID PO Last administered on 02/04/17 20:36; Admin Dose 500 MG; Start 02/04/17 at 21:00; Stop 03/06/17 at 20:59 Lisinopril (Zestril) 5 mg DAILY PO Last administered on 02/04/17 11:15; Admin Dose 5 MG; Start 02/04/17 at 09:30 Fludrocortisone Acetate 0.05 mg 0.05 mg DAILY PO Last administered on 02/04/17 11:15; Admin Dose 0.05 MG; Start 02/04/17 at 11:00 Ferric Sodium Gluconate Complex/ Sodium Chloride (Ferrlecit/NS) 110 ml @ 100 mls/hr Q24H IVPB Last administered on 02/04/17 12:37; Admin Dose 100 MLS/HR; Start 02/04/17 at 11:00; Stop 02/06/17 at 12:05 Morphine Sulfate (morphine) 2 mg Q4H PRN IV SEVERE PAIN LEVEL 7-10; Start at 12:00 BONNY MIGUEL MD Feb 04, 2017 22:23
[2017-02-05] VITALS (12 sets, daily range): BP systolic 129–143; BP diastolic 60–74; PULSE 68–97; RESP 19–24
[2017-02-05] MEDS: ZOLPIDEM 5 MG TAB PO PRN ×2 (00:33→23:03)
[2017-02-05] MEDS: ALBUTEROL/IPRATROPIUM (NEB) 3 ML AMP HHN PRN (01:58)
[2017-02-05] MEDS: ACCU-CHEK XX SCH (02:00)
[2017-02-05] MEDS: PANTOPRAZOLE 40 MG INJ IV SCH ×2 (05:35→18:13)
[2017-02-05] MEDS: FUROSEMIDE 20 MG INJ IV SCH ×2 (05:35→18:13)
[2017-02-05 06:27] LABS: BASOPHILS % 0.2 % (0.0-2.0); EOSINOPHILS # 0.1 10^3/ul (0.0-0.5); EOSINOPHILS % 0.7 % (0.0-7.0); HEMATOCRIT 22.9 % (37.0-47.0); LYMPHOCYTES # 1.3 10^3/ul (0.8-2.9); LYMPHOCYTES % 10.9 % (15.0-51.0); MEAN CORPUSCULAR HEMOGLOBIN 27.3 pg (29.0-33.0); MEAN CORPUSCULAR HGB CONC 30.6 g/dl (32.0-37.0); MEAN CORPUSCULAR VOLUME 89.5 fl (82.0-101.0); MEAN PLATELET VOLUME 10.1 fl (7.4-10.4); MONOCYTE # 0.9 10^3/ul (0.3-0.9); MONOCYTES % 7.5 % (0.0-11.0); NEUTROPHIL # 9.2 10^3/ul (1.6-7.5); NEUTROPHILS % 79.3 % (39.0-77.0); PLATELET COUNT 377 10^3/UL (140-415); RED BLOOD COUNT 2.56 10^6/ul (4.20-5.40); RED CELL DISTRIBUTION WIDTH 14.7 % (11.5-14.5); WHITE BLOOD COUNT 11.6 10^3/ul (4.8-10.8)
[2017-02-05 06:46] LABS: CALCIUM 8.3 mg/dl (8.4-10.2); CREATININE 1.6 mg/dl (0.44-1.00); POTASSIUM 4.1 mmol/L (3.5-5.1)
[2017-02-05] MEDS: INSULIN ASPART [NOVOLOG] 3 ML PEN SC SCH ×7 (07:55→20:37)
[2017-02-05] MEDS: FLUDROCORTISONE 0.1 MG TAB PO SCH (08:26)
[2017-02-05] MEDS: SALMETEROL/FLUTICASONE 250/50 INHA INH SCH ×2 (08:26→20:41)
[2017-02-05] MEDS: ASCORBIC ACID 500 MG TAB PO SCH ×2 (08:26→20:36)
[2017-02-05] MEDS: FLUCONAZOLE 100 MG TAB PO SCH (08:26)
[2017-02-05] MEDS: LINAGLIPTIN 5 MG TABLET PO SCH (08:26)
[2017-02-05] MEDS: LORATADINE 10 MG TAB PO SCH (08:27)
[2017-02-05] MEDS: ASPIRIN 81 MG TAB PO SCH (08:27)
[2017-02-05] MEDS: LISINOPRIL 5 MG TAB PO SCH (08:27)
[2017-02-05] MEDS: APIXABAN 5 MG TABLET PO SCH ×2 (08:27→20:35)
[2017-02-05] MEDS: FERROUS SULFATE (EC) 325 MG TAB PO SCH ×2 (08:27→20:35)
[2017-02-05] MEDS: ALLOPURINOL 100 MG TAB PO SCH (08:27)
[2017-02-05] MEDS: METOPROLOL (XL) 25 MG TAB PO SCH ×2 (08:28→20:35)
[2017-02-05] MEDS: MEROPENEM 1 GM/50ML(PMX) 50 ML IVPB SCH ×2 (08:31→20:34)
[2017-02-05] MEDS: ALBUTEROL/IPRATROPIUM (NEB) 3 ML AMP HHN SCH ×4 (08:56→20:49)
[2017-02-05] MEDS ORDERED: LACTATED RINGER'S 500 ML IV ONE (11:00)
[2017-02-05] MEDS ORDERED: SOD FERRIC GLUC COMPLX 125 MG in SOD CHLORIDE 0.9% 100 ML IVPB SCH (11:00)
[2017-02-05] MEDS: SOD FERRIC GLUC COMPLX 125 MG in SOD CHLORIDE 0.9% 100 ML IVPB SCH (11:04)
--- NOTE | 2017-02-05 11:11 | PN ---
Date/Time of Note Date/Time of Note DATE: 02/05/17 TIME: 11:05 Assessment/Plan VTE Prophylaxis VTE Prophylaxis Intervention: other Lines/Catheters IV C[facility]ter Type (from [facility] Urinary Cath still in place: No Assessment/Plan Problems: (1) UTI due to extended-spectrum beta lactamase (ESBL) producing Escherichia coli Status: Acute Comment: Completing antibiotic therapy (2) Diabetes mellitus type 2, controlled, with complications Status: Chronic Comment: Her blood sugar control has improved nicely with the adjustments in the regimen. 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 Input from wound management team deeply appreciated especially going forward about outpatient management (4) Left leg DVT Status: Acute Comment: Noted. This patient is on apixaban but also has an IVC filter as per the direction discussion knowledge of cardiology vascular surgery at and nephrology Qualifiers: Affected thrombotic vein of extremity: femoral Chronicity: acute Qualified Code: I82.412 - Acute deep vein thrombosis (DVT) of femoral vein of left lower extremity (5) Iron deficiency anemia Status: Chronic Comment: She is still significantly anemic. Need to give her 1 more unit of blood plus give her parenteral iron and 1 dose of Epogen to help stimulate normal processes. Unfortunately the staff has not collected the stool specimen so I can see whether in our losing much via the GI tract I have re-requested this Qualifiers: Iron deficiency anemia type: chronic blood loss Qualified Code: D50.0 - Iron deficiency anemia due to chronic blood loss (6) Chronic kidney disease, stage III (moderate) Status: Chronic Comment: This is noted and relatively stable. At this point the patient actually is relatively prerenal or intravascularly down. We will give her a fluid bolus plus blood transfusion. The DELMY inhibitor is the appropriate maneuver here and she is not going to become hyperkalemic with the adjustments to the regimen. (7) Acute kidney injury (nontraumatic) Status: Acute Comment: Resolved (8) Diastolic dysfunction with chronic heart failure Status: Chronic Comment: She remains on a cardioselective beta-koko for this successfully (9) Hyperuricemia Status: Chronic Comment: Adjust dosage of allopurinol to try and bring the level down to 6 (10) Asthma, moderate persistent Status: Chronic Comment: Well-controlled on current regimen Qualifiers: Asthma complication type: uncomplicated Qualified Code: J45.40 - Moderate persistent asthma without complication (11) Obesity hypoventilation syndrome Status: Chronic Comment: Calorie restriction diet and re-counseled (12) Peripheral vascular disease due to secondary diabetes Status: Chronic Comment: As noted above per vascular surgery please see yesterday's notes (13) S/P insertion of IVC (inferior vena caval) filter Onset Date: ~ 02/01/2017 Status: Acute Comment: Noted Subjective 24 Hr Interval Summary Free Text/Dictation Patient reports she feels better and that her leg has improved although still quite sensitive. Please note with a Upper Sorbian-speaking translation the patient does indicate she is willing to receive additional transfusion as indicated Constitutional: no complaints (Denies fevers chills or sweats) Respiratory: no complaints Cardiovascular: no complaints Gastrointestinal: no complaints (Denies melena or bright red blood per rectum) Exam/Review of Systems Vital Signs Vitals Vital Signs Date Time Temp Pulse Resp B/P Pulse Ox O2 Delivery O2 Flow Rate FiO2 02/05/17 10:26 Nasal Cannula 5.0 02/05/17 09:01 68 20 9 02/05/17 08:06 98.7 143/62 Intake and Output 02/04/17 02/04/17 02/05/17 15:00 23:00 07:00 Intake Total 970 ml Balance 970 ml Exam Constitutional: alert, oriented Neck: non-tender, supple Respiratory: clear to auscultation, normal air movement Cardiovascular: nl pulses, regular rate and rhythm Gastrointestinal: nl liver, spleen, non-tender, other (Note staff has not collected stool specimen as previously ordered), soft Musculoskeletal: swelling (Left lower extremity still swollen and tender) Results Result Diagram: 02/05/1751302/05/17513 Results 24 hrs Laboratory Tests Test 02/04/17 11:16 02/04/17 17:32 02/04/17 20:34 02/05/17 05:14 Bedside Glucose 167 174 225 H White Blood Count 11.6 H Red Blood Count 2.56 L Hemoglobin 7.0 L Hematocrit 22.9 L Mean Corpuscular Volume 89.5 Mean Corpuscular Hemoglobin 27.3 L Mean Corpuscular Hemoglobin Concent 30.6 L Red Cell Distribution Width 14.7 H Platelet Count 377 Mean Platelet Volume 10.1 Neutrophils % 79.3 H Lymphocytes % 10.9 L Monocytes % 7.5 Eosinophils % 0.7 Basophils % 0.2 Nucleated Red Blood Cells % 0.0 Neutrophils # 9.2 H Lymphocytes # 1.3 Monocytes # 0.9 Eosinophils # 0.1 Basophils # 0.0 Nucleated Red Blood Cells # 0.0 Sodium Level 140 Potassium Level 4.1 Chloride Level 97 Carbon Dioxide Level 30 Anion Gap 17 H Blood Urea Nitrogen 48 H Creatinine 1.60 H Glucose Level 65 #L Uric Acid 9.2 H Calcium Level 8.3 L Test 02/05/17 08:26 Bedside Glucose 74 Medications Medications Current Medications Acetaminophen (Tylenol Tab) 1,000 mg Q4H PRN PO PAIN AND OR ELEVATED TEMP; Start 01/29/17 at 16:00 Allopurinol (Zyloprim) 100 mg DAILY PO Last administered on 02/05/17 08:27; Admin Dose 100 MG; Start 01/30/17 at 09:00 Insulin Glargine (Lantus) 60 unit QHS SC Last administered on 02/04/17 20:41; Admin Dose 60 UNIT; Start 01/29/17 at 21:00 Loratadine (Claritin) 10 mg DAILY PO Last administered on 02/05/17 08:27; Admin Dose 10 MG; Start 01/30/17 at 09:00 Montelukast Sodium (Singulair) 10 mg QHS PO Last administered on 02/04/17 20:36 ; Admin Dose 10 MG; Start 01/29/17 at 21:00 Ondansetron HCl (Zofran Inj) 4 mg Q6H PRN IV NAUSEA AND/OR VOMITING; Start at 16:00 Acetaminophen (Tylenol Tab) 650 mg Q6H PRN PO PAIN LEVEL 1-3 OR FEVER Last administered on 02/01/17 14:23; Admin Dose 650 MG; Start 01/29/17 at 16:00 Acetaminophen (Tylenol Supp) 650 mg Q6H PRN [place] PAIN LEVEL 1-3 OR FEVER; Start 01/29/17 at 16:00 Acetaminophen/ Hydrocodone Bitart ([place] (5/325)) 1 tab Q6H PRN PO MODERATE PAIN LEVEL 4-6 Last administered on 02/04/17 20:45; Admin Dose 1 TAB; Start at 16:00 Acetaminophen/ Hydrocodone Bitart ([place] (5/325)) 2 tab Q6H PRN PO SEVERE PAIN LEVEL 7-10 Last administered on 02/04/17 02:06; Admin Dose 2 TAB; Start at 16:00 Docusate Sodium (Colace) 100 mg Q12H PRN PO CONSTIPATION Last administered on 09:05; Admin Dose 100 MG; Start 01/29/17 at 16:00 Magnesium Hydroxide (Milk Of Mag) 30 ml DAILY PRN PO CONSTIPATION Last administered on 02/03/17 09:09; Admin Dose 30 ML; Start 01/29/17 at 16:00 Bisacodyl (Dulcolax Supp) 10 mg DAILY PRN [place] CONSTIPATION; Start 01/29/17 at 16 :00 Diagnostic Test (Pha) (Accu-Chek) 1 ea 02 XX Last administered on 02/03/17 02: 00; Admin Dose 1 EA; Start 01/30/17 at 02:00 Salmeterol Xinafoate/ Fluticasone (Advair 250/50 Diskus) 1 inh BID INH Last administered on 02/05/17 08:26; Admin Dose 1 INH; Start 01/29/17 at 21:00 Miscellaneous Information 1 ea NOTE XX ; Start 01/29/17 at 17:00 Glucose (Glutose) 15 gm Q15M PRN PO DECREASED GLUCOSE; Start 01/29/17 at 17:00 Glucose (Glutose) 22.5 gm Q15M PRN PO DECREASED GLUCOSE; Start 01/29/17 at 17: 00 Dextrose (D50w Syringe) 25 ml Q15M PRN IV DECREASED GLUCOSE; Start 01/29/17 at 17:00 Dextrose (D50w Syringe) 50 ml Q15M PRN IV DECREASED GLUCOSE; Start 01/29/17 at 17:00 Glucagon (Glucagen) 1 mg Q15M PRN IM DECREASED GLUCOSE; Start 01/29/17 at 17:00 Glucose (Glutose) 15 gm Q15M PRN BUCCAL DECREASED GLUCOSE; Start 01/29/17 at 17 :00 Linagliptin (Tradjenta) 5 mg DAILY PO Last administered on 02/05/17 08:26; Admin Dose 5 MG; Start 01/31/17 at 09:00 Aspirin (Aspirin) 81 mg DAILY PO Last administered on 02/05/17 08:27; Admin Dose 81 MG; Start 01/31/17 at 09:00 Tramadol HCl 50 mg 50 mg Q6H PRN PO pain 6-10 Last administered on 02/01/17 09: 41; Admin Dose 50 MG; Start 01/31/17 at 10:30 Meropenem/Sodium Chloride (Merrem 1 Gm/50 ml (Pmx)) 50 ml @ 100 mls/hr Q12 IVPB Last administered on 02/05/17 08:31; Admin Dose 100 MLS/HR; Start 02/02/17 at 20:00 Apixaban (Eliquis) 10 mg BID PO Last administered on 02/05/17 08:27; Admin Dose 10 MG; Start 02/03/17 at 21:00; Stop 02/10/17 at 20:59 Apixaban 5 mg 5 mg BID PO ; Start 02/11/17 at 09:00 Daptomycin/Sodium Chloride (Cubicin/NS) 100 ml @ 200 mls/hr Q24H IVPB Last administered on 02/04/17 17:33; Admin Dose 200 MLS/HR; Start 02/03/17 at 17:00 Pantoprazole (Protonix Iv) 40 mg BID@06,18 IV Last administered on 02/05/17 05: 35; Admin Dose 40 MG; Start 02/03/17 at 18:30 Fluconazole (Diflucan) 100 mg DAILY PO Last administered on 02/05/17 08:26; Admin Dose 100 MG; Start 02/03/17 at 18:30; Stop 02/07/17 at 09:01 Ferrous Sulfate (Ferrous Sulfate (Ec)) 325 mg BID PO Last administered on 08:27; Admin Dose 325 MG; Start 02/04/17 at 21:00; Stop 03/06/17 at 20:59 Hydralazine HCl (Apresoline) 50 mg BID PO Last administered on 02/05/17 08:27; Admin Dose 50 MG; Start 02/04/17 at 21:00 Metoprolol Succinate (Toprol Xl) 25 mg BID PO Last administered on 02/05/17 08: 28; Admin Dose 25 MG; Start 02/04/17 at 21:00 Ascorbic Acid (Vitamin C) 500 mg BID PO Last administered on 02/05/17 08:26; Admin Dose 500 MG; Start 02/04/17 at 21:00; Stop 03/06/17 at 20:59 Lisinopril (Zestril) 5 mg DAILY PO Last administered on 02/05/17 08:27; Admin Dose 5 MG; Start 02/04/17 at 09:30 Fludrocortisone Acetate 0.05 mg 0.05 mg DAILY PO Last administered on 02/05/17 08:26; Admin Dose 0.05 MG; Start 02/04/17 at 11:00 Ferric Sodium Gluconate Complex/ Sodium Chloride (Ferrlecit/NS) 110 ml @ 100 mls/hr Q24H IVPB Last administered on 02/05/17 11:04; Admin Dose 100 MLS/HR; Start 02/04/17 at 11:00; Stop 02/06/17 at 12:05 Morphine Sulfate (morphine) 2 mg Q4H PRN IV SEVERE PAIN LEVEL 7-10; Start at 12:00 VALERIY RUDOLPH MD Feb 05, 2017 11:11
--- NOTE | 2017-02-05 12:17 | CONS ---
Date/Time of Note Date/Time of Note DATE: 02/05/17 TIME: 12:16 Assessment/Plan Assessment/Plan Chief Complaint/Hosp Course 1. Nonoliguric acute kidney injury on top of chronic kidney disease, stage 3B, with previous baseline creatinine 1.5 to 1.0 mg/dL. Etiology of acute kidney injury secondary to hemodynamics. Renal function is stabilizing. At this point, continue current treatment, supportive care. Renally dose all meds. 2. Anemia. Monitor H and H levels. The patient is status post Epogen. 3. Mineral bone disorder. Continue to monitor calcium and phosphorus levels. 4. Lower extremity deep vein thrombosis. Continue current anticoagulation. 5. Sepsis secondary to urinary tract infection. Continue current antibiotic regimen. 6. Hypoxemic respiratory failure. Etiology is multifactorial, improving. Continue to monitor. Continue medical management. 7. History of diastolic heart failure. Continue current treatment plan. 8. History of asthma. 9. Morbid obesity. Continue dietary modification. 10. Hypertension. Continue current blood pressure regimen. Problems: Consultation Date/Type/Reason Admit Date/Time Jan 29, 2017 at 13:15 Initial Consult Date 02/03/17 Type of Consultation: nephrology 24 HR Interval Summary Free Text/Dictation no new c/o good uop bs noted Exam/Review of Systems Vital Signs Vitals Vital Signs Date Time Temp Pulse Resp B/P Pulse Ox O2 Delivery O2 Flow Rate FiO2 02/05/17 11:11 98.1 76 19 131/60 96 02/05/17 10:26 Nasal Cannula 5.0 Intake and Output 02/04/17 02/04/17 02/05/17 15:00 23:00 07:00 Intake Total 970 ml Balance 970 ml Exam Psych: nl mood/affect, no complaints Head: atraumatic, normocephalic Eyes: EOMI, PERRL, nl conjunctiva, nl lids, nl sclera Neck: non-tender, supple Respiratory: clear to auscultation, diminished breath sounds, normal air movement Cardiovascular: nl pulses, regular rate and rhythm Extremities: normal pulses Results Result Diagram: 02/05/17 0514 02/05/17 0514 Results 24 hrs Laboratory Tests Test 02/04/17 17:32 02/04/17 20:34 02/05/17 05:14 02/05/17 08:26 Bedside Glucose 174 225 H 74 White Blood Count 11.6 H Red Blood Count 2.56 L Hemoglobin 7.0 L Hematocrit 22.9 L Mean Corpuscular Volume 89.5 Mean Corpuscular Hemoglobin 27.3 L Mean Corpuscular Hemoglobin Concent 30.6 L Red Cell Distribution Width 14.7 H Platelet Count 377 Mean Platelet Volume 10.1 Neutrophils % 79.3 H Lymphocytes % 10.9 L Monocytes % 7.5 Eosinophils % 0.7 Basophils % 0.2 Nucleated Red Blood Cells % 0.0 Neutrophils # 9.2 H Lymphocytes # 1.3 Monocytes # 0.9 Eosinophils # 0.1 Basophils # 0.0 Nucleated Red Blood Cells # 0.0 Sodium Level 140 Potassium Level 4.1 Chloride Level 97 Carbon Dioxide Level 30 Anion Gap 17 H Blood Urea Nitrogen 48 H Creatinine 1.60 H Glucose Level 65 #L Uric Acid 9.2 H Calcium Level 8.3 L Test 02/05/17 11:06 Bedside Glucose 138 Medications Medications Current Medications Acetaminophen (Tylenol Tab) 1,000 mg Q4H PRN PO PAIN AND OR ELEVATED TEMP; Start 01/29/17 at 16:00 Insulin Glargine (Lantus) 60 unit QHS SC Last administered on 02/04/17 20:41; Admin Dose 60 UNIT; Start 01/29/17 at 21:00 Loratadine (Claritin) 10 mg DAILY PO Last administered on 02/05/17 08:27; Admin Dose 10 MG; Start 01/30/17 at 09:00 Montelukast Sodium (Singulair) 10 mg QHS PO Last administered on 02/04/17 20:36 ; Admin Dose 10 MG; Start 01/29/17 at 21:00 Ondansetron HCl (Zofran Inj) 4 mg Q6H PRN IV NAUSEA AND/OR VOMITING; Start at 16:00 Acetaminophen (Tylenol Tab) 650 mg Q6H PRN PO PAIN LEVEL 1-3 OR FEVER Last administered on 02/01/17 14:23; Admin Dose 650 MG; Start 01/29/17 at 16:00 Acetaminophen (Tylenol Supp) 650 mg Q6H PRN [place] PAIN LEVEL 1-3 OR FEVER; Start 01/29/17 at 16:00 Acetaminophen/ Hydrocodone Bitart ([place] (5/325)) 1 tab Q6H PRN PO MODERATE PAIN LEVEL 4-6 Last administered on 02/04/17 20:45; Admin Dose 1 TAB; Start at 16:00 Acetaminophen/ Hydrocodone Bitart ([place] (5/325)) 2 tab Q6H PRN PO SEVERE PAIN LEVEL 7-10 Last administered on 02/04/17 02:06; Admin Dose 2 TAB; Start at 16:00 Docusate Sodium (Colace) 100 mg Q12H PRN PO CONSTIPATION Last administered on 09:05; Admin Dose 100 MG; Start 01/29/17 at 16:00 Magnesium Hydroxide (Milk Of Mag) 30 ml DAILY PRN PO CONSTIPATION Last administered on 02/03/17 09:09; Admin Dose 30 ML; Start 01/29/17 at 16:00 Bisacodyl (Dulcolax Supp) 10 mg DAILY PRN [place] CONSTIPATION; Start 01/29/17 at 16 :00 Diagnostic Test (Pha) (Accu-Chek) 1 ea 02 XX Last administered on 02/03/17 02: 00; Admin Dose 1 EA; Start 01/30/17 at 02:00 Salmeterol Xinafoate/ Fluticasone (Advair 250/50 Diskus) 1 inh BID INH Last administered on 02/05/17 08:26; Admin Dose 1 INH; Start 01/29/17 at 21:00 Miscellaneous Information 1 ea NOTE XX ; Start 01/29/17 at 17:00 Glucose (Glutose) 15 gm Q15M PRN PO DECREASED GLUCOSE; Start 01/29/17 at 17:00 Glucose (Glutose) 22.5 gm Q15M PRN PO DECREASED GLUCOSE; Start 01/29/17 at 17: 00 Dextrose (D50w Syringe) 25 ml Q15M PRN IV DECREASED GLUCOSE; Start 01/29/17 at 17:00 Dextrose (D50w Syringe) 50 ml Q15M PRN IV DECREASED GLUCOSE; Start 01/29/17 at 17:00 Glucagon (Glucagen) 1 mg Q15M PRN IM DECREASED GLUCOSE; Start 01/29/17 at 17:00 Glucose (Glutose) 15 gm Q15M PRN BUCCAL DECREASED GLUCOSE; Start 01/29/17 at 17 :00 Linagliptin (Tradjenta) 5 mg DAILY PO Last administered on 02/05/17 08:26; Admin Dose 5 MG; Start 01/31/17 at 09:00 Aspirin (Aspirin) 81 mg DAILY PO Last administered on 02/05/17 08:27; Admin Dose 81 MG; Start 01/31/17 at 09:00 Tramadol HCl 50 mg 50 mg Q6H PRN PO pain 6-10 Last administered on 02/01/17 09: 41; Admin Dose 50 MG; Start 01/31/17 at 10:30 Meropenem/Sodium Chloride (Merrem 1 Gm/50 ml (Pmx)) 50 ml @ 100 mls/hr Q12 IVPB Last administered on 02/05/17 08:31; Admin Dose 100 MLS/HR; Start 02/02/17 at 20:00 Apixaban (Eliquis) 10 mg BID PO Last administered on 02/05/17 08:27; Admin Dose 10 MG; Start 02/03/17 at 21:00; Stop 02/10/17 at 20:59 Apixaban 5 mg 5 mg BID PO ; Start 02/11/17 at 09:00 Daptomycin/Sodium Chloride (Cubicin/NS) 100 ml @ 200 mls/hr Q24H IVPB Last administered on 02/04/17 17:33; Admin Dose 200 MLS/HR; Start 02/03/17 at 17:00 Pantoprazole (Protonix Iv) 40 mg BID@06,18 IV Last administered on 02/05/17 05: 35; Admin Dose 40 MG; Start 02/03/17 at 18:30 Fluconazole (Diflucan) 100 mg DAILY PO Last administered on 02/05/17 08:26; Admin Dose 100 MG; Start 02/03/17 at 18:30; Stop 02/07/17 at 09:01 Ferrous Sulfate (Ferrous Sulfate (Ec)) 325 mg BID PO Last administered on 08:27; Admin Dose 325 MG; Start 02/04/17 at 21:00; Stop 03/06/17 at 20:59 Metoprolol Succinate (Toprol Xl) 25 mg BID PO Last administered on 02/05/17 08: 28; Admin Dose 25 MG; Start 02/04/17 at 21:00 Ascorbic Acid (Vitamin C) 500 mg BID PO Last administered on 02/05/17 08:26; Admin Dose 500 MG; Start 02/04/17 at 21:00; Stop 03/06/17 at 20:59 Fludrocortisone Acetate 0.05 mg 0.05 mg DAILY PO Last administered on 02/05/17 08:26; Admin Dose 0.05 MG; Start 02/04/17 at 11:00 Ferric Sodium Gluconate Complex/ Sodium Chloride (Ferrlecit/NS) 110 ml @ 100 mls/hr Q24H IVPB Last administered on 02/05/17 11:04; Admin Dose 100 MLS/HR; Start 02/04/17 at 11:00; Stop 02/06/17 at 12:05 Morphine Sulfate (morphine) 2 mg Q4H PRN IV SEVERE PAIN LEVEL 7-10; Start at 12:00 Allopurinol (Zyloprim) 300 mg DAILY PO ; Start 02/06/17 at 09:00 Lisinopril (Zestril) 10 mg BID PO ; Start 02/05/17 at 21:00 Epoetin Jony (Epogen (Non Esrd/Non Oncology)) 20,000 units ONCE SC ; Start at 13:00; Stop 02/05/17 at 16:00 ANDERSON ZAVALETA MD Feb 05, 2017 12:17
[2017-02-05] MEDS: HYDROCODONE/APAP (5/325) TAB PO PRN ×2 (12:35→20:36)
[2017-02-05] MEDS ORDERED: EPOETIN 10000 UNITS/ML (NON ESRD/NON ONCOLOGY) SC ONE (13:00)
[2017-02-05] MEDS ORDERED: EPOETIN 10000 UNITS/ML (NON ESRD/NON ONCOLOGY) SC SCH (13:00)
--- NOTE | 2017-02-05 13:59 | CONS ---
Date/Time of Note Date/Time of Note DATE: 02/05/17 TIME: 13:51 Assessment/Plan Assessment/Plan Chief Complaint/Hosp Course ID PROGRESS NOTE CURRENT ABX: => MERREM #4 + Daptomycin #3 TOTAL ABX DAY #7 Ceftriaxone #5-> DC 8/3 s/p Zosyn/Clinda 01/29-> DC'd 24 HOUR INTERVAL SUMMARY * LLEXT erythema is resolving -> increased vesicular formation -- edema persisting * No fevers. WBC slightly up, uric acid elevated. S.CR elvatwed 1.6 * fevers, WBC still elevated , s/p IVC filter placed for (+)DVT LLEXT * UTI (+)ESBL ECOLI ESBL M.I.C. RX --------- --- AMPICILLIN >=32 R CEFAZOLIN R CEFEPIME 8 S CEFOTAXIME R CEFTAZIDIME 16 R CIPROFLOXACIN >=4 R GENTAMICIN <=1 S IMIPENEM <=0.25 S LEVOFLOXACIN >=8 R NITROFURANTOIN <=16 S TOBRAMYCIN <=1 S TRIMETHOPRIM/SULFAMETHOXAZOLE <=20 S PIPERACILLIN/TAZOBACTAM <=4 S Exam Constitutional: alert, oriented, well developed Head: atraumatic, normocephalic Eyes: EOMI, PERRL Respiratory: clear to auscultation, normal air movement Cardiovascular: nl pulses, regular rate and rhythm Gastrointestinal: Soft (+)BS Extremities: LLEXT cellulitis + gangrenous changes 2nd toe ulcer * LLEXT still w/significant edema and fluid small vesicle formation weeping edema Neurological: nl mental status, nl speech, nl strength ID ASSESSMENT 51 yo F PMHx morbid obesity admit with: 1. Resolving sepsis secondary to ESBL UTI 2. E.Coli-ESBL UTI 01/29 * Repeat Urine 01/29 (-) 3. Bacteremia 07/04 bottles from ED: BLOOD CULTURE Final COAGULASE NEGATIVE STAPH * Repeat cultures negative. 4. Left lower extremity cellulitis/ left second toe gangrenous ulcer. * Xray with soft tissue swelling on Fibula/Tibia. MRI without evidence of necrotizing fasciitis. 5. Peripheral vascular disease (PVD)=> Venous + Arterial * PAD:Arterial Duplex=> 1. Abnormal flow bilaterally in the calf arteries consistent with significant stenosis. 2. Significant stenosis in the left mid superficial femoral artery. * VENOUS: Left lower extremity acute deep vein thrombosis. VQ scan with low probability for PE. -- -Status post IVC filter placed on 02/01/2017 6. Systolic and diastolic congestive heart failure. Echo EF ~50-55%. 7 . Hypoxic respiratory failure, multifactorial most likely secondary to possible CHF, pulmonary hypertension, acute anemia, sepsis and underlying asthma and obesity=> RESOLVED 8. Anemia, now acute on chronic. H&H improved with transfusion. No evidence of bleeding. * GI -> EGD planned 02/03/17 9. DMII. A1c 6.8. 10. Essential hypertension. 11. REMI on CKD with Diabetic nephropathy. * Avoid renal toxic ABX - patient need diuretic Rx per card 13. COPD: Asthma + restrictive component due to obesity; possibly obesity hypoventilation syndrome suspected 14. Pulmonary hypertension-> 2/2 #13 15. DDx silent aspiration pneumonitis vs pna per multiple risk factors below: * CXR: Mild pulmonary vascular congestion with pleural effusions, findings suggesting congestive heart failure. * Wet lungs at risk bacterial infection * Asthma * Obesity * Suspect GERD * Suspect obesity hypoventilation syndrome (-)MRSA Nares CURRENT ABX: => MERREM #4 + Daptomycin #3 TOTAL ABX DAY #7 Ceftriaxone #5-> DC 8/3 s/p Zosyn/Clinda 01/29-> DC'd ID RECOMMENDATIONS 1. Continue MERREM for hx of ESBL + Start Daptomycin for empiric MRSA coverage * NO STATIN RX WHILE ON DAPTO => Please do not start vs HOLD Statin 2.Avoid renal toxic ABX-> Cards needs room for diuretics . . Problems: Consultation Date/Type/Reason Admit Date/Time Jan 29, 2017 at 13:15 Initial Consult Date Type of Consultation: ID Exam/Review of Systems Vital Signs Vitals Vital Signs Date Time Temp Pulse Resp B/P Pulse Ox O2 Delivery O2 Flow Rate FiO2 02/05/17 13:37 73 02/05/17 13:17 20 97 Nasal Cannula 2.0 02/05/17 11:11 98.1 131/60 Intake and Output 02/04/17 02/04/17 02/05/17 15:00 23:00 07:00 Intake Total 970 ml Balance 970 ml Results Result Diagram: 02/05/17 0514 02/05/17 0514 Results 24 hrs Laboratory Tests Test 02/04/17 17:32 02/04/17 20:34 02/05/17 05:14 02/05/17 08:26 Bedside Glucose 174 225 H 74 White Blood Count 11.6 H Red Blood Count 2.56 L Hemoglobin 7.0 L Hematocrit 22.9 L Mean Corpuscular Volume 89.5 Mean Corpuscular Hemoglobin 27.3 L Mean Corpuscular Hemoglobin Concent 30.6 L Red Cell Distribution Width 14.7 H Platelet Count 377 Mean Platelet Volume 10.1 Neutrophils % 79.3 H Lymphocytes % 10.9 L Monocytes % 7.5 Eosinophils % 0.7 Basophils % 0.2 Nucleated Red Blood Cells % 0.0 Neutrophils # 9.2 H Lymphocytes # 1.3 Monocytes # 0.9 Eosinophils # 0.1 Basophils # 0.0 Nucleated Red Blood Cells # 0.0 Sodium Level 140 Potassium Level 4.1 Chloride Level 97 Carbon Dioxide Level 30 Anion Gap 17 H Blood Urea Nitrogen 48 H Creatinine 1.60 H Glucose Level 65 #L Uric Acid 9.2 H Calcium Level 8.3 L Test 02/05/17 11:06 Bedside Glucose 138 Medications Medications Current Medications Acetaminophen (Tylenol Tab) 1,000 mg Q4H PRN PO PAIN AND OR ELEVATED TEMP; Start 01/29/17 at 16:00 Insulin Glargine (Lantus) 60 unit QHS SC Last administered on 02/04/17 20:41; Admin Dose 60 UNIT; Start 01/29/17 at 21:00 Loratadine (Claritin) 10 mg DAILY PO Last administered on 02/05/17 08:27; Admin Dose 10 MG; Start 01/30/17 at 09:00 Montelukast Sodium (Singulair) 10 mg QHS PO Last administered on 02/04/17 20:36 ; Admin Dose 10 MG; Start 01/29/17 at 21:00 Ondansetron HCl (Zofran Inj) 4 mg Q6H PRN IV NAUSEA AND/OR VOMITING; Start at 16:00 Acetaminophen (Tylenol Tab) 650 mg Q6H PRN PO PAIN LEVEL 1-3 OR FEVER Last administered on 02/01/17 14:23; Admin Dose 650 MG; Start 01/29/17 at 16:00 Acetaminophen (Tylenol Supp) 650 mg Q6H PRN [place] PAIN LEVEL 1-3 OR FEVER; Start 01/29/17 at 16:00 Acetaminophen/ Hydrocodone Bitart ([place] (5/325)) 1 tab Q6H PRN PO MODERATE PAIN LEVEL 4-6 Last administered on 02/05/17 12:35; Admin Dose 1 TAB; Start at 16:00 Acetaminophen/ Hydrocodone Bitart ([place] (5/325)) 2 tab Q6H PRN PO SEVERE PAIN LEVEL 7-10 Last administered on 02/04/17 02:06; Admin Dose 2 TAB; Start at 16:00 Docusate Sodium (Colace) 100 mg Q12H PRN PO CONSTIPATION Last administered on 09:05; Admin Dose 100 MG; Start 01/29/17 at 16:00 Magnesium Hydroxide (Milk Of Mag) 30 ml DAILY PRN PO CONSTIPATION Last administered on 02/03/17 09:09; Admin Dose 30 ML; Start 01/29/17 at 16:00 Bisacodyl (Dulcolax Supp) 10 mg DAILY PRN [place] CONSTIPATION; Start 01/29/17 at 16 :00 Diagnostic Test (Pha) (Accu-Chek) 1 ea 02 XX Last administered on 02/03/17 02: 00; Admin Dose 1 EA; Start 01/30/17 at 02:00 Salmeterol Xinafoate/ Fluticasone (Advair 250/50 Diskus) 1 inh BID INH Last administered on 02/05/17 08:26; Admin Dose 1 INH; Start 01/29/17 at 21:00 Miscellaneous Information 1 ea NOTE XX ; Start 01/29/17 at 17:00 Glucose (Glutose) 15 gm Q15M PRN PO DECREASED GLUCOSE; Start 01/29/17 at 17:00 Glucose (Glutose) 22.5 gm Q15M PRN PO DECREASED GLUCOSE; Start 01/29/17 at 17: 00 Dextrose (D50w Syringe) 25 ml Q15M PRN IV DECREASED GLUCOSE; Start 01/29/17 at 17:00 Dextrose (D50w Syringe) 50 ml Q15M PRN IV DECREASED GLUCOSE; Start 01/29/17 at 17:00 Glucagon (Glucagen) 1 mg Q15M PRN IM DECREASED GLUCOSE; Start 01/29/17 at 17:00 Glucose (Glutose) 15 gm Q15M PRN BUCCAL DECREASED GLUCOSE; Start 01/29/17 at 17 :00 Linagliptin (Tradjenta) 5 mg DAILY PO Last administered on 02/05/17 08:26; Admin Dose 5 MG; Start 01/31/17 at 09:00 Aspirin (Aspirin) 81 mg DAILY PO Last administered on 02/05/17 08:27; Admin Dose 81 MG; Start 01/31/17 at 09:00 Tramadol HCl 50 mg 50 mg Q6H PRN PO pain 6-10 Last administered on 02/01/17 09: 41; Admin Dose 50 MG; Start 01/31/17 at 10:30 Meropenem/Sodium Chloride (Merrem 1 Gm/50 ml (Pmx)) 50 ml @ 100 mls/hr Q12 IVPB Last administered on 02/05/17 08:31; Admin Dose 100 MLS/HR; Start 02/02/17 at 20:00 Apixaban (Eliquis) 10 mg BID PO Last administered on 02/05/17 08:27; Admin Dose 10 MG; Start 02/03/17 at 21:00; Stop 02/10/17 at 20:59 Apixaban 5 mg 5 mg BID PO ; Start 02/11/17 at 09:00 Daptomycin/Sodium Chloride (Cubicin/NS) 100 ml @ 200 mls/hr Q24H IVPB Last administered on 02/04/17 17:33; Admin Dose 200 MLS/HR; Start 02/03/17 at 17:00 Pantoprazole (Protonix Iv) 40 mg BID@06,18 IV Last administered on 02/05/17 05: 35; Admin Dose 40 MG; Start 02/03/17 at 18:30 Fluconazole (Diflucan) 100 mg DAILY PO Last administered on 02/05/17 08:26; Admin Dose 100 MG; Start 02/03/17 at 18:30; Stop 02/07/17 at 09:01 Ferrous Sulfate (Ferrous Sulfate (Ec)) 325 mg BID PO Last administered on 08:27; Admin Dose 325 MG; Start 02/04/17 at 21:00; Stop 03/06/17 at 20:59 Metoprolol Succinate (Toprol Xl) 25 mg BID PO Last administered on 02/05/17 08: 28; Admin Dose 25 MG; Start 02/04/17 at 21:00 Ascorbic Acid (Vitamin C) 500 mg BID PO Last administered on 02/05/17 08:26; Admin Dose 500 MG; Start 02/04/17 at 21:00; Stop 03/06/17 at 20:59 Fludrocortisone Acetate 0.05 mg 0.05 mg DAILY PO Last administered on 02/05/17 08:26; Admin Dose 0.05 MG; Start 02/04/17 at 11:00 Ferric Sodium Gluconate Complex/ Sodium Chloride (Ferrlecit/NS) 110 ml @ 100 mls/hr Q24H IVPB Last administered on 02/05/17 11:04; Admin Dose 100 MLS/HR; Start 02/04/17 at 11:00; Stop 02/06/17 at 12:05 Morphine Sulfate (morphine) 2 mg Q4H PRN IV SEVERE PAIN LEVEL 7-10; Start at 12:00 Allopurinol (Zyloprim) 300 mg DAILY PO ; Start 02/06/17 at 09:00 Lisinopril (Zestril) 10 mg BID PO ; Start 02/05/17 at 21:00 Epoetin Jony (Epogen (Non Esrd/Non Oncology)) 20,000 units ONCE SC Last administered on 02/05/17 12:36; Admin Dose 20,000 UNITS; Start 02/05/17 at 13:00 ; Stop 02/05/17 at 16:00 TAHIR LOPEZ NP Feb 05, 2017 13:59
--- NOTE | 2017-02-05 16:20 | CONS ---
Date/Time of Note Date/Time of Note DATE: 02/05/17 TIME: 16:19 Consult Date/Type/Reason Admit Date/Time Jan 29, 2017 at 13:15 Initial Consult Date 02/03/17 Type of Consultation: Pulm Subjective No events. Objective Vital Signs Date Time Temp Pulse Resp B/P Pulse Ox O2 Delivery O2 Flow Rate FiO2 02/05/17 15:40 98.3 79 136/74 95 02/05/17 13:17 20 Nasal Cannula 2.0 Intake and Output 02/04/17 02/04/17 02/05/17 15:00 23:00 07:00 Intake Total 970 ml Balance 970 ml Exam HEENT: Neck supple; no JVD; no LAD CVS: RRR, S1 and S2 CHEST: Clear with mild basilar rales ABD: obese, NT, + BS EXT: No c/c/ + edema and erythema Results/Medications Result Diagram: 02/05/17 0514 02/05/17 0514 Results 24 hrs Laboratory Tests Test 02/04/17 17:32 02/04/17 20:34 02/05/17 05:14 02/05/17 08:26 Bedside Glucose 174 225 H 74 White Blood Count 11.6 H Red Blood Count 2.56 L Hemoglobin 7.0 L Hematocrit 22.9 L Mean Corpuscular Volume 89.5 Mean Corpuscular Hemoglobin 27.3 L Mean Corpuscular Hemoglobin Concent 30.6 L Red Cell Distribution Width 14.7 H Platelet Count 377 Mean Platelet Volume 10.1 Neutrophils % 79.3 H Lymphocytes % 10.9 L Monocytes % 7.5 Eosinophils % 0.7 Basophils % 0.2 Nucleated Red Blood Cells % 0.0 Neutrophils # 9.2 H Lymphocytes # 1.3 Monocytes # 0.9 Eosinophils # 0.1 Basophils # 0.0 Nucleated Red Blood Cells # 0.0 Sodium Level 140 Potassium Level 4.1 Chloride Level 97 Carbon Dioxide Level 30 Anion Gap 17 H Blood Urea Nitrogen 48 H Creatinine 1.60 H Glucose Level 65 #L Uric Acid 9.2 H Calcium Level 8.3 L Test 02/05/17 11:06 Bedside Glucose 138 Medications Current Medications Acetaminophen (Tylenol Tab) 1,000 mg Q4H PRN PO PAIN AND OR ELEVATED TEMP; Start 01/29/17 at 16:00 Insulin Glargine (Lantus) 60 unit QHS SC Last administered on 02/04/17 20:41; Admin Dose 60 UNIT; Start 01/29/17 at 21:00 Loratadine (Claritin) 10 mg DAILY PO Last administered on 02/05/17 08:27; Admin Dose 10 MG; Start 01/30/17 at 09:00 Montelukast Sodium (Singulair) 10 mg QHS PO Last administered on 02/04/17 20:36 ; Admin Dose 10 MG; Start 01/29/17 at 21:00 Ondansetron HCl (Zofran Inj) 4 mg Q6H PRN IV NAUSEA AND/OR VOMITING; Start at 16:00 Acetaminophen (Tylenol Tab) 650 mg Q6H PRN PO PAIN LEVEL 1-3 OR FEVER Last administered on 02/01/17 14:23; Admin Dose 650 MG; Start 01/29/17 at 16:00 Acetaminophen (Tylenol Supp) 650 mg Q6H PRN [place] PAIN LEVEL 1-3 OR FEVER; Start 01/29/17 at 16:00 Acetaminophen/ Hydrocodone Bitart ([place] (5/325)) 1 tab Q6H PRN PO MODERATE PAIN LEVEL 4-6 Last administered on 02/05/17 12:35; Admin Dose 1 TAB; Start at 16:00 Acetaminophen/ Hydrocodone Bitart ([place] (5/325)) 2 tab Q6H PRN PO SEVERE PAIN LEVEL 7-10 Last administered on 02/04/17 02:06; Admin Dose 2 TAB; Start at 16:00 Docusate Sodium (Colace) 100 mg Q12H PRN PO CONSTIPATION Last administered on 09:05; Admin Dose 100 MG; Start 01/29/17 at 16:00 Magnesium Hydroxide (Milk Of Mag) 30 ml DAILY PRN PO CONSTIPATION Last administered on 02/03/17 09:09; Admin Dose 30 ML; Start 01/29/17 at 16:00 Bisacodyl (Dulcolax Supp) 10 mg DAILY PRN [place] CONSTIPATION; Start 01/29/17 at 16 :00 Diagnostic Test (Pha) (Accu-Chek) 1 ea 02 XX Last administered on 02/03/17 02: 00; Admin Dose 1 EA; Start 01/30/17 at 02:00 Salmeterol Xinafoate/ Fluticasone (Advair 250/50 Diskus) 1 inh BID INH Last administered on 02/05/17 08:26; Admin Dose 1 INH; Start 01/29/17 at 21:00 Miscellaneous Information 1 ea NOTE XX ; Start 01/29/17 at 17:00 Glucose (Glutose) 15 gm Q15M PRN PO DECREASED GLUCOSE; Start 01/29/17 at 17:00 Glucose (Glutose) 22.5 gm Q15M PRN PO DECREASED GLUCOSE; Start 01/29/17 at 17: 00 Dextrose (D50w Syringe) 25 ml Q15M PRN IV DECREASED GLUCOSE; Start 01/29/17 at 17:00 Dextrose (D50w Syringe) 50 ml Q15M PRN IV DECREASED GLUCOSE; Start 01/29/17 at 17:00 Glucagon (Glucagen) 1 mg Q15M PRN IM DECREASED GLUCOSE; Start 01/29/17 at 17:00 Glucose (Glutose) 15 gm Q15M PRN BUCCAL DECREASED GLUCOSE; Start 01/29/17 at 17 :00 Linagliptin (Tradjenta) 5 mg DAILY PO Last administered on 02/05/17 08:26; Admin Dose 5 MG; Start 01/31/17 at 09:00 Aspirin (Aspirin) 81 mg DAILY PO Last administered on 02/05/17 08:27; Admin Dose 81 MG; Start 01/31/17 at 09:00 Tramadol HCl 50 mg 50 mg Q6H PRN PO pain 6-10 Last administered on 02/01/17 09: 41; Admin Dose 50 MG; Start 01/31/17 at 10:30 Meropenem/Sodium Chloride (Merrem 1 Gm/50 ml (Pmx)) 50 ml @ 100 mls/hr Q12 IVPB Last administered on 02/05/17 08:31; Admin Dose 100 MLS/HR; Start 02/02/17 at 20:00 Apixaban (Eliquis) 10 mg BID PO Last administered on 02/05/17 08:27; Admin Dose 10 MG; Start 02/03/17 at 21:00; Stop 02/10/17 at 20:59 Apixaban 5 mg 5 mg BID PO ; Start 02/11/17 at 09:00 Daptomycin/Sodium Chloride (Cubicin/NS) 100 ml @ 200 mls/hr Q24H IVPB Last administered on 02/04/17 17:33; Admin Dose 200 MLS/HR; Start 02/03/17 at 17:00 Pantoprazole (Protonix Iv) 40 mg BID@06,18 IV Last administered on 02/05/17 05: 35; Admin Dose 40 MG; Start 02/03/17 at 18:30 Fluconazole (Diflucan) 100 mg DAILY PO Last administered on 02/05/17 08:26; Admin Dose 100 MG; Start 02/03/17 at 18:30; Stop 02/07/17 at 09:01 Ferrous Sulfate (Ferrous Sulfate (Ec)) 325 mg BID PO Last administered on 08:27; Admin Dose 325 MG; Start 02/04/17 at 21:00; Stop 03/06/17 at 20:59 Metoprolol Succinate (Toprol Xl) 25 mg BID PO Last administered on 02/05/17 08: 28; Admin Dose 25 MG; Start 02/04/17 at 21:00 Ascorbic Acid (Vitamin C) 500 mg BID PO Last administered on 02/05/17 08:26; Admin Dose 500 MG; Start 02/04/17 at 21:00; Stop 03/06/17 at 20:59 Fludrocortisone Acetate 0.05 mg 0.05 mg DAILY PO Last administered on 02/05/17 08:26; Admin Dose 0.05 MG; Start 02/04/17 at 11:00 Ferric Sodium Gluconate Complex/ Sodium Chloride (Ferrlecit/NS) 110 ml @ 100 mls/hr Q24H IVPB Last administered on 02/05/17 11:04; Admin Dose 100 MLS/HR; Start 02/04/17 at 11:00; Stop 02/06/17 at 12:05 Morphine Sulfate (morphine) 2 mg Q4H PRN IV SEVERE PAIN LEVEL 7-10; Start at 12:00 Allopurinol (Zyloprim) 300 mg DAILY PO ; Start 02/06/17 at 09:00 Lisinopril (Zestril) 10 mg BID PO ; Start 02/05/17 at 21:00 Assessment/Plan Additional Assessment/Plan IMP: 1. Mild hypoxemic resp insufficiency--likely due to pulm edema and ATX. Doubt PE 2. DVT s/p IVCF and anticoag 3. Cellulitis 4. UTI RECS: 1. ICS 2. Mobilize OOB 3. Gentle diuresis 4. Am CXR LORETA ESPINOSA MD Feb 05, 2017 16:20
[2017-02-05] MEDS: SOD CHLORIDE 0.9% IVPB SCH (16:35)
[2017-02-05] MEDS: DAPTOMYCIN IVPB SCH (16:35)
[2017-02-05] MEDS: LISINOPRIL 10 MG TAB PO SCH (20:37)
[2017-02-05] MEDS: MONTELUKAST 10 MG TAB PO SCH (20:37)
[2017-02-05] MEDS: INSULIN GLARGINE [LANtus] 3 ML PEN SC SCH (20:39)
[2017-02-06] VITALS (9 sets, daily range): BP systolic 133–156; BP diastolic 59–68; PULSE 71–86; RESP 16–24
[2017-02-06] MEDS: ALBUTEROL/IPRATROPIUM (NEB) 3 ML AMP HHN PRN (01:15)
[2017-02-06] MEDS: ACCU-CHEK XX SCH (02:00)
[2017-02-06 05:51] LABS: BASOPHILS % 0.2 % (0.0-2.0); EOSINOPHILS # 0.1 10^3/ul (0.0-0.5); EOSINOPHILS % 1.2 % (0.0-7.0); HEMATOCRIT 24.7 % (37.0-47.0); HEMOGLOBIN 7.8 g/dl (12.0-16.0); LYMPHOCYTES # 1.4 10^3/ul (0.8-2.9); MEAN CORPUSCULAR HEMOGLOBIN 28.1 pg (29.0-33.0); MEAN CORPUSCULAR HGB CONC 31.6 g/dl (32.0-37.0); MEAN CORPUSCULAR VOLUME 88.8 fl (82.0-101.0); MEAN PLATELET VOLUME 9.5 fl (7.4-10.4); MONOCYTE # 0.8 10^3/ul (0.3-0.9); MONOCYTES % 6.9 % (0.0-11.0); NEUTROPHIL # 9.1 10^3/ul (1.6-7.5); NEUTROPHILS % 78.8 % (39.0-77.0); PLATELET COUNT 366 10^3/UL (140-415); RED BLOOD COUNT 2.78 10^6/ul (4.20-5.40); RED CELL DISTRIBUTION WIDTH 14.6 % (11.5-14.5); WHITE BLOOD COUNT 11.6 10^3/ul (4.8-10.8)
[2017-02-06] MEDS: PANTOPRAZOLE 40 MG INJ IV SCH ×2 (06:06→17:33)
[2017-02-06] MEDS: FUROSEMIDE 20 MG INJ IV SCH ×2 (06:07→17:33)
[2017-02-06] MEDS: HYDROCODONE/APAP (5/325) TAB PO PRN ×2 (06:10→21:26)
[2017-02-06 06:18] LABS: CALCIUM 8.1 mg/dl (8.4-10.2); CREATININE 1.38 mg/dl (0.44-1.00); POTASSIUM 4.1 mmol/L (3.5-5.1)
[2017-02-06] MEDS: INSULIN ASPART [NOVOLOG] 3 ML PEN SC SCH ×7 (07:55→21:00)
[2017-02-06] MEDS: LISINOPRIL 10 MG TAB PO SCH ×2 (08:06→21:18)
[2017-02-06] MEDS: FERROUS SULFATE (EC) 325 MG TAB PO SCH ×2 (08:07→21:17)
[2017-02-06] MEDS: LINAGLIPTIN 5 MG TABLET PO SCH (08:07)
[2017-02-06] MEDS: ASPIRIN 81 MG TAB PO SCH (08:08)
[2017-02-06] MEDS: METOPROLOL (XL) 25 MG TAB PO SCH ×2 (08:08→21:18)
[2017-02-06] MEDS: FLUDROCORTISONE 0.1 MG TAB PO SCH (08:08)
[2017-02-06] MEDS: ASCORBIC ACID 500 MG TAB PO SCH ×2 (08:08→21:18)
[2017-02-06] MEDS: SALMETEROL/FLUTICASONE 250/50 INHA INH SCH ×2 (08:09→21:17)
[2017-02-06] MEDS: LORATADINE 10 MG TAB PO SCH (08:09)
[2017-02-06] MEDS: APIXABAN 5 MG TABLET PO SCH ×2 (08:09→21:18)
[2017-02-06] MEDS: FLUCONAZOLE 100 MG TAB PO SCH (08:09)
[2017-02-06] MEDS: MEROPENEM 1 GM/50ML(PMX) 50 ML IVPB SCH ×2 (08:14→22:21)
[2017-02-06] MEDS: ALLOPURINOL 300 MG TAB PO SCH (08:22)
--- NOTE | 2017-02-06 09:17 | PN ---
DATE: 02/06/2017 SUBJECTIVE DATA: The patient is stable. No overnight events. No fevers, chills, nausea or vomiting. OBJECTIVE DATA: Blood pressure 149/67, respirations 18, pulse 75, temperature 98.9. HEENT: Head is normocephalic. NECK: Supple. HEART: Regular rate. LUNGS: Diminished breath sounds at the base. ABDOMEN: Soft, nontender to palpation. No rebound or guarding. EXTREMITIES: Negative for clubbing or cyanosis. Positive edema, erythema on the right lower extremity. DERMATOLOGIC: No rashes. MUSCULOSKELETAL: No joint effusion. NEUROLOGIC: No change in exam. MEDICATIONS: Reviewed. LABORATORY AND DIAGNOSTIC DATA: Sodium 143, potassium 4.1, chloride 145, creatinine 1.38. White count 9.6, hemoglobin 10.2, hematocrit 24.6, platelet count 366. ASSESSMENT AND PLAN: 1. Nonoliguric acute kidney injury on top of chronic kidney disease stage 3 with previous baseline creatinine 1.5 to 1.8 mg/dL. Etiology of acute kidney injury secondary to hemodynamics. Renal function stabilized. At this point continue current treatment plan and supportive care. Renally dose medications. 2. Anemia. Monitor H and H levels. The patient is status post Epogen. 3. Mineral bone disorder. Monitor calcium and phosphorus levels. 4. Lower extremity deep vein thrombosis. Continue current medical management. Continue anticoagulation. 5. Sepsis secondary to urinary tract infection. Continue current treatment plan. Continue antibiotic regimen. 6. Hypoxic respiratory failure. Improved. Continue current medical management. Follow Pulmonary. 7. Diastolic heart failure. Continue diuretic regimen. 8. Morbid obesity. Continue dietary modification. 9. Hypertension. Continue current blood pressure regimen. 10. Cellulitis of the left lower extremity. Continue current antibiotic regimen. Dictated By: Atul Wellington DO /cuca/wade /Document#: [id number]
[2017-02-06] MEDS: ALBUTEROL/IPRATROPIUM (NEB) 3 ML AMP HHN SCH ×4 (09:40→20:20)
--- NOTE | 2017-02-06 10:11 | PN ---
Date/Time of Note Date/Time of Note DATE: 02/06/17 TIME: 09:58 Assessment/Plan VTE Prophylaxis VTE Prophylaxis Intervention: other (Eliquis) Lines/Catheters IV Catheter Type (from Nrs): Saline Lock Urinary Cath still in place: No Assessment/Plan Chief Complaint/Hosp Course 1. Left lower extremity cellulitis/ left second toe gangrenous ulcer. Improving gradually. MRI without evidence of necrotizing fasciitis. -On Dapto+Meropenem. --ID/Podiatry on board and will follow recs. -Continue wound care 2.Left lower extremity acute deep vein thrombosis. VQ scan with low probability for PE. --Status post IVC filter placed on 02/01/2017. -On Eliquis per vascular recs 3. Systolic and diastolic congestive heart failure. Echocardiogram with lower limits systolic function with ejection fraction 50-55%. -Diuresis, BB and ASA. Statin contraindicated as pt on Dapto. -Cards on board 4. Hypoxic respiratory failure, multifactorial most likely secondary to possible CHF, pulmonary hypertension, acute anemia, sepsis and underlying asthma and obesity. Now with minimal O2 requirements. -On ICH +LULI PRN -Pulmo on board 5. Anemia combined iron deficiency + chronic illness,. H&H improved with transfusion. No evidence of bleeding. -S/p EGD with erosive esophagitis -Start iron replacement, Monitor H&H closely and monitor for any bleeding. -Pending stool OB 6. Severe erosive/ulcerated esophagitis/moderate Gastritis. probable [place] esophagitis. Biopsies obtained -F/u biopsy,H pylori result -PPIs,Flagyl coverage 7. Status post sepsis secondary to ESBL UTI -ID on board and on appropriate antibiotics.-Course to be determined ... 8. DMII. A1c 6.8. -Continue accuchecks/ISS/Lantus/tradjenta 9. Essential hypertension. -Continue Coreg and adjust needed 10. REMI on CKD with Diabetic nephropathy. Renal fxn improved -Renally dose meds-Monitor renal fxn closely and f/u with nephro recs. 11. Pulmonary hypertension -Oxygen and diuretics. 12.Asthma. -Continue ICH 13.Morbid obesity. Weight reduction advised. 14.Obesity induced hypoventilation -Weight reduction advised. Sleep/CPAP study as outpatient. PLAN: Overall LLE symptoms improving slowly. Overall improvement in rsp status, requiring lesser O2-continue to titrate oxygen down. Transfer to med surg. Case discussed with Problems: Subjective 24 Hr Interval Summary Free Text/Dictation Patient has been saturating on 2 L nasal cannula. No respiratory distress. Exam/Review of Systems Vital Signs Vitals Vital Signs Date Time Temp Pulse Resp B/P Pulse Ox O2 Delivery O2 Flow Rate FiO2 02/06/17 09:40 97 2.0 02/06/17 09:40 68 24 Nasal Cannula 02/06/17 07:08 98.9 149/67 Intake and Output 02/05/17 02/05/17 02/06/17 15:00 23:00 07:00 Intake Total 110 ml 1200 ml 440 ml Balance 110 ml 1200 ml 440 ml Exam General: Morbidly obese female HEENT: Normocephalic, Atraumatic, No laceration or hematoma; Eyes: PEERL, Conjunctiva clear, Anicteric sclera Neck: Supple without any lymphadenopathy, nontender, no JVD, no carotid bruits, trachea midline, no thyromegaly Cardiac: S1, S2 auscultated, regular rhythm and rate, no mumurs or gallop Pulmonary: Decreased breath sounds bibasilar. Normal respiratory effort. Chest clear to auscultation bilaterally, no adventitious breath sounds GI: Abdomen obese to inspection. Soft, non- distended, no masses, no rebound tenderness or guarding. Bowel sounds active on all four quadrants Genitourinary: Deferred Extremities:Edema+ on BLE. LLE with edema/warmth/redness/tenderness-improved from previous exam.Dressing dry/intact. Pulses [1+] bilaterally. Full ROM on all four extremities. No focal weakness appreciated. Neurologic: Alert to person, place, time, and situation. Affect appropriate, intact sensation. Skin: Pale looking. Clean,dry, and intact. No ecchymosis, no rashes, or lesions Results Result Diagram: 02/06/17 0537 02/06/17 0537 Results 24 hrs Laboratory Tests Test 02/05/17 11:06 02/05/17 17:31 02/05/17 20:33 02/06/17 05:37 Bedside Glucose 138 177 150 White Blood Count 11.6 H Red Blood Count 2.78 L Hemoglobin 7.8 L Hematocrit 24.7 L Mean Corpuscular Volume 88.8 Mean Corpuscular Hemoglobin 28.1 L Mean Corpuscular Hemoglobin Concent 31.6 L Red Cell Distribution Width 14.6 H Platelet Count 366 Mean Platelet Volume 9.5 Neutrophils % 78.8 H Lymphocytes % 12.0 L Monocytes % 6.9 Eosinophils % 1.2 Basophils % 0.2 Nucleated Red Blood Cells % 0.0 Neutrophils # 9.1 H Lymphocytes # 1.4 Monocytes # 0.8 Eosinophils # 0.1 Basophils # 0.0 Nucleated Red Blood Cells # 0.0 Sodium Level 143 Potassium Level 4.1 Chloride Level 100 Carbon Dioxide Level 29 Anion Gap 18 H Blood Urea Nitrogen 45 H Creatinine 1.38 H Glucose Level 66 L Calcium Level 8.1 L Test 02/06/17 08:03 Bedside Glucose 76 Medications Medications Current Medications Acetaminophen (Tylenol Tab) 1,000 mg Q4H PRN PO PAIN AND OR ELEVATED TEMP; Start 01/29/17 at 16:00 Insulin Glargine (Lantus) 60 unit QHS SC Last administered on 02/05/17 20:39; Admin Dose 60 UNIT; Start 01/29/17 at 21:00 Loratadine (Claritin) 10 mg DAILY PO Last administered on 02/06/17 08:09; Admin Dose 10 MG; Start 01/30/17 at 09:00 Montelukast Sodium (Singulair) 10 mg QHS PO Last administered on 02/05/17 20:37 ; Admin Dose 10 MG; Start 01/29/17 at 21:00 Ondansetron HCl (Zofran Inj) 4 mg Q6H PRN IV NAUSEA AND/OR VOMITING; Start at 16:00 Acetaminophen (Tylenol Tab) 650 mg Q6H PRN PO PAIN LEVEL 1-3 OR FEVER Last administered on 02/01/17 14:23; Admin Dose 650 MG; Start 01/29/17 at 16:00 Acetaminophen (Tylenol Supp) 650 mg Q6H PRN [place] PAIN LEVEL 1-3 OR FEVER; Start 01/29/17 at 16:00 Acetaminophen/ Hydrocodone Bitart ([place] (5/325)) 1 tab Q6H PRN PO MODERATE PAIN LEVEL 4-6 Last administered on 02/05/17 20:36; Admin Dose 1 TAB; Start at 16:00 Acetaminophen/ Hydrocodone Bitart ([place] (5/325)) 2 tab Q6H PRN PO SEVERE PAIN LEVEL 7-10 Last administered on 02/06/17 06:10; Admin Dose 2 TAB; Start at 16:00 Docusate Sodium (Colace) 100 mg Q12H PRN PO CONSTIPATION Last administered on 09:05; Admin Dose 100 MG; Start 01/29/17 at 16:00 Magnesium Hydroxide (Milk Of Mag) 30 ml DAILY PRN PO CONSTIPATION Last administered on 02/03/17 09:09; Admin Dose 30 ML; Start 01/29/17 at 16:00 Bisacodyl (Dulcolax Supp) 10 mg DAILY PRN [place] CONSTIPATION; Start 01/29/17 at 16 :00 Diagnostic Test (Pha) (Accu-Chek) 1 ea 02 XX Last administered on 02/03/17 02: 00; Admin Dose 1 EA; Start 01/30/17 at 02:00 Salmeterol Xinafoate/ Fluticasone (Advair 250/50 Diskus) 1 inh BID INH Last administered on 02/06/17 08:09; Admin Dose 1 INH; Start 01/29/17 at 21:00 Miscellaneous Information 1 ea NOTE XX ; Start 01/29/17 at 17:00 Glucose (Glutose) 15 gm Q15M PRN PO DECREASED GLUCOSE; Start 01/29/17 at 17:00 Glucose (Glutose) 22.5 gm Q15M PRN PO DECREASED GLUCOSE; Start 01/29/17 at 17: 00 Dextrose (D50w Syringe) 25 ml Q15M PRN IV DECREASED GLUCOSE; Start 01/29/17 at 17:00 Dextrose (D50w Syringe) 50 ml Q15M PRN IV DECREASED GLUCOSE; Start 01/29/17 at 17:00 Glucagon (Glucagen) 1 mg Q15M PRN IM DECREASED GLUCOSE; Start 01/29/17 at 17:00 Glucose (Glutose) 15 gm Q15M PRN BUCCAL DECREASED GLUCOSE; Start 01/29/17 at 17 :00 Linagliptin (Tradjenta) 5 mg DAILY PO Last administered on 02/06/17 08:07; Admin Dose 5 MG; Start 01/31/17 at 09:00 Aspirin (Aspirin) 81 mg DAILY PO Last administered on 02/06/17 08:08; Admin Dose 81 MG; Start 01/31/17 at 09:00 Tramadol HCl 50 mg 50 mg Q6H PRN PO pain 6-10 Last administered on 02/01/17 09: 41; Admin Dose 50 MG; Start 01/31/17 at 10:30 Meropenem/Sodium Chloride (Merrem 1 Gm/50 ml (Pmx)) 50 ml @ 100 mls/hr Q12 IVPB Last administered on 02/06/17 08:14; Admin Dose 100 MLS/HR; Start 02/02/17 at 20:00 Apixaban (Eliquis) 10 mg BID PO Last administered on 02/06/17 08:09; Admin Dose 10 MG; Start 02/03/17 at 21:00; Stop 02/10/17 at 20:59 Apixaban 5 mg 5 mg BID PO ; Start 02/11/17 at 09:00 Daptomycin/Sodium Chloride (Cubicin/NS) 100 ml @ 200 mls/hr Q24H IVPB Last administered on 02/05/17 16:35; Admin Dose 200 MLS/HR; Start 02/03/17 at 17:00 Pantoprazole (Protonix Iv) 40 mg BID@06,18 IV Last administered on 02/06/17 06: 06; Admin Dose 40 MG; Start 02/03/17 at 18:30 Fluconazole (Diflucan) 100 mg DAILY PO Last administered on 02/06/17 08:09; Admin Dose 100 MG; Start 02/03/17 at 18:30; Stop 02/07/17 at 09:01 Ferrous Sulfate (Ferrous Sulfate (Ec)) 325 mg BID PO Last administered on 08:07; Admin Dose 325 MG; Start 02/04/17 at 21:00; Stop 03/06/17 at 20:59 Metoprolol Succinate (Toprol Xl) 25 mg BID PO Last administered on 02/06/17 08: 08; Admin Dose 25 MG; Start 02/04/17 at 21:00 Ascorbic Acid (Vitamin C) 500 mg BID PO Last administered on 02/06/17 08:08; Admin Dose 500 MG; Start 02/04/17 at 21:00; Stop 03/06/17 at 20:59 Fludrocortisone Acetate 0.05 mg 0.05 mg DAILY PO Last administered on 02/06/17 08:08; Admin Dose 0.05 MG; Start 02/04/17 at 11:00 Ferric Sodium Gluconate Complex/ Sodium Chloride (Ferrlecit/NS) 110 ml @ 100 mls/hr Q24H IVPB Last administered on 02/05/17 11:04; Admin Dose 100 MLS/HR; Start 02/04/17 at 11:00; Stop 02/06/17 at 12:05 Morphine Sulfate (morphine) 2 mg Q4H PRN IV SEVERE PAIN LEVEL 7-10; Start at 12:00 Allopurinol (Zyloprim) 300 mg DAILY PO Last administered on 02/06/17 08:22; Admin Dose 300 MG; Start 02/06/17 at 09:00 Lisinopril (Zestril) 10 mg BID PO Last administered on 02/06/17 08:06; Admin Dose 10 MG; Start 02/05/17 at 21:00 DEBBIE MESA NP Feb 06, 2017 10:08
--- NOTE | 2017-02-06 10:33 | RADRPT ---
PROCEDURE: Chest Radiograph. CLINICAL INDICATION: CHF TECHNIQUE: Single frontal chest radiograph. COMPARISON: Chest radiograph 10/06/2016 FINDINGS: The heart is enlarged. There is mild to moderate central vascular congestion. Diffuse interstitial opacities are nonspecific but likely represent pulmonary edema. There is mild atelectasis in the l eft mid lung zone. Small bilateral pleural effusions are likely present. The appearance is stable to slightly worsened when compared to 02/02/2017.. The bones are intact. IMPRESSION: 1. Cardiomegaly with central vascular congestion and suggested pulmonary edema compatible with give n history of CHF. The radiograph appearance is stable to mildly worsened when compared to 7. RPTAT: KK .Vamshi Katz MD, Date Time Electronically viewed and signed by .Vamshi Katz MD, MD on 02/06/2017 10:32 .B/
[2017-02-06] MEDS: SOD FERRIC GLUC COMPLX 125 MG in SOD CHLORIDE 0.9% 100 ML IVPB SCH ×2 (12:16→18:46)
--- NOTE | 2017-02-06 12:31 | CONS ---
Date/Time of Note Date/Time of Note DATE: 02/06/17 TIME: 12:28 Consult Date/Type/Reason Admit Date/Time Jan 29, 2017 at 13:15 Initial Consult Date 02/03/17 Type of Consultation: Pulm Subjective Patient comfortable this morning denies any shortness of breath. Objective Vital Signs Date Time Temp Pulse Resp B/P Pulse Ox O2 Delivery O2 Flow Rate FiO2 02/06/17 12:22 71 02/06/17 11:02 98.2 18 135/62 94 02/06/17 10:41 Nasal Cannula 2.0 Intake and Output 02/05/17 02/05/17 02/06/17 14:59 22:59 06:59 Intake Total 110 ml 1200 ml 440 ml Balance 110 ml 1200 ml 440 ml Exam GENERAL: VITAL SIGNS: per chart NECK: Supple. No JVD or lymphadenopathy. CARDIAC EXAM: S1, S2. No added sounds or murmurs. CHEST: clear bilaterally, No added sounds, rales or wheezes ABDOMEN: Soft, nontender. No guarding or rebound. EXTREMITIES: No cyanosis, clubbing significant erythema and swelling left lower extremity NEUROLOGIC: Generalized weakness. No focal deficits. Results/Medications Result Diagram: 02/06/17 0537 02/06/17 0537 Results 24 hrs Laboratory Tests Test 02/05/17 17:31 02/05/17 20:33 02/06/17 05:37 02/06/17 08:03 Bedside Glucose 177 150 76 White Blood Count 11.6 H Red Blood Count 2.78 L Hemoglobin 7.8 L Hematocrit 24.7 L Mean Corpuscular Volume 88.8 Mean Corpuscular Hemoglobin 28.1 L Mean Corpuscular Hemoglobin Concent 31.6 L Red Cell Distribution Width 14.6 H Platelet Count 366 Mean Platelet Volume 9.5 Neutrophils % 78.8 H Lymphocytes % 12.0 L Monocytes % 6.9 Eosinophils % 1.2 Basophils % 0.2 Nucleated Red Blood Cells % 0.0 Neutrophils # 9.1 H Lymphocytes # 1.4 Monocytes # 0.8 Eosinophils # 0.1 Basophils # 0.0 Nucleated Red Blood Cells # 0.0 Sodium Level 143 Potassium Level 4.1 Chloride Level 100 Carbon Dioxide Level 29 Anion Gap 18 H Blood Urea Nitrogen 45 H Creatinine 1.38 H Glucose Level 66 L Calcium Level 8.1 L Test 02/06/17 12:12 Bedside Glucose 125 Medications Current Medications Acetaminophen (Tylenol Tab) 1,000 mg Q4H PRN PO PAIN AND OR ELEVATED TEMP; Start 01/29/17 at 16:00 Insulin Glargine (Lantus) 60 unit QHS SC Last administered on 02/05/17 20:39; Admin Dose 60 UNIT; Start 01/29/17 at 21:00 Loratadine (Claritin) 10 mg DAILY PO Last administered on 02/06/17 08:09; Admin Dose 10 MG; Start 01/30/17 at 09:00 Montelukast Sodium (Singulair) 10 mg QHS PO Last administered on 02/05/17 20:37 ; Admin Dose 10 MG; Start 01/29/17 at 21:00 Ondansetron HCl (Zofran Inj) 4 mg Q6H PRN IV NAUSEA AND/OR VOMITING; Start at 16:00 Acetaminophen (Tylenol Tab) 650 mg Q6H PRN PO PAIN LEVEL 1-3 OR FEVER Last administered on 02/01/17 14:23; Admin Dose 650 MG; Start 01/29/17 at 16:00 Acetaminophen (Tylenol Supp) 650 mg Q6H PRN [place] PAIN LEVEL 1-3 OR FEVER; Start 01/29/17 at 16:00 Acetaminophen/ Hydrocodone Bitart ([place] (5/325)) 1 tab Q6H PRN PO MODERATE PAIN LEVEL 4-6 Last administered on 02/05/17 20:36; Admin Dose 1 TAB; Start at 16:00 Acetaminophen/ Hydrocodone Bitart ([place] (5/325)) 2 tab Q6H PRN PO SEVERE PAIN LEVEL 7-10 Last administered on 02/06/17 06:10; Admin Dose 2 TAB; Start at 16:00 Docusate Sodium (Colace) 100 mg Q12H PRN PO CONSTIPATION Last administered on 09:05; Admin Dose 100 MG; Start 01/29/17 at 16:00 Magnesium Hydroxide (Milk Of Mag) 30 ml DAILY PRN PO CONSTIPATION Last administered on 02/03/17 09:09; Admin Dose 30 ML; Start 01/29/17 at 16:00 Bisacodyl (Dulcolax Supp) 10 mg DAILY PRN [place] CONSTIPATION; Start 01/29/17 at 16 :00 Diagnostic Test (Pha) (Accu-Chek) 1 ea 02 XX Last administered on 02/03/17 02: 00; Admin Dose 1 EA; Start 01/30/17 at 02:00 Salmeterol Xinafoate/ Fluticasone (Advair 250/50 Diskus) 1 inh BID INH Last administered on 02/06/17 08:09; Admin Dose 1 INH; Start 01/29/17 at 21:00 Miscellaneous Information 1 ea NOTE XX ; Start 01/29/17 at 17:00 Glucose (Glutose) 15 gm Q15M PRN PO DECREASED GLUCOSE; Start 01/29/17 at 17:00 Glucose (Glutose) 22.5 gm Q15M PRN PO DECREASED GLUCOSE; Start 01/29/17 at 17: 00 Dextrose (D50w Syringe) 25 ml Q15M PRN IV DECREASED GLUCOSE; Start 01/29/17 at 17:00 Dextrose (D50w Syringe) 50 ml Q15M PRN IV DECREASED GLUCOSE; Start 01/29/17 at 17:00 Glucagon (Glucagen) 1 mg Q15M PRN IM DECREASED GLUCOSE; Start 01/29/17 at 17:00 Glucose (Glutose) 15 gm Q15M PRN BUCCAL DECREASED GLUCOSE; Start 01/29/17 at 17 :00 Linagliptin (Tradjenta) 5 mg DAILY PO Last administered on 02/06/17 08:07; Admin Dose 5 MG; Start 01/31/17 at 09:00 Aspirin (Aspirin) 81 mg DAILY PO Last administered on 02/06/17 08:08; Admin Dose 81 MG; Start 01/31/17 at 09:00 Tramadol HCl 50 mg 50 mg Q6H PRN PO pain 6-10 Last administered on 02/01/17 09: 41; Admin Dose 50 MG; Start 01/31/17 at 10:30 Meropenem/Sodium Chloride (Merrem 1 Gm/50 ml (Pmx)) 50 ml @ 100 mls/hr Q12 IVPB Last administered on 02/06/17 08:14; Admin Dose 100 MLS/HR; Start 02/02/17 at 20:00 Apixaban (Eliquis) 10 mg BID PO Last administered on 02/06/17 08:09; Admin Dose 10 MG; Start 02/03/17 at 21:00; Stop 02/10/17 at 20:59 Apixaban 5 mg 5 mg BID PO ; Start 02/11/17 at 09:00 Daptomycin/Sodium Chloride (Cubicin/NS) 100 ml @ 200 mls/hr Q24H IVPB Last administered on 02/05/17 16:35; Admin Dose 200 MLS/HR; Start 02/03/17 at 17:00 Pantoprazole (Protonix Iv) 40 mg BID@06,18 IV Last administered on 02/06/17 06: 06; Admin Dose 40 MG; Start 02/03/17 at 18:30 Fluconazole (Diflucan) 100 mg DAILY PO Last administered on 02/06/17 08:09; Admin Dose 100 MG; Start 02/03/17 at 18:30; Stop 02/07/17 at 09:01 Ferrous Sulfate (Ferrous Sulfate (Ec)) 325 mg BID PO Last administered on 08:07; Admin Dose 325 MG; Start 02/04/17 at 21:00; Stop 03/06/17 at 20:59 Metoprolol Succinate (Toprol Xl) 25 mg BID PO Last administered on 02/06/17 08: 08; Admin Dose 25 MG; Start 02/04/17 at 21:00 Ascorbic Acid (Vitamin C) 500 mg BID PO Last administered on 02/06/17 08:08; Admin Dose 500 MG; Start 02/04/17 at 21:00; Stop 03/06/17 at 20:59 Fludrocortisone Acetate (Florinef) 0.05 mg DAILY PO Last administered on 08:08; Admin Dose 0.05 MG; Start 02/04/17 at 11:00 Morphine Sulfate (morphine) 2 mg Q4H PRN IV SEVERE PAIN LEVEL 7-10; Start at 12:00 Allopurinol (Zyloprim) 300 mg DAILY PO Last administered on 02/06/17 08:22; Admin Dose 300 MG; Start 02/06/17 at 09:00 Lisinopril (Zestril) 10 mg BID PO Last administered on 02/06/17 08:06; Admin Dose 10 MG; Start 02/05/17 at 21:00 Assessment/Plan Chief Complaint/Hosp Course IMP: 1. Mild hypoxemic resp insufficiency--likely due to pulm edema and ATX. Doubt PE 2. DVT s/p IVCF and anticoag, previously nonocclusive thrombus in the mid and distal left superficial femoral vein.? New deep vein thrombosis? 3. Cellulitis 4. UTI RECS: 1. ICS 2. Mobilize OOB 3. Gentle diuresis 4. Am CXR pending. Problems: NOHELIA HAGER MD, [facility] Feb 06, 2017 12:31
[2017-02-06] MEDS: SOD CHLORIDE 0.9% IVPB SCH (17:30)
[2017-02-06] MEDS: DAPTOMYCIN IVPB SCH (17:30)
--- NOTE | 2017-02-06 17:33 | RADRPT ---
PROCEDURE: US left lower extremity veins. CLINICAL INDICATION: Left leg pain and swelling. TECHNIQUE: Multiple longitudinal and transverse images of the left lower extremity veins were obta ined with dinero scale and color Doppler imaging. The common femoral vein, femoral vein, and popliteal vein were evaluated. 2D grayscale measurements with compression sonography, pulsed Doppler, color D oppler, and pulsed Doppler with augmentation. COMPARISON: No prior studies are available for comparison. FINDINGS: The left common femoral, femoral and popliteal veins are normally compressible throughout. Color fl ow demonstrates normal filling of the vessels. Normal waveforms are visualized and there is normal response to augmentation. IMPRESSION: 1. No evidence of deep vein thrombosis involving the left lower extremity. RPTAT: QQ .Willard Pereira MD, MD Date Time Electronically viewed and signed by .Willard Pereira MD, on 02/06/2017 17:33 .R/
--- NOTE | 2017-02-06 18:45 | CONS ---
Date/Time of Note Date/Time of Note DATE: 02/06/17 TIME: 18:44 Assessment/Plan Assessment/Plan Chief Complaint/Hosp Course Assessment: Acute on chronic diastolic heart failure - LVEF 50-55% on echocardiogram Pulmonary hypertension - RVSP 57 mmHg on echocardiogram Acute kidney injury on chronic kidney disease Acute on chronic anemia - status post pRBC transfusions, upper endoscopy pending Left lower extremity cellulitis and left second toe gangrenous ulcer - on antibiotics per infectious disease Bilateral peripheral vascular disease - per vascular surgery Left lower extremity deep vein thrombosis - V/Q scan low probability for pulmonary embolism, status post IVC filter 02/01/2017 ESBL urinary tract infection - resolving Hypertension Diabetes mellitus Asthma Morbid obesity Recommendations: -continue Lasix 20mg IV BID, monitor renal function -continue metoprolol succinate and lisinopril Problems: Consultation Date/Type/Reason Admit Date/Time Jan 29, 2017 at 13:15 Initial Consult Date 02/03/17 Type of Consultation: Cardiology 24 HR Interval Summary Free Text/Dictation No acute events. Detailed Summary Additional Comments 14 point review of systems without changes. Exam/Review of Systems Vital Signs Vitals Vital Signs Date Time Temp Pulse Resp B/P Pulse Ox O2 Delivery O2 Flow Rate FiO2 02/06/17 17:02 88 22 97 Nasal Cannula 2.0 02/06/17 15:18 98.6 154/65 02/06/17 14:06 21 Intake and Output 02/05/17 02/05/17 02/06/17 14:59 22:59 06:59 Intake Total 110 ml 1200 ml 440 ml Balance 110 ml 1200 ml 440 ml Exam Constitutional: alert, obese Psych: nl mood/affect, no complaints Head: atraumatic, normocephalic Eyes: nl conjunctiva, nl lids ENMT: nl external ears & nose, nl nasal mucosa & septum Neck: non-tender, supple Respiratory: diminished breath sounds, No wheezing Cardiovascular: regular rate and rhythm, No murmurs/extra sounds Gastrointestinal: non-tender, soft Extremities: edema, pitting pedal edema, No clubbing, No cyanosis Neurological: nl mental status, nl speech Skin: other (left lower extremity erythema) Results Result Diagram: 02/06/17 0537 02/06/17 0537 Results 24 hrs Laboratory Tests Test 02/05/17 20:33 02/06/17 05:37 02/06/17 08:03 02/06/17 12:12 Bedside Glucose 150 76 125 White Blood Count 11.6 H Red Blood Count 2.78 L Hemoglobin 7.8 L Hematocrit 24.7 L Mean Corpuscular Volume 88.8 Mean Corpuscular Hemoglobin 28.1 L Mean Corpuscular Hemoglobin Concent 31.6 L Red Cell Distribution Width 14.6 H Platelet Count 366 Mean Platelet Volume 9.5 Neutrophils % 78.8 H Lymphocytes % 12.0 L Monocytes % 6.9 Eosinophils % 1.2 Basophils % 0.2 Nucleated Red Blood Cells % 0.0 Neutrophils # 9.1 H Lymphocytes # 1.4 Monocytes # 0.8 Eosinophils # 0.1 Basophils # 0.0 Nucleated Red Blood Cells # 0.0 Sodium Level 143 Potassium Level 4.1 Chloride Level 100 Carbon Dioxide Level 29 Anion Gap 18 H Blood Urea Nitrogen 45 H Creatinine 1.38 H Glucose Level 66 L Calcium Level 8.1 L Test 02/06/17 17:43 Bedside Glucose 189 Medications Medications Current Medications Acetaminophen (Tylenol Tab) 1,000 mg Q4H PRN PO PAIN AND OR ELEVATED TEMP; Start 01/29/17 at 16:00 Insulin Glargine (Lantus) 60 unit QHS SC Last administered on 02/05/17 20:39; Admin Dose 60 UNIT; Start 01/29/17 at 21:00 Loratadine (Claritin) 10 mg DAILY PO Last administered on 02/06/17 08:09; Admin Dose 10 MG; Start 01/30/17 at 09:00 Montelukast Sodium (Singulair) 10 mg QHS PO Last administered on 02/05/17 20:37 ; Admin Dose 10 MG; Start 01/29/17 at 21:00 Ondansetron HCl (Zofran Inj) 4 mg Q6H PRN IV NAUSEA AND/OR VOMITING; Start at 16:00 Acetaminophen (Tylenol Tab) 650 mg Q6H PRN PO PAIN LEVEL 1-3 OR FEVER Last administered on 02/01/17 14:23; Admin Dose 650 MG; Start 01/29/17 at 16:00 Acetaminophen (Tylenol Supp) 650 mg Q6H PRN [place] PAIN LEVEL 1-3 OR FEVER; Start 01/29/17 at 16:00 Acetaminophen/ Hydrocodone Bitart ([place] (5/325)) 1 tab Q6H PRN PO MODERATE PAIN LEVEL 4-6 Last administered on 02/05/17 20:36; Admin Dose 1 TAB; Start at 16:00 Acetaminophen/ Hydrocodone Bitart ([place] (5/325)) 2 tab Q6H PRN PO SEVERE PAIN LEVEL 7-10 Last administered on 02/06/17 06:10; Admin Dose 2 TAB; Start at 16:00 Docusate Sodium (Colace) 100 mg Q12H PRN PO CONSTIPATION Last administered on 09:05; Admin Dose 100 MG; Start 01/29/17 at 16:00 Magnesium Hydroxide (Milk Of Mag) 30 ml DAILY PRN PO CONSTIPATION Last administered on 02/03/17 09:09; Admin Dose 30 ML; Start 01/29/17 at 16:00 Bisacodyl (Dulcolax Supp) 10 mg DAILY PRN [place] CONSTIPATION; Start 01/29/17 at 16 :00 Diagnostic Test (Pha) (Accu-Chek) 1 ea 02 XX Last administered on 02/03/17 02: 00; Admin Dose 1 EA; Start 01/30/17 at 02:00 Salmeterol Xinafoate/ Fluticasone (Advair 250/50 Diskus) 1 inh BID INH Last administered on 02/06/17 08:09; Admin Dose 1 INH; Start 01/29/17 at 21:00 Miscellaneous Information 1 ea NOTE XX ; Start 01/29/17 at 17:00 Glucose (Glutose) 15 gm Q15M PRN PO DECREASED GLUCOSE; Start 01/29/17 at 17:00 Glucose (Glutose) 22.5 gm Q15M PRN PO DECREASED GLUCOSE; Start 01/29/17 at 17: 00 Dextrose (D50w Syringe) 25 ml Q15M PRN IV DECREASED GLUCOSE; Start 01/29/17 at 17:00 Dextrose (D50w Syringe) 50 ml Q15M PRN IV DECREASED GLUCOSE; Start 01/29/17 at 17:00 Glucagon (Glucagen) 1 mg Q15M PRN IM DECREASED GLUCOSE; Start 01/29/17 at 17:00 Glucose (Glutose) 15 gm Q15M PRN BUCCAL DECREASED GLUCOSE; Start 01/29/17 at 17 :00 Linagliptin (Tradjenta) 5 mg DAILY PO Last administered on 02/06/17 08:07; Admin Dose 5 MG; Start 01/31/17 at 09:00 Aspirin (Aspirin) 81 mg DAILY PO Last administered on 02/06/17 08:08; Admin Dose 81 MG; Start 01/31/17 at 09:00 Tramadol HCl 50 mg 50 mg Q6H PRN PO pain 6-10 Last administered on 02/01/17 09: 41; Admin Dose 50 MG; Start 01/31/17 at 10:30 Meropenem/Sodium Chloride (Merrem 1 Gm/50 ml (Pmx)) 50 ml @ 100 mls/hr Q12 IVPB Last administered on 02/06/17 08:14; Admin Dose 100 MLS/HR; Start 02/02/17 at 20:00 Apixaban (Eliquis) 10 mg BID PO Last administered on 02/06/17 08:09; Admin Dose 10 MG; Start 02/03/17 at 21:00; Stop 02/10/17 at 20:59 Apixaban 5 mg 5 mg BID PO ; Start 02/11/17 at 09:00 Daptomycin/Sodium Chloride (Cubicin/NS) 100 ml @ 200 mls/hr Q24H IVPB Last administered on 02/06/17 17:30; Admin Dose 200 MLS/HR; Start 02/03/17 at 17:00 Pantoprazole (Protonix Iv) 40 mg BID@06,18 IV Last administered on 02/06/17 17: 33; Admin Dose 40 MG; Start 02/03/17 at 18:30 Fluconazole (Diflucan) 100 mg DAILY PO Last administered on 02/06/17 08:09; Admin Dose 100 MG; Start 02/03/17 at 18:30; Stop 02/07/17 at 09:01 Ferrous Sulfate (Ferrous Sulfate (Ec)) 325 mg BID PO Last administered on 08:07; Admin Dose 325 MG; Start 02/04/17 at 21:00; Stop 03/06/17 at 20:59 Metoprolol Succinate (Toprol Xl) 25 mg BID PO Last administered on 02/06/17 08: 08; Admin Dose 25 MG; Start 02/04/17 at 21:00 Ascorbic Acid (Vitamin C) 500 mg BID PO Last administered on 02/06/17 08:08; Admin Dose 500 MG; Start 02/04/17 at 21:00; Stop 03/06/17 at 20:59 Fludrocortisone Acetate (Florinef) 0.05 mg DAILY PO Last administered on 08:08; Admin Dose 0.05 MG; Start 02/04/17 at 11:00 Morphine Sulfate (morphine) 2 mg Q4H PRN IV SEVERE PAIN LEVEL 7-10; Start at 12:00 Allopurinol (Zyloprim) 300 mg DAILY PO Last administered on 02/06/17 08:22; Admin Dose 300 MG; Start 02/06/17 at 09:00 Lisinopril 10 mg 10 mg BID PO Last administered on 02/06/17 08:06; Admin Dose 10 MG; Start 02/05/17 at 21:00 Ferric Sodium Gluconate Complex/ Sodium Chloride (Ferrlecit/NS) 110 ml @ 100 mls/hr Q24H IVPB ; Start 02/06/17 at 17:30; Stop 02/08/17 at 18:35 BONNY MIGUEL MD Feb 06, 2017 18:45
[2017-02-06] MEDS: MONTELUKAST 10 MG TAB PO SCH (21:18)
[2017-02-06] MEDS: INSULIN GLARGINE [LANtus] 3 ML PEN SC SCH (21:30)
--- NOTE | 2017-02-06 22:34 | CONS ---
Date/Time of Note Date/Time of Note DATE: 02/06/17 TIME: 22:27 Assessment/Plan Assessment/Plan Chief Complaint/Hosp Course ID PROGRESS NOTE CURRENT ABX: => MERREM #5 + Daptomycin #4 +Diflucan TOTAL ABX DAY #8 Ceftriaxone #5-> DC 8/3 s/p Zosyn/Clinda 01/29-> DC'd 24 HOUR INTERVAL SUMMARY * Resting with eyes closed, I am rounding late pm tonight, she awakens, doing OK no new issues * No fevers. WBC stable * EGD PATHO REPORT=> (+)Aurora Esophagitis / (-)H.Pylori Exam Constitutional: alert, oriented, well developed Head: atraumatic, normocephalic Eyes: EOMI, PERRL Respiratory: clear to auscultation, normal air movement Cardiovascular: nl pulses, regular rate and rhythm Gastrointestinal: Soft (+)BS Extremities: LLEXT cellulitis + gangrenous changes 2nd toe ulcer * LLEXT still w/significant edema and fluid small vesicle formation weeping edema Neurological: nl mental status, nl speech, nl strength ID ASSESSMENT 51 yo F PMHx morbid obesity admit with: 1. Resolving sepsis secondary to ESBL UTI 2. E.Coli-ESBL UTI 01/29 * Repeat Urine 01/29 (-) 3. Bacteremia 07/04 bottles from ED: BLOOD CULTURE Final COAGULASE NEGATIVE STAPH * Repeat cultures negative. 4. Left lower extremity cellulitis/ left second toe gangrenous ulcer. * Xray with soft tissue swelling on Fibula/Tibia. MRI without evidence of necrotizing fasciitis. 5. Peripheral vascular disease (PVD)=> Venous + Arterial * PAD:Arterial Duplex=> 1. Abnormal flow bilaterally in the calf arteries consistent with significant stenosis. 2. Significant stenosis in the left mid superficial femoral artery. * VENOUS: Left lower extremity acute deep vein thrombosis. VQ scan with low probability for PE. -- -Status post IVC filter placed on 02/01/2017 6. Systolic and diastolic congestive heart failure. Echo EF ~50-55%. 7 . Hypoxic respiratory failure, multifactorial most likely secondary to possible CHF, pulmonary hypertension, acute anemia, sepsis and underlying asthma and obesity=> RESOLVED 8. Anemia, now acute on chronic. H&H improved with transfusion. No evidence of bleeding. * GI -> EGD 02/03/17 (+)Aurora Esophagitis / (-)H.Pylori 9. DMII. A1c 6.8. 10. Essential hypertension. 11. REMI on CKD with Diabetic nephropathy. * Avoid renal toxic ABX - patient need diuretic Rx per card 13. COPD: Asthma + restrictive component due to obesity; possibly obesity hypoventilation syndrome suspected 14. Pulmonary hypertension-> 2/2 #13 15. DDx silent aspiration pneumonitis vs pna per multiple risk factors below: * CXR: Mild pulmonary vascular congestion with pleural effusions, findings suggesting congestive heart failure. * Wet lungs at risk bacterial infection * Asthma * Obesity * GERD/Gastritis/Esophagitis * Suspect obesity hypoventilation syndrome 16. (+)Aurora Esophagitis / (-)H.Pylori per EGD (-)MRSA Nares CURRENT ABX: => MERREM #5 + Daptomycin #4 + Diflucan TOTAL ABX DAY #8 Ceftriaxone #5-> DC 02/02 s/p Zosyn/Clinda 01/29-> DC'd ID RECOMMENDATIONS 1. Continue MERREM for hx of ESBL + Start Daptomycin for empiric MRSA coverage * NO STATIN RX WHILE ON DAPTO => Please do not start vs HOLD Statin 2. Diflucan for severe aurora esophagitis PO + Nystatin 5mL PO swish/swallow 3. Avoid renal toxic ABX-> Cards needs room for diuretics . . Problems: Consultation Date/Type/Reason Admit Date/Time Jan 29, 2017 at 13:15 Initial Consult Date Type of Consultation: ID Exam/Review of Systems Vital Signs Vitals Vital Signs Date Time Temp Pulse Resp B/P Pulse Ox O2 Delivery O2 Flow Rate FiO2 02/06/17 20:21 2.0 02/06/17 20:21 85 20 94 Nasal Cannula 02/06/17 20:07 99.0 143/64 02/06/17 14:06 21 Intake and Output 02/05/17 02/05/17 02/06/17 15:00 23:00 07:00 Intake Total 110 ml 1200 ml 440 ml Balance 110 ml 1200 ml 440 ml Results Result Diagram: 02/06/17 0537 02/06/17 0537 Results 24 hrs Laboratory Tests Test 02/06/17 05:37 02/06/17 08:03 02/06/17 12:12 02/06/17 17:43 White Blood Count 11.6 H Red Blood Count 2.78 L Hemoglobin 7.8 L Hematocrit 24.7 L Mean Corpuscular Volume 88.8 Mean Corpuscular Hemoglobin 28.1 L Mean Corpuscular Hemoglobin Concent 31.6 L Red Cell Distribution Width 14.6 H Platelet Count 366 Mean Platelet Volume 9.5 Neutrophils % 78.8 H Lymphocytes % 12.0 L Monocytes % 6.9 Eosinophils % 1.2 Basophils % 0.2 Nucleated Red Blood Cells % 0.0 Neutrophils # 9.1 H Lymphocytes # 1.4 Monocytes # 0.8 Eosinophils # 0.1 Basophils # 0.0 Nucleated Red Blood Cells # 0.0 Sodium Level 143 Potassium Level 4.1 Chloride Level 100 Carbon Dioxide Level 29 Anion Gap 18 H Blood Urea Nitrogen 45 H Creatinine 1.38 H Glucose Level 66 L Calcium Level 8.1 L Bedside Glucose 76 125 189 Test 02/06/17 21:27 Bedside Glucose 106 Medications Medications Current Medications Acetaminophen (Tylenol Tab) 1,000 mg Q4H PRN PO PAIN AND OR ELEVATED TEMP; Start 01/29/17 at 16:00 Insulin Glargine (Lantus) 60 unit QHS SC Last administered on 02/06/17 21:30; Admin Dose 60 UNIT; Start 01/29/17 at 21:00 Loratadine (Claritin) 10 mg DAILY PO Last administered on 02/06/17 08:09; Admin Dose 10 MG; Start 01/30/17 at 09:00 Montelukast Sodium (Singulair) 10 mg QHS PO Last administered on 02/06/17 21:18 ; Admin Dose 10 MG; Start 01/29/17 at 21:00 Ondansetron HCl (Zofran Inj) 4 mg Q6H PRN IV NAUSEA AND/OR VOMITING; Start at 16:00 Acetaminophen (Tylenol Tab) 650 mg Q6H PRN PO PAIN LEVEL 1-3 OR FEVER Last administered on 02/01/17 14:23; Admin Dose 650 MG; Start 01/29/17 at 16:00 Acetaminophen (Tylenol Supp) 650 mg Q6H PRN [place] PAIN LEVEL 1-3 OR FEVER; Start 01/29/17 at 16:00 Acetaminophen/ Hydrocodone Bitart ([place] (5/325)) 1 tab Q6H PRN PO MODERATE PAIN LEVEL 4-6 Last administered on 02/05/17 20:36; Admin Dose 1 TAB; Start at 16:00 Acetaminophen/ Hydrocodone Bitart ([place] (5/325)) 2 tab Q6H PRN PO SEVERE PAIN LEVEL 7-10 Last administered on 02/06/17 21:26; Admin Dose 2 TAB; Start at 16:00 Docusate Sodium (Colace) 100 mg Q12H PRN PO CONSTIPATION Last administered on 09:05; Admin Dose 100 MG; Start 01/29/17 at 16:00 Magnesium Hydroxide (Milk Of Mag) 30 ml DAILY PRN PO CONSTIPATION Last administered on 02/03/17 09:09; Admin Dose 30 ML; Start 01/29/17 at 16:00 Bisacodyl (Dulcolax Supp) 10 mg DAILY PRN [place] CONSTIPATION; Start 01/29/17 at 16 :00 Diagnostic Test (Pha) (Accu-Chek) 1 ea 02 XX Last administered on 02/03/17 02: 00; Admin Dose 1 EA; Start 01/30/17 at 02:00 Salmeterol Xinafoate/ Fluticasone (Advair 250/50 Diskus) 1 inh BID INH Last administered on 02/06/17 21:17; Admin Dose 1 INH; Start 01/29/17 at 21:00 Miscellaneous Information 1 ea NOTE XX ; Start 01/29/17 at 17:00 Glucose (Glutose) 15 gm Q15M PRN PO DECREASED GLUCOSE; Start 01/29/17 at 17:00 Glucose (Glutose) 22.5 gm Q15M PRN PO DECREASED GLUCOSE; Start 01/29/17 at 17: 00 Dextrose (D50w Syringe) 25 ml Q15M PRN IV DECREASED GLUCOSE; Start 01/29/17 at 17:00 Dextrose (D50w Syringe) 50 ml Q15M PRN IV DECREASED GLUCOSE; Start 01/29/17 at 17:00 Glucagon (Glucagen) 1 mg Q15M PRN IM DECREASED GLUCOSE; Start 01/29/17 at 17:00 Glucose (Glutose) 15 gm Q15M PRN BUCCAL DECREASED GLUCOSE; Start 01/29/17 at 17 :00 Linagliptin (Tradjenta) 5 mg DAILY PO Last administered on 02/06/17 08:07; Admin Dose 5 MG; Start 01/31/17 at 09:00 Aspirin (Aspirin) 81 mg DAILY PO Last administered on 02/06/17 08:08; Admin Dose 81 MG; Start 01/31/17 at 09:00 Tramadol HCl 50 mg 50 mg Q6H PRN PO pain 6-10 Last administered on 02/01/17 09: 41; Admin Dose 50 MG; Start 01/31/17 at 10:30 Meropenem/Sodium Chloride (Merrem 1 Gm/50 ml (Pmx)) 50 ml @ 100 mls/hr Q12 IVPB Last administered on 02/06/17 22:21; Admin Dose 100 MLS/HR; Start 02/02/17 at 20:00 Apixaban (Eliquis) 10 mg BID PO Last administered on 02/06/17 21:18; Admin Dose 10 MG; Start 02/03/17 at 21:00; Stop 02/10/17 at 20:59 Apixaban 5 mg 5 mg BID PO ; Start 02/11/17 at 09:00 Daptomycin/Sodium Chloride (Cubicin/NS) 100 ml @ 200 mls/hr Q24H IVPB Last administered on 02/06/17 17:30; Admin Dose 200 MLS/HR; Start 02/03/17 at 17:00 Pantoprazole (Protonix Iv) 40 mg BID@06,18 IV Last administered on 02/06/17 17: 33; Admin Dose 40 MG; Start 02/03/17 at 18:30 Fluconazole (Diflucan) 100 mg DAILY PO Last administered on 02/06/17 08:09; Admin Dose 100 MG; Start 02/03/17 at 18:30; Stop 02/07/17 at 09:01 Ferrous Sulfate (Ferrous Sulfate (Ec)) 325 mg BID PO Last administered on 21:17; Admin Dose 325 MG; Start 02/04/17 at 21:00; Stop 03/06/17 at 20:59 Metoprolol Succinate (Toprol Xl) 25 mg BID PO Last administered on 02/06/17 21: 18; Admin Dose 25 MG; Start 02/04/17 at 21:00 Ascorbic Acid (Vitamin C) 500 mg BID PO Last administered on 02/06/17 21:18; Admin Dose 500 MG; Start 02/04/17 at 21:00; Stop 03/06/17 at 20:59 Fludrocortisone Acetate (Florinef) 0.05 mg DAILY PO Last administered on 08:08; Admin Dose 0.05 MG; Start 02/04/17 at 11:00 Morphine Sulfate (morphine) 2 mg Q4H PRN IV SEVERE PAIN LEVEL 7-10; Start at 12:00 Allopurinol (Zyloprim) 300 mg DAILY PO Last administered on 02/06/17 08:22; Admin Dose 300 MG; Start 02/06/17 at 09:00 Lisinopril 10 mg 10 mg BID PO Last administered on 02/06/17 21:18; Admin Dose 10 MG; Start 02/05/17 at 21:00 Ferric Sodium Gluconate Complex/ Sodium Chloride (Ferrlecit/NS) 110 ml @ 100 mls/hr Q24H IVPB Last administered on 02/06/17 18:46; Admin Dose 100 MLS/HR; Start 02/06/17 at 17:30; Stop 02/08/17 at 18:35 TAHIR LOPEZ NP Feb 06, 2017 22:34
[2017-02-06] MEDS: NYSTATIN SUSP 5 ML CUP PO SCH (23:19)
--- NOTE | 2017-02-06 23:48 | PN ---
Date/Time of Note Date/Time of Note DATE: 02/06/17 TIME: 23:46 Assessment/Plan Lines/Catheters IV Catheter Type (from Nrs): Saline Lock Iglesias in Place (from Nrs): No Assessment/Plan Problems: (1) Blister of leg (2) Cellulitis Status: Acute Qualifiers: Site of cellulitis: extremity Site of cellulitis of extremity: lower extremity Laterality: left Qualified Code: L03.116 - Cellulitis of left lower extremity (3) Diabetes mellitus type 2, controlled, with complications Status: Chronic Qualifiers: Diabetes mellitus long-term insulin use: with long winder tender use Qualified Code : E11.8 - Controlled type 2 diabetes mellitus with complication, with long- term current use of insulin (4) Peripheral vascular disease due to secondary diabetes Status: Chronic (5) Chronic kidney disease Status: Acute Qualifiers: Chronic kidney disease stage: unspecified stage Qualified Code: N18.9 - Chronic kidney disease, unspecified stage (6) Morbid obesity Assessment/Plan Order daily dressing change with Betadine paint on the blisters. Applied an Duke bandage to the right lower extremity. Change daily. Monitor patient daily. Patient will be followed in-house. Subjective 24 Hr Interval Summary Patient seen and examined at bedside. Patient has developed multiple new clear blisters on the right lower extremity with improvement in the erythema of the right leg. There is no pus and no bleeding noted. Constitutional: no complaints Pain Control: well controlled Exam/Review of Systems Vital Signs Vitals Vital Signs Date Time Temp Pulse Resp B/P Pulse Ox O2 Delivery O2 Flow Rate FiO2 02/06/17 20:21 2.0 02/06/17 20:21 85 20 94 Nasal Cannula 02/06/17 20:07 99.0 143/64 02/06/17 14:06 21 Intake and Output 02/05/17 02/05/17 02/06/17 15:00 23:00 07:00 Intake Total 110 ml 1200 ml 440 ml Balance 110 ml 1200 ml 440 ml Exam Free Text/Dictation Morbidly obese female in no acute distress Edema of lower extremity continues Multiple large clear fluid blisters on the right lower leg noted No open wound and no purulence noted No malodor present No other changes noted on examination Results Result Diagram: 02/06/17 0537 02/06/17 0537 FARA HADLEY DPM Feb 06, 2017 23:48
[2017-02-07] VITALS (7 sets, daily range): BP systolic 119–182; BP diastolic 61–76; PULSE 71–89; RESP 16–20
[2017-02-07] MEDS: ACCU-CHEK XX SCH (02:00)
[2017-02-07] MEDS: PANTOPRAZOLE 40 MG INJ IV SCH ×2 (05:26→18:26)
[2017-02-07] MEDS: FUROSEMIDE 20 MG INJ IV SCH ×2 (05:30→18:32)
[2017-02-07 05:34] LABS: BASOPHILS % 0.2 % (0.0-2.0); EOSINOPHILS # 0.2 10^3/ul (0.0-0.5); EOSINOPHILS % 1.2 % (0.0-7.0); HEMATOCRIT 25.6 % (37.0-47.0); LYMPHOCYTES # 1.4 10^3/ul (0.8-2.9); LYMPHOCYTES % 10.5 % (15.0-51.0); MEAN CORPUSCULAR HEMOGLOBIN 28.4 pg (29.0-33.0); MEAN CORPUSCULAR HGB CONC 31.3 g/dl (32.0-37.0); MEAN CORPUSCULAR VOLUME 90.8 fl (82.0-101.0); MEAN PLATELET VOLUME 9.7 fl (7.4-10.4); MONOCYTE # 0.8 10^3/ul (0.3-0.9); NEUTROPHIL # 10.4 10^3/ul (1.6-7.5); NEUTROPHILS % 80.9 % (39.0-77.0); PLATELET COUNT 393 10^3/UL (140-415); RED BLOOD COUNT 2.82 10^6/ul (4.20-5.40); RED CELL DISTRIBUTION WIDTH 14.6 % (11.5-14.5); WHITE BLOOD COUNT 12.9 10^3/ul (4.8-10.8)
[2017-02-07 06:16] LABS: CALCIUM 8.6 mg/dl (8.4-10.2); CREATININE 1.54 mg/dl (0.44-1.00); POTASSIUM 4.2 mmol/L (3.5-5.1)
[2017-02-07] MEDS: INSULIN ASPART [NOVOLOG] 3 ML PEN SC SCH ×7 (07:50→20:54)
[2017-02-07] MEDS: ALBUTEROL/IPRATROPIUM (NEB) 3 ML AMP HHN SCH ×4 (09:02→20:00)
--- NOTE | 2017-02-07 09:05 | PN ---
DATE: 02/07/2017 SUBJECTIVE DATA: The patient is stable. No events overnight. No fevers, chills, nausea, vomiting. OBJECTIVE DATA: VITAL SIGNS: Blood pressure is 131/61, respirations 18, pulse 71, temperature 98.2. HEENT: Head is normocephalic. NECK: Supple. HEART: Regular rate. LUNGS: Diminished breath sounds at the base. ABDOMEN: Soft, nontender to palpation. No rebound or guarding. EXTREMITIES: Negative for clubbing, cyanosis. Positive edema. DERMATOLOGIC: Clean. No rashes. MUSCULOSKELETAL: No joint effusion. NEUROLOGIC: Unchanged exam. MEDICATIONS: Reviewed. LABORATORY AND DIAGNOSTIC DATA: Sodium 143, potassium 4.2, BUN 40, creatinine 1.54. White count is 12.9, hemoglobin 8.0, hematocrit 25.6, platelet count is 393. ASSESSMENT AND PLAN: 1. Nonoliguric acute kidney injury on top of chronic kidney disease stage III, with previous baseline creatinine 1.5 to 1.8 mg/dL. Etiology of current REMI secondary to hemodynamics. Renal function is stabilized at this point, continue current treatment. Supportive care. Renally dose all meds. 2. Anemia. Continue to monitor H and H levels. The patient is status post Epogen. 3. Mineral bone disorder. Monitor calcium and phosphorus levels. 4. Lower extremity deep vein thrombosis. Continue anticoagulation. 5. Sepsis secondary to urinary tract infection. Continue current treatment plan. Continue antibiotic therapy. 6. Hypoxemic respiratory failure, improving. Continue current medical management. Follow up with Pulmonary. 7. Diastolic heart failure. Continue current diuretic regimen. 8. Morbid obesity. Continue dietary modification. 9. Hypertension. Continue current blood pressure regimen. 10. Cellulitis of the left lower extremity. Continue current antibiotics. Dictated By: Atul Wellington DO /cuca/chasity /Document#: [id number]
--- NOTE | 2017-02-07 09:05 | GILP ---
DATE OF PROCEDURE: 02/03/2017 PROCEDURE: Esophagogastroduodenoscopy with biopsies. HISTORY AND INDICATIONS: Patient is being evaluated for anemia and evidence of GI bleeding. PREMEDICATION: Monitored anesthesia care by anesthesiologist. INSTRUMENT USED: Olympus scope. TECHNIQUE: After informed consent, with the patient/relatives understanding the procedure, its indications, potential risks and complications, including but not limited to: allergic reaction, bleeding, perforation or infection, and after all pertinent questions were answered to the patients satisfaction, the patient/relatives signed witnessed informed consent. Following this, premedication was administered slowly IV push under careful cardiovascular and respiratory monitoring with pulse oximetry, automatic blood pressure and lopper. Once the sedative effect was achieved the patient was place in the left lateral decubitus, the panendoscope was introduced and advanced under visual control. Careful examination of the upper gastrointestinal tract, both on insertion as well as withdrawal of the instrument disclosed the following findings: ESOPHAGUS: The esophagus shows significant erythema, edema, and superficial erosion in the mucosa. There is a whitish-yellowish exudate suggestive Aurora esophagitis. Biopsies were obtained. STOMACH: Upon entrance to the stomach air was insufflated, the gastric briceño distended normally. There is erythema and edema of the mucosa of the body and antrum of the stomach. Biopsies were obtained to rule out H pylori infection. PYLORUS: The pylorus appears patent and within normal limits, with no evidence of gastric outlet obstruction. DUODENUM: The duodenal mucosa was carefully examined in the duodenal bulb as well as the second portion of the duodenum and appears unremarkable with no evidence of duodenitis, ulcer or neoplasm. The instrument was then withdrawn, the patient tolerated the procedure well and was transfer out of the endoscopy suite awake, and in good condition to continue recovery under observation. IMPRESSION: 1. Severe erosive, ulcerated esophagitis. 2. Probable Aurora esophagitis. Biopsies obtained. 3. Moderate gastritis. Rule out Helicobacter pylori infection. Biopsies were obtained. RECOMMENDATIONS: The patient will be treated with Protonix 40 mg b.i.d., Diflucan 100 mg daily for 5-7 days. Pathology will be reviewed as soon as it is available. Further recommendation will be dependent on patient's clinically course. Dictated By: Donna Okeefe MD /cuca/pieter /Document#: [id number] CC: Donna Okeefe MD;*[facility]*
[2017-02-07] MEDS: SALMETEROL/FLUTICASONE 250/50 INHA INH SCH ×2 (09:23→20:58)
[2017-02-07] MEDS: ASPIRIN 81 MG TAB PO SCH (09:24)
[2017-02-07] MEDS: METOPROLOL (XL) 25 MG TAB PO SCH ×2 (09:24→21:18)
[2017-02-07] MEDS: ASCORBIC ACID 500 MG TAB PO SCH ×2 (09:25→20:58)
[2017-02-07] MEDS: FLUCONAZOLE 100 MG TAB PO SCH (09:25)
[2017-02-07] MEDS: FERROUS SULFATE (EC) 325 MG TAB PO SCH ×2 (09:25→20:59)
[2017-02-07] MEDS: ALLOPURINOL 300 MG TAB PO SCH (09:25)
[2017-02-07] MEDS: APIXABAN 5 MG TABLET PO SCH ×2 (09:26→20:59)
[2017-02-07] MEDS: LINAGLIPTIN 5 MG TABLET PO SCH (09:26)
[2017-02-07] MEDS: LORATADINE 10 MG TAB PO SCH (09:27)
[2017-02-07] MEDS: LISINOPRIL 10 MG TAB PO SCH ×2 (09:27→21:18)
[2017-02-07] MEDS: FLUDROCORTISONE 0.1 MG TAB PO SCH (09:27)
[2017-02-07] MEDS: NYSTATIN SUSP 5 ML CUP PO SCH ×4 (09:30→21:35)
[2017-02-07] MEDS: MEROPENEM 1 GM/50ML(PMX) 50 ML IVPB SCH (09:30)
--- NOTE | 2017-02-07 13:29 | CONS ---
Date/Time of Note Date/Time of Note DATE: 02/07/17 TIME: 13:24 Assessment/Plan Assessment/Plan Chief Complaint/Hosp Course ID PROGRESS NOTE CURRENT ABX: => MERREM #6 + Daptomycin #5 +Diflucan #2 TOTAL ABX DAY #9 Ceftriaxone #5-> DC 8/ s/p Zosyn/Clinda 01/29-> DC'd 24 HOUR INTERVAL SUMMARY * * No fevers. WBC rising -> Started on Diflucan last night for EGD findings aurora esophagitis * EGD PATHO REPORT=> (+)Aurora Esophagitis / (-)H.Pylori Exam Constitutional: alert, oriented, well developed Head: atraumatic, normocephalic Eyes: EOMI, PERRL Respiratory: clear to auscultation, normal air movement Cardiovascular: nl pulses, regular rate and rhythm Gastrointestinal: Soft (+)BS Extremities: LLEXT cellulitis + gangrenous changes 2nd toe ulcer * LLEXT still w/significant edema and fluid small vesicle formation weeping edema Neurological: nl mental status, nl speech, nl strength ID ASSESSMENT 51 yo F PMHx morbid obesity admit with: 1. Resolving sepsis secondary to ESBL UTI => SIRS w/leukocytosis persisting post EGD 2. E.Coli-ESBL UTI 01/29 * Repeat Urine 01/29 (-) 3. Bacteremia 07/04 bottles from ED: BLOOD CULTURE Final COAGULASE NEGATIVE STAPH * Repeat cultures negative. 4. Left lower extremity cellulitis/ left second toe gangrenous ulcer. * Xray with soft tissue swelling on Fibula/Tibia. MRI without evidence of necrotizing fasciitis. 5. Peripheral vascular disease (PVD)=> Venous + Arterial * PAD:Arterial Duplex=> 1. Abnormal flow bilaterally in the calf arteries consistent with significant stenosis. 2. Significant stenosis in the left mid superficial femoral artery. * VENOUS: Left lower extremity acute deep vein thrombosis. VQ scan with low probability for PE. -- -Status post IVC filter placed on 02/01/2017 6. Systolic and diastolic congestive heart failure. Echo EF ~50-55%. 7 . Hypoxic respiratory failure, multifactorial most likely secondary to possible CHF, pulmonary hypertension, acute anemia, sepsis and underlying asthma and obesity=> RESOLVED 8. Anemia, now acute on chronic. H&H improved with transfusion. No evidence of bleeding. * GI -> EGD 02/03/17 (+)Aurora Esophagitis / (-)H.Pylori 9. DMII. A1c 6.8. 10. Essential hypertension w/cardiomegaly on CXR 11. Pulmonary edema -- possibly CHF due to HTN heart disease cor pulmonale vs diastolic dysfx * (+)PHTN 13. COPD: Asthma + restrictive component due to obesity; possibly obesity hypoventilation syndrome suspected * Pulmonary hypertension-> 2/2 #13 14. Possible HCAP => DDx silent aspiration pneumonitis vs pna per multiple risk factors below: * CXR: Mild pulmonary vascular congestion with pleural effusions, findings suggesting congestive heart failure. * Wet lungs at risk bacterial infection * Asthma * Obesity * GERD/Gastritis/Esophagitis * Suspect obesity hypoventilation syndrome 16. (+)Aurora Esophagitis / (-)H.Pylori per EGD (-)MRSA Nares CURRENT ABX: => MERREM #6 + Daptomycin #5 +Diflucan #2 TOTAL ABX DAY #9 Ceftriaxone #5-> DC 02/02 s/p Zosyn/Clinda 01/29-> DC'd ID RECOMMENDATIONS 1. Continue MERREM for hx of ESBL + Start Daptomycin for empiric MRSA coverage * NO STATIN RX WHILE ON DAPTO => Please do not start vs HOLD Statin 2. Diflucan for severe aurora esophagitis PO + Nystatin 5mL PO swish/swallow 3. Avoid renal toxic ABX-> Cards needs room for diuretics . . Problems: Consultation Date/Type/Reason Admit Date/Time Jan 29, 2017 at 13:15 Initial Consult Date Type of Consultation: ID Exam/Review of Systems Vital Signs Vitals Vital Signs Date Time Temp Pulse Resp B/P Pulse Ox O2 Delivery O2 Flow Rate FiO2 02/07/17 13:13 85 20 94 Nasal Cannula 2.0 02/07/17 08:40 98.3 143/64 02/06/17 14:06 21 Intake and Output 02/06/17 02/06/17 02/07/17 14:59 22:59 06:59 Intake Total 260 ml 540 ml Balance 260 ml 540 ml Results Result Diagram: 02/07/17 0439 02/07/17 0439 Results 24 hrs Laboratory Tests Test 02/06/17 17:43 02/06/17 21:27 02/07/17 04:39 02/07/17 08:14 Bedside Glucose 189 106 White Blood Count 12.9 H Red Blood Count 2.82 L Hemoglobin 8.0 L Hematocrit 25.6 L Mean Corpuscular Volume 90.8 Mean Corpuscular Hemoglobin 28.4 L Mean Corpuscular Hemoglobin Concent 31.3 L Red Cell Distribution Width 14.6 H Platelet Count 393 Mean Platelet Volume 9.7 Neutrophils % 80.9 H Lymphocytes % 10.5 L Monocytes % 6.0 Eosinophils % 1.2 Basophils % 0.2 Nucleated Red Blood Cells % 0.0 Neutrophils # 10.4 H Lymphocytes # 1.4 Monocytes # 0.8 Eosinophils # 0.2 Basophils # 0.0 Nucleated Red Blood Cells # 0.0 Sodium Level 143 Potassium Level 4.2 Chloride Level 101 Carbon Dioxide Level 29 Anion Gap 17 H Blood Urea Nitrogen 40 H Creatinine 1.54 H Glucose Level 132 # Calcium Level 8.6 Magnesium Level 2.0 Lab Scanned Report BLOOD TRANSFUSION Test 02/07/17 08:39 02/07/17 12:40 Bedside Glucose 138 132 Medications Medications Current Medications Acetaminophen (Tylenol Tab) 1,000 mg Q4H PRN PO PAIN AND OR ELEVATED TEMP; Start 01/29/17 at 16:00 Insulin Glargine (Lantus) 60 unit QHS SC Last administered on 02/06/17 21:30; Admin Dose 60 UNIT; Start 01/29/17 at 21:00 Loratadine (Claritin) 10 mg DAILY PO Last administered on 02/07/17 09:27; Admin Dose 10 MG; Start 01/30/17 at 09:00 Montelukast Sodium (Singulair) 10 mg QHS PO Last administered on 02/06/17 21:18 ; Admin Dose 10 MG; Start 01/29/17 at 21:00 Ondansetron HCl (Zofran Inj) 4 mg Q6H PRN IV NAUSEA AND/OR VOMITING; Start at 16:00 Acetaminophen (Tylenol Tab) 650 mg Q6H PRN PO PAIN LEVEL 1-3 OR FEVER Last administered on 02/01/17 14:23; Admin Dose 650 MG; Start 01/29/17 at 16:00 Acetaminophen (Tylenol Supp) 650 mg Q6H PRN [place] PAIN LEVEL 1-3 OR FEVER; Start 01/29/17 at 16:00 Acetaminophen/ Hydrocodone Bitart ([place] (5/325)) 1 tab Q6H PRN PO MODERATE PAIN LEVEL 4-6 Last administered on 02/05/17 20:36; Admin Dose 1 TAB; Start at 16:00 Acetaminophen/ Hydrocodone Bitart ([place] (5/325)) 2 tab Q6H PRN PO SEVERE PAIN LEVEL 7-10 Last administered on 02/06/17 21:26; Admin Dose 2 TAB; Start at 16:00 Docusate Sodium (Colace) 100 mg Q12H PRN PO CONSTIPATION Last administered on 09:05; Admin Dose 100 MG; Start 01/29/17 at 16:00 Magnesium Hydroxide (Milk Of Mag) 30 ml DAILY PRN PO CONSTIPATION Last administered on 02/03/17 09:09; Admin Dose 30 ML; Start 01/29/17 at 16:00 Bisacodyl (Dulcolax Supp) 10 mg DAILY PRN [place] CONSTIPATION; Start 01/29/17 at 16 :00 Diagnostic Test (Pha) (Accu-Chek) 1 ea 02 XX Last administered on 02/03/17 02: 00; Admin Dose 1 EA; Start 01/30/17 at 02:00 Salmeterol Xinafoate/ Fluticasone (Advair 250/50 Diskus) 1 inh BID INH Last administered on 02/07/17 09:23; Admin Dose 1 INH; Start 01/29/17 at 21:00 Miscellaneous Information 1 ea NOTE XX ; Start 01/29/17 at 17:00 Glucose (Glutose) 15 gm Q15M PRN PO DECREASED GLUCOSE; Start 01/29/17 at 17:00 Glucose (Glutose) 22.5 gm Q15M PRN PO DECREASED GLUCOSE; Start 01/29/17 at 17: 00 Dextrose (D50w Syringe) 25 ml Q15M PRN IV DECREASED GLUCOSE; Start 01/29/17 at 17:00 Dextrose (D50w Syringe) 50 ml Q15M PRN IV DECREASED GLUCOSE; Start 01/29/17 at 17:00 Glucagon (Glucagen) 1 mg Q15M PRN IM DECREASED GLUCOSE; Start 01/29/17 at 17:00 Glucose (Glutose) 15 gm Q15M PRN BUCCAL DECREASED GLUCOSE; Start 01/29/17 at 17 :00 Linagliptin (Tradjenta) 5 mg DAILY PO Last administered on 02/07/17 09:26; Admin Dose 5 MG; Start 01/31/17 at 09:00 Aspirin (Aspirin) 81 mg DAILY PO Last administered on 02/07/17 09:24; Admin Dose 81 MG; Start 01/31/17 at 09:00 Tramadol HCl 50 mg 50 mg Q6H PRN PO pain 6-10 Last administered on 02/01/17 09: 41; Admin Dose 50 MG; Start 01/31/17 at 10:30 Meropenem/Sodium Chloride (Merrem 1 Gm/50 ml (Pmx)) 50 ml @ 100 mls/hr Q12 IVPB Last administered on 02/07/17 09:30; Admin Dose 100 MLS/HR; Start 02/02/17 at 20:00 Apixaban (Eliquis) 10 mg BID PO Last administered on 02/07/17 09:26; Admin Dose 10 MG; Start 02/03/17 at 21:00; Stop 02/10/17 at 20:59 Apixaban 5 mg 5 mg BID PO ; Start 02/11/17 at 09:00 Daptomycin/Sodium Chloride (Cubicin/NS) 100 ml @ 200 mls/hr Q24H IVPB Last administered on 02/06/17 17:30; Admin Dose 200 MLS/HR; Start 02/03/17 at 17:00 Pantoprazole (Protonix Iv) 40 mg BID@06,18 IV Last administered on 02/07/17 05: 26; Admin Dose 40 MG; Start 02/03/17 at 18:30 Ferrous Sulfate (Ferrous Sulfate (Ec)) 325 mg BID PO Last administered on 09:25; Admin Dose 325 MG; Start 02/04/17 at 21:00; Stop 03/06/17 at 20:59 Metoprolol Succinate (Toprol Xl) 25 mg BID PO Last administered on 02/07/17 09: 24; Admin Dose 25 MG; Start 02/04/17 at 21:00 Ascorbic Acid (Vitamin C) 500 mg BID PO Last administered on 02/07/17 09:25; Admin Dose 500 MG; Start 02/04/17 at 21:00; Stop 03/06/17 at 20:59 Fludrocortisone Acetate (Florinef) 0.05 mg DAILY PO Last administered on 09:27; Admin Dose 0.05 MG; Start 02/04/17 at 11:00 Morphine Sulfate (morphine) 2 mg Q4H PRN IV SEVERE PAIN LEVEL 7-10; Start at 12:00 Allopurinol (Zyloprim) 300 mg DAILY PO Last administered on 02/07/17 09:25; Admin Dose 300 MG; Start 02/06/17 at 09:00 Lisinopril 10 mg 10 mg BID PO Last administered on 02/07/17 09:27; Admin Dose 10 MG; Start 02/05/17 at 21:00 Ferric Sodium Gluconate Complex/ Sodium Chloride (Ferrlecit/NS) 110 ml @ 100 mls/hr Q24H IVPB Last administered on 02/06/17 18:46; Admin Dose 100 MLS/HR; Start 02/06/17 at 17:30; Stop 02/08/17 at 18:35 Nystatin (Nystatin Susp) 5 ml QID PO Last administered on 02/07/17 12:44; Admin Dose 5 ML; Start 02/06/17 at 23:00 TAHIR LOPEZ NP Feb 07, 2017 13:29
--- NOTE | 2017-02-07 15:35 | PN ---
Date/Time of Note Date/Time of Note DATE: 02/07/17 TIME: 15:27 Assessment/Plan VTE Prophylaxis VTE Prophylaxis Intervention: other (Eliquis) Lines/Catheters IV Catheter Type (from Nrs): [place] Lock Urinary Cath still in place: No Assessment/Plan Chief Complaint/Hosp Course 1. Left lower extremity cellulitis/ left second toe gangrenous ulcer. Improving gradually. MRI without evidence of necrotizing fasciitis. -On Dapto+Meropenem. --ID/Podiatry on board and will follow recs. -Continue wound care 2.Left lower extremity acute deep vein thrombosis. VQ scan with low probability for PE. --Status post IVC filter placed on 02/01/2017. -On Eliquis per vascular recs 3. Systolic and diastolic congestive heart failure. Echocardiogram with lower limits systolic function with ejection fraction 50-55%. -Diuresis, BB and ASA. Statin contraindicated as pt on Dapto. -Cards on board 4. Hypoxic respiratory failure, multifactorial most likely secondary to possible CHF, pulmonary hypertension, acute anemia, sepsis and underlying asthma and obesity. Now with minimal O2 requirements. -On ICH +LULI PRN -Pulmo on board 5. Anemia combined iron deficiency + chronic illness,. H&H improved with transfusion and iron replacement. No evidence of bleeding. -S/p EGD with erosive esophagitis -On iron replacement, Monitor H&H closely and monitor for any bleeding. -Pending stool OB 6. Aurora esophagitis/moderate Gastritis. -PPIs,Diflucan 7. Status post sepsis secondary to ESBL UTI -ID on board and on appropriate antibiotics.-Course to be determined . 8. DMII. A1c 6.8. -Continue accuchecks/ISS/Lantus/tradjenta 9. Essential hypertension. -Continue Coreg and adjust needed 10. REMI on CKD with Diabetic nephropathy. Renal fxn improved -Renally dose meds-Monitor renal fxn closely and f/u with nephro recs. 11. Pulmonary hypertension -Oxygen and diuretics. 12.Asthma. -Continue ICH 13.Morbid obesity. Weight reduction advised. 14.Obesity induced hypoventilation -Weight reduction advised. Sleep/CPAP study as outpatient. PLAN: Overall LLE symptoms improving slowly. Overall improvement in resp status , requiring lesser O2. Obtain room air O2 and CM to initiate home o2 supply if indicated. ID to determine abx duration and consider PICC line and HH if indicated. Case discussed with Problems: Subjective 24 Hr Interval Summary Free Text/Dictation No acute overnight episodes. Now requires Exam/Review of Systems Vital Signs Vitals Vital Signs Date Time Temp Pulse Resp B/P Pulse Ox O2 Delivery O2 Flow Rate FiO2 02/07/17 13:53 98.2 89 20 141/65 97 02/07/17 13:13 Nasal Cannula 2.0 02/06/17 14:06 21 Intake and Output 02/06/17 02/06/17 02/07/17 15:00 23:00 07:00 Intake Total 260 ml 540 ml Balance 260 ml 540 ml Exam General: Morbidly obese female HEENT: Normocephalic, Atraumatic, No laceration or hematoma; Eyes: PEERL, Conjunctiva clear, Anicteric sclera Neck: Supple without any lymphadenopathy, nontender, no JVD, no carotid bruits, trachea midline, no thyromegaly Cardiac: S1, S2 auscultated, regular rhythm and rate, no mumurs or gallop Pulmonary: Decreased breath sounds bibasilar. Normal respiratory effort. Chest clear to auscultation bilaterally, no adventitious breath sounds GI: Abdomen obese to inspection. Soft, non- distended, no masses, no rebound tenderness or guarding. Bowel sounds active on all four quadrants Genitourinary: Deferred Extremities:Edema+ on BLE. LLE with edema/warmth/redness/tenderness-improved from previous exam.Dressing dry/intact. Pulses [1+] bilaterally. Full ROM on all four extremities. No focal weakness appreciated. Neurologic: Alert to person, place, time, and situation. Affect appropriate, intact sensation. Skin: Pale looking. Clean,dry, and intact. No ecchymosis, no rashes, or lesions Results Result Diagram: 02/07/17 0439 02/07/17 0439 Results 24 hrs Laboratory Tests Test 02/06/17 17:43 02/06/17 21:27 02/07/17 04:39 02/07/17 08:14 Bedside Glucose 189 106 White Blood Count 12.9 H Red Blood Count 2.82 L Hemoglobin 8.0 L Hematocrit 25.6 L Mean Corpuscular Volume 90.8 Mean Corpuscular Hemoglobin 28.4 L Mean Corpuscular Hemoglobin Concent 31.3 L Red Cell Distribution Width 14.6 H Platelet Count 393 Mean Platelet Volume 9.7 Neutrophils % 80.9 H Lymphocytes % 10.5 L Monocytes % 6.0 Eosinophils % 1.2 Basophils % 0.2 Nucleated Red Blood Cells % 0.0 Neutrophils # 10.4 H Lymphocytes # 1.4 Monocytes # 0.8 Eosinophils # 0.2 Basophils # 0.0 Nucleated Red Blood Cells # 0.0 Sodium Level 143 Potassium Level 4.2 Chloride Level 101 Carbon Dioxide Level 29 Anion Gap 17 H Blood Urea Nitrogen 40 H Creatinine 1.54 H Glucose Level 132 # Calcium Level 8.6 Magnesium Level 2.0 Lab Scanned Report BLOOD TRANSFUSION Test 02/07/17 08:39 02/07/17 12:40 Bedside Glucose 138 132 Medications Medications Current Medications Acetaminophen (Tylenol Tab) 1,000 mg Q4H PRN PO PAIN AND OR ELEVATED TEMP; Start 01/29/17 at 16:00 Insulin Glargine (Lantus) 60 unit QHS SC Last administered on 02/06/17 21:30; Admin Dose 60 UNIT; Start 01/29/17 at 21:00 Loratadine (Claritin) 10 mg DAILY PO Last administered on 02/07/17 09:27; Admin Dose 10 MG; Start 01/30/17 at 09:00 Montelukast Sodium (Singulair) 10 mg QHS PO Last administered on 02/06/17 21:18 ; Admin Dose 10 MG; Start 01/29/17 at 21:00 Ondansetron HCl (Zofran Inj) 4 mg Q6H PRN IV NAUSEA AND/OR VOMITING; Start at 16:00 Acetaminophen (Tylenol Tab) 650 mg Q6H PRN PO PAIN LEVEL 1-3 OR FEVER Last administered on 02/01/17 14:23; Admin Dose 650 MG; Start 01/29/17 at 16:00 Acetaminophen (Tylenol Supp) 650 mg Q6H PRN [place] PAIN LEVEL 1-3 OR FEVER; Start 01/29/17 at 16:00 Acetaminophen/ Hydrocodone Bitart ([place] (5/325)) 1 tab Q6H PRN PO MODERATE PAIN LEVEL 4-6 Last administered on 02/05/17 20:36; Admin Dose 1 TAB; Start at 16:00 Acetaminophen/ Hydrocodone Bitart ([place] (5/325)) 2 tab Q6H PRN PO SEVERE PAIN LEVEL 7-10 Last administered on 02/06/17 21:26; Admin Dose 2 TAB; Start at 16:00 Docusate Sodium (Colace) 100 mg Q12H PRN PO CONSTIPATION Last administered on 09:05; Admin Dose 100 MG; Start 01/29/17 at 16:00 Magnesium Hydroxide (Milk Of Mag) 30 ml DAILY PRN PO CONSTIPATION Last administered on 02/03/17 09:09; Admin Dose 30 ML; Start 01/29/17 at 16:00 Bisacodyl (Dulcolax Supp) 10 mg DAILY PRN [place] CONSTIPATION; Start 01/29/17 at 16 :00 Diagnostic Test (Pha) (Accu-Chek) 1 ea 02 XX Last administered on 02/03/17 02: 00; Admin Dose 1 EA; Start 01/30/17 at 02:00 Salmeterol Xinafoate/ Fluticasone (Advair 250/50 Diskus) 1 inh BID INH Last administered on 02/07/17 09:23; Admin Dose 1 INH; Start 01/29/17 at 21:00 Miscellaneous Information 1 ea NOTE XX ; Start 01/29/17 at 17:00 Glucose (Glutose) 15 gm Q15M PRN PO DECREASED GLUCOSE; Start 01/29/17 at 17:00 Glucose (Glutose) 22.5 gm Q15M PRN PO DECREASED GLUCOSE; Start 01/29/17 at 17: 00 Dextrose (D50w Syringe) 25 ml Q15M PRN IV DECREASED GLUCOSE; Start 01/29/17 at 17:00 Dextrose (D50w Syringe) 50 ml Q15M PRN IV DECREASED GLUCOSE; Start 01/29/17 at 17:00 Glucagon (Glucagen) 1 mg Q15M PRN IM DECREASED GLUCOSE; Start 01/29/17 at 17:00 Glucose (Glutose) 15 gm Q15M PRN BUCCAL DECREASED GLUCOSE; Start 01/29/17 at 17 :00 Linagliptin (Tradjenta) 5 mg DAILY PO Last administered on 02/07/17 09:26; Admin Dose 5 MG; Start 01/31/17 at 09:00 Aspirin (Aspirin) 81 mg DAILY PO Last administered on 02/07/17 09:24; Admin Dose 81 MG; Start 01/31/17 at 09:00 Tramadol HCl 50 mg 50 mg Q6H PRN PO pain 6-10 Last administered on 02/01/17 09: 41; Admin Dose 50 MG; Start 01/31/17 at 10:30 Meropenem/Sodium Chloride ([place] 1 Gm/50 ml (Pmx)) 50 ml @ 100 mls/hr Q12 IVPB Last administered on 02/07/17 09:30; Admin Dose 100 MLS/HR; Start 02/02/17 at 20:00 Apixaban (Eliquis) 10 mg BID PO Last administered on 02/07/17 09:26; Admin Dose 10 MG; Start 02/03/17 at 21:00; Stop 02/10/17 at 20:59 Apixaban 5 mg 5 mg BID PO ; Start 02/11/17 at 09:00 Daptomycin/Sodium Chloride (Cubicin/NS) 100 ml @ 200 mls/hr Q24H IVPB Last administered on 02/06/17 17:30; Admin Dose 200 MLS/HR; Start 02/03/17 at 17:00 Pantoprazole (Protonix Iv) 40 mg BID@06,18 IV Last administered on 02/07/17 05: 26; Admin Dose 40 MG; Start 02/03/17 at 18:30 Ferrous Sulfate (Ferrous Sulfate (Ec)) 325 mg BID PO Last administered on 09:25; Admin Dose 325 MG; Start 02/04/17 at 21:00; Stop 03/06/17 at 20:59 Metoprolol Succinate (Toprol Xl) 25 mg BID PO Last administered on 02/07/17 09: 24; Admin Dose 25 MG; Start 02/04/17 at 21:00 Ascorbic Acid (Vitamin C) 500 mg BID PO Last administered on 02/07/17 09:25; Admin Dose 500 MG; Start 02/04/17 at 21:00; Stop 03/06/17 at 20:59 Fludrocortisone Acetate (Florinef) 0.05 mg DAILY PO Last administered on 09:27; Admin Dose 0.05 MG; Start 02/04/17 at 11:00 Morphine Sulfate (morphine) 2 mg Q4H PRN IV SEVERE PAIN LEVEL 7-10; Start at 12:00 Allopurinol (Zyloprim) 300 mg DAILY PO Last administered on 02/07/17 09:25; Admin Dose 300 MG; Start 02/06/17 at 09:00 Lisinopril 10 mg 10 mg BID PO Last administered on 02/07/17 09:27; Admin Dose 10 MG; Start 02/05/17 at 21:00 Ferric Sodium Gluconate Complex/ Sodium Chloride (Ferrlecit/NS) 110 ml @ 100 mls/hr Q24H IVPB Last administered on 02/06/17 18:46; Admin Dose 100 MLS/HR; Start 02/06/17 at 17:30; Stop 02/08/17 at 18:35 Nystatin (Nystatin Susp) 5 ml QID PO Last administered on 02/07/17 12:44; Admin Dose 5 ML; Start 02/06/17 at 23:00 DEBBIE MESA NP Feb 07, 2017 15:35
--- NOTE | 2017-02-07 15:40 | CONS ---
Date/Time of Note Date/Time of Note DATE: 02/07/17 TIME: 15:28 Assessment/Plan Assessment/Plan Chief Complaint/Hosp Course ID PROGRESS NOTE CURRENT ABX: => MERREM #7 + Daptomycin #6 +Diflucan #5 TOTAL ABX DAY #10 Ceftriaxone #5-> DC 8 s/p Zosyn/Clinda 01/29-> DC'd 24 HOUR INTERVAL SUMMARY * LLEXT w/persisting severe edema, fluid vesicles -- still wrapped. * No fevers. WBC rising -> Started on Diflucan last night for EGD findings aurora esophagitis * EGD PATHO REPORT=> (+)Aurora Esophagitis / (-)H.Pylori Exam Constitutional: alert, oriented, well developed Head: atraumatic, normocephalic Eyes: EOMI, PERRL Respiratory: clear to auscultation, normal air movement Cardiovascular: nl pulses, regular rate and rhythm Gastrointestinal: Soft (+)BS Extremities: LLEXT cellulitis + gangrenous changes 2nd toe ulcer * LLEXT still w/significant edema and fluid small vesicle formation weeping edema Neurological: nl mental status, nl speech, nl strength ID ASSESSMENT 51 yo F PMHx morbid obesity admit with: 1. Resolving sepsis secondary to ESBL UTI => SIRS w/leukocytosis persisting post EGD 2. E.Coli-ESBL UTI 01/29 * Repeat Urine 01/29 (-) 3. Bacteremia / bottles from ED: BLOOD CULTURE Final COAGULASE NEGATIVE STAPH * Repeat cultures negative. 4. Left lower extremity cellulitis/ left second toe gangrenous ulcer. * Xray with soft tissue swelling on Fibula/Tibia. MRI without evidence of necrotizing fasciitis. 5. Peripheral vascular disease (PVD)=> Venous + Arterial * PAD:Arterial Duplex=> 1. Abnormal flow bilaterally in the calf arteries consistent with significant stenosis. 2. Significant stenosis in the left mid superficial femoral artery. * VENOUS: Left lower extremity acute deep vein thrombosis. VQ scan with low probability for PE. -- -Status post IVC filter placed on 02/01/2017 6. Systolic and diastolic congestive heart failure. Echo EF ~50-55%. 7 . Hypoxic respiratory failure, multifactorial most likely secondary to possible CHF, pulmonary hypertension, acute anemia, sepsis and underlying asthma and obesity=> RESOLVED 8. Anemia, now acute on chronic. H&H improved with transfusion. No evidence of bleeding. * GI -> EGD 02/03/17 (+)Aurora Esophagitis / (-)H.Pylori 9. DMII. A1c 6.8. 10. Essential hypertension w/cardiomegaly on CXR 11. Pulmonary edema -- possibly CHF due to HTN heart disease cor pulmonale vs diastolic dysfx * (+)PHTN 13. COPD: Asthma + restrictive component due to obesity; possibly obesity hypoventilation syndrome suspected * Pulmonary hypertension-> 2/2 #13 14. Possible HCAP => DDx silent aspiration pneumonitis vs pna per multiple risk factors below: * CXR: Mild pulmonary vascular congestion with pleural effusions, findings suggesting congestive heart failure. * Wet lungs at risk bacterial infection * Asthma * Obesity * GERD/Gastritis/Esophagitis * Suspect obesity hypoventilation syndrome 16. (+)Aurora Esophagitis / (-)H.Pylori per EGD (-)MRSA Nares CURRENT ABX: =>+ Daptomycin #6 +Diflucan #5 TOTAL ABX DAY #10 MERREM #7 => DC today Ceftriaxone #5-> DC / s/p Zosyn/Clinda 01/29-> DC'd ID RECOMMENDATIONS=> DC Planning possibly for AM 1. DC MERREM #7 => Start Cipro 500mg po BID 2. Continue Dapto IV NO STATIN RX WHILE ON DAPTO => Please do not start vs HOLD Statin 3. Diflucan for severe aurora esophagitis-> completed 5 doses per GI, may need longer course since she remains on ABX 4. PO + Nystatin 5mL PO swish/swallow 5. Avoid renal toxic ABX-> Cards needs room for diuretics . . Problems: Consultation Date/Type/Reason Admit Date/Time Jan 29, 2017 at 13:15 Initial Consult Date Type of Consultation: ID Exam/Review of Systems Vital Signs Vitals Vital Signs Date Time Temp Pulse Resp B/P Pulse Ox O2 Delivery O2 Flow Rate FiO2 02/07/17 13:53 98.2 89 20 141/65 97 02/07/17 13:13 Nasal Cannula 2.0 8/7/17 14:06 21 Intake and Output 02/06/17 02/06/17 02/07/17 15:00 23:00 07:00 Intake Total 260 ml 540 ml Balance 260 ml 540 ml Results Result Diagram: 02/07/17 0439 02/07/17 0439 Results 24 hrs Laboratory Tests Test 02/06/17 17:43 02/06/17 21:27 02/07/17 04:39 02/07/17 08:14 Bedside Glucose 189 106 White Blood Count 12.9 H Red Blood Count 2.82 L Hemoglobin 8.0 L Hematocrit 25.6 L Mean Corpuscular Volume 90.8 Mean Corpuscular Hemoglobin 28.4 L Mean Corpuscular Hemoglobin Concent 31.3 L Red Cell Distribution Width 14.6 H Platelet Count 393 Mean Platelet Volume 9.7 Neutrophils % 80.9 H Lymphocytes % 10.5 L Monocytes % 6.0 Eosinophils % 1.2 Basophils % 0.2 Nucleated Red Blood Cells % 0.0 Neutrophils # 10.4 H Lymphocytes # 1.4 Monocytes # 0.8 Eosinophils # 0.2 Basophils # 0.0 Nucleated Red Blood Cells # 0.0 Sodium Level 143 Potassium Level 4.2 Chloride Level 101 Carbon Dioxide Level 29 Anion Gap 17 H Blood Urea Nitrogen 40 H Creatinine 1.54 H Glucose Level 132 # Calcium Level 8.6 Magnesium Level 2.0 Lab Scanned Report BLOOD TRANSFUSION Test 02/07/17 08:39 02/07/17 12:40 Bedside Glucose 138 132 Medications Medications Current Medications Acetaminophen (Tylenol Tab) 1,000 mg Q4H PRN PO PAIN AND OR ELEVATED TEMP; Start 01/29/17 at 16:00 Insulin Glargine (Lantus) 60 unit QHS SC Last administered on 02/06/17 21:30; Admin Dose 60 UNIT; Start 01/29/17 at 21:00 Loratadine (Claritin) 10 mg DAILY PO Last administered on 02/07/17 09:27; Admin Dose 10 MG; Start 01/30/17 at 09:00 Montelukast Sodium (Singulair) 10 mg QHS PO Last administered on 02/06/17 21:18 ; Admin Dose 10 MG; Start 01/29/17 at 21:00 Ondansetron HCl (Zofran Inj) 4 mg Q6H PRN IV NAUSEA AND/OR VOMITING; Start at 16:00 Acetaminophen (Tylenol Tab) 650 mg Q6H PRN PO PAIN LEVEL 1-3 OR FEVER Last administered on 02/01/17 14:23; Admin Dose 650 MG; Start 01/29/17 at 16:00 Acetaminophen (Tylenol Supp) 650 mg Q6H PRN [place] PAIN LEVEL 1-3 OR FEVER; Start 01/29/17 at 16:00 Acetaminophen/ Hydrocodone Bitart ([place] (5/325)) 1 tab Q6H PRN PO MODERATE PAIN LEVEL 4-6 Last administered on 02/05/17 20:36; Admin Dose 1 TAB; Start at 16:00 Acetaminophen/ Hydrocodone Bitart ([place] (5/325)) 2 tab Q6H PRN PO SEVERE PAIN LEVEL 7-10 Last administered on 02/06/17 21:26; Admin Dose 2 TAB; Start at 16:00 Docusate Sodium (Colace) 100 mg Q12H PRN PO CONSTIPATION Last administered on 09:05; Admin Dose 100 MG; Start 01/29/17 at 16:00 Magnesium Hydroxide (Milk Of Mag) 30 ml DAILY PRN PO CONSTIPATION Last administered on 02/03/17 09:09; Admin Dose 30 ML; Start 01/29/17 at 16:00 Bisacodyl (Dulcolax Supp) 10 mg DAILY PRN [place] CONSTIPATION; Start 01/29/17 at 16 :00 Diagnostic Test (Pha) (Accu-Chek) 1 ea 02 XX Last administered on 02/03/17 02: 00; Admin Dose 1 EA; Start 01/30/17 at 02:00 Salmeterol Xinafoate/ Fluticasone (Advair 250/50 Diskus) 1 inh BID INH Last administered on 02/07/17 09:23; Admin Dose 1 INH; Start 01/29/17 at 21:00 Miscellaneous Information 1 ea NOTE XX ; Start 01/29/17 at 17:00 Glucose (Glutose) 15 gm Q15M PRN PO DECREASED GLUCOSE; Start 01/29/17 at 17:00 Glucose (Glutose) 22.5 gm Q15M PRN PO DECREASED GLUCOSE; Start 01/29/17 at 17: 00 Dextrose (D50w Syringe) 25 ml Q15M PRN IV DECREASED GLUCOSE; Start 01/29/17 at 17:00 Dextrose (D50w Syringe) 50 ml Q15M PRN IV DECREASED GLUCOSE; Start 01/29/17 at 17:00 Glucagon (Glucagen) 1 mg Q15M PRN IM DECREASED GLUCOSE; Start 01/29/17 at 17:00 Glucose (Glutose) 15 gm Q15M PRN BUCCAL DECREASED GLUCOSE; Start 01/29/17 at 17 :00 Linagliptin (Tradjenta) 5 mg DAILY PO Last administered on 02/07/17 09:26; Admin Dose 5 MG; Start 01/31/17 at 09:00 Aspirin (Aspirin) 81 mg DAILY PO Last administered on 02/07/17 09:24; Admin Dose 81 MG; Start 01/31/17 at 09:00 Tramadol HCl 50 mg 50 mg Q6H PRN PO pain 6-10 Last administered on 02/01/17 09: 41; Admin Dose 50 MG; Start 01/31/17 at 10:30 Meropenem/Sodium Chloride (Merrem 1 Gm/50 ml (Pmx)) 50 ml @ 100 mls/hr Q12 IVPB Last administered on 02/07/17 09:30; Admin Dose 100 MLS/HR; Start 02/02/17 at 20:00 Apixaban (Eliquis) 10 mg BID PO Last administered on 02/07/17 09:26; Admin Dose 10 MG; Start 02/03/17 at 21:00; Stop 02/10/17 at 20:59 Apixaban 5 mg 5 mg BID PO ; Start 02/11/17 at 09:00 Daptomycin/Sodium Chloride (Cubicin/NS) 100 ml @ 200 mls/hr Q24H IVPB Last administered on 02/06/17 17:30; Admin Dose 200 MLS/HR; Start 02/03/17 at 17:00 Pantoprazole (Protonix Iv) 40 mg BID@06,18 IV Last administered on 02/07/17 05: 26; Admin Dose 40 MG; Start 02/03/17 at 18:30 Ferrous Sulfate (Ferrous Sulfate (Ec)) 325 mg BID PO Last administered on 09:25; Admin Dose 325 MG; Start 02/04/17 at 21:00; Stop 03/06/17 at 20:59 Metoprolol Succinate (Toprol Xl) 25 mg BID PO Last administered on 02/07/17 09: 24; Admin Dose 25 MG; Start 02/04/17 at 21:00 Ascorbic Acid (Vitamin C) 500 mg BID PO Last administered on 02/07/17 09:25; Admin Dose 500 MG; Start 02/04/17 at 21:00; Stop 03/06/17 at 20:59 Fludrocortisone Acetate (Florinef) 0.05 mg DAILY PO Last administered on 09:27; Admin Dose 0.05 MG; Start 02/04/17 at 11:00 Morphine Sulfate (morphine) 2 mg Q4H PRN IV SEVERE PAIN LEVEL 7-10; Start at 12:00 Allopurinol (Zyloprim) 300 mg DAILY PO Last administered on 02/07/17 09:25; Admin Dose 300 MG; Start 02/06/17 at 09:00 Lisinopril 10 mg 10 mg BID PO Last administered on 02/07/17 09:27; Admin Dose 10 MG; Start 02/05/17 at 21:00 Ferric Sodium Gluconate Complex/ Sodium Chloride (Ferrlecit/NS) 110 ml @ 100 mls/hr Q24H IVPB Last administered on 02/06/17 18:46; Admin Dose 100 MLS/HR; Start 02/06/17 at 17:30; Stop 02/08/17 at 18:35 Nystatin (Nystatin Susp) 5 ml QID PO Last administered on 02/07/17 12:44; Admin Dose 5 ML; Start 02/06/17 at 23:00 TAHIR LOPEZ NP Feb 07, 2017 15:40
--- NOTE | 2017-02-07 15:50 | PN ---
Date/Time of Note Date/Time of Note DATE: 02/07/17 TIME: 15:47 Assessment/Plan VTE Prophylaxis VTE Prophylaxis Intervention: contraindicated VTE Contraindication Reason: bleeding Lines/Catheters IV Catheter Type (from [facility]): Saline Lock Urinary Cath still in place: No Assessment/Plan Assessment/Plan Assessment * Anemia * GI bleed EGD 02/03/2017 Impression: * Severe erosive/ulcerated esophagitis * Probable Aurora esophagitis. Biopsies obtained * Moderate gastritis. Rule out H. pylori infection. Biopsies obtained * Deep venous thrombosis left femoral * Cellulitis left lower extremities * Acute kidney injury Plan * Continue Protonix twice daily plus Diflucan * Case discussed with DR Okeefe * Further orders will depend on clinical course * Monitor H&H Subjective 24 Hr Interval Summary Free Text/Dictation * Course reviewed with RN * Patient seen and examined * No untoward events overnight Exam/Review of Systems Vital Signs Vitals Vital Signs Date Time Temp Pulse Resp B/P Pulse Ox O2 Delivery O2 Flow Rate FiO2 02/07/17 13:53 98.2 89 20 141/65 97 02/07/17 13:13 Nasal Cannula 2.0 02/06/17 14:06 21 Intake and Output 02/06/17 02/06/17 02/07/17 15:00 23:00 07:00 Intake Total 260 ml 540 ml Balance 260 ml 540 ml Exam Constitutional: alert Head: normocephalic ENMT: nl nasal mucosa & septum Neck: non-tender, supple Respiratory: clear to auscultation, normal air movement Cardiovascular: nl pulses, regular rate and rhythm Gastrointestinal: non-tender, soft Musculoskeletal: nl gait and stance, swelling Extremities: normal pulses Neurological: nl speech, nl strength Skin: nl turgor, No rash or lesions Lymph: nl lymph nodes Results Result Diagram: 02/07/17 0439 02/07/17 0439 Results 24 hrs Laboratory Tests Test 02/06/17 17:43 02/06/17 21:27 02/07/17 04:39 02/07/17 08:14 Bedside Glucose 189 106 White Blood Count 12.9 H Red Blood Count 2.82 L Hemoglobin 8.0 L Hematocrit 25.6 L Mean Corpuscular Volume 90.8 Mean Corpuscular Hemoglobin 28.4 L Mean Corpuscular Hemoglobin Concent 31.3 L Red Cell Distribution Width 14.6 H Platelet Count 393 Mean Platelet Volume 9.7 Neutrophils % 80.9 H Lymphocytes % 10.5 L Monocytes % 6.0 Eosinophils % 1.2 Basophils % 0.2 Nucleated Red Blood Cells % 0.0 Neutrophils # 10.4 H Lymphocytes # 1.4 Monocytes # 0.8 Eosinophils # 0.2 Basophils # 0.0 Nucleated Red Blood Cells # 0.0 Sodium Level 143 Potassium Level 4.2 Chloride Level 101 Carbon Dioxide Level 29 Anion Gap 17 H Blood Urea Nitrogen 40 H Creatinine 1.54 H Glucose Level 132 # Calcium Level 8.6 Magnesium Level 2.0 Lab Scanned Report BLOOD TRANSFUSION Test 02/07/17 08:39 02/07/17 12:40 Bedside Glucose 138 132 Medications Medications Current Medications Acetaminophen (Tylenol Tab) 1,000 mg Q4H PRN PO PAIN AND OR ELEVATED TEMP; Start 01/29/17 at 16:00 Insulin Glargine (Lantus) 60 unit QHS SC Last administered on 02/06/17 21:30; Admin Dose 60 UNIT; Start 01/29/17 at 21:00 Loratadine (Claritin) 10 mg DAILY PO Last administered on 02/07/17 09:27; Admin Dose 10 MG; Start 01/30/17 at 09:00 Montelukast Sodium (Singulair) 10 mg QHS PO Last administered on 02/06/17 21:18 ; Admin Dose 10 MG; Start 01/29/17 at 21:00 Ondansetron HCl (Zofran Inj) 4 mg Q6H PRN IV NAUSEA AND/OR VOMITING; Start at 16:00 Acetaminophen (Tylenol Tab) 650 mg Q6H PRN PO PAIN LEVEL 1-3 OR FEVER Last administered on 02/01/17 14:23; Admin Dose 650 MG; Start 01/29/17 at 16:00 Acetaminophen (Tylenol Supp) 650 mg Q6H PRN [place] PAIN LEVEL 1-3 OR FEVER; Start 01/29/17 at 16:00 Acetaminophen/ Hydrocodone Bitart ([place] (5/325)) 1 tab Q6H PRN PO MODERATE PAIN LEVEL 4-6 Last administered on 02/05/17 20:36; Admin Dose 1 TAB; Start at 16:00 Acetaminophen/ Hydrocodone Bitart ([place] (5/325)) 2 tab Q6H PRN PO SEVERE PAIN LEVEL 7-10 Last administered on 02/06/17 21:26; Admin Dose 2 TAB; Start at 16:00 Docusate Sodium (Colace) 100 mg Q12H PRN PO CONSTIPATION Last administered on 09:05; Admin Dose 100 MG; Start 01/29/17 at 16:00 Magnesium Hydroxide (Milk Of Mag) 30 ml DAILY PRN PO CONSTIPATION Last administered on 02/03/17 09:09; Admin Dose 30 ML; Start 01/29/17 at 16:00 Bisacodyl (Dulcolax Supp) 10 mg DAILY PRN [place] CONSTIPATION; Start 01/29/17 at 16 :00 Diagnostic Test (Pha) (Accu-Chek) 1 ea 02 XX Last administered on 02/03/17 02: 00; Admin Dose 1 EA; Start 01/30/17 at 02:00 Salmeterol Xinafoate/ Fluticasone (Advair 250/50 Diskus) 1 inh BID INH Last administered on 02/07/17 09:23; Admin Dose 1 INH; Start 01/29/17 at 21:00 Miscellaneous Information 1 ea NOTE XX ; Start 01/29/17 at 17:00 Glucose (Glutose) 15 gm Q15M PRN PO DECREASED GLUCOSE; Start 01/29/17 at 17:00 Glucose (Glutose) 22.5 gm Q15M PRN PO DECREASED GLUCOSE; Start 01/29/17 at 17: 00 Dextrose (D50w Syringe) 25 ml Q15M PRN IV DECREASED GLUCOSE; Start 01/29/17 at 17:00 Dextrose (D50w Syringe) 50 ml Q15M PRN IV DECREASED GLUCOSE; Start 01/29/17 at 17:00 Glucagon (Glucagen) 1 mg Q15M PRN IM DECREASED GLUCOSE; Start 01/29/17 at 17:00 Glucose (Glutose) 15 gm Q15M PRN BUCCAL DECREASED GLUCOSE; Start 01/29/17 at 17 :00 Linagliptin (Tradjenta) 5 mg DAILY PO Last administered on 02/07/17 09:26; Admin Dose 5 MG; Start 01/31/17 at 09:00 Aspirin (Aspirin) 81 mg DAILY PO Last administered on 02/07/17 09:24; Admin Dose 81 MG; Start 01/31/17 at 09:00 Tramadol HCl (Ultram) 50 mg Q6H PRN PO pain 6-10 Last administered on 02/01/17 09:41; Admin Dose 50 MG; Start 01/31/17 at 10:30 Apixaban (Eliquis) 10 mg BID PO Last administered on 02/07/17 09:26; Admin Dose 10 MG; Start 02/03/17 at 21:00; Stop 02/10/17 at 20:59 Apixaban 5 mg 5 mg BID PO ; Start 02/11/17 at 09:00 Daptomycin/Sodium Chloride (Cubicin/NS) 100 ml @ 200 mls/hr Q24H IVPB Last administered on 02/06/17 17:30; Admin Dose 200 MLS/HR; Start 02/03/17 at 17:00 Pantoprazole (Protonix Iv) 40 mg BID@06,18 IV Last administered on 02/07/17 05: 26; Admin Dose 40 MG; Start 02/03/17 at 18:30 Ferrous Sulfate (Ferrous Sulfate (Ec)) 325 mg BID PO Last administered on 09:25; Admin Dose 325 MG; Start 02/04/17 at 21:00; Stop 03/06/17 at 20:59 Metoprolol Succinate (Toprol Xl) 25 mg BID PO Last administered on 02/07/17 09: 24; Admin Dose 25 MG; Start 02/04/17 at 21:00 Ascorbic Acid (Vitamin C) 500 mg BID PO Last administered on 02/07/17 09:25; Admin Dose 500 MG; Start 02/04/17 at 21:00; Stop 03/06/17 at 20:59 Fludrocortisone Acetate (Florinef) 0.05 mg DAILY PO Last administered on 09:27; Admin Dose 0.05 MG; Start 02/04/17 at 11:00 Morphine Sulfate (morphine) 2 mg Q4H PRN IV SEVERE PAIN LEVEL 7-10; Start at 12:00 Allopurinol (Zyloprim) 300 mg DAILY PO Last administered on 02/07/17 09:25; Admin Dose 300 MG; Start 02/06/17 at 09:00 Lisinopril 10 mg 10 mg BID PO Last administered on 02/07/17 09:27; Admin Dose 10 MG; Start 02/05/17 at 21:00 Ferric Sodium Gluconate Complex/ Sodium Chloride (Ferrlecit/NS) 110 ml @ 100 mls/hr Q24H IVPB Last administered on 02/06/17 18:46; Admin Dose 100 MLS/HR; Start 02/06/17 at 17:30; Stop 02/08/17 at 18:35 Nystatin (Nystatin Susp) 5 ml QID PO Last administered on 02/07/17 12:44; Admin Dose 5 ML; Start 02/06/17 at 23:00 Ciprofloxacin (Cipro) 500 mg BID@06,18 PO ; Start 02/07/17 at 18:00 JIMMY MICHAUD NP Feb 07, 2017 15:50
[2017-02-07] MEDS: SOD CHLORIDE 0.9% IVPB SCH (16:41)
[2017-02-07] MEDS: DAPTOMYCIN IVPB SCH (16:41)
[2017-02-07] MEDS: SOD FERRIC GLUC COMPLX 125 MG in SOD CHLORIDE 0.9% 100 ML IVPB SCH (18:36)
[2017-02-07] MEDS: CIPROFLOXACIN 500 MG TAB PO SCH (18:36)
--- NOTE | 2017-02-07 19:41 | CONS ---
Date/Time of Note Date/Time of Note DATE: 02/07/17 TIME: 19:40 Assessment/Plan Assessment/Plan Chief Complaint/Hosp Course Assessment: Acute on chronic diastolic heart failure - LVEF 50-55% on echocardiogram Pulmonary hypertension - RVSP 57 mmHg on echocardiogram Acute kidney injury on chronic kidney disease Acute on chronic anemia - status post pRBC transfusions, upper endoscopy pending Left lower extremity cellulitis and left second toe gangrenous ulcer - on antibiotics per infectious disease Bilateral peripheral vascular disease - per vascular surgery Left lower extremity deep vein thrombosis - V/Q scan low probability for pulmonary embolism, status post IVC filter 02/01/2017 ESBL urinary tract infection - resolving Hypertension Diabetes mellitus Asthma Morbid obesity Recommendations: -continue Lasix 20mg IV BID, monitor renal function -continue metoprolol succinate and lisinopril Problems: Consultation Date/Type/Reason Admit Date/Time Jan 29, 2017 at 13:15 Initial Consult Date 02/03/17 Type of Consultation: Cardiology 24 HR Interval Summary Free Text/Dictation No acute events. Detailed Summary Additional Comments 14 point review of systems without changes. Exam/Review of Systems Vital Signs Vitals Vital Signs Date Time Temp Pulse Resp B/P Pulse Ox O2 Delivery O2 Flow Rate FiO2 02/07/17 19:35 100.0 89 20 182/76 96 02/07/17 16:20 Nasal Cannula 2.0 02/06/17 14:06 21 Intake and Output 02/06/17 02/06/17 02/07/17 15:00 23:00 07:00 Intake Total 260 ml 540 ml Balance 260 ml 540 ml Exam Constitutional: alert, obese Psych: nl mood/affect, no complaints Head: atraumatic, normocephalic Eyes: nl conjunctiva, nl lids ENMT: nl external ears & nose, nl nasal mucosa & septum Neck: non-tender, supple Respiratory: diminished breath sounds, No wheezing Cardiovascular: regular rate and rhythm, No murmurs/extra sounds Gastrointestinal: non-tender, soft Extremities: edema, pitting pedal edema, No clubbing, No cyanosis Neurological: nl mental status, nl speech Skin: other (left lower extremity erythema) Results Result Diagram: 02/07/17 0439 02/07/17 0439 Results 24 hrs Laboratory Tests Test 02/06/17 21:27 02/07/17 04:39 02/07/17 08:14 02/07/17 08:39 Bedside Glucose 106 138 White Blood Count 12.9 H Red Blood Count 2.82 L Hemoglobin 8.0 L Hematocrit 25.6 L Mean Corpuscular Volume 90.8 Mean Corpuscular Hemoglobin 28.4 L Mean Corpuscular Hemoglobin Concent 31.3 L Red Cell Distribution Width 14.6 H Platelet Count 393 Mean Platelet Volume 9.7 Neutrophils % 80.9 H Lymphocytes % 10.5 L Monocytes % 6.0 Eosinophils % 1.2 Basophils % 0.2 Nucleated Red Blood Cells % 0.0 Neutrophils # 10.4 H Lymphocytes # 1.4 Monocytes # 0.8 Eosinophils # 0.2 Basophils # 0.0 Nucleated Red Blood Cells # 0.0 Sodium Level 143 Potassium Level 4.2 Chloride Level 101 Carbon Dioxide Level 29 Anion Gap 17 H Blood Urea Nitrogen 40 H Creatinine 1.54 H Glucose Level 132 # Calcium Level 8.6 Magnesium Level 2.0 Lab Scanned Report BLOOD TRANSFUSION Test 02/07/17 12:40 02/07/17 17:47 Bedside Glucose 132 185 Medications Medications Current Medications Acetaminophen (Tylenol Tab) 1,000 mg Q4H PRN PO PAIN AND OR ELEVATED TEMP; Start 01/29/17 at 16:00 Insulin Glargine (Lantus) 60 unit QHS SC Last administered on 02/06/17 21:30; Admin Dose 60 UNIT; Start 01/29/17 at 21:00 Loratadine (Claritin) 10 mg DAILY PO Last administered on 02/07/17 09:27; Admin Dose 10 MG; Start 01/30/17 at 09:00 Montelukast Sodium (Singulair) 10 mg QHS PO Last administered on 02/06/17 21:18 ; Admin Dose 10 MG; Start 01/29/17 at 21:00 Ondansetron HCl (Zofran Inj) 4 mg Q6H PRN IV NAUSEA AND/OR VOMITING; Start at 16:00 Acetaminophen (Tylenol Tab) 650 mg Q6H PRN PO PAIN LEVEL 1-3 OR FEVER Last administered on 02/01/17 14:23; Admin Dose 650 MG; Start 01/29/17 at 16:00 Acetaminophen (Tylenol Supp) 650 mg Q6H PRN OR PAIN LEVEL 1-3 OR FEVER; Start 01/29/17 at 16:00 Acetaminophen/ Hydrocodone Bitart ([place] (5/325)) 1 tab Q6H PRN PO MODERATE PAIN LEVEL 4-6 Last administered on 02/05/17 20:36; Admin Dose 1 TAB; Start at 16:00 Acetaminophen/ Hydrocodone Bitart ([place] (5/325)) 2 tab Q6H PRN PO SEVERE PAIN LEVEL 7-10 Last administered on 02/06/17 21:26; Admin Dose 2 TAB; Start at 16:00 Docusate Sodium (Colace) 100 mg Q12H PRN PO CONSTIPATION Last administered on 09:05; Admin Dose 100 MG; Start 01/29/17 at 16:00 Magnesium Hydroxide (Milk Of Mag) 30 ml DAILY PRN PO CONSTIPATION Last administered on 02/03/17 09:09; Admin Dose 30 ML; Start 01/29/17 at 16:00 Bisacodyl (Dulcolax Supp) 10 mg DAILY PRN OR CONSTIPATION; Start 01/29/17 at 16 :00 Diagnostic Test (Pha) (Accu-Chek) 1 ea 02 XX Last administered on 02/03/17 02: 00; Admin Dose 1 EA; Start 01/30/17 at 02:00 Salmeterol Xinafoate/ Fluticasone (Advair 250/50 Diskus) 1 inh BID INH Last administered on 02/07/17 09:23; Admin Dose 1 INH; Start 01/29/17 at 21:00 Miscellaneous Information 1 ea NOTE XX ; Start 01/29/17 at 17:00 Glucose (Glutose) 15 gm Q15M PRN PO DECREASED GLUCOSE; Start 01/29/17 at 17:00 Glucose (Glutose) 22.5 gm Q15M PRN PO DECREASED GLUCOSE; Start 01/29/17 at 17: 00 Dextrose (D50w Syringe) 25 ml Q15M PRN IV DECREASED GLUCOSE; Start 01/29/17 at 17:00 Dextrose (D50w Syringe) 50 ml Q15M PRN IV DECREASED GLUCOSE; Start 01/29/17 at 17:00 Glucagon (Glucagen) 1 mg Q15M PRN IM DECREASED GLUCOSE; Start 01/29/17 at 17:00 Glucose (Glutose) 15 gm Q15M PRN BUCCAL DECREASED GLUCOSE; Start 01/29/17 at 17 :00 Linagliptin (Tradjenta) 5 mg DAILY PO Last administered on 02/07/17 09:26; Admin Dose 5 MG; Start 01/31/17 at 09:00 Aspirin (Aspirin) 81 mg DAILY PO Last administered on 02/07/17 09:24; Admin Dose 81 MG; Start 01/31/17 at 09:00 Tramadol HCl (Ultram) 50 mg Q6H PRN PO pain 6-10 Last administered on 02/01/17 09:41; Admin Dose 50 MG; Start 01/31/17 at 10:30 Apixaban (Eliquis) 10 mg BID PO Last administered on 02/07/17 09:26; Admin Dose 10 MG; Start 02/03/17 at 21:00; Stop 02/10/17 at 20:59 Apixaban 5 mg 5 mg BID PO ; Start 02/11/17 at 09:00 Daptomycin/Sodium Chloride (Cubicin/NS) 100 ml @ 200 mls/hr Q24H IVPB Last administered on 02/07/17 16:41; Admin Dose 200 MLS/HR; Start 02/03/17 at 17:00 Pantoprazole (Protonix Iv) 40 mg BID@06,18 IV Last administered on 02/07/17 18: 26; Admin Dose 40 MG; Start 02/03/17 at 18:30 Ferrous Sulfate (Ferrous Sulfate (Ec)) 325 mg BID PO Last administered on 09:25; Admin Dose 325 MG; Start 02/04/17 at 21:00; Stop 03/06/17 at 20:59 Metoprolol Succinate (Toprol Xl) 25 mg BID PO Last administered on 02/07/17 09: 24; Admin Dose 25 MG; Start 02/04/17 at 21:00 Ascorbic Acid (Vitamin C) 500 mg BID PO Last administered on 02/07/17 09:25; Admin Dose 500 MG; Start 02/04/17 at 21:00; Stop 03/06/17 at 20:59 Fludrocortisone Acetate (Florinef) 0.05 mg DAILY PO Last administered on 09:27; Admin Dose 0.05 MG; Start 02/04/17 at 11:00 Morphine Sulfate (morphine) 2 mg Q4H PRN IV SEVERE PAIN LEVEL 7-10; Start at 12:00 Allopurinol (Zyloprim) 300 mg DAILY PO Last administered on 02/07/17 09:25; Admin Dose 300 MG; Start 02/06/17 at 09:00 Lisinopril 10 mg 10 mg BID PO Last administered on 02/07/17 09:27; Admin Dose 10 MG; Start 02/05/17 at 21:00 Ferric Sodium Gluconate Complex/ Sodium Chloride (Ferrlecit/NS) 110 ml @ 100 mls/hr Q24H IVPB Last administered on 02/07/17 18:36; Admin Dose 100 MLS/HR; Start 02/06/17 at 17:30; Stop 02/08/17 at 18:35 Nystatin (Nystatin Susp) 5 ml QID PO Last administered on 02/07/17 18:26; Admin Dose 5 ML; Start 02/06/17 at 23:00 Ciprofloxacin (Cipro) 500 mg BID@06,18 PO Last administered on 02/07/17 18:36; Admin Dose 500 MG; Start 02/07/17 at 18:00 BONNY MIGUEL MD Feb 07, 2017 19:41
[2017-02-07] MEDS: HYDROCODONE/APAP (5/325) TAB PO PRN (20:58)
[2017-02-07] MEDS: MONTELUKAST 10 MG TAB PO SCH (20:59)
[2017-02-07] MEDS: INSULIN GLARGINE [LANtus] 3 ML PEN SC SCH (21:28)
[2017-02-07] MEDS: ZOLPIDEM 5 MG TAB PO PRN (23:40)
[2017-02-08 01:59] VITALS: BP 122/57; RESP 18
[2017-02-08] MEDS: ACCU-CHEK XX SCH (02:00)
[2017-02-08] MEDS: PANTOPRAZOLE 40 MG INJ IV SCH ×2 (05:32→19:20)
[2017-02-08] MEDS: CIPROFLOXACIN 500 MG TAB PO SCH ×2 (05:32→18:39)
[2017-02-08] MEDS: FUROSEMIDE 20 MG INJ IV SCH (05:33)
[2017-02-08] MEDS: INSULIN ASPART [NOVOLOG] 3 ML PEN SC SCH ×7 (07:50→21:00)
[2017-02-08 08:03] VITALS: BP 156/68; RESP 17
[2017-02-08] MEDS: SALMETEROL/FLUTICASONE 250/50 INHA INH SCH ×2 (08:20→21:14)
[2017-02-08] MEDS: FLUDROCORTISONE 0.1 MG TAB PO SCH (08:21)
[2017-02-08] MEDS: ALLOPURINOL 300 MG TAB PO SCH (08:21)
[2017-02-08] MEDS: APIXABAN 5 MG TABLET PO SCH ×2 (08:22→21:15)
[2017-02-08] MEDS: METOPROLOL (XL) 25 MG TAB PO SCH ×2 (08:22→21:16)
[2017-02-08] MEDS: LORATADINE 10 MG TAB PO SCH (08:22)
[2017-02-08] MEDS: ASCORBIC ACID 500 MG TAB PO SCH ×2 (08:23→21:15)
[2017-02-08] MEDS: LINAGLIPTIN 5 MG TABLET PO SCH (08:23)
[2017-02-08] MEDS: LISINOPRIL 10 MG TAB PO SCH ×2 (08:23→21:15)
[2017-02-08] MEDS: FERROUS SULFATE (EC) 325 MG TAB PO SCH ×2 (08:23→21:15)
[2017-02-08] MEDS: ASPIRIN 81 MG TAB PO SCH (08:24)
[2017-02-08] MEDS: NYSTATIN SUSP 5 ML CUP PO SCH ×4 (08:25→21:16)
--- NOTE | 2017-02-08 08:37 | PN ---
DATE: 02/08/2017 SUBJECTIVE DATA: The patient is stable. No events overnight. No fevers, chills, nausea, vomiting. OBJECTIVE DATA: VITAL SIGNS: Blood pressure 122/57, respirations 18, pulse 69, temperature 98.3. HEENT: Head is normocephalic. NECK: Supple. HEART: Regular rate. LUNGS: Show diminished breath sounds at the base. ABDOMEN: Soft, nontender to palpation. No rebound or guarding. EXTREMITIES: Negative for clubbing, cyanosis. No edema. DERMATOLOGIC: Clean. No rashes. MUSCULOSKELETAL: No joint effusion. NEUROLOGIC: No change in exam. MEDICATIONS: Reviewed. LABORATORY AND DIAGNOSTIC DATA: Reviewed. ASSESSMENT AND PLAN: 1. Nonoliguric acute kidney injury on top of chronic kidney disease, stage 3, with previous baseline creatinine of 1.5 to 1.8 mg/dL. Etiology of acute kidney injury secondary to hemodynamics. Renal function stabilized. At this point, continue current treatment. Supportive care. Renally dose all meds. 2. Anemia. Monitor H and H levels. Continue Epogen. 3. Mineral bone disorder. Monitor calcium and phosphorus levels. 4. Lower extremity deep venous thrombosis. Continue anticoagulation. 5. Sepsis secondary to cellulitis. Continue antibiotic regimen. 6. Hypoxemic respiratory failure, clinically improving. Continue current medical management. Continue oxygen. Follow up with Pulmonary. 7. Diastolic heart failure. Continue current diuretic regimen. 8. Morbid obesity. Continue dietary modification. 9. Hypertension. Continue current treatment plan. Dictated By: Atul Wellington DO /cuca/pieter /Document#: [id number]
[2017-02-08] MEDS: ALBUTEROL/IPRATROPIUM (NEB) 3 ML AMP HHN SCH ×3 (11:19→21:00)
--- NOTE | 2017-02-08 13:28 | CONS ---
Date/Time of Note Date/Time of Note DATE: 02/08/17 TIME: 13:18 Assessment/Plan Assessment/Plan Chief Complaint/Hosp Course ID PROGRESS NOTE CURRENT ABX: =>+ Daptomycin #7 +Diflucan #6 + Cipro #2 TOTAL ABX DAY #11 MERREM #7 => DC 8/9 Ceftriaxone #5-> DC 8/3 s/p Zosyn/Clinda 01/29-> DC'd 24 HOUR INTERVAL SUMMARY * DC planning -> no fevers, WBC normalized, she is ambulatory * LLEXT w/persisting severe edema, fluid vesicles -- still wrapped with gauze Kerlix * Diflucan + Nystatin swish/swallow for EGD PATHO REPORT=> (+)Aurora Esophagitis / (-)H.Pylori Exam Constitutional: alert, oriented, well developed Head: atraumatic, normocephalic Eyes: EOMI, PERRL Respiratory: clear to auscultation, normal air movement Cardiovascular: nl pulses, regular rate and rhythm Gastrointestinal: Soft (+)BS Extremities: LLEXT cellulitis + gangrenous changes 2nd toe ulcer * LLEXT still w/significant edema and fluid small vesicle formation weeping edema Neurological: nl mental status, nl speech, nl strength ID ASSESSMENT 51 yo F PMHx morbid obesity admit with: 1. Resolving sepsis secondary to ESBL UTI => SIRS w/leukocytosis persisting post EGD 2. E.Coli-ESBL UTI 01/29 * Repeat Urine 01/29 (-) 3. Bacteremia 07/04 bottles from ED: BLOOD CULTURE Final COAGULASE NEGATIVE STAPH * Repeat cultures negative. 4. Left lower extremity cellulitis/ left second toe gangrenous ulcer. * Xray with soft tissue swelling on Fibula/Tibia. MRI without evidence of necrotizing fasciitis. 5. Peripheral vascular disease (PVD)=> Venous + Arterial * PAD:Arterial Duplex=> 1. Abnormal flow bilaterally in the calf arteries consistent with significant stenosis. 2. Significant stenosis in the left mid superficial femoral artery. * VENOUS: Left lower extremity acute deep vein thrombosis. VQ scan with low probability for PE. -- -Status post IVC filter placed on 02/01/2017 6. Systolic and diastolic congestive heart failure. Echo EF ~50-55%. 7 . Hypoxic respiratory failure, multifactorial most likely secondary to possible CHF, pulmonary hypertension, acute anemia, sepsis and underlying asthma and obesity=> RESOLVED 8. Anemia, now acute on chronic. H&H improved with transfusion. No evidence of bleeding. * GI -> EGD 02/03/17 (+)Aurora Esophagitis / (-)H.Pylori 9. DMII. A1c 6.8. 10. Essential hypertension w/cardiomegaly on CXR 11. Pulmonary edema -- possibly CHF due to HTN heart disease cor pulmonale vs diastolic dysfx * (+)PHTN 13. COPD: Asthma + restrictive component due to obesity; possibly obesity hypoventilation syndrome suspected * Pulmonary hypertension-> 2/2 #13 14. Possible HCAP => DDx silent aspiration pneumonitis vs pna per multiple risk factors below: * CXR: Mild pulmonary vascular congestion with pleural effusions, findings suggesting congestive heart failure. * Wet lungs at risk bacterial infection * Asthma * Obesity * GERD/Gastritis/Esophagitis * Suspect obesity hypoventilation syndrome 16. (+)Aurora Esophagitis / (-)H.Pylori per EGD (-)MRSA Nares CURRENT ABX: =>+ Daptomycin #7 +Diflucan #6 + Cipro #2 TOTAL ABX DAY #11 MERREM #7 => DC 8/9 Ceftriaxone #5-> DC 8/3 s/p Zosyn/Clinda 7/30-> DC'd ID RECOMMENDATIONS=> DC Planning possibly for AM 1. MAY DC HOME ON THE FOLLOWING ABX: 2. Clindamycin 300mg po QID x 14 day 4. Diflucan 100mg daily PO + Nystatin 5mL PO swish/swallow 5. Avoid renal toxic ABX-> Cards needs room for diuretics WOUND CARE PERFORMED BY MYSELF TODAY AT BEDSIDE 1. Silvadene topical ointment -- just placed order w/pharmacy 2. Non-adherent TELFA long DSG pads. 3. Abdominal soft DSG pads 4. White stretch type kerlix not the gauze type -- I need the type that stretches when roll is applied to obtain tight wrap for the edema. . . Problems: Consultation Date/Type/Reason Admit Date/Time Jan 29, 2017 at 13:15 Initial Consult Date Type of Consultation: ID Exam/Review of Systems Vital Signs Vitals Vital Signs Date Time Temp Pulse Resp B/P Pulse Ox O2 Delivery O2 Flow Rate FiO2 02/08/17 11:21 95 2.0 02/08/17 11:20 78 20 Nasal Cannula 02/08/17 08:03 98.7 156/68 02/06/17 14:06 21 Intake and Output 02/07/17 02/07/17 02/08/17 15:00 23:00 07:00 Intake Total 50 ml 1390 ml 600 ml Output Total 1200 ml Balance 50 ml 190 ml 600 ml Results Result Diagram: 02/07/17 0439 02/07/17 0439 Results 24 hrs Laboratory Tests Test 02/07/17 17:47 02/07/17 18:20 02/07/17 20:52 02/08/17 08:47 Bedside Glucose 185 152 102 Stool Occult Blood NEGATIVE Test 02/08/17 12:57 Bedside Glucose 118 Medications Medications Current Medications Acetaminophen (Tylenol Tab) 1,000 mg Q4H PRN PO PAIN AND OR ELEVATED TEMP; Start 01/29/17 at 16:00 Insulin Glargine (Lantus) 60 unit QHS SC Last administered on 02/07/17 21:28; Admin Dose 60 UNIT; Start 01/29/17 at 21:00 Loratadine (Claritin) 10 mg DAILY PO Last administered on 02/08/17 08:22; Admin Dose 10 MG; Start 01/30/17 at 09:00 Montelukast Sodium (Singulair) 10 mg QHS PO Last administered on 02/07/17 20:59 ; Admin Dose 10 MG; Start 01/29/17 at 21:00 Ondansetron HCl (Zofran Inj) 4 mg Q6H PRN IV NAUSEA AND/OR VOMITING; Start at 16:00 Acetaminophen (Tylenol Tab) 650 mg Q6H PRN PO PAIN LEVEL 1-3 OR FEVER Last administered on 02/01/17 14:23; Admin Dose 650 MG; Start 01/29/17 at 16:00 Acetaminophen (Tylenol Supp) 650 mg Q6H PRN [place] PAIN LEVEL 1-3 OR FEVER; Start 01/29/17 at 16:00 Acetaminophen/ Hydrocodone Bitart ([place] (5/325)) 1 tab Q6H PRN PO MODERATE PAIN LEVEL 4-6 Last administered on 02/05/17 20:36; Admin Dose 1 TAB; Start at 16:00 Acetaminophen/ Hydrocodone Bitart ([place] (5/325)) 2 tab Q6H PRN PO SEVERE PAIN LEVEL 7-10 Last administered on 02/07/17 20:58; Admin Dose 2 TAB; Start at 16:00 Docusate Sodium (Colace) 100 mg Q12H PRN PO CONSTIPATION Last administered on 09:05; Admin Dose 100 MG; Start 01/29/17 at 16:00 Magnesium Hydroxide (Milk Of Mag) 30 ml DAILY PRN PO CONSTIPATION Last administered on 02/03/17 09:09; Admin Dose 30 ML; Start 01/29/17 at 16:00 Bisacodyl (Dulcolax Supp) 10 mg DAILY PRN [place] CONSTIPATION; Start 01/29/17 at 16 :00 Diagnostic Test (Pha) (Accu-Chek) 1 ea 02 XX Last administered on 02/03/17 02: 00; Admin Dose 1 EA; Start 01/30/17 at 02:00 Salmeterol Xinafoate/ Fluticasone (Advair 250/50 Diskus) 1 inh BID INH Last administered on 02/08/17 08:20; Admin Dose 1 INH; Start 01/29/17 at 21:00 Miscellaneous Information 1 ea NOTE XX ; Start 01/29/17 at 17:00 Glucose (Glutose) 15 gm Q15M PRN PO DECREASED GLUCOSE; Start 01/29/17 at 17:00 Glucose (Glutose) 22.5 gm Q15M PRN PO DECREASED GLUCOSE; Start 01/29/17 at 17: 00 Dextrose (D50w Syringe) 25 ml Q15M PRN IV DECREASED GLUCOSE; Start 01/29/17 at 17:00 Dextrose (D50w Syringe) 50 ml Q15M PRN IV DECREASED GLUCOSE; Start 01/29/17 at 17:00 Glucagon (Glucagen) 1 mg Q15M PRN IM DECREASED GLUCOSE; Start 01/29/17 at 17:00 Glucose (Glutose) 15 gm Q15M PRN BUCCAL DECREASED GLUCOSE; Start 01/29/17 at 17 :00 Linagliptin (Tradjenta) 5 mg DAILY PO Last administered on 02/08/17 08:23; Admin Dose 5 MG; Start 01/31/17 at 09:00 Aspirin (Aspirin) 81 mg DAILY PO Last administered on 02/08/17 08:24; Admin Dose 81 MG; Start 01/31/17 at 09:00 Tramadol HCl (Ultram) 50 mg Q6H PRN PO pain 6-10 Last administered on 02/01/17 09:41; Admin Dose 50 MG; Start 01/31/17 at 10:30 Apixaban (Eliquis) 10 mg BID PO Last administered on 02/08/17 08:22; Admin Dose 10 MG; Start 02/03/17 at 21:00; Stop 02/10/17 at 20:59 Apixaban 5 mg 5 mg BID PO ; Start 02/11/17 at 09:00 Daptomycin/Sodium Chloride (Cubicin/NS) 100 ml @ 200 mls/hr Q24H IVPB Last administered on 02/07/17 16:41; Admin Dose 200 MLS/HR; Start 02/03/17 at 17:00 Pantoprazole (Protonix Iv) 40 mg BID@06,18 IV Last administered on 02/08/17 05: 32; Admin Dose 40 MG; Start 02/03/17 at 18:30 Ferrous Sulfate (Ferrous Sulfate (Ec)) 325 mg BID PO Last administered on 08:23; Admin Dose 325 MG; Start 02/04/17 at 21:00; Stop 03/06/17 at 20:59 Metoprolol Succinate (Toprol Xl) 25 mg BID PO Last administered on 02/08/17 08: 22; Admin Dose 25 MG; Start 02/04/17 at 21:00 Ascorbic Acid (Vitamin C) 500 mg BID PO Last administered on 02/08/17 08:23; Admin Dose 500 MG; Start 02/04/17 at 21:00; Stop 03/06/17 at 20:59 Fludrocortisone Acetate (Florinef) 0.05 mg DAILY PO Last administered on 08:21; Admin Dose 0.05 MG; Start 02/04/17 at 11:00 Morphine Sulfate (morphine) 2 mg Q4H PRN IV SEVERE PAIN LEVEL 7-10; Start at 12:00 Allopurinol (Zyloprim) 300 mg DAILY PO Last administered on 02/08/17 08:21; Admin Dose 300 MG; Start 02/06/17 at 09:00 Lisinopril 10 mg 10 mg BID PO Last administered on 02/08/17 08:23; Admin Dose 10 MG; Start 02/05/17 at 21:00 Ferric Sodium Gluconate Complex/ Sodium Chloride (Ferrlecit/NS) 110 ml @ 100 mls/hr Q24H IVPB Last administered on 02/07/17 18:36; Admin Dose 100 MLS/HR; Start 02/06/17 at 17:30; Stop 02/08/17 at 18:35 Nystatin (Nystatin Susp) 5 ml QID PO Last administered on 02/08/17 08:25; Admin Dose 5 ML; Start 02/06/17 at 23:00 Ciprofloxacin (Cipro) 500 mg BID@06,18 PO Last administered on 02/08/17 05:32; Admin Dose 500 MG; Start 02/07/17 at 18:00 TAHIR LOPEZ NP Feb 08, 2017 13:28
[2017-02-08] MEDS ORDERED: SILVER SULFADIAZINE 1% 50 GM CR TOP SCH (13:30)
--- NOTE | 2017-02-08 15:03 | PN ---
Date/Time of Note Date/Time of Note DATE: 02/08/17 TIME: 14:59 Assessment/Plan VTE Prophylaxis VTE Prophylaxis Intervention: contraindicated VTE Contraindication Reason: bleeding Lines/Catheters IV C[facility] Type [facility] Saline Lock Urinary Cath still in place: No Assessment/Plan Assessment/Plan Anemia * GI bleed EGD 02/03/2017 Impression: * Severe erosive/ulcerated esophagitis * Probable [place] esophagitis. Biopsies obtained * Moderate gastritis. Rule out H. pylori infection. Biopsies obtained * Deep venous thrombosis left femoral * Cellulitis left lower extremities * Acute kidney injury Plan * Continue Protonix twice daily * Case discussed with DR Okeefe * Further orders will depend on clinical course * Will sign out but will follow up as needed Subjective 24 Hr Interval Summary Free Text/Dictation * Course reviewed * Patient seen and examined * No untoward incident overnight Exam/Review of Systems Vital Signs Vitals Vital Signs Date Time Temp Pulse Resp B/P Pulse Ox O2 Delivery O2 Flow Rate FiO2 02/08/17 11:21 95 2.0 02/08/17 11:20 78 20 Nasal Cannula 02/08/17 08:03 98.7 156/68 02/06/17 14:06 21 Intake and Output 02/07/17 02/07/17 02/08/17 15:00 23:00 07:00 Intake Total 50 ml 1390 ml 600 ml Output Total 1200 ml Balance 50 ml 190 ml 600 ml Exam Constitutional: alert, oriented Head: normocephalic Eyes: nl conjunctiva Neck: non-tender, supple Respiratory: clear to auscultation, normal air movement Cardiovascular: regular rate and rhythm Gastrointestinal: non-tender, soft Genitourinary - Female: other (swelling left leg) Extremities: normal pulses Neurological: nl mental status, nl speech Skin: nl turgor, rash or lesions Results Result Diagram: 02/07/17 0439 02/07/17 0439 Results 24 hrs Laboratory Tests Test 02/07/17 17:47 02/07/17 18:20 02/07/17 20:52 02/08/17 08:47 Bedside Glucose 185 152 102 Stool Occult Blood NEGATIVE Test 02/08/17 12:57 Bedside Glucose 118 Medications Medications Current Medications Acetaminophen (Tylenol Tab) 1,000 mg Q4H PRN PO PAIN AND OR ELEVATED TEMP; Start 01/29/17 at 16:00 Insulin Glargine (Lantus) 60 unit QHS SC Last administered on 02/07/17 21:28; Admin Dose 60 UNIT; Start 01/29/17 at 21:00 Loratadine (Claritin) 10 mg DAILY PO Last administered on 02/08/17 08:22; Admin Dose 10 MG; Start 01/30/17 at 09:00 Montelukast Sodium (Singulair) 10 mg QHS PO Last administered on 02/07/17 20:59 ; Admin Dose 10 MG; Start 01/29/17 at 21:00 Ondansetron HCl (Zofran Inj) 4 mg Q6H PRN IV NAUSEA AND/OR VOMITING; Start at 16:00 Acetaminophen (Tylenol Tab) 650 mg Q6H PRN PO PAIN LEVEL 1-3 OR FEVER Last administered on 02/01/17 14:23; Admin Dose 650 MG; Start 01/29/17 at 16:00 Acetaminophen (Tylenol Supp) 650 mg Q6H PRN [place] PAIN LEVEL 1-3 OR FEVER; Start 01/29/17 at 16:00 Acetaminophen/ Hydrocodone Bitart ([place] (5/325)) 1 tab Q6H PRN PO MODERATE PAIN LEVEL 4-6 Last administered on 02/05/17 20:36; Admin Dose 1 TAB; Start at 16:00 Acetaminophen/ Hydrocodone Bitart ([place] (5/325)) 2 tab Q6H PRN PO SEVERE PAIN LEVEL 7-10 Last administered on 02/07/17 20:58; Admin Dose 2 TAB; Start at 16:00 Docusate Sodium (Colace) 100 mg Q12H PRN PO CONSTIPATION Last administered on 09:05; Admin Dose 100 MG; Start 01/29/17 at 16:00 Magnesium Hydroxide (Milk Of Mag) 30 ml DAILY PRN PO CONSTIPATION Last administered on 02/03/17 09:09; Admin Dose 30 ML; Start 01/29/17 at 16:00 Bisacodyl (Dulcolax Supp) 10 mg DAILY PRN [place] CONSTIPATION; Start 01/29/17 at 16 :00 Diagnostic Test (Pha) (Accu-Chek) 1 ea 02 XX Last administered on 8/4/17at 02: 00; Admin Dose 1 EA; Start 01/30/17 at 02:00 Salmeterol Xinafoate/ Fluticasone (Advair 250/50 Diskus) 1 inh BID INH Last administered on 02/08/17 08:20; Admin Dose 1 INH; Start 01/29/17 at 21:00 Miscellaneous Information 1 ea NOTE XX ; Start 01/29/17 at 17:00 Glucose (Glutose) 15 gm Q15M PRN PO DECREASED GLUCOSE; Start 01/29/17 at 17:00 Glucose (Glutose) 22.5 gm Q15M PRN PO DECREASED GLUCOSE; Start 01/29/17 at 17: 00 Dextrose (D50w Syringe) 25 ml Q15M PRN IV DECREASED GLUCOSE; Start 01/29/17 at 17:00 Dextrose (D50w Syringe) 50 ml Q15M PRN IV DECREASED GLUCOSE; Start 01/29/17 at 17:00 Glucagon (Glucagen) 1 mg Q15M PRN IM DECREASED GLUCOSE; Start 01/29/17 at 17:00 Glucose (Glutose) 15 gm Q15M PRN BUCCAL DECREASED GLUCOSE; Start 01/29/17 at 17 :00 Linagliptin (Tradjenta) 5 mg DAILY PO Last administered on 02/08/17 08:23; Admin Dose 5 MG; Start 01/31/17 at 09:00 Aspirin (Aspirin) 81 mg DAILY PO Last administered on 02/08/17 08:24; Admin Dose 81 MG; Start 01/31/17 at 09:00 Tramadol HCl (Ultram) 50 mg Q6H PRN PO pain 6-10 Last administered on 02/01/17 09:41; Admin Dose 50 MG; Start 01/31/17 at 10:30 Apixaban (Eliquis) 10 mg BID PO Last administered on 02/08/17 08:22; Admin Dose 10 MG; Start 02/03/17 at 21:00; Stop 02/10/17 at 20:59 Apixaban 5 mg 5 mg BID PO ; Start 02/11/17 at 09:00 Daptomycin/Sodium Chloride (Cubicin/NS) 100 ml @ 200 mls/hr Q24H IVPB Last administered on 02/07/17 16:41; Admin Dose 200 MLS/HR; Start 02/03/17 at 17:00 Pantoprazole (Protonix Iv) 40 mg BID@06,18 IV Last administered on 02/08/17 05: 32; Admin Dose 40 MG; Start 02/03/17 at 18:30 Ferrous Sulfate (Ferrous Sulfate (Ec)) 325 mg BID PO Last administered on 08:23; Admin Dose 325 MG; Start 02/04/17 at 21:00; Stop 03/06/17 at 20:59 Metoprolol Succinate (Toprol Xl) 25 mg BID PO Last administered on 02/08/17 08: 22; Admin Dose 25 MG; Start 02/04/17 at 21:00 Ascorbic Acid (Vitamin C) 500 mg BID PO Last administered on 02/08/17 08:23; Admin Dose 500 MG; Start 02/04/17 at 21:00; Stop 03/06/17 at 20:59 Fludrocortisone Acetate (Florinef) 0.05 mg DAILY PO Last administered on 08:21; Admin Dose 0.05 MG; Start 02/04/17 at 11:00 Morphine Sulfate (morphine) 2 mg Q4H PRN IV SEVERE PAIN LEVEL 7-10; Start at 12:00 Allopurinol (Zyloprim) 300 mg DAILY PO Last administered on 02/08/17 08:21; Admin Dose 300 MG; Start 02/06/17 at 09:00 Lisinopril 10 mg 10 mg BID PO Last administered on 02/08/17 08:23; Admin Dose 10 MG; Start 02/05/17 at 21:00 Ferric Sodium Gluconate Complex/ Sodium Chloride (Ferrlecit/NS) 110 ml @ 100 mls/hr Q24H IVPB Last administered on 02/07/17 18:36; Admin Dose 100 MLS/HR; Start 02/06/17 at 17:30; Stop 02/08/17 at 18:35 Nystatin (Nystatin Susp) 5 ml QID PO Last administered on 02/08/17 13:29; Admin Dose 5 ML; Start 02/06/17 at 23:00 Ciprofloxacin (Cipro) 500 mg BID@06,18 PO Last administered on 02/08/17 05:32; Admin Dose 500 MG; Start 02/07/17 at 18:00 Silver Sulfadiazine (Thermazene 1% 25 Gm) 1 applic DAILY TOP ; Start 02/08/17 at 14:35 JIMMY MICHAUD NP Feb 08, 2017 15:03
[2017-02-08 15:48] VITALS: BP 151/67; RESP 18
--- NOTE | 2017-02-08 16:49 | PN ---
Date/Time of Note Date/Time of Note DATE: 02/08/17 TIME: 16:19 Assessment/Plan VTE Prophylaxis VTE Prophylaxis Intervention: SCD's Lines/Catheters IV Catheter Type (from Nrs): Saline Lock Urinary Cath still in place: No Assessment/Plan Assessment/Plan 1. Left lower extremity cellulitis/ left second toe gangrenous ulcer. Improving gradually. MRI without evidence of necrotizing fasciitis. -On Dapto+Meropenem. --ID/Podiatry on board and will follow recs. -Continue wound care 2.Left lower extremity acute deep vein thrombosis. VQ scan with low probability for PE. --Status post IVC filter placed on 02/01/2017. -On Eliquis per vascular recs 3. Systolic and diastolic congestive heart failure. Echocardiogram with lower limits systolic function with ejection fraction 50-55%. -Diuresis, BB and ASA. Statin contraindicated as pt on Dapto. -Cards on board 4. Hypoxic respiratory failure, multifactorial most likely secondary to possible CHF, pulmonary hypertension, acute anemia, sepsis and underlying asthma and obesity. Now with minimal O2 requirements. -On ICH +LULI PRN -Pulmo on board 5. Anemia combined iron deficiency + chronic illness,. H&H improved with transfusion and iron replacement. No evidence of bleeding. -S/p EGD with erosive esophagitis -On iron replacement, Monitor H&H closely and monitor for any bleeding. 6. [place] esophagitis/moderate Gastritis. -PPIs,Diflucan 7. Status post sepsis secondary to ESBL UTI -ID on board and on appropriate antibiotics.-Course to be determined . 8. DMII. A1c 6.8. -Continue accuchecks/ISS/Lantus/tradjenta 9. Essential hypertension. -Continue Coreg and adjust needed 10. REMI on CKD with Diabetic nephropathy. Renal fxn improved -Renally dose meds-Monitor renal fxn closely and f/u with nephro recs. 11. Pulmonary hypertension -Oxygen and diuretics. 12.Asthma. -Continue ICH 13.Morbid obesity. Weight reduction advised. 14.Obesity induced hypoventilation -Weight reduction advised. Sleep/CPAP study as outpatient. Case management for SNF placement Exam/Review of Systems Vital Signs Vitals Vital Signs Date Time Temp Pulse Resp B/P Pulse Ox O2 Delivery O2 Flow Rate FiO2 02/08/17 15:48 99.1 77 18 151/67 97 02/08/17 11:21 2.0 02/08/17 11:20 Nasal Cannula 02/06/17 14:06 21 Intake and Output 02/07/17 02/07/17 02/08/17 15:00 23:00 07:00 Intake Total 50 ml 1390 ml 600 ml Output Total 1200 ml Balance 50 ml 190 ml 600 ml Exam General: Morbidly obese female HEENT: Normocephalic, Atraumatic, No laceration or hematoma; Eyes: PEERL, Conjunctiva clear, Anicteric sclera Neck: Supple without any lymphadenopathy, nontender, no JVD, no carotid bruits, trachea midline, no thyromegaly Cardiac: S1, S2 auscultated, regular rhythm and rate, no mumurs or gallop Pulmonary: Decreased breath sounds bibasilar. Normal respiratory effort. Chest clear to auscultation bilaterally, no adventitious breath sounds GI: Abdomen obese to inspection. Soft, non- distended, no masses, no rebound tenderness or guarding. Bowel sounds active on all four quadrants Genitourinary: Deferred Extremities:Edema+ on BLE. LLE with edema/warmth/redness/tenderness-improved from previous exam.Dressing dry/intact. Pulses [1+] bilaterally. Full ROM on all four extremities. No focal weakness appreciated. Neurologic: Alert to person, place, time, and situation. Affect appropriate, intact sensation. Skin: Pale looking. Clean,dry, and intact. No ecchymosis, no rashes, or lesions Results Result Diagram: 02/07/17 0439 02/07/17 0439 Results 24 hrs Laboratory Tests Test 02/07/17 17:47 02/07/17 18:20 02/07/17 20:52 02/08/17 08:47 Bedside Glucose 185 152 102 Stool Occult Blood NEGATIVE Test 02/08/17 12:57 Bedside Glucose 118 Medications Medications Current Medications Acetaminophen (Tylenol Tab) 1,000 mg Q4H PRN PO PAIN AND OR ELEVATED TEMP; Start 01/29/17 at 16:00 Insulin Glargine (Lantus) 60 unit QHS SC Last administered on 02/07/17 21:28; Admin Dose 60 UNIT; Start 01/29/17 at 21:00 Loratadine (Claritin) 10 mg DAILY PO Last administered on 02/08/17 08:22; Admin Dose 10 MG; Start 01/30/17 at 09:00 Montelukast Sodium (Singulair) 10 mg QHS PO Last administered on 02/07/17 20:59 ; Admin Dose 10 MG; Start 01/29/17 at 21:00 Ondansetron HCl (Zofran Inj) 4 mg Q6H PRN IV NAUSEA AND/OR VOMITING; Start at 16:00 Acetaminophen (Tylenol Tab) 650 mg Q6H PRN PO PAIN LEVEL 1-3 OR FEVER Last administered on 02/01/17 14:23; Admin Dose 650 MG; Start 01/29/17 at 16:00 Acetaminophen (Tylenol Supp) 650 mg Q6H PRN [place] PAIN LEVEL 1-3 OR FEVER; Start 01/29/17 at 16:00 Acetaminophen/ Hydrocodone Bitart ([place] (5/325)) 1 tab Q6H PRN PO MODERATE PAIN LEVEL 4-6 Last administered on 02/05/17 20:36; Admin Dose 1 TAB; Start at 16:00 Acetaminophen/ Hydrocodone Bitart ([place] (5/325)) 2 tab Q6H PRN PO SEVERE PAIN LEVEL 7-10 Last administered on 02/07/17 20:58; Admin Dose 2 TAB; Start at 16:00 Docusate Sodium (Colace) 100 mg Q12H PRN PO CONSTIPATION Last administered on 09:05; Admin Dose 100 MG; Start 01/29/17 at 16:00 Magnesium Hydroxide (Milk Of Mag) 30 ml DAILY PRN PO CONSTIPATION Last administered on 02/03/17 09:09; Admin Dose 30 ML; Start 01/29/17 at 16:00 Bisacodyl (Dulcolax Supp) 10 mg DAILY PRN [place] CONSTIPATION; Start 01/29/17 at 16 :00 Diagnostic Test (Pha) (Accu-Chek) 1 ea 02 XX Last administered on 02/03/17 02: 00; Admin Dose 1 EA; Start 01/30/17 at 02:00 Salmeterol Xinafoate/ Fluticasone (Advair 250/50 Diskus) 1 inh BID INH Last administered on 02/08/17 08:20; Admin Dose 1 INH; Start 01/29/17 at 21:00 Miscellaneous Information 1 ea NOTE XX ; Start 01/29/17 at 17:00 Glucose (Glutose) 15 gm Q15M PRN PO DECREASED GLUCOSE; Start 01/29/17 at 17:00 Glucose (Glutose) 22.5 gm Q15M PRN PO DECREASED GLUCOSE; Start 01/29/17 at 17: 00 Dextrose (D50w Syringe) 25 ml Q15M PRN IV DECREASED GLUCOSE; Start 01/29/17 at 17:00 Dextrose (D50w Syringe) 50 ml Q15M PRN IV DECREASED GLUCOSE; Start 01/29/17 at 17:00 Glucagon (Glucagen) 1 mg Q15M PRN IM DECREASED GLUCOSE; Start 01/29/17 at 17:00 Glucose (Glutose) 15 gm Q15M PRN BUCCAL DECREASED GLUCOSE; Start 01/29/17 at 17 :00 Linagliptin (Tradjenta) 5 mg DAILY PO Last administered on 02/08/17 08:23; Admin Dose 5 MG; Start 01/31/17 at 09:00 Aspirin (Aspirin) 81 mg DAILY PO Last administered on 02/08/17 08:24; Admin Dose 81 MG; Start 01/31/17 at 09:00 Tramadol HCl (Ultram) 50 mg Q6H PRN PO pain 6-10 Last administered on 02/01/17 09:41; Admin Dose 50 MG; Start 01/31/17 at 10:30 Apixaban (Eliquis) 10 mg BID PO Last administered on 02/08/17 08:22; Admin Dose 10 MG; Start 02/03/17 at 21:00; Stop 02/10/17 at 20:59 Apixaban 5 mg 5 mg BID PO ; Start 02/11/17 at 09:00 Daptomycin/Sodium Chloride (Cubicin/NS) 100 ml @ 200 mls/hr Q24H IVPB Last administered on 02/07/17 16:41; Admin Dose 200 MLS/HR; Start 02/03/17 at 17:00 Pantoprazole (Protonix Iv) 40 mg BID@06,18 IV Last administered on 02/08/17 05: 32; Admin Dose 40 MG; Start 02/03/17 at 18:30 Ferrous Sulfate (Ferrous Sulfate (Ec)) 325 mg BID PO Last administered on 08:23; Admin Dose 325 MG; Start 02/04/17 at 21:00; Stop 03/06/17 at 20:59 Metoprolol Succinate (Toprol Xl) 25 mg BID PO Last administered on 02/08/17 08: 22; Admin Dose 25 MG; Start 02/04/17 at 21:00 Ascorbic Acid (Vitamin C) 500 mg BID PO Last administered on 02/08/17 08:23; Admin Dose 500 MG; Start 02/04/17 at 21:00; Stop 03/06/17 at 20:59 Fludrocortisone Acetate (Florinef) 0.05 mg DAILY PO Last administered on 08:21; Admin Dose 0.05 MG; Start 02/04/17 at 11:00 Morphine Sulfate (morphine) 2 mg Q4H PRN IV SEVERE PAIN LEVEL 7-10; Start at 12:00 Allopurinol (Zyloprim) 300 mg DAILY PO Last administered on 02/08/17 08:21; Admin Dose 300 MG; Start 02/06/17 at 09:00 Lisinopril 10 mg 10 mg BID PO Last administered on 02/08/17 08:23; Admin Dose 10 MG; Start 02/05/17 at 21:00 Ferric Sodium Gluconate Complex/ Sodium Chloride (Ferrlecit/NS) 110 ml @ 100 mls/hr Q24H IVPB Last administered on 02/07/17 18:36; Admin Dose 100 MLS/HR; Start 02/06/17 at 17:30; Stop 02/08/17 at 18:35 Nystatin (Nystatin Susp) 5 ml QID PO Last administered on 02/08/17 13:29; Admin Dose 5 ML; Start 02/06/17 at 23:00 Ciprofloxacin (Cipro) 500 mg BID@06,18 PO Last administered on 02/08/17 05:32; Admin Dose 500 MG; Start 02/07/17 at 18:00 Silver Sulfadiazine (Thermazene 1% 25 Gm) 1 applic DAILY TOP ; Start 02/08/17 at 14:35 JENNIFER ONEILL MD Feb 08, 2017 16:30
--- NOTE | 2017-02-08 17:04 | CONS ---
Date/Time of Note Date/Time of Note DATE: 02/08/17 TIME: 17:02 Assessment/Plan Assessment/Plan Chief Complaint/Hosp Course Assessment: Acute on chronic diastolic heart failure - LVEF 50-55% on echocardiogram, improved Pulmonary hypertension - RVSP 57 mmHg on echocardiogram Acute kidney injury on chronic kidney disease Acute on chronic anemia - status post pRBC transfusions, upper endoscopy pending Left lower extremity cellulitis and left second toe gangrenous ulcer - on antibiotics per infectious disease Bilateral peripheral vascular disease - per vascular surgery Left lower extremity deep vein thrombosis - V/Q scan low probability for pulmonary embolism, status post IVC filter 02/01/2017 ESBL urinary tract infection - resolving Hypertension Diabetes mellitus Asthma Morbid obesity Recommendations: -Lasix has been changed to 40mg PO BID -continue metoprolol succinate and lisinopril -discharge planning Problems: Consultation Date/Type/Reason Admit Date/Time Jan 29, 2017 at 13:15 Initial Consult Date 02/03/17 Type of Consultation: Cardiology 24 HR Interval Summary Free Text/Dictation No acute events. Detailed Summary Additional Comments 14 point review of systems without changes. Exam/Review of Systems Vital Signs Vitals Vital Signs Date Time Temp Pulse Resp B/P Pulse Ox O2 Delivery O2 Flow Rate FiO2 02/08/17 16:29 83 18 Nasal Cannula 2.0 02/08/17 15:48 99.1 151/67 97 02/06/17 14:06 21 Intake and Output 02/07/17 02/07/17 02/08/17 15:00 23:00 07:00 Intake Total 50 ml 1390 ml 600 ml Output Total 1200 ml Balance 50 ml 190 ml 600 ml Exam Constitutional: alert, obese Psych: nl mood/affect, no complaints Head: atraumatic, normocephalic Eyes: nl conjunctiva, nl lids ENMT: nl external ears & nose, nl nasal mucosa & septum Neck: non-tender, supple Respiratory: diminished breath sounds, No wheezing Cardiovascular: regular rate and rhythm, No murmurs/extra sounds Gastrointestinal: non-tender, soft Extremities: edema, pitting pedal edema, No clubbing, No cyanosis Neurological: nl mental status, nl speech Skin: other (left lower extremity erythema) Results Result Diagram: 02/07/17 0439 02/07/17 0439 Results 24 hrs Laboratory Tests Test 02/07/17 17:47 02/07/17 18:20 02/07/17 20:52 02/08/17 08:47 Bedside Glucose 185 152 102 Stool Occult Blood NEGATIVE Test 02/08/17 12:57 Bedside Glucose 118 Medications Medications Current Medications Acetaminophen (Tylenol Tab) 1,000 mg Q4H PRN PO PAIN AND OR ELEVATED TEMP; Start 01/29/17 at 16:00 Insulin Glargine (Lantus) 60 unit QHS SC Last administered on 02/07/17 21:28; Admin Dose 60 UNIT; Start 01/29/17 at 21:00 Loratadine (Claritin) 10 mg DAILY PO Last administered on 02/08/17 08:22; Admin Dose 10 MG; Start 01/30/17 at 09:00 Montelukast Sodium (Singulair) 10 mg QHS PO Last administered on 02/07/17 20:59 ; Admin Dose 10 MG; Start 01/29/17 at 21:00 Ondansetron HCl (Zofran Inj) 4 mg Q6H PRN IV NAUSEA AND/OR VOMITING; Start at 16:00 Acetaminophen (Tylenol Tab) 650 mg Q6H PRN PO PAIN LEVEL 1-3 OR FEVER Last administered on 02/01/17 14:23; Admin Dose 650 MG; Start 01/29/17 at 16:00 Acetaminophen (Tylenol Supp) 650 mg Q6H PRN [place] PAIN LEVEL 1-3 OR FEVER; Start 01/29/17 at 16:00 Acetaminophen/ Hydrocodone Bitart ([place] (5/325)) 1 tab Q6H PRN PO MODERATE PAIN LEVEL 4-6 Last administered on 02/05/17 20:36; Admin Dose 1 TAB; Start at 16:00 Acetaminophen/ Hydrocodone Bitart ([place] (5/325)) 2 tab Q6H PRN PO SEVERE PAIN LEVEL 7-10 Last administered on 02/07/17 20:58; Admin Dose 2 TAB; Start at 16:00 Docusate Sodium (Colace) 100 mg Q12H PRN PO CONSTIPATION Last administered on 09:05; Admin Dose 100 MG; Start 01/29/17 at 16:00 Magnesium Hydroxide (Milk Of Mag) 30 ml DAILY PRN PO CONSTIPATION Last administered on 02/03/17 09:09; Admin Dose 30 ML; Start 01/29/17 at 16:00 Bisacodyl (Dulcolax Supp) 10 mg DAILY PRN [place] CONSTIPATION; Start 01/29/17 at 16 :00 Diagnostic Test (Pha) (Accu-Chek) 1 ea 02 XX Last administered on 02/03/17 02: 00; Admin Dose 1 EA; Start 01/30/17 at 02:00 Salmeterol Xinafoate/ Fluticasone (Advair 250/50 Diskus) 1 inh BID INH Last administered on 02/08/17 08:20; Admin Dose 1 INH; Start 01/29/17 at 21:00 Miscellaneous Information 1 ea NOTE XX ; Start 01/29/17 at 17:00 Glucose (Glutose) 15 gm Q15M PRN PO DECREASED GLUCOSE; Start 01/29/17 at 17:00 Glucose (Glutose) 22.5 gm Q15M PRN PO DECREASED GLUCOSE; Start 01/29/17 at 17: 00 Dextrose (D50w Syringe) 25 ml Q15M PRN IV DECREASED GLUCOSE; Start 01/29/17 at 17:00 Dextrose (D50w Syringe) 50 ml Q15M PRN IV DECREASED GLUCOSE; Start 01/29/17 at 17:00 Glucagon (Glucagen) 1 mg Q15M PRN IM DECREASED GLUCOSE; Start 01/29/17 at 17:00 Glucose (Glutose) 15 gm Q15M PRN BUCCAL DECREASED GLUCOSE; Start 01/29/17 at 17 :00 Linagliptin (Tradjenta) 5 mg DAILY PO Last administered on 02/08/17 08:23; Admin Dose 5 MG; Start 01/31/17 at 09:00 Aspirin (Aspirin) 81 mg DAILY PO Last administered on 02/08/17 08:24; Admin Dose 81 MG; Start 01/31/17 at 09:00 Tramadol HCl (Ultram) 50 mg Q6H PRN PO pain 6-10 Last administered on 02/01/17 09:41; Admin Dose 50 MG; Start 01/31/17 at 10:30 Apixaban (Eliquis) 10 mg BID PO Last administered on 02/08/17 08:22; Admin Dose 10 MG; Start 02/03/17 at 21:00; Stop 02/10/17 at 20:59 Apixaban 5 mg 5 mg BID PO ; Start 02/11/17 at 09:00 Daptomycin/Sodium Chloride (Cubicin/NS) 100 ml @ 200 mls/hr Q24H IVPB Last administered on 02/07/17 16:41; Admin Dose 200 MLS/HR; Start 02/03/17 at 17:00 Pantoprazole (Protonix Iv) 40 mg BID@06,18 IV Last administered on 02/08/17 05: 32; Admin Dose 40 MG; Start 02/03/17 at 18:30 Ferrous Sulfate (Ferrous Sulfate (Ec)) 325 mg BID PO Last administered on 08:23; Admin Dose 325 MG; Start 02/04/17 at 21:00; Stop 03/06/17 at 20:59 Metoprolol Succinate (Toprol Xl) 25 mg BID PO Last administered on 02/08/17 08: 22; Admin Dose 25 MG; Start 02/04/17 at 21:00 Ascorbic Acid (Vitamin C) 500 mg BID PO Last administered on 02/08/17 08:23; Admin Dose 500 MG; Start 02/04/17 at 21:00; Stop 03/06/17 at 20:59 Fludrocortisone Acetate (Florinef) 0.05 mg DAILY PO Last administered on 08:21; Admin Dose 0.05 MG; Start 02/04/17 at 11:00 Morphine Sulfate (morphine) 2 mg Q4H PRN IV SEVERE PAIN LEVEL 7-10; Start at 12:00 Allopurinol (Zyloprim) 300 mg DAILY PO Last administered on 02/08/17 08:21; Admin Dose 300 MG; Start 02/06/17 at 09:00 Lisinopril 10 mg 10 mg BID PO Last administered on 02/08/17 08:23; Admin Dose 10 MG; Start 02/05/17 at 21:00 Ferric Sodium Gluconate Complex/ Sodium Chloride (Ferrlecit/NS) 110 ml @ 100 mls/hr Q24H IVPB Last administered on 02/07/17 18:36; Admin Dose 100 MLS/HR; Start 02/06/17 at 17:30; Stop 02/08/17 at 18:35 Nystatin (Nystatin Susp) 5 ml QID PO Last administered on 02/08/17 13:29; Admin Dose 5 ML; Start 02/06/17 at 23:00 Ciprofloxacin (Cipro) 500 mg BID@06,18 PO Last administered on 02/08/17 05:32; Admin Dose 500 MG; Start 02/07/17 at 18:00 Silver Sulfadiazine (Thermazene 1% 25 Gm) 1 applic DAILY TOP ; Start 02/08/17 at 14:35 BONNY MIGUEL MD Feb 08, 2017 17:04
[2017-02-08] MEDS: SILVER SULFADIAZINE 1% 25 GM CR TOP SCH (18:39)
[2017-02-08] MEDS: FUROSEMIDE 40 MG TAB PO SCH (18:50)
[2017-02-08] MEDS: SOD CHLORIDE 0.9% IVPB SCH ×2 (21:00→23:59)
[2017-02-08] MEDS: DAPTOMYCIN IVPB SCH ×2 (21:00→23:59)
[2017-02-08] MEDS: MONTELUKAST 10 MG TAB PO SCH (21:15)
[2017-02-08 21:18] VITALS: BP 180/70; RESP 20
[2017-02-08] MEDS: INSULIN GLARGINE [LANtus] 3 ML PEN SC SCH (21:18)
[2017-02-08] MEDS: SOD FERRIC GLUC COMPLX 125 MG in SOD CHLORIDE 0.9% 100 ML IVPB SCH (22:36)
[2017-02-08] MEDS: HYDROCODONE/APAP (5/325) TAB PO PRN (22:38)
[2017-02-08] MEDS: ALBUTEROL/IPRATROPIUM (NEB) 3 ML AMP HHN PRN (23:39)
[2017-02-09] MEDS: ZOLPIDEM 5 MG TAB PO PRN ×2 (00:37→23:06)
[2017-02-09] MEDS: ACCU-CHEK XX SCH (02:00)
[2017-02-09] MEDS: ALBUTEROL/IPRATROPIUM (NEB) 3 ML AMP HHN PRN ×2 (02:46→17:55)
[2017-02-09 02:48] VITALS: BP 117/57; RESP 18
[2017-02-09 05:12] LABS: BASOPHILS % 0.3 % (0.0-2.0); EOSINOPHILS # 0.2 10^3/ul (0.0-0.5); EOSINOPHILS % 1.4 % (0.0-7.0); HEMATOCRIT 24.9 % (37.0-47.0); HEMOGLOBIN 7.7 g/dl (12.0-16.0); LYMPHOCYTES # 1.2 10^3/ul (0.8-2.9); LYMPHOCYTES % 9.9 % (15.0-51.0); MEAN CORPUSCULAR HEMOGLOBIN 27.9 pg (29.0-33.0); MEAN CORPUSCULAR HGB CONC 30.9 g/dl (32.0-37.0); MEAN CORPUSCULAR VOLUME 90.2 fl (82.0-101.0); MEAN PLATELET VOLUME 9.7 fl (7.4-10.4); MONOCYTE # 0.7 10^3/ul (0.3-0.9); MONOCYTES % 6.2 % (0.0-11.0); NEUTROPHIL # 9.5 10^3/ul (1.6-7.5); NEUTROPHILS % 81.1 % (39.0-77.0); PLATELET COUNT 458 10^3/UL (140-415); RED BLOOD COUNT 2.76 10^6/ul (4.20-5.40); RED CELL DISTRIBUTION WIDTH 14.6 % (11.5-14.5); WHITE BLOOD COUNT 11.7 10^3/ul (4.8-10.8)
[2017-02-09 05:27] LABS: INR 1.47; PROTIME 17.9 Sec (12.2-14.2); PT RATIO 1.4
[2017-02-09 05:29] LABS: PARTIAL THROMBOPLASTIN TIME 41.3 Sec (25.0-35.0)
[2017-02-09 05:39] LABS: CALCIUM 8.6 mg/dl (8.4-10.2); CREATININE 1.14 mg/dl (0.44-1.00); POTASSIUM 4.1 mmol/L (3.5-5.1)
[2017-02-09] MEDS: CIPROFLOXACIN 500 MG TAB PO SCH ×2 (06:31→17:17)
[2017-02-09] MEDS: PANTOPRAZOLE 40 MG INJ IV SCH (06:31)
[2017-02-09] MEDS: FUROSEMIDE 40 MG TAB PO SCH ×2 (06:31→17:23)
[2017-02-09 06:32] VITALS: BP 145/65
[2017-02-09] MEDS: INSULIN ASPART [NOVOLOG] 3 ML PEN SC SCH ×7 (07:50→20:29)
[2017-02-09 08:50] VITALS: BP 138/61; RESP 20
[2017-02-09] MEDS: LINAGLIPTIN 5 MG TABLET PO SCH (08:52)
[2017-02-09] MEDS: SALMETEROL/FLUTICASONE 250/50 INHA INH SCH ×2 (08:52→20:25)
[2017-02-09] MEDS: LORATADINE 10 MG TAB PO SCH (08:52)
[2017-02-09] MEDS: FERROUS SULFATE (EC) 325 MG TAB PO SCH ×2 (08:52→20:26)
[2017-02-09] MEDS: ALLOPURINOL 300 MG TAB PO SCH (08:53)
[2017-02-09] MEDS: APIXABAN 5 MG TABLET PO SCH ×2 (08:53→20:26)
[2017-02-09] MEDS: FLUDROCORTISONE 0.1 MG TAB PO SCH (08:53)
[2017-02-09] MEDS: ASPIRIN 81 MG TAB PO SCH (08:53)
[2017-02-09] MEDS: ASCORBIC ACID 500 MG TAB PO SCH ×2 (08:53→20:26)
[2017-02-09] MEDS: LISINOPRIL 10 MG TAB PO SCH ×2 (08:54→20:26)
[2017-02-09] MEDS: NYSTATIN SUSP 5 ML CUP PO SCH ×4 (08:55→20:25)
[2017-02-09] MEDS: METOPROLOL (XL) 25 MG TAB PO SCH ×2 (08:55→20:26)
[2017-02-09] MEDS: SILVER SULFADIAZINE 1% 25 GM CR TOP SCH (09:01)
[2017-02-09] MEDS: ALBUTEROL/IPRATROPIUM (NEB) 3 ML AMP HHN SCH ×4 (09:24→20:55)
--- NOTE | 2017-02-09 12:58 | CONS ---
Date/Time of Note Date/Time of Note DATE: 02/09/17 TIME: 12:57 Assessment/Plan Assessment/Plan Chief Complaint/Hosp Course Assessment: Acute on chronic diastolic heart failure - LVEF 50-55% on echocardiogram, improved Pulmonary hypertension - RVSP 57 mmHg on echocardiogram Acute kidney injury on chronic kidney disease Acute on chronic anemia - status post pRBC transfusions, upper endoscopy pending Left lower extremity cellulitis and left second toe gangrenous ulcer - on antibiotics per infectious disease Bilateral peripheral vascular disease - per vascular surgery Left lower extremity deep vein thrombosis - V/Q scan low probability for pulmonary embolism, status post IVC filter 02/01/2017 ESBL urinary tract infection - resolving Hypertension Diabetes mellitus Asthma Morbid obesity Recommendations: -continue Lasix 40mg PO BID -continue metoprolol succinate and lisinopril -discharge planning Problems: Consultation Date/Type/Reason Admit Date/Time Jan 29, 2017 at 13:15 Initial Consult Date 02/03/17 Type of Consultation: Cardiology 24 HR Interval Summary Free Text/Dictation No acute events. Detailed Summary Additional Comments 14 point review of systems without changes. Exam/Review of Systems Vital Signs Vitals Vital Signs Date Time Temp Pulse Resp B/P Pulse Ox O2 Delivery O2 Flow Rate FiO2 02/09/17 09:24 79 19 97 Nasal Cannula 2.0 02/09/17 08:50 98.3 138/61 02/06/17 14:06 21 Intake and Output 02/08/17 02/08/17 02/09/17 15:00 23:00 07:00 Intake Total 900 ml 810 ml Output Total 1000 ml Balance -100 ml 810 ml Exam Constitutional: alert, obese Psych: nl mood/affect, no complaints Head: atraumatic, normocephalic Eyes: nl conjunctiva, nl lids ENMT: nl external ears & nose, nl nasal mucosa & septum Neck: non-tender, supple Respiratory: diminished breath sounds, No wheezing Cardiovascular: regular rate and rhythm, No murmurs/extra sounds Gastrointestinal: non-tender, soft Extremities: edema, pitting pedal edema, No clubbing, No cyanosis Neurological: nl mental status, nl speech Skin: other (left lower extremity erythema) Results Result Diagram: 02/09/17 0451 02/09/17 0451 Results 24 hrs Laboratory Tests Test 02/08/17 17:55 02/08/17 21:11 02/09/17 04:51 02/09/17 08:45 Bedside Glucose 136 173 182 White Blood Count 11.7 H Red Blood Count 2.76 L Hemoglobin 7.7 L Hematocrit 24.9 L Mean Corpuscular Volume 90.2 Mean Corpuscular Hemoglobin 27.9 L Mean Corpuscular Hemoglobin Concent 30.9 L Red Cell Distribution Width 14.6 H Platelet Count 458 H Mean Platelet Volume 9.7 Neutrophils % 81.1 H Lymphocytes % 9.9 L Monocytes % 6.2 Eosinophils % 1.4 Basophils % 0.3 Nucleated Red Blood Cells % 0.0 Neutrophils # 9.5 H Lymphocytes # 1.2 Monocytes # 0.7 Eosinophils # 0.2 Basophils # 0.0 Nucleated Red Blood Cells # 0.0 Prothrombin Time 17.9 #H Prothrombin Time Ratio 1.4 INR International Normalized Ratio 1.47 Activated Partial Thromboplast Time 41.3 H Sodium Level 142 Potassium Level 4.1 Chloride Level 100 Carbon Dioxide Level 30 Anion Gap 16 Blood Urea Nitrogen 31 H Creatinine 1.14 H Glucose Level 185 Calcium Level 8.6 Test 02/09/17 12:22 Bedside Glucose 207 Medications Medications Current Medications Acetaminophen (Tylenol Tab) 1,000 mg Q4H PRN PO PAIN AND OR ELEVATED TEMP; Start 01/29/17 at 16:00 Insulin Glargine (Lantus) 60 unit QHS SC Last administered on 02/08/17 21:18; Admin Dose 60 UNIT; Start 01/29/17 at 21:00 Loratadine (Claritin) 10 mg DAILY PO Last administered on 02/09/17 08:52; Admin Dose 10 MG; Start 01/30/17 at 09:00 Montelukast Sodium (Singulair) 10 mg QHS PO Last administered on 02/08/17 21:15 ; Admin Dose 10 MG; Start 01/29/17 at 21:00 Ondansetron HCl (Zofran Inj) 4 mg Q6H PRN IV NAUSEA AND/OR VOMITING; Start at 16:00 Acetaminophen (Tylenol Tab) 650 mg Q6H PRN PO PAIN LEVEL 1-3 OR FEVER Last administered on 02/01/17 14:23; Admin Dose 650 MG; Start 01/29/17 at 16:00 Acetaminophen (Tylenol Supp) 650 mg Q6H PRN ID PAIN LEVEL 1-3 OR FEVER; Start 01/29/17 at 16:00 Acetaminophen/ Hydrocodone Bitart ([place] (5/325)) 1 tab Q6H PRN PO MODERATE PAIN LEVEL 4-6 Last administered on 02/05/17 20:36; Admin Dose 1 TAB; Start at 16:00 Acetaminophen/ Hydrocodone Bitart ([place] (5/325)) 2 tab Q6H PRN PO SEVERE PAIN LEVEL 7-10 Last administered on 02/08/17 22:38; Admin Dose 2 TAB; Start at 16:00 Docusate Sodium (Colace) 100 mg Q12H PRN PO CONSTIPATION Last administered on 09:05; Admin Dose 100 MG; Start 01/29/17 at 16:00 Magnesium Hydroxide (Milk Of Mag) 30 ml DAILY PRN PO CONSTIPATION Last administered on 02/03/17 09:09; Admin Dose 30 ML; Start 01/29/17 at 16:00 Bisacodyl (Dulcolax Supp) 10 mg DAILY PRN ID CONSTIPATION; Start 01/29/17 at 16 :00 Diagnostic Test (Pha) (Accu-Chek) 1 ea 02 XX Last administered on 02/03/17 02: 00; Admin Dose 1 EA; Start 01/30/17 at 02:00 Salmeterol Xinafoate/ Fluticasone (Advair 250/50 Diskus) 1 inh BID INH Last administered on 02/09/17 08:52; Admin Dose 1 INH; Start 01/29/17 at 21:00 Miscellaneous Information 1 ea NOTE XX ; Start 01/29/17 at 17:00 Glucose (Glutose) 15 gm Q15M PRN PO DECREASED GLUCOSE; Start 01/29/17 at 17:00 Glucose (Glutose) 22.5 gm Q15M PRN PO DECREASED GLUCOSE; Start 01/29/17 at 17: 00 Dextrose (D50w Syringe) 25 ml Q15M PRN IV DECREASED GLUCOSE; Start 01/29/17 at 17:00 Dextrose (D50w Syringe) 50 ml Q15M PRN IV DECREASED GLUCOSE; Start 01/29/17 at 17:00 Glucagon (Glucagen) 1 mg Q15M PRN IM DECREASED GLUCOSE; Start 01/29/17 at 17:00 Glucose (Glutose) 15 gm Q15M PRN BUCCAL DECREASED GLUCOSE; Start 01/29/17 at 17 :00 Linagliptin (Tradjenta) 5 mg DAILY PO Last administered on 02/09/17 08:52; Admin Dose 5 MG; Start 01/31/17 at 09:00 Aspirin (Aspirin) 81 mg DAILY PO Last administered on 02/09/17 08:53; Admin Dose 81 MG; Start 01/31/17 at 09:00 Tramadol HCl (Ultram) 50 mg Q6H PRN PO pain 6-10 Last administered on 02/01/17 09:41; Admin Dose 50 MG; Start 01/31/17 at 10:30 Apixaban (Eliquis) 10 mg BID PO Last administered on 02/09/17 08:53; Admin Dose 10 MG; Start 02/03/17 at 21:00; Stop 02/10/17 at 20:59 Apixaban 5 mg 5 mg BID PO ; Start 02/11/17 at 09:00 Daptomycin/Sodium Chloride (Cubicin/NS) 100 ml @ 200 mls/hr Q24H IVPB Last administered on 02/08/17 23:59; Admin Dose 200 MLS/HR; Start 02/03/17 at 17:00 Ferrous Sulfate (Ferrous Sulfate (Ec)) 325 mg BID PO Last administered on 08:52; Admin Dose 325 MG; Start 02/04/17 at 21:00; Stop 03/06/17 at 20:59 Metoprolol Succinate (Toprol Xl) 25 mg BID PO Last administered on 02/09/17 08 :55; Admin Dose 25 MG; Start 02/04/17 at 21:00 Ascorbic Acid (Vitamin C) 500 mg BID PO Last administered on 02/09/17 08:53; Admin Dose 500 MG; Start 02/04/17 at 21:00; Stop 03/06/17 at 20:59 Fludrocortisone Acetate (Florinef) 0.05 mg DAILY PO Last administered on 08:53; Admin Dose 0.05 MG; Start 02/04/17 at 11:00 Morphine Sulfate (morphine) 2 mg Q4H PRN IV SEVERE PAIN LEVEL 7-10; Start at 12:00 Allopurinol (Zyloprim) 300 mg DAILY PO Last administered on 02/09/17 08:53; Admin Dose 300 MG; Start 02/06/17 at 09:00 Lisinopril (Zestril) 10 mg BID PO Last administered on 02/09/17 08:54; Admin Dose 10 MG; Start 02/05/17 at 21:00 Nystatin (Nystatin Susp) 5 ml QID PO Last administered on 02/09/17 12:33; Admin Dose 5 ML; Start 02/06/17 at 23:00 Ciprofloxacin (Cipro) 500 mg BID@,18 PO Last administered on 02/09/17 06:31 ; Admin Dose 500 MG; Start 02/07/17 at 18:00 Silver Sulfadiazine (Thermazene 1% 25 Gm) 1 applic DAILY TOP Last administered on 02/09/17 09:01; Admin Dose 1 APPLIC; Start 02/08/17 at 14:35 Pantoprazole (Protonix Tab) 40 mg BID@,18 PO ; Start 02/09/17 at 18:00 BONNY MIGUEL MD Feb 09, 2017 12:58
[2017-02-09 14:31] VITALS: BP 152/70; RESP 20
--- NOTE | 2017-02-09 15:02 | CONS ---
Date/Time of Note Date/Time of Note DATE: 02/09/17 TIME: 14:51 Assessment/Plan Assessment/Plan Chief Complaint/Hosp Course ID PROGRESS NOTE CURRENT ABX: =>+ Daptomycin #8 +Diflucan #7 + Cipro #3 TOTAL ABX DAY #12 MERREM #7 => DC 8/9 Ceftriaxone #5-> DC 8/3 s/p Zosyn/Clinda 01/29-> DC'd 24 HOUR INTERVAL SUMMARY * A/A/O -> She declined bariatric caryn hose and declined DELMY wrap of LLEXT toward goal of improved venous/lymphatic return. * DC planning -> no fevers, WBC normalized, she is ambulatory * LLEXT erythema improved w/weeping bullous edema, left second toe gangrenous ulcer. Improving gradually. MRI without evidence of necrotizing fasciitis. * LLEXT w/persisting severe edema, fluid vesicles -- still wrapped with gauze Kerlix * Diflucan + Nystatin swish/swallow for EGD PATHO REPORT=> (+)A[place]ora Esophagitis / (-)H.Pylori Exam Constitutional: alert, oriented, well developed Head: atraumatic, normocephalic Eyes: EOMI, PERRL Respiratory: clear to auscultation, normal air movement Cardiovascular: nl pulses, regular rate and rhythm Gastrointestinal: Soft (+)BS Extremities: LLEXT cellulitis + gangrenous changes 2nd toe ulcer * LLEXT still w/significant edema and fluid small vesicle formation weeping edema Neurological: nl mental status, nl speech, nl strength ID ASSESSMENT 51 yo F PMHx morbid obesity admit with: 1. Resolving sepsis secondary to ESBL UTI => SIRS w/leukocytosis persisting post EGD 2. E.Coli-ESBL UTI 01/29 * Repeat Urine 01/29 (-) 3. Bacteremia 07/04 bottles from ED: BLOOD CULTURE Final COAGULASE NEGATIVE STAPH * Repeat cultures negative. 4. Left lower extremity cellulitis/ left second toe gangrenous ulcer. * LLEXT erythema improved w/weeping bullous edema, left second toe gangrenous ulcer. Improving gradually. MRI without evidence of necrotizing fasciitis. * Xray with soft tissue swelling on Fibula/Tibia. MRI without evidence of necrotizing fasciitis. 5. Peripheral vascular disease (PVD)=> Venous + Arterial * PAD:Arterial Duplex=> 1. Abnormal flow bilaterally in the calf arteries consistent with significant stenosis. 2. Significant stenosis in the left mid superficial femoral artery. * VENOUS: Left lower extremity acute deep vein thrombosis. VQ scan with low probability for PE. -- -Status post IVC filter placed on 02/01/2017 6. Systolic and diastolic congestive heart failure. Echo EF ~50-55%. 7 . Hypoxic respiratory failure, multifactorial most likely secondary to possible CHF, pulmonary hypertension, acute anemia, sepsis and underlying asthma and obesity=> RESOLVED 8. Anemia, now acute on chronic. H&H improved with transfusion. No evidence of bleeding. * GI -> EGD 02/03/17 (+)Aurora Esophagitis / (-)H.Pylori 9. DMII. A1c 6.8. 10. Essential hypertension w/cardiomegaly on CXR 11. Pulmonary edema -- possibly CHF due to HTN heart disease cor pulmonale vs diastolic dysfx * (+)PHTN 13. COPD: Asthma + restrictive component due to obesity; possibly obesity hypoventilation syndrome suspected * Pulmonary hypertension-> 2/2 #13 14. Possible HCAP => DDx silent aspiration pneumonitis vs pna per multiple risk factors below: * CXR: Mild pulmonary vascular congestion with pleural effusions, findings suggesting congestive heart failure. * Wet lungs at risk bacterial infection * Asthma * Obesity * GERD/Gastritis/Esophagitis * Suspect obesity hypoventilation syndrome 16. (+)[place] Esophagitis / (-)H.Pylori per EGD (-)MRSA Nares CURRENT ABX: =>+ Daptomycin #7 +Diflucan #6 + Cipro #2 TOTAL ABX DAY #11 MERREM #7 => DC 8/9 Ceftriaxone #5-> DC 8/3 s/p Zosyn/Clinda 01/29-> DC'd ID RECOMMENDATIONS=> DC Planning Recommendations 1. May DC home w/follow up APC/Vascular 2 weeks for concern (+)significant stenosis in the left mid superficial femoral artery. * Clindamycin 300mg po QID x 14 day with follow up APC for concern PAD and monitor wound healing * Diflucan 100mg daily PO + Nystatin 5mL PO swish/swallow 5. Avoid renal toxic ABX-> Cards needs room for diuretics . . Problems: Consultation Date/Type/Reason Admit Date/Time Jan 29, 2017 at 13:15 Initial Consult Date Type of Consultation: ID Exam/Review of Systems Vital Signs Vitals Vital Signs Date Time Temp Pulse Resp B/P Pulse Ox O2 Delivery O2 Flow Rate FiO2 02/09/17 14:31 98.2 84 20 152/70 95 02/09/17 13:14 Nasal Cannula 2.0 02/06/17 14:06 21 Intake and Output 02/08/17 02/08/17 02/09/17 15:00 23:00 07:00 Intake Total 900 ml 810 ml Output Total 1000 ml Balance -100 ml 810 ml Results Result Diagram: 02/09/17 0451 02/09/17 0451 Results 24 hrs Laboratory Tests Test 02/08/17 17:55 02/08/17 21:11 02/09/17 04:51 02/09/17 08:45 Bedside Glucose 136 173 182 White Blood Count 11.7 H Red Blood Count 2.76 L Hemoglobin 7.7 L Hematocrit 24.9 L Mean Corpuscular Volume 90.2 Mean Corpuscular Hemoglobin 27.9 L Mean Corpuscular Hemoglobin Concent 30.9 L Red Cell Distribution Width 14.6 H Platelet Count 458 H Mean Platelet Volume 9.7 Neutrophils % 81.1 H Lymphocytes % 9.9 L Monocytes % 6.2 Eosinophils % 1.4 Basophils % 0.3 Nucleated Red Blood Cells % 0.0 Neutrophils # 9.5 H Lymphocytes # 1.2 Monocytes # 0.7 Eosinophils # 0.2 Basophils # 0.0 Nucleated Red Blood Cells # 0.0 Prothrombin Time 17.9 #H Prothrombin Time Ratio 1.4 INR International Normalized Ratio 1.47 Activated Partial Thromboplast Time 41.3 H Sodium Level 142 Potassium Level 4.1 Chloride Level 100 Carbon Dioxide Level 30 Anion Gap 16 Blood Urea Nitrogen 31 H Creatinine 1.14 H Glucose Level 185 Calcium Level 8.6 Test 02/09/17 12:22 Bedside Glucose 207 Medications Medications Current Medications Acetaminophen (Tylenol Tab) 1,000 mg Q4H PRN PO PAIN AND OR ELEVATED TEMP; Start 01/29/17 at 16:00 Insulin Glargine (Lantus) 60 unit QHS SC Last administered on 02/08/17 21:18; Admin Dose 60 UNIT; Start 01/29/17 at 21:00 Loratadine (Claritin) 10 mg DAILY PO Last administered on 02/09/17 08:52; Admin Dose 10 MG; Start 01/30/17 at 09:00 Montelukast Sodium (Singulair) 10 mg QHS PO Last administered on 02/08/17 21:15 ; Admin Dose 10 MG; Start 01/29/17 at 21:00 Ondansetron HCl (Zofran Inj) 4 mg Q6H PRN IV NAUSEA AND/OR VOMITING; Start at 16:00 Acetaminophen (Tylenol Tab) 650 mg Q6H PRN PO PAIN LEVEL 1-3 OR FEVER Last administered on 02/01/17 14:23; Admin Dose 650 MG; Start 01/29/17 at 16:00 Acetaminophen (Tylenol Supp) 650 mg Q6H PRN AR PAIN LEVEL 1-3 OR FEVER; Start 01/29/17 at 16:00 Acetaminophen/ Hydrocodone Bitart ([place] (5/325)) 1 tab Q6H PRN PO MODERATE PAIN LEVEL 4-6 Last administered on 02/05/17 20:36; Admin Dose 1 TAB; Start at 16:00 Acetaminophen/ Hydrocodone Bitart ([place] (5/325)) 2 tab Q6H PRN PO SEVERE PAIN LEVEL 7-10 Last administered on 02/08/17 22:38; Admin Dose 2 TAB; Start at 16:00 Docusate Sodium (Colace) 100 mg Q12H PRN PO CONSTIPATION Last administered on 09:05; Admin Dose 100 MG; Start 01/29/17 at 16:00 Magnesium Hydroxide (Milk Of Mag) 30 ml DAILY PRN PO CONSTIPATION Last administered on 02/03/17 09:09; Admin Dose 30 ML; Start 01/29/17 at 16:00 Bisacodyl (Dulcolax Supp) 10 mg DAILY PRN AR CONSTIPATION; Start 01/29/17 at 16 :00 Diagnostic Test (Pha) (Accu-Chek) 1 ea 02 XX Last administered on 02/03/17 02: 00; Admin Dose 1 EA; Start 01/30/17 at 02:00 Salmeterol Xinafoate/ Fluticasone (Advair 250/50 Diskus) 1 inh BID INH Last administered on 02/09/17 08:52; Admin Dose 1 INH; Start 01/29/17 at 21:00 Miscellaneous Information 1 ea NOTE XX ; Start 01/29/17 at 17:00 Glucose (Glutose) 15 gm Q15M PRN PO DECREASED GLUCOSE; Start 01/29/17 at 17:00 Glucose (Glutose) 22.5 gm Q15M PRN PO DECREASED GLUCOSE; Start 01/29/17 at 17: 00 Dextrose (D50w Syringe) 25 ml Q15M PRN IV DECREASED GLUCOSE; Start 01/29/17 at 17:00 Dextrose (D50w Syringe) 50 ml Q15M PRN IV DECREASED GLUCOSE; Start 01/29/17 at 17:00 Glucagon (Glucagen) 1 mg Q15M PRN IM DECREASED GLUCOSE; Start 01/29/17 at 17:00 Glucose (Glutose) 15 gm Q15M PRN BUCCAL DECREASED GLUCOSE; Start 01/29/17 at 17 :00 Linagliptin (Tradjenta) 5 mg DAILY PO Last administered on 02/09/17 08:52; Admin Dose 5 MG; Start 01/31/17 at 09:00 Aspirin (Aspirin) 81 mg DAILY PO Last administered on 02/09/17 08:53; Admin Dose 81 MG; Start 01/31/17 at 09:00 Tramadol HCl (Ultram) 50 mg Q6H PRN PO pain 6-10 Last administered on 02/01/17 09:41; Admin Dose 50 MG; Start 01/31/17 at 10:30 Apixaban (Eliquis) 10 mg BID PO Last administered on 02/09/17 08:53; Admin Dose 10 MG; Start 02/03/17 at 21:00; Stop 02/10/17 at 20:59 Apixaban 5 mg 5 mg BID PO ; Start 02/11/17 at 09:00 Daptomycin/Sodium Chloride (Cubicin/NS) 100 ml @ 200 mls/hr Q24H IVPB Last administered on 02/08/17 23:59; Admin Dose 200 MLS/HR; Start 02/03/17 at 17:00 Ferrous Sulfate (Ferrous Sulfate (Ec)) 325 mg BID PO Last administered on 08:52; Admin Dose 325 MG; Start 02/04/17 at 21:00; Stop 03/06/17 at 20:59 Metoprolol Succinate (Toprol Xl) 25 mg BID PO Last administered on 02/09/17 08 :55; Admin Dose 25 MG; Start 02/04/17 at 21:00 Ascorbic Acid (Vitamin C) 500 mg BID PO Last administered on 02/09/17 08:53; Admin Dose 500 MG; Start 02/04/17 at 21:00; Stop 03/06/17 at 20:59 Fludrocortisone Acetate (Florinef) 0.05 mg DAILY PO Last administered on 08:53; Admin Dose 0.05 MG; Start 02/04/17 at 11:00 Morphine Sulfate (morphine) 2 mg Q4H PRN IV SEVERE PAIN LEVEL 7-10; Start at 12:00 Allopurinol (Zyloprim) 300 mg DAILY PO Last administered on 02/09/17 08:53; Admin Dose 300 MG; Start 02/06/17 at 09:00 Lisinopril (Zestril) 10 mg BID PO Last administered on 02/09/17 08:54; Admin Dose 10 MG; Start 02/05/17 at 21:00 Nystatin (Nystatin Susp) 5 ml QID PO Last administered on 02/09/17 12:33; Admin Dose 5 ML; Start 02/06/17 at 23:00 Ciprofloxacin (Cipro) 500 mg BID@18 PO Last administered on 02/09/17 06:31 ; Admin Dose 500 MG; Start 02/07/17 at 18:00 Silver Sulfadiazine (Thermazene 1% 25 Gm) 1 applic DAILY TOP Last administered on 02/09/17 09:01; Admin Dose 1 APPLIC; Start 02/08/17 at 14:35 Pantoprazole (Protonix Tab) 40 mg BID@,18 PO ; Start 02/09/17 at 18:00 TAHIR LOPEZ NP Feb 09, 2017 15:02
[2017-02-09] MEDS: PANTOPRAZOLE (EC) 40 MG TAB PO SCH (17:18)
--- NOTE | 2017-02-09 17:46 | PN ---
Date/Time of Note Date/Time of Note DATE: 02/09/17 TIME: 17:44 Assessment/Plan VTE Prophylaxis VTE Prophylaxis Intervention: SCD's Lines/Catheters IV Catheter Type (from Nrsg): Saline Lock Urinary Cath still in place: No Assessment/Plan Assessment/Plan 1. Left lower extremity cellulitis/ left second toe gangrenous ulcer. Improving gradually. MRI without evidence of necrotizing fasciitis. -On Dapto+Meropenem. --ID/Podiatry on board and will follow recs. -Continue wound care 2.Left lower extremity acute deep vein thrombosis. VQ scan with low probability for PE. --Status post IVC filter placed on 02/01/2017. -On Eliquis per vascular recs 3. Systolic and diastolic congestive heart failure. Echocardiogram with lower limits systolic function with ejection fraction 50-55%. -Diuresis, BB and ASA. Statin contraindicated as pt on Dapto. -Cards on board 4. Hypoxic respiratory failure, multifactorial most likely secondary to possible CHF, pulmonary hypertension, acute anemia, sepsis and underlying asthma and obesity. Now with minimal O2 requirements. -On ICH +LULI PRN -Pulmo on board 5. Anemia combined iron deficiency + chronic illness,. H&H improved with transfusion and iron replacement. No evidence of bleeding. -S/p EGD with erosive esophagitis -On iron replacement, Monitor H&H closely and monitor for any bleeding. 6. Aurora esophagitis/moderate Gastritis. -PPIs,Diflucan 7. Status post sepsis secondary to ESBL UTI -ID on board and on appropriate antibiotics.-Course to be determined . 8. DMII. A1c 6.8. -Continue accuchecks/ISS/Lantus/tradjenta 9. Essential hypertension. -Continue Coreg and adjust needed 10. REMI on CKD with Diabetic nephropathy. Renal fxn improved -Renally dose meds-Monitor renal fxn closely and f/u with nephro recs. 11. Pulmonary hypertension -Oxygen and diuretics. 12.Asthma. -Continue ICH 13.Morbid obesity. Weight reduction advised. 14.Obesity induced hypoventilation -Weight reduction advised. Sleep/CPAP study as outpatient. pt will need home health and oxygen on discharge Subjective 24 Hr Interval Summary Free Text/Dictation doing ok, SOB off oxygen Exam/Review of Systems Vital Signs Vitals Vital Signs Date Time Temp Pulse Resp B/P Pulse Ox O2 Delivery O2 Flow Rate FiO2 02/09/17 14:31 98.2 84 20 152/70 95 02/09/17 13:14 Nasal Cannula 2.0 02/06/17 14:06 21 Intake and Output 02/08/17 02/08/17 02/09/17 15:00 23:00 07:00 Intake Total 900 ml 810 ml Output Total 1000 ml Balance -100 ml 810 ml Exam General: Morbidly obese female HEENT: Normocephalic, Atraumatic, No laceration or hematoma; Eyes: PEERL, Conjunctiva clear, Anicteric sclera Neck: Supple without any lymphadenopathy, nontender, no JVD, no carotid bruits, trachea midline, no thyromegaly Cardiac: S1, S2 auscultated, regular rhythm and rate, no mumurs or gallop Pulmonary: Decreased breath sounds bibasilar. Normal respiratory effort. Chest clear to auscultation bilaterally, no adventitious breath sounds GI: Abdomen obese to inspection. Soft, non- distended, no masses, no rebound tenderness or guarding. Bowel sounds active on all four quadrants Genitourinary: Deferred Extremities:Edema+ on BLE. LLE with edema/warmth/redness/tenderness-improved from previous exam.Dressing dry/intact. Pulses [1+] bilaterally. Full ROM on all four extremities. No focal weakness appreciated. Neurologic: Alert to person, place, time, and situation. Affect appropriate, intact sensation. Skin: Pale looking. Clean,dry, and intact. No ecchymosis, no rashes, or lesions Results Result Diagram: 02/09/17 0451 02/09/17 0451 Results 24 hrs Laboratory Tests Test 02/08/17 17:55 02/08/17 21:11 02/09/17 04:51 02/09/17 08:45 Bedside Glucose 136 173 182 White Blood Count 11.7 H Red Blood Count 2.76 L Hemoglobin 7.7 L Hematocrit 24.9 L Mean Corpuscular Volume 90.2 Mean Corpuscular Hemoglobin 27.9 L Mean Corpuscular Hemoglobin Concent 30.9 L Red Cell Distribution Width 14.6 H Platelet Count 458 H Mean Platelet Volume 9.7 Neutrophils % 81.1 H Lymphocytes % 9.9 L Monocytes % 6.2 Eosinophils % 1.4 Basophils % 0.3 Nucleated Red Blood Cells % 0.0 Neutrophils # 9.5 H Lymphocytes # 1.2 Monocytes # 0.7 Eosinophils # 0.2 Basophils # 0.0 Nucleated Red Blood Cells # 0.0 Prothrombin Time 17.9 #H Prothrombin Time Ratio 1.4 INR International Normalized Ratio 1.47 Activated Partial Thromboplast Time 41.3 H Sodium Level 142 Potassium Level 4.1 Chloride Level 100 Carbon Dioxide Level 30 Anion Gap 16 Blood Urea Nitrogen 31 H Creatinine 1.14 H Glucose Level 185 Calcium Level 8.6 Test 02/09/17 12:22 02/09/17 17:21 Bedside Glucose 207 138 Medications Medications Current Medications Acetaminophen (Tylenol Tab) 1,000 mg Q4H PRN PO PAIN AND OR ELEVATED TEMP; Start 01/29/17 at 16:00 Insulin Glargine (Lantus) 60 unit QHS SC Last administered on 02/08/17 21:18; Admin Dose 60 UNIT; Start 01/29/17 at 21:00 Loratadine (Claritin) 10 mg DAILY PO Last administered on 02/09/17 08:52; Admin Dose 10 MG; Start 01/30/17 at 09:00 Montelukast Sodium (Singulair) 10 mg QHS PO Last administered on 02/08/17 21:15 ; Admin Dose 10 MG; Start 01/29/17 at 21:00 Ondansetron HCl (Zofran Inj) 4 mg Q6H PRN IV NAUSEA AND/OR VOMITING; Start at 16:00 Acetaminophen (Tylenol Tab) 650 mg Q6H PRN PO PAIN LEVEL 1-3 OR FEVER Last administered on 02/01/17 14:23; Admin Dose 650 MG; Start 01/29/17 at 16:00 Acetaminophen (Tylenol Supp) 650 mg Q6H PRN WI PAIN LEVEL 1-3 OR FEVER; Start 01/29/17 at 16:00 Acetaminophen/ Hydrocodone Bitart ([place] (5/325)) 1 tab Q6H PRN PO MODERATE PAIN LEVEL 4-6 Last administered on 02/05/17 20:36; Admin Dose 1 TAB; Start at 16:00 Acetaminophen/ Hydrocodone Bitart ([place] (5/325)) 2 tab Q6H PRN PO SEVERE PAIN LEVEL 7-10 Last administered on 02/08/17 22:38; Admin Dose 2 TAB; Start at 16:00 Docusate Sodium (Colace) 100 mg Q12H PRN PO CONSTIPATION Last administered on 09:05; Admin Dose 100 MG; Start 01/29/17 at 16:00 Magnesium Hydroxide (Milk Of Mag) 30 ml DAILY PRN PO CONSTIPATION Last administered on 02/03/17 09:09; Admin Dose 30 ML; Start 01/29/17 at 16:00 Bisacodyl (Dulcolax Supp) 10 mg DAILY PRN [place] CONSTIPATION; Start 01/29/17 at 16 :00 Diagnostic Test (Pha) (Accu-Chek) 1 ea 02 XX Last administered on 02/03/17 02: 00; Admin Dose 1 EA; Start 01/30/17 at 02:00 Salmeterol Xinafoate/ Fluticasone (Advair 250/50 Diskus) 1 inh BID INH Last administered on 02/09/17 08:52; Admin Dose 1 INH; Start 01/29/17 at 21:00 Miscellaneous Information 1 ea NOTE XX ; Start 01/29/17 at 17:00 Glucose (Glutose) 15 gm Q15M PRN PO DECREASED GLUCOSE; Start 01/29/17 at 17:00 Glucose (Glutose) 22.5 gm Q15M PRN PO DECREASED GLUCOSE; Start 01/29/17 at 17: 00 Dextrose (D50w Syringe) 25 ml Q15M PRN IV DECREASED GLUCOSE; Start 01/29/17 at 17:00 Dextrose (D50w Syringe) 50 ml Q15M PRN IV DECREASED GLUCOSE; Start 01/29/17 at 17:00 Glucagon (Glucagen) 1 mg Q15M PRN IM DECREASED GLUCOSE; Start 01/29/17 at 17:00 Glucose (Glutose) 15 gm Q15M PRN BUCCAL DECREASED GLUCOSE; Start 01/29/17 at 17 :00 Linagliptin (Tradjenta) 5 mg DAILY PO Last administered on 02/09/17 08:52; Admin Dose 5 MG; Start 01/31/17 at 09:00 Aspirin (Aspirin) 81 mg DAILY PO Last administered on 02/09/17 08:53; Admin Dose 81 MG; Start 01/31/17 at 09:00 Tramadol HCl (Ultram) 50 mg Q6H PRN PO pain 6-10 Last administered on 02/01/17 09:41; Admin Dose 50 MG; Start 01/31/17 at 10:30 Apixaban (Eliquis) 10 mg BID PO Last administered on 02/09/17 08:53; Admin Dose 10 MG; Start 02/03/17 at 21:00; Stop 02/10/17 at 20:59 Apixaban 5 mg 5 mg BID PO ; Start 02/11/17 at 09:00 Daptomycin/Sodium Chloride (Cubicin/NS) 100 ml @ 200 mls/hr Q24H IVPB Last administered on 02/08/17 23:59; Admin Dose 200 MLS/HR; Start 02/03/17 at 17:00 Ferrous Sulfate (Ferrous Sulfate (Ec)) 325 mg BID PO Last administered on 08:52; Admin Dose 325 MG; Start 02/04/17 at 21:00; Stop 03/06/17 at 20:59 Metoprolol Succinate (Toprol Xl) 25 mg BID PO Last administered on 02/09/17 08 :55; Admin Dose 25 MG; Start 02/04/17 at 21:00 Ascorbic Acid (Vitamin C) 500 mg BID PO Last administered on 02/09/17 08:53; Admin Dose 500 MG; Start 02/04/17 at 21:00; Stop 03/06/17 at 20:59 Fludrocortisone Acetate (Florinef) 0.05 mg DAILY PO Last administered on 08:53; Admin Dose 0.05 MG; Start 02/04/17 at 11:00 Morphine Sulfate (morphine) 2 mg Q4H PRN IV SEVERE PAIN LEVEL 7-10; Start at 12:00 Allopurinol (Zyloprim) 300 mg DAILY PO Last administered on 02/09/17 08:53; Admin Dose 300 MG; Start 02/06/17 at 09:00 Lisinopril (Zestril) 10 mg BID PO Last administered on 02/09/17 08:54; Admin Dose 10 MG; Start 02/05/17 at 21:00 Nystatin (Nystatin Susp) 5 ml QID PO Last administered on 02/09/17 17:16; Admin Dose 5 ML; Start 02/06/17 at 23:00 Ciprofloxacin (Cipro) 500 mg BID@,18 PO Last administered on 02/09/17 17:17 ; Admin Dose 500 MG; Start 02/07/17 at 18:00 Silver Sulfadiazine (Thermazene 1% 25 Gm) 1 applic DAILY TOP Last administered on 02/09/17 09:01; Admin Dose 1 APPLIC; Start 02/08/17 at 14:35 Pantoprazole (Protonix Tab) 40 mg BID@,18 PO Last administered on 02/09/17 17:18; Admin Dose 40 MG; Start 02/09/17 at 18:00 JENNIFER ONEILL MD Feb 09, 2017 17:46
[2017-02-09 20:18] VITALS: BP 170/88; RESP 22
[2017-02-09] MEDS: MONTELUKAST 10 MG TAB PO SCH (20:25)
[2017-02-09] MEDS: INSULIN GLARGINE [LANtus] 3 ML PEN SC SCH (20:29)
[2017-02-09] MEDS: HYDROCODONE/APAP (5/325) TAB PO PRN (23:06)
--- NOTE | 2017-02-09 23:53 | PN ---
Date/Time of Note Date/Time of Note DATE: 02/09/17 TIME: 23:53 Assessment/Plan Lines/Catheters IV Catheter Type (from [facility]): Saline Lock Iglesias in Place (from [facility]): No Exam/Review of Systems Vital Signs Vitals Vital Signs Date Time Temp Pulse Resp B/P Pulse Ox O2 Delivery O2 Flow Rate FiO2 02/09/17 21:05 93 24 98 Nasal Cannula 3.0 02/09/17 20:18 97.9 170/88 02/06/17 14:06 21 Intake and Output 02/08/17 02/08/17 02/09/17 15:00 23:00 07:00 Intake Total 900 ml 810 ml Output Total 1000 ml Balance -100 ml 810 ml Results Result Diagram: 02/09/17 0451 02/09/17 0451 FARA HADLEY DPM Feb 09, 2017 23:53
[2017-02-10] MEDS: ALBUTEROL/IPRATROPIUM (NEB) 3 ML AMP HHN PRN (01:22)
[2017-02-10] MEDS: ACCU-CHEK XX SCH (02:00)
[2017-02-10] MEDS: CIPROFLOXACIN 500 MG TAB PO SCH (06:16)
[2017-02-10] MEDS: PANTOPRAZOLE (EC) 40 MG TAB PO SCH (06:16)
[2017-02-10] MEDS: FUROSEMIDE 40 MG TAB PO SCH (06:17)
--- NOTE | 2017-02-10 07:44 | PN ---
DATE: 02/09/2017 SUBJECTIVE DATA: The patient is stable on 2 L nasal cannula. No other acute events noted. No hemoptysis, hematemesis or hematochezia. OBJECTIVE DATA: VITAL SIGNS: Blood pressure is 145/65, respirations 18, pulse 81, temperature 99.0. HEENT: Head is normocephalic. NECK: Supple. HEART: Regular rate. LUNGS: Diminished breath sounds at the base. ABDOMEN: Soft, nontender to palpation. No rebound or guarding. EXTREMITIES: Negative for clubbing, cyanosis. No edema. DERMATOLOGIC: Clean. No rashes. MUSCULOSKELETAL: No joint effusion. NEUROLOGIC: No change in exam. MEDICATIONS: Reviewed. LABORATORY AND DIAGNOSTIC DATA: Sodium 142, potassium 4.1, BUN 31, creatinine 1.14. White count 9.7, hemoglobin 7.7, hematocrit 24.9, platelet count is 458. ASSESSMENT AND PLAN: 1. Nonoliguric acute kidney injury on top of chronic kidney disease. Previous baseline creatinine 1.5 to 1.8 mg/dL. Etiology of acute kidney injury secondary to hemodynamics. Renal function stabilized. Continue current treatment and supportive care. Renally dose all med's. 2. Anemia. Continue to monitor H and H levels. The patient is status post Epogen. May consider blood transfusion. 3. Mineral bone disorder. Monitor calcium and phosphorus levels. 4. Lower extremity deep vein thrombosis. Continue Coumadin. 5. Sepsis secondary to cellulitis, antibiotic regimen. Continue current medical management. 6. Hypoxemic, respiratory failure, improving. Stable on 2 L nasal cannula. Continue. 7. Diastolic heart failure. Continue current treatment plan. 8. Morbid obesity. Continue dietary modification. 9. Hypertension. Continue current medical management. Dictated By: Atul Wellington DO /cuca/ /Document#: [id number]
[2017-02-10] MEDS: SALMETEROL/FLUTICASONE 250/50 INHA INH SCH (08:29)
[2017-02-10 08:30] VITALS: BP 132/60; RESP 20
[2017-02-10] MEDS: FLUDROCORTISONE 0.1 MG TAB PO SCH (08:30)
[2017-02-10] MEDS: FERROUS SULFATE (EC) 325 MG TAB PO SCH (08:30)
[2017-02-10] MEDS: ASCORBIC ACID 500 MG TAB PO SCH (08:30)
[2017-02-10] MEDS: ASPIRIN 81 MG TAB PO SCH (08:30)
[2017-02-10] MEDS: ALLOPURINOL 300 MG TAB PO SCH (08:30)
[2017-02-10] MEDS: LINAGLIPTIN 5 MG TABLET PO SCH (08:30)
[2017-02-10] MEDS: LORATADINE 10 MG TAB PO SCH (08:31)
[2017-02-10] MEDS: NYSTATIN SUSP 5 ML CUP PO SCH (08:31)
[2017-02-10] MEDS: APIXABAN 5 MG TABLET PO SCH (08:31)
[2017-02-10] MEDS: LISINOPRIL 10 MG TAB PO SCH (08:32)
[2017-02-10] MEDS: METOPROLOL (XL) 25 MG TAB PO SCH (08:32)
[2017-02-10] MEDS: SILVER SULFADIAZINE 1% 25 GM CR TOP SCH (08:33)
[2017-02-10] MEDS: INSULIN ASPART [NOVOLOG] 3 ML PEN SC SCH ×4 (08:42→12:51)
[2017-02-10] MEDS: ALBUTEROL/IPRATROPIUM (NEB) 3 ML AMP HHN SCH ×2 (09:15→13:48)
--- NOTE | 2017-02-10 09:16 | PN ---
DATE: 02/10/2017 SUBJECTIVE DATA: The patient is stable. No events overnight. No fevers, chills, nausea, vomiting. OBJECTIVE DATA: VITAL SIGNS: Blood pressure is 170/88, respirations 22, pulse 88, temperature 97.9. HEENT: Head is normocephalic. NECK: Supple. HEART: Regular rate. LUNGS: Show diminished breath sounds at the base. ABDOMEN: Soft, nontender to palpation. No rebound or guarding. EXTREMITIES: Negative for clubbing, cyanosis. No edema. DERMATOLOGIC: Clean. No rashes. MUSCULOSKELETAL: No joint effusion. NEUROLOGIC: No change in exam. MEDICATIONS: Reviewed. LABORATORY AND DIAGNOSTIC DATA: Currently pending. ASSESSMENT AND PLAN: 1. Nonoliguric acute kidney injury on top of chronic kidney disease stage 3. Etiology of acute kidney injury secondary to hemodynamics. Renal function stabilized. Continue current treatment plan and supportive care. Renally dose all meds. 2. Anemia. Monitor H and H levels. Continue Epogen. 3. Mineral bone disorder. Continue to monitor calcium and phosphorus levels. 4. Lower extremity deep vein thrombosis. Continue anticoagulation. 5. Sepsis secondary to cellulitis, urinary tract infection. Continue antibiotic regimen. 6. Hypoxemic respiratory failure secondary to congestive heart failure, asthma. Continue current medical management. Continue diuretic therapy. Continue supplemental oxygen. Follow up with Pulmonary. 7. Diastolic heart failure. Continue diuretic regimen being managed by Cardiology. 8. Morbid obesity. Continue dietary modification. 9. Hypertension. Continue current treatment plan. Dictated By: Atul Wellington DO /cuca/pieter /Document#: [id number]
--- NOTE | 2017-02-10 11:48 | PDOCDIS ---
Discharge Instructions CONDITION Patient Condition: Good HOME CARE INSTRUCTIONS: Special Diet: 1500 ADA ACTIVITY: Activity Restrictions: Slowly Increase Activity Rest between Activity Avoid heavy lifting Avoid Heavy Housework FOLLOW UP/APPOINTMENTS Follow-up Plan follow up with her own PMD through HMO insurance in 1-2 week after discharge. Follow up with [facility] DR.Babak Waters( podiatry)- in 2 weeks., Follow up with nephrology as outpatient in 2-3 week after discharge JENNIFER ONEILL MD Feb 10, 2017 11:48
[2017-02-10] MEDS ORDERED: ALBU8.5H3 INH (11:52)
[2017-02-10] MEDS ORDERED: CLIN-73 PO (11:52)
[2017-02-10] MEDS ORDERED: MOME13HF INHALATION (11:52)
[2017-02-10] MEDS ORDERED: APIX5TAB PO (11:52)
[2017-02-10] MEDS ORDERED: METO25TA7 PO (11:52)
[2017-02-10] MEDS ORDERED: LISI10TA2 PO (11:52)
[2017-02-10] MEDS ORDERED: FLUC100T39 PO (11:52)
--- NOTE | 2017-02-10 22:59 | DS ---
Date/Time of Note Date/Time of Note DATE: 02/10/17 TIME: 22:46 Discharge Summary Admission/Discharge Info Admit Date/Time Jan 29, 2017 at 13:15 Discharge Date/Time Feb 10, 2017 at 15:58 Discharge Diagnosis 1. Left lower extremity cellulitis/ left second toe gangrenous ulcer. Improving gradually. MRI without evidence of necrotizing fasciitis. 2.Left lower extremity acute deep vein thrombosis. VQ scan with low probability for PE.--Status post IVC filter placed on 02/01/2017. -On Eliquis per vascular recs 3. Systolic and diastolic congestive heart failure. Echocardiogram with lower limits systolic function with ejection fraction 50-55%. 4. Hypoxic respiratory failure, multifactorial most likely secondary to possible CHF, pulmonary hypertension, acute anemia, sepsis and underlying asthma and obesity. Now with minimal O2 requirements. 5. Anemia combined iron deficiency + chronic illness,. H&H improved with transfusion and iron replacement. No evidence of bleeding. -S/p EGD with erosive esophagitis -On iron replacement, Monitor H&H closely and monitor for any bleeding. 6. Aurora esophagitis/moderate Gastritis. -PPIs,Diflucan 7. Status post sepsis secondary to ESBL UTI 8. DMII. A1c 6.8. 9. Essential hypertension. 10. REMI on CKD with Diabetic nephropathy. Renal fxn improved 11. Pulmonary hypertension 12.Asthma. 13.Morbid obesity. 14.Obesity induced hypoventilation Patient Condition: Good Consults GI , Pulmonary , ID , Cardiology Dr.Stanley Morris, [facility] Procedures EGD with biopsy done by GI Dr. Okeefe Venogram with IVC filter placement by Hx of Present Illness This is a 51-year-old female with history of asthma, diabetes, hypertension, obesity, who came to [facility] due to reports of left lower extremity pain. According to the patient she started to have left lower extremity pain for 3 days duration. She reported increasing erythema and swelling. She reports unable inability to bear weight on foot. She denies any chest pain or shortness of breath or taking any contraceptives or any recent long travel or long travels in the car. She did report prior to incident that she was able to ambulate without difficulty. She subsequently went to [facility] for further evaluation. Upon examination she did have ultrasound of left lower extremity that did show a nonocclusive thrombus in the mid and distal left superficial femoral vein. She was also noted with a white count of 17.6 and slightly anemic with hemoglobin of 8.0 and hematocrit 25.4. She also was with acute renal insufficiency with creatinine of 1.98. An elevated creatinine kinase of 809. She also had elevated C-reactive protein and elevated BNP at 1820. She denies any chest pain or shortness of breath at this time. She was seen with a temperature 100.3 as well. And tachycardic. We will evaluate her for the aformentiond issues. Hospital Course pt presented with LLE cellutiitis and Left second toe gangrene, she was c/o Dysphagia with severe iron def anemia, for which she had a GI Consultation and had a EGD wt biopsy which revealed Erosive gastritis with [place] esophagitis , She was evaluated by podiatry Dr Medeiros for left second toe gangrene, recommended PO abx with owund care and outpatietn [facility] follow up. pt was followed up by Pulmonary for multifactorial resp failure. She had ECHO with EF 55%. She had a LLE DVT and had a IVC filter placement on 02/01/17. she was continued on Eliquis upon discharge. she was evaluated by ID Dr. Cisneros- and discharged home with PO Clindamycin and Fluconazome. Nystatin Swich and swallow was not covered by her insurance. pt had a sepsis due to ESBL UTI and for which she was treated with IV abx while being in hospital Home Meds Active Scripts Fluconazole* (Fluconazole*) 100 Mg Tablet, 100 MG PO DAILY, #10 TAB Prov:JENNIFER ONEILL MD 02/10/17 Clindamycin Hcl* (Clindamycin Hcl*) 300 Mg Capsule, 300 MG PO QID, #56 CAP Prov:JENNIFER ONEILL MD 02/10/17 Albuterol Sulfate* (Proair HFA*) 8.5 Gm Hfa.aer.ad, 2 PUFF INH Q6, #2 INHALER Prov:JENNIFER ONEILL MD 02/10/17 Metoprolol Succinate* (Toprol XL*) 25 Mg Tab.sr.24h, 25 MG PO DAILY, #120 TAB Prov:JENNIFER ONEILL MD 02/10/17 Lisinopril* (Lisinopril*) 10 Mg Tablet, 10 MG PO BID, #60 TAB Prov:JENNIFER ONEILL MD 02/10/17 Apixaban* (Eliquis*) 5 Mg Tablet, 5 MG PO BID for 30 Days, #60 TAB Prov:JENNIFER ONEILL MD 02/10/17 Mometasone-Formoterol (Dulera) 200-5 Mcg/Inh - 13 Gm Hfa.aer.ad, 2 PUFFS INHALATION BID, #2 INHALER Prov:JENNIFER ONEILL MD 02/10/17 Furosemide* (Furosemide*) 40 Mg Tablet, 40 MG PO BID, #180 TAB Prov:JENNIFER ONEILL MD 10/07/16 Reported Medications Liraglutide (Victoza 2-Amauri) 0.6 Mg/0.1 Ml Pen.injctr, 1.2 MG SQ QAM, SYR 01/29/17 Allopurinol* (Allopurinol*) 100 Mg Tablet, 100 MG PO DAILY, TAB 01/29/17 Sitagliptin* (Januvia*) 100 Mg Tablet, 100 MG PO DAILY, #30 TAB 01/29/17 Acetaminophen* (Tylenol*) 500 Mg Tab, 1000 MG PO Q4H Y for PAIN AND OR ELEVATED TEMP, TAB 01/29/17 Insulin Glargine* (Lantus*) 100 Unit/Ml Soln, 60 UNIT SC QHS, #1 VIAL 10/03/16 Amlodipine Besylate* (Amlodipine Besylate*) 10 Mg Tablet, 10 MG PO DAILY, #30 TAB 10/03/16 Hydralazine Hcl* (Hydralazine Hcl*) 50 Mg Tab, 75 MG PO BID, #60 TAB 10/03/16 Montelukast Sodium* (Montelukast Sodium*) 10 Mg Tablet, 10 MG PO QHS, #30 TAB 10/03/16 Ferrous Sulfate* (Ferrous Sulfate*) 325 Mg Tabec, 325 MG PO DAILY, TAB 10/03/16 Loratadine* (Loratadine*) 10 Mg Tablet, 10 MG PO DAILY, #30 TAB 10/03/16 Follow-up Plan Follow up with her own PMD in 1-2 week. Follow up with ID in 1-2 week , Follow up with [facility] as outpatient in 1-2 week. Primary Care Provider [facility] Time spent on discharge: > 30 minutes Pending Labs Laboratory Tests Test 02/10/17 01:18 02/10/17 04:53 02/10/17 08:28 02/10/17 12:44 Bedside Glucose 219mg/dL (70-220) 167mg/dL (70-220) 119mg/dL (70-220) Creatine Kinase 74IU/L (23-200) JENNIFER ONEILL MD Feb 10, 2017 22:57
[2017-02-11] MEDS ORDERED: APIXABAN 5 MG TABLET PO SCH (09:00)
== END 2017-02-10 15:58 | disposition home health service (06) | DRG 853 ==
LOC: E/R 11:01 → TEL 13:15 → MS1 02-06 13:54
PROVIDERS: ADMIT Internal Medicine; ATTEND Internal Medicine
PROC: 06H03DZ Insertion of Intraluminal Device into Inferior Vena Cava, Percutaneous Approach (ICD-10-PCS; principal; 2017-02-01 17:00)
PROC: 0DB58ZX Excision of Esophagus, Via Natural or Artificial Opening Endoscopic, Diagnostic (ICD-10-PCS; 2017-02-03)
PROC: 0DB68ZX Excision of Stomach, Via Natural or Artificial Opening Endoscopic, Diagnostic (ICD-10-PCS; 2017-02-03)
DX: A41.1 Sepsis due to other specified staphylococcus (principal); J96.91 Respiratory failure, unspecified with hypoxia; J69.0 Pneumonitis due to inhalation of food and vomit; I50.33 Acute on chronic diastolic (congestive) heart failure; N17.9 Acute kidney failure, unspecified; N18.3 Chronic kidney disease, stage 3 (moderate); E11.22 Type 2 diabetes mellitus with diabetic chronic kidney disease; B37.81 Candidal esophagitis; R71.0 Precipitous drop in hematocrit; I70.262 Atherosclerosis of native arteries of extremities with gangrene, left leg; I82.412 Acute embolism and thrombosis of left femoral vein; L03.116 Cellulitis of left lower limb; N39.0 Urinary tract infection, site not specified; Z68.41 Body mass index [BMI] 40.0-44.9, adult; I13.0 Hypertensive heart and chronic kidney disease with heart failure and stage 1 through stage 4 chronic kidney disease, or unspecified chronic kidney disease; K22.10 Ulcer of esophagus without bleeding; Z79.4 Long term (current) use of insulin; Z87.891 Personal history of nicotine dependence; D64.9 Anemia, unspecified; B96.89 Other specified bacterial agents as the cause of diseases classified elsewhere; Z16.12 Extended spectrum beta lactamase (ESBL) resistance; E66.01 Morbid (severe) obesity due to excess calories; J45.909 Unspecified asthma, uncomplicated; I70.201 Unspecified atherosclerosis of native arteries of extremities, right leg; E11.65 Type 2 diabetes mellitus with hyperglycemia; I27.2 Other secondary pulmonary hypertension; R65.20 Severe sepsis without septic shock; K21.9 Gastro-esophageal reflux disease without esophagitis; K29.70 Gastritis, unspecified, without bleeding; J44.9 Chronic obstructive pulmonary disease, unspecified
CPT/HCPCS: 36430; 36600; 71010; 73590; 73721; 75825; 75940; 75945; 78582; 80048; 80053; 80061; 81001; 81003; 82043; 82270; 82550; 82553; 82803; 82962; 83036; 83540; 83605; 83735; 83880; 84100; 84155; 84300; 84436; 84443; 84479; 84484; 84560; 85025; 85610; 85651; 85730; 86140; 86644; 86803; 86850; 86900; 86901; 86920; 87040; 87081; 87086; 87340; 88305; 88312; 88313; 93005; 93306; 93922; 93970; 93971; 94640; 94664; 96372; 96374; 96375; 96376; 97161; J1940; A9540; C1769; C1880; C9113; J0885; J1170; J1650; J1815; J2185; J2250; J2270; J2405; J2543; J2916; J3010; J3370; J7030; J7040; J7120; P9016

== ENCOUNTER → 2017-02-23 | Outpatient (CLI) | payer OTHER ==
[~2017-02-23] MED LIST changes: -ALBU18HF INHALATION; +ALBU8.5H3 INH; +ALLO100T PO; +APIX5TAB PO; +CLIN-73 PO; +FLUC100T39 PO; -FLUT16SP17 NASAL; -INSU100C SQ; +LIRA0.6P SQ; -METF1000 PO; +METO25TA7 PO; -POTA10TA37 PO; -PRAV40TA76 PO; +SITA100T8 PO; +TYL500 PO
== END | disposition home or self-care (01) ==
LOC: DIB 13:03
PROVIDERS: ATTEND Internal Medicine
DX: Z02.9 Encounter for administrative examinations, unspecified (principal)

== ENCOUNTER 2018-07-10 18:27 | Inpatient (IN) | payer OTHER ==
[~2018-07-10] VITALS: Ht 152.4 cm; Wt 112.3 kg
[~2018-07-10 18:27] MED LIST changes: -ALBU8.5H3 INH; +ALBU8.5H8 INH; -CLIN-73 PO; +CLIN300C10 PO; +METO-335 PO; -METO25TA7 PO; +SITA100T11 PO; -SITA100T8 PO
[2018-07-10 18:38] VITALS: Ht 152.4 cm; Wt 112.3 kg
[2018-07-10] MEDS ORDERED: SODIUM CHLORIDE 0.9% 1L BAG IV* STA (21:20)
[2018-07-10] MEDS ORDERED: AZITHROMYCIN 500MG/NS (PMX) 250 ML IV STA (21:20)
[2018-07-10] MEDS ORDERED: CEFTRIAXONE 1 GM/50 ML (PMX) 50 ML IVPB STA (21:20)
[2018-07-10] MEDS ORDERED: METHYLPREDNISOLONE 125 MG INJ IV ONE (21:30)
--- NOTE | 2018-07-10 21:57 | ERD ---
ER Documentation Chief Complaint Chief Complaint cough, sob flu like symptoms x1 week +fever. hx asthma HPI This is a 52-year-old asthmatic who is complaining of fever with phlegm productive cough for for 5 days. She has had gradually progressive shortness of breath over the past 2 days worsening today with difficulty breathing with wheezing. No chest pain. No GI symptoms. No syncope ROS All systems reviewed and are negative except as per history of present illness. Medications Home Meds Active Scripts Fluconazole* (Fluconazole*) 100 Mg Tablet, 100 MG PO DAILY, #10 TAB Prov:JENNIFER ONEILL MD 02/10/17 Clindamycin Hcl* (Clindamycin Hcl*) 300 Mg Capsule, 300 MG PO QID, #56 CAP Prov:JENNIFER ONEILL MD 02/10/17 Albuterol Sulfate* (Proair HFA*) 8.5 Gm Hfa.aer.ad, 2 PUFF INH Q6, #2 INHALER Prov:JENNIFER ONEILL MD 02/10/17 Metoprolol Succinate* (Toprol XL*) 25 Mg Tab.sr.24h, 25 MG PO DAILY, #120 TAB Prov:JENNIFER ONEILL MD 02/10/17 Lisinopril* (Lisinopril*) 10 Mg Tablet, 10 MG PO BID, #60 TAB Prov:JENNIFER ONEILL MD 02/10/17 Apixaban* (Eliquis*) 5 Mg Tablet, 5 MG PO BID for 30 Days, #60 TAB Prov:JENNIFER ONEILL MD 02/10/17 Mometasone-Formoterol (Dulera) 200-5 Mcg/Inh - 13 Gm Hfa.aer.ad, 2 PUFFS INHALATION BID, #2 INHALER Prov:JENNIFER ONEILL MD 02/10/17 Furosemide* (Furosemide*) 40 Mg Tablet, 40 MG PO BID, #180 TAB Prov:JENNIFER ONEILL MD 10/07/16 Reported Medications Liraglutide (Victoza 2-Amauri) 0.6 Mg/0.1 Ml Pen.injctr, 1.2 MG SQ QAM, SYR 01/29/17 Allopurinol* (Allopurinol*) 100 Mg Tablet, 100 MG PO DAILY, TAB 7/30/17 Sitagliptin* (Januvia*) 100 Mg Tablet, 100 MG PO DAILY, #30 TAB 01/29/17 Acetaminophen* (Tylenol*) 500 Mg Tab, 1000 MG PO Q4H PRN for PAIN AND OR ELEVATED TEMP, TAB 01/29/17 Insulin Glargine* (Lantus*) 100 Unit/Ml Soln, 60 UNIT SC QHS, #1 VIAL 10/03/16 Amlodipine Besylate* (Amlodipine Besylate*) 10 Mg Tablet, 10 MG PO DAILY, #30 T AB 10/03/16 Hydralazine Hcl* (Hydralazine Hcl*) 50 Mg Tab, 75 MG PO BID, #60 TAB 10/03/16 Montelukast Sodium* (Montelukast Sodium*) 10 Mg Tablet, 10 MG PO QHS, #30 TAB 10/03/16 Ferrous Sulfate* (Ferrous Sulfate*) 325 Mg Tabec, 325 MG PO DAILY, TAB 10/03/16 Loratadine* (Loratadine*) 10 Mg Tablet, 10 MG PO DAILY, #30 TAB 10/03/16 Allergies Allergies: Coded Allergies: theophylline (Verified Allergy, Unknown, 07/10/18) PMhx/Soc History of Surgery: No Anesthesia Reaction: No Hx Neurological Disorder: No Hx Respiratory Disorders: Yes (asthma) Hx Cardiac Disorders: Yes (htn) Hx Psychiatric Problems: No Hx Miscellaneous Medical Probl: No Hx Alcohol Use: No Hx Substance Use: No Hx Tobacco Use: No FmHx Family History: No coronary disease Physical Exam Vitals Vital Signs Date Temp Pulse Resp B/P (MAP) Pulse Ox O2 O2 Flow FiO2 Time Delivery Rate 07/10/18 101.2 22:32 07/10/18 96 2.0 28 21:30 07/10/18 100.7 86 22 155/64 92 18:38 (94) Physical Exam Const: Well-developed, well-nourished Head: Atraumatic, normocephalic Eyes: Normal Conjunctiva, PERRLA, EOMI, normal sclera, no nystagmus ENT: Normal External Ears, Nose and Mouth, moist mucus membranes. Neck: Full range of motion. No meningismus, no lymphadenopathy. Resp: [Increased work of breathing moderate with decreased breath sounds and wheezing Cardio: Regular rate and rhythm, no murmurs, S1 S2 present Abd: Soft, non tender x 4, non distended. Normal bowel sounds, no guarding or rebound, no pulsitile abdominal masses or bruits Skin: No petechiae or rashes, no ecchymosis , no maculopapular rash Back: No midline or flank tenderness Ext: No cyanosis, or edema, FROM x 4, normal inspection, neurovascularly intact x 4 Neur: Awake and alert, STR 5/5 x 4, sensation intact x 4, no focal findings, cerebellum intact Psych: Normal Mood and Affect Result Diagram: 07/10/18215407/10/182154 Results 24 hrs Laboratory Tests Test 07/10/18 21:55 07/10/18 22:16 White Blood Count 16.5 10^3/ul Red Blood Count 3.63 10^6/ul Hemoglobin 10.2 g/dl Hematocrit 31.4 % Mean Corpuscular Volume 86.5 fl Mean Corpuscular Hemoglobin 28.1 pg Mean Corpuscular Hemoglobin Concent 32.5 g/dl Red Cell Distribution Width 14.0 % Platelet Count 276 10^3/UL Mean Platelet Volume 10.1 fl Immature Granulocytes % 0.600 % Neutrophils % 77.3 % Lymphocytes % 13.4 % Monocytes % 8.3 % Eosinophils % 0.2 % Basophils % 0.2 % Nucleated Red Blood Cells % 0.0 /100WBC Immature Granulocytes # 0.100 10^3/ul Neutrophils # 12.8 10^3/ul Lymphocytes # 2.2 10^3/ul Monocytes # 1.4 10^3/ul Eosinophils # 0.0 10^3/ul Basophils # 0.0 10^3/ul Nucleated Red Blood Cells # 0.0 10^3/ul Sodium Level 136 mmol/L Potassium Level 4.1 mmol/L Chloride Level 100 mmol/L Carbon Dioxide Level 24 mmol/L Anion Gap 12 Blood Urea Nitrogen 46 mg/dl Creatinine 2.09 mg/dl Est Glomerular Filtrat Rate mL/min 25 mL/min Glucose Level 213 mg/dl Calcium Level 8.3 mg/dl Total Bilirubin 0.4 mg/dl Direct Bilirubin 0.00 mg/dl Indirect Bilirubin 0.4 mg/dl Aspartate Amino Transf (AST/SGOT) 29 IU/L Alanine Aminotransferase (ALT/SGPT) 21 IU/L Alkaline Phosphatase 98 IU/L Troponin I 0.022 ng/ml B-Type Natriuretic Peptide 1830 PG/ML Total Protein 8.2 g/dl Albumin 4.2 g/dl Globulin 4.00 g/dl Albumin/Globulin Ratio 1.05 POC Venous Lactate 1.4 mmol/L Current Medications Medications Dose Sig/Myke Start Time Status Last (Trade) Ordered Route PRN Stop Time Admin Dose Reason Admin Sodium 3,250 ml BOLUS OVER 2 07/10/18 DC 07/10/18 Chloride HOURS STAT 21:20 07/10/18 22:23 (NS) IV* 21:22 125 mg ONCE ONCE 07/10/18 DC 07/10/18 Methylprednis IV 21:30 07/10/18 22:22 olone Sodium 21:31 Succinate (Solu-Medrol) Azithromycin 250 ml @ ONCE STAT 07/10/18 DC 250 mls/hr IV 21:20 07/10/18 22:19 Ceftriaxone 50 ml @ ONCE STAT 07/10/18 DC 07/10/18 Sodium 100 mls/hr IVPB 21:20 07/10/18 22:22 21:49 650 mg ONCE ONCE 07/10/18 DC 07/10/18 Acetaminophen PO 22:00 07/10/18 22:32 (Tylenol 22:01 Tab) Procedures/MDM PROCEDURE: XR Chest. CLINICAL INDICATION: Shortness of breath TECHNIQUE: Frontal chest x-ray was obtained. COMPARISON: Chest x-ray February 06, 2017 FINDINGS: The heart is not enlarged. Mediastinum is not widened. No hilar masses seen. There is diffuse interstitial infiltrate in the perihilar right lung. Increased perihilar bronchovascular markings are seen on the left.. There is no effusion or pneumothorax. The osseous structures appear normal. IMPRESSION: Increased interstitial lung markings, right greater than left. Question failure. .Eros Gerard MD, MD Date Time Electronically viewed and signed by .Eros Gerard MD, MD on 07/10/2018 22:13 .A/ CC: MARVIN SALAZAR DO [id number] The patient has a fever with elevated white blood count with bilateral pulmonary increased interstitial markings consistent with probable heart failure. She also has elevated BNP. She likely has CHF with some type of viral illness/bronchitis or these interstitial markings could be pneumonia. Lactic acid is not elevated. She has had blood cultures and given antibiotics with breathing treatments and steroids. Due to her asthma status with heart failure/pneumonia will admit for antibiotic therapy monitoring, diuresis Departure Diagnosis: Primary Impression: CHF (congestive heart failure) Heart failure type: unspecified Heart failure chronicity: unspecified Qualified Codes: I50.9 - Heart failure, unspecified Additional Impressions: Pneumonia Pneumonia type: due to unspecified organism Laterality: bilateral Lung location: unspecified part of lung Qualified Codes: J18.9 - Pneumonia, unspecified organism Shortness of breath Condition: Stable MARVIN SALAZAR DO Jul 10, 2018 21:57
[2018-07-10] MEDS ORDERED: ACETAMINOPHEN 325 MG TAB PO ONE (22:00)
[2018-07-10] MEDS ORDERED: ONDANSETRON 4 MG INJ IV PRN (23:30)
[2018-07-10] MEDS ORDERED: ACETAMINOPHEN 325 MG TAB PO PRN (23:30)
[2018-07-10] MEDS: FERROUS SULFATE (EC) 325 MG TAB PO SCH (23:36)
--- NOTE | 2018-07-10 23:46 | HP ---
Date/Time of Note Date/Time of Note DATE: 07/10/18 TIME: 23:46 Assessment/Plan VTE Prophylaxis Pharmacological prophylaxis: apixaban Lines/Catheters IV [facility]from [facility] Saline Lock Assessment/Plan Hospital Course This is a 52-year-old female being admitted to the telemetry floor for: #1 Dyspnea: Likely multifactorial secondary to underlying asthma exacerbation and/or CHF exacerbation and/or pneumonia. DuoNeb every 4 hours scheduled, IV steroids, Protonix, will give a dose of Lasix 60 mg IV x1 and reassess volume status in the a.m. Strict I's and O's. Repeat chest x-ray in the a.m. Will check an echocardiogram. BNP is elevated at approximately 1800. Hold beta- koko at the current time given patient's wheezing. #2 sepsis: Suspect underlying pneumonia. Ceftriaxone and azithromycin IV. Trend lactate levels, first set was within normal values. Await culture results #3 suspect community-acquired pneumonia: Ceftriaxone and azithromycin IV #4 acute on chronic systolic versus diastolic CHF exacerbation: Patient does have lower extremity swelling as well as signs of congestion on x-ray. We will give the patient a dose of 60 mg of IV Lasix and reassess in the a.m. We will check an echocardiogram to assess heart morphology and ejection fraction. We will hold beta-koko at the current time given patient's wheezing and respiratory symptoms. Strict I's and O's, fluid restriction #5 history of DVT: Continue Eliquis, status post IVC filter #6 diabetes mellitus type 2: Insulin sliding scale, resume home basal bolus insulin, diabetic diet #7 Normocytic anemia: Likely anemia of chronic disease given underlying kidney function. Check iron stores #8 acute on chronic kidney disease: Patient has a history of diabetes and diabetic nephropathy. Previous creatinine was noted to be 1.14 at the current time is elevated at 2.09. Unsure if this is her new baseline patient does appear to be volume overloaded at the current time. Patient also currently on an DELMY inhibitor, will hold this. Which she will be getting IV diuresis. Will check a renal ultrasound and urine studies. Will consult nephrology Dr. Wellington #9 hypertension: Hold DELMY inhibitor given kidney function and hold beta-koko at the current time given patient's asthma and wheezing. Continue amlodipine #10 pulmonary hypertension: We will check an echocardiogram, consider pulmonary consultation #11 morbid obesity: We will check hemoglobin A1c, lipid panel, TSH #12 history of gastritis: Patient has a history of esophagitis as well as Aurora esophagitis. Protonix at the current time. #13 obesity induced hypoventilation: Monitor closely, may need CPAP/BiPAP. #14 asthma: Resume home inhalers, please see #1. #15 DVT GI prophylaxis: Eliquis, Protonix Further treatment strategy will be implemented as per the clinical course Result Diagram: 07/10/18215407/10/182154 Results 24hrs Laboratory Tests Test 07/10/18 21:55 07/10/18 22:16 White Blood Count 16.5 #H Red Blood Count 3.63 #L Hemoglobin 10.2 #L Hematocrit 31.4 #L Mean Corpuscular Volume 86.5 Mean Corpuscular Hemoglobin 28.1 L Mean Corpuscular Hemoglobin Concent 32.5 Red Cell Distribution Width 14.0 Platelet Count 276 # Mean Platelet Volume 10.1 Immature Granulocytes % 0.600 H Neutrophils % 77.3 H Lymphocytes % 13.4 L Monocytes % 8.3 Eosinophils % 0.2 Basophils % 0.2 Nucleated Red Blood Cells % 0.0 Immature Granulocytes # 0.100 H Neutrophils # 12.8 H Lymphocytes # 2.2 Monocytes # 1.4 H Eosinophils # 0.0 Basophils # 0.0 Nucleated Red Blood Cells # 0.0 Sodium Level 136 Potassium Level 4.1 Chloride Level 100 Carbon Dioxide Level 24 Anion Gap 12 Blood Urea Nitrogen 46 H Creatinine 2.09 H Est Glomerular Filtrat Rate mL/min 25 L Glucose Level 213 Calcium Level 8.3 L Total Bilirubin 0.4 Direct Bilirubin 0.00 Indirect Bilirubin 0.4 Aspartate Amino Transf (AST/SGOT) 29 Alanine Aminotransferase (ALT/SGPT) 21 Alkaline Phosphatase 98 Troponin I 0.022 B-Type Natriuretic Peptide 1830 H Total Protein 8.2 H Albumin 4.2 Globulin 4.00 H Albumin/Globulin Ratio 1.05 POC Venous Lactate 1.4 HPI/ROS Admit Date/Time Admit Date/Time Hx of Present Illness Chief complaint: Cough, fever, shortness of breath times 5 days This is a 52-year-old female with a history of asthma as well as CHF who is complaining of fever with phlegm productive cough for for 5 days. She has had gradually progressive shortness of breath over the past 2 days worsening today with difficulty breathing with wheezing. No chest pain. No GI symptoms. Patient was seen and examined at the bedside and she was noted to be visibly dyspneic when she was trying to ambulate from the back to the room. Wheezing on exam. She did improve with supplemental oxygenation. Patient does report increased swelling of her legs bilaterally. Allergies: Theophylline Medications: See CAMI ROBLES Const: As per HPI Eyes : No pain discharge or redness or change in visual acuity ENT: No pain, sore throat, congestion, congestion, dysphagia or discharge Respiratory: As per HPI Cardiovascular: As per HPI GI : no change in appetite, abdominal pain, nausea, vomiting, diarrhea, constipation, or change in the color his stool Genitourinary: No dysuria, hematuria, flank pain , discharge or CVA tenderness Musculoskeletal: As per HPI Skin: No rash, bruising or hives Neuro: No headache, dizziness, syncope, seizure, focal weakness Endocrine: No polyuria, polydipsia, temperature intolerance Psych: No hallucination, depression, anxiety or suicidal ideation Additional Comments PROCEDURE: XR Chest. CLINICAL INDICATION: Shortness of breath TECHNIQUE: Frontal chest x-ray was obtained. COMPARISON: Chest x-ray February 06, 2017 FINDINGS: The heart is not enlarged. Mediastinum is not widened. No hilar masses seen. There is diffuse interstitial infiltrate in the perihilar right lung. Increased perihilar bronchovascular markings are seen on the left.. There is no effusion or pneumothorax. The osseous structures appear normal. IMPRESSION: Increased interstitial lung markings, right greater than left. Question failure. .Eros Gerard MD, MD Date Time Electronically viewed and signed by .Eros Gerard MD, on 07/10/2018 22:13 .A/ CC: MARVIN SALAZAR DO [id number] PMH/Family/Social Past Medical History Left lower extremity acute deep vein thrombosis. Status post IVC filter placed on 02/01/2017. Systolic and diastolic congestive heart failure. Anemia combined iron deficiency + chronic illness,. erosive esophagitis History of Aurora esophagitis/moderate Gastritis. History of ESBL UTI Diabetes mellitus type 2 Essential hypertension. REMI on CKD with Diabetic nephropathy. Pulmonary hypertension Asthma. Morbid obesity. Obesity induced hypoventilation Medications Current Medications Ondansetron HCl (Zofran Inj) 4 mg ER BRIDGE PRN IV NAUSEA AND/OR VOMITING; Start 07/10/18 at 23:30; Stop 07/11/18 at 23:29 Acetaminophen (Tylenol Tab) 650 mg ER BRIDGE PRN PO MILD PAIN(1-3)OR ELEVATED TEMP; Start 07/10/18 at 23:30; Stop 07/11/18 at 23:29 Allopurinol (Zyloprim) 100 mg DAILY PO ; Start 07/11/18 at 09:00; Status UNV Amlodipine Besylate (Norvasc) 10 mg DAILY PO ; Start 07/11/18 at 09:00; Status UNV Apixaban (Eliquis) 5 mg BID PO ; Start 07/11/18 at 00:00; Status UNV Insulin Glargine (Lantus) 60 units QHS SC ; Start 07/11/18 at 21:00; Status UNV Loratadine (Claritin) 10 mg DAILY PO ; Start 07/11/18 at 09:00; Status UNV Montelukast Sodium (Singulair) 10 mg QHS PO ; Start 07/11/18 at 21:00; Status UNV Ferrous Sulfate (Ferrous Sulfate (Ec)) 325 mg DAILY PO ; Start 07/10/18 at 23:36; Status UNV Miscellaneous Information 2 puffs BID INHALATION ; Start 07/11/18 at 00:00; S tatus UNV Albuterol/ Ipratropium (Duoneb) 3 ml Q4H RESP THERAPY HHN ; Start 07/11/18 at 01:00; Status UNV Levalbuterol (Xopenex Neb) 1.25 mg Q4H RESP THERAPY PRN HHN SHORTNESS OF BREATH; Start 07/11/18 at 00:00; Status UNV Furosemide (Lasix) 60 mg ONCE ONCE IV ; Start 07/11/18 at 00:00; Stop 07/11/18 at 00:01; Status UNV Coded Allergies: theophylline (Verified Allergy, Unknown, 07/10/18) Past Surgical History Status post IVC filter placed on 02/01/2017. Family History Significant Family History: no pertinent family hx Social History Alcohol Use: none Smoking Status: Never smoker Drug Use: none Exam/Review of Systems Vital Signs Vitals Vital Signs Date Temp Pulse Resp B/P (MAP) Pulse Ox O2 O2 Flow FiO2 Time Delivery Rate 07/10/18 101.2 22:32 07/10/18 Nasal 2 21:35 Cannula 07/10/18 96 28 21:30 07/10/18 86 22 155/64 18:38 (94) Exam Exam General: Patient does appear to be visibly dyspneic during ambulation, she did improve when she sat down and had supplemental O2 placed on her HEENT: Atraumatic, normocephalic. The pupils are equal, round and reactive. Extraocular motor are intact Neck: Supple with full range of motion. No rigidity or meningismus Chest: Nontender Lungs: Expiratory wheezing bilaterally on examination, labored breathing Heart: Normal S1-S2, Regular rhythm and rate. No overt murmurs appreciated auscultation Abdomen: Soft , nontender, nondistended , bowel sounds are present. No guarding no rebound tenderness , No masses or organomegaly. No costovertebral temporal angle mass Extremities: 1+ pitting edema of the bilateral lower extremities Neurologic: Normal mental status, speech normal, cranial nerves II through XII are intact, motor and sensory are intact, Additional Comments EKG: Normal sinus rhythm at approximately 80 bpm, no ST or T wave abnormalities noted for acute ischemia PROCEDURE: XR Chest. CLINICAL INDICATION: Shortness of breath TECHNIQUE: Frontal chest x-ray was obtained. COMPARISON: Chest x-ray February 06, 2017 FINDINGS: The heart is not enlarged. Mediastinum is not widened. No hilar masses seen. There is diffuse interstitial infiltrate in the perihilar right lung. Increased perihilar bronchovascular markings are seen on the left.. There is no effusion or pneumothorax. The osseous structures appear normal. IMPRESSION: Increased interstitial lung markings, right greater than left. Question failure. .Eros Gerard MD, MD Date Time Electronically viewed and signed by .Eros Gerard MD, on 07/10/2018 22:13 .A/ CC: MARVIN SALAZAR DO [id number] NORA DOHERTY Jul 10, 2018 23:46
[2018-07-11] VITALS (10 sets, daily range): BP systolic 107–131; BP diastolic 52–69; PULSE 67–95; RESP 20
[2018-07-11] MEDS ORDERED: FUROSEMIDE 40 MG INJ IV ONE
[2018-07-11] MEDS ORDERED: NACL 0.9% 3 ML SYG IV SCH
[2018-07-11] MEDS ORDERED: DOCUSATE SODIUM 100 MG CAP PO PRN
[2018-07-11] MEDS ORDERED: BISACODYL (EC) 5 MG TAB PO PRN
[2018-07-11] MEDS ORDERED: ACETAMINOPHEN 325 MG TAB PO PRN
[2018-07-11] MEDS ORDERED: LEVALBUTEROL (NEB) 1.25 MG/0.5 ML AMP HHN PRN
[2018-07-11] MEDS ORDERED: ONDANSETRON 4 MG INJ IV PRN
[2018-07-11] MEDS: ALBUTEROL/IPRATROPIUM (NEB) 3 ML AMP HHN SCH ×6 (00:22→20:11)
[2018-07-11] MEDS ORDERED: GLUCAGON 1 MG INJ IM PRN (00:30)
[2018-07-11] MEDS ORDERED: GLUCOSE GEL 15 GRAM TUBE BUCCAL PRN (00:30)
[2018-07-11] MEDS ORDERED: DEXTROSE 50% 50 ML SYRINGE IV PRN ×2 (00:30)
[2018-07-11] MEDS ORDERED: GLUCOSE GEL 15 GRAM TUBE PO PRN ×2 (00:30)
[2018-07-11] MEDS: PANTOPRAZOLE (EC) 40 MG TAB PO SCH (05:30)
[2018-07-11] MEDS ORDERED: INSULIN REGULAR, HUMAN 100 UNIT/1 ML 3ML VIAL IV ONE (07:00)
[2018-07-11] MEDS: FERROUS SULFATE (EC) 325 MG TAB PO SCH (08:27)
[2018-07-11] MEDS: APIXABAN 5 MG TABLET PO SCH ×2 (08:27→21:14)
[2018-07-11] MEDS: LORATADINE 10 MG TAB PO SCH (08:27)
[2018-07-11] MEDS ORDERED: FUROSEMIDE 40 MG INJ IV SCH (09:00)
[2018-07-11] MEDS ORDERED: AMLODIPINE 10 MG TAB PO SCH (09:00)
[2018-07-11] MEDS ORDERED: predniSONE 20 MG TAB PO SCH (09:00)
[2018-07-11] MEDS ORDERED: ALLOPURINOL 100 MG TAB PO SCH (09:00)
--- NOTE | 2018-07-11 09:04 | CONS ---
DATE OF ADMISSION: 07/10/2018 DATE OF CONSULTATION: 07/11/2018 REASON FOR CONSULTATION: Acute kidney injury. REQUESTING PHYSICIAN: Dr. Khanh Doherty. HISTORY OF PRESENT ILLNESS: This is a 52-year-old female with a past medical history of chronic kidn ey disease stage 3b with a baseline EGFR of approximately 35 mL per minute, a history of congestive h eart failure, asthma, history of diabetes, hypertension, who presents to [facility] for evaluation of shortness of breath. The patient states that over the past 4 or 5 days, she has h ad progressive shortness of breath associated with wheezing. As a result, she came to the emergency room. Upon arrival, the patient had a chest x-ray, which showed findings of possible vascular conges tion. In the emergency room, the patient was given diuretic therapy, nebulizers and antibiotics and admitted to telemetry for evaluation. In terms of patient's renal history, the patient has underlying chronic kidney disease. She states h er approximate EGFR is about 35 mL per minute. The patient's previous baseline creatinines were arou nd 1.5 mg/dL. She currently denies any hemoptysis, hematemesis or hematochezia. PAST MEDICAL HISTORY: As stated above, history of chronic kidney disease stage 3b, history of hypert ension, diabetes, morbid obesity, asthma. FAMILY HISTORY: No family history of kidney disease. SOCIAL HISTORY: She does not drink, smoke or do drugs. MEDICATIONS: The patient's medications have been reviewed. ALLERGIES: PLEASE SEE LIST. REVIEW OF SYSTEMS: A 14-point review of systems was conducted. Pertinent positives in history of pr esent illness, otherwise negative. PHYSICAL EXAMINATION: VITAL SIGNS: Blood pressure is 135/76, respirations 16, pulse 72, temperature 98.6. HEENT: Head is normocephalic. NECK: Supple. HEART: Regular rate. LUNGS: Show diminished breath sounds at the base. ABDOMEN: Soft, nontender to palpation without rebound or guarding. EXTREMITIES: Negative for clubbing, cyanosis. Trace edema. DERMATOLOGIC: No rashes. MUSCULOSKELETAL: No joint effusions. NEUROLOGIC: No change in exam. MEDICATIONS: Reviewed. LABORATORY DATA: Shows a white count 16.3, hemoglobin 9.1, platelet count 233. Sodium 139, potassiu m 4.6, chloride 100, BUN 47, creatinine 2.02, glucose is 436. Hemoglobin A1c is 8.6. ASSESSMENT AND PLAN: This is a 52-year-old female who presents with: 1. Nonoliguric acute kidney injury on top of chronic kidney disease stage 3b with previous baseline creatinine of around 1.5 mg/dL. Etiology of current acute kidney injury is possibly due to hemodynam ics, questionable sepsis, questionable cardiorenal syndrome. Other possibilities include a combinati on of diuretics, DELMY inhibitor effect, versus progression of disease. Plan at this point is to do a full evaluation. We will check UA with microanalysis, check urine electrolytes. [facility] We would recommend to hold DELMY inhibitor or ARB at this time. Continue gen tle diuretic therapy, monitor I's and O's closely. Otherwise, continue supportive care, renally dose all medicines, avoid nephrotoxins. 2. Anemia. Continue to monitor hemoglobin and hematocrit levels. 3. Mineral bone disorder, monitor calcium and phosphorus levels. 4. Acute hypoxemic respiratory failure. Etiology is multifactorial, possibly secondary to pneumonia , asthma exacerbation, possible congestive heart failure. The patient's workup is ongoing. We will check a 2D echo. Continue nebulizers, antibiotics, continue gentle diuretic therapy at this time. M onitor I's and O's closely. 5. Diabetes. Continue Accu-Cheks, insulin sliding scale. 6. Hypertension. Continue current blood pressure regimen. 7. History of pulmonary hypertension. Continue to monitor. 8. Morbid obesity. Continue dietary modification. 9. History of gastritis. Continue proton pump inhibitor. 10. Morbid obesity. Continue dietary modification. 11. History of deep venous thrombosis. Continue Eliquis. Thank you, Dr. Doherty, for this interesting consult. It will be a pleasure to follow patient with jacobo culver throughout the hospital course. Dictated By: ROXIE PHILIP/NTS Conf#: [id number] DID#: [id number] CC: KHANH DOHERTY MD;*End*
[2018-07-11] MEDS: INSULIN ASPART [NOVOLOG] 3 ML PEN SC SCH ×7 (09:25→21:41)
[2018-07-11] MEDS: FLUTICASONE/VILANTEROL 200-25 INH DEVICE INH SCH ×2 (09:37→14:31)
[2018-07-11] MEDS ORDERED: NPH, HUMAN INSULIN ISOPHANE 3ML VIAL SC ONE (11:00)
--- NOTE | 2018-07-11 11:18 | PN ---
Date/Time of Note Date/Time of Note DATE: 07/11/18 TIME: 11:17 Assessment/Plan VTE Prophylaxis Pharmacological prophylaxis: apixaban Lines/Catheters IV Catheter Type (from [facility]): Saline Lock Assessment/Plan Hospital Course SUBJECTIVE: Lying in bed, having mild wheezing. Normal work of breathing. On 2 L nasal cannula. No fevers. OBJECTIVE: Vital signs-see below PHYSICAL EXAM: Constitutional: Obese female, not in acute distress. Psych: nl mood/affect, no complaints Head: atraumatic, normocephalic Eyes: nl conjunctiva, nl sclera ENMT: mucosa pink and moist, nl external ears & nose Neck: non-tender, supple Respiratory: +Wheezing RUL/RLL. Normal work of breathing. Cardiovascular: nl pulses, regular rate and rhythm Gastrointestinal: non-tender, soft, bowel sounds active in all 4 quadrants. Musculoskeletal/extremities: nl extremities to inspection, motor strength equal bilaterally, no focal deficit. Normal pulses,no cyanosis, no edema. Neurological: Alert oriented 3,nl speech, nl strength Skin: nl turgor ASSESSMENT/PLAN: 52-year-old obese female with numerous medical history including CKD stage III, asthma, diastolic heart failure, diabetes, hypertension, here with worsening shortness of breath times 4-day duration with fevers/nonproductive cough/wheezing. 1.Hypoxemic respiratory failure multifactorial with CHF/asthma exacerbation/URI. -Aymxax-jfj-yqigp DuoNeb -Judicious systemic steroid therapy which patient is already on. -Diuretics -Follow-up x-rays 2.Asthma exacerbation -Add Breo INH -Tapering dose of systemic steroids -PRN LULI 3. Upper respiratory infection -Continue antibiotics. 4.REMI on CKD stage III with possible diabetic nephropathy. -Management per nephrology. -Monitor renal function. 5.Diastolic heart failure -Continue diuretics. 6.Hypertension -In light of heart failure, DC amlodipine and start patient on beta-koko for blood pressure management. Will choose metoprolol in the setting of asthma. 7.DMII -Patient with uncontrolled hyperglycemia 2/2 IV steroids. At this time, I recommend titration of steroids down to safe dose of prednisone and start patient on a pre-meal insulin. For now, we will give a dose of NPH to control hyperglycemia. -Accu-Cheks/ISS/Lantus. 8. Left lower extremity DVT -on ATCX5 mos -We will repeat ultrasound and will determine discontinuation as indicated. 9. Gout -No flares -On allopurinol. 10.Anemia of CKD -Stable H&H. -Continue oral iron 11.Obesity -Weight reduction advised. DVT prophylaxis: on tx w/eliquis PUD prophylaxis: Protonix CODE STATUS: Full code Diet: Carbohydrate controlled/renal diet. Disposition: Continue current medical management. Await for clinical improvement. Patient was seen in collaboration with Dr. Ford Result Diagram: 07/11/1834 07/11/1834 Results 24hrs Laboratory Tests Test 07/10/18 21:55 07/10/18 22:16 07/11/18 00:30 07/11/18 02:15 White Blood Count 16.5 #H Red Blood Count 3.63 #L Hemoglobin 10.2 #L Hematocrit 31.4 #L Mean Corpuscular Volume 86.5 Mean Corpuscular 28.1 L Hemoglobin Mean Corpuscular 32.5 Hemoglobin Concent Red Cell Distribution 14.0 Width Platelet Count 276 # Mean Platelet Volume 10.1 Immature Granulocytes % 0.600 H Neutrophils % 77.3 H Lymphocytes % 13.4 L Monocytes % 8.3 Eosinophils % 0.2 Basophils % 0.2 Nucleated Red Blood 0.0 Cells % Immature Granulocytes # 0.100 H Neutrophils # 12.8 H Lymphocytes # 2.2 Monocytes # 1.4 H Eosinophils # 0.0 Basophils # 0.0 Nucleated Red Blood 0.0 Cells # Sodium Level 136 Potassium Level 4.1 Chloride Level 100 Carbon Dioxide Level 24 Anion Gap 12 Blood Urea Nitrogen 46 H Creatinine 2.09 H Est Glomerular Filtrat 25 L Rate mL/min Glucose Level 213 Calcium Level 8.3 L Total Bilirubin 0.4 Direct Bilirubin 0.00 Indirect Bilirubin 0.4 Aspartate Amino 29 Transf (AST/SGOT) Alanine 21 Aminotransferase (ALT/SG PT) Alkaline Phosphatase 98 Troponin I 0.022 0.020 B-Type Natriuretic 1830 H Peptide Total Protein 8.2 H Albumin 4.2 Globulin 4.00 H Albumin/Globulin Ratio 1.05 POC Venous Lactate 1.4 Creatine Kinase 252 H Creatine Kinase Index 0.3 Creatinine Kinase MB 0.69 (Mass) Lactic Acid Level 1.3 Test 07/11/18 05:34 White Blood Count 16.3 H Red Blood Count 3.23 L Hemoglobin 9.1 L Hematocrit 28.6 L Mean Corpuscular Volume 88.5 Mean Corpuscular 28.2 L Hemoglobin Mean Corpuscular 31.8 L Hemoglobin Concent Red Cell Distribution 14.0 Width Platelet Count 233 Mean Platelet Volume 10.6 H Immature Granulocytes % 0.400 Neutrophils % Segmented Neutrophils 72 % (Manual) Band Neutrophils % 20 H (Manual) Lymphocytes % Lymphocytes % (Manual) 4 L Reactive Lymphocytes 2 H % (Manual) Monocytes % Monocytes % (Manual) 2 Eosinophils % Basophils % Nucleated Red Blood 0.0 Cells % Immature Granulocytes # 0.070 H Neutrophils # Neutrophils # (Manual) 12.3 H Band Neutrophils # 3.2 H Lymphocytes (Manual) 0.6 L Lymphocytes # Reactive Lymphocytes # 0.3 H Monocytes # Monocytes # (Manual) 0.3 Eosinophils # Basophils # Nucleated Red Blood Cells # Platelet Estimate NORMAL Giant Platelets 1 H Polychromasia 1+ Anisocytosis 1+ Microcytosis 1+ Sodium Level 139 Potassium Level 4.6 Chloride Level 100 Carbon Dioxide Level 20 L Anion Gap 19 #H Blood Urea Nitrogen 47 H Creatinine 2.02 H Est Glomerular Filtrat 26 L Rate mL/min Glucose Level 456 #*H Hemoglobin A1c 8.6 H Calcium Level 7.7 L Magnesium Level 1.9 Total Bilirubin 0.2 Direct Bilirubin 0.00 Indirect Bilirubin 0.2 Aspartate Amino 22 Transf (AST/SGOT) Alanine 27 Aminotransferase (ALT/SG PT) Alkaline Phosphatase 81 Creatine Kinase 253 H Creatine Kinase Index 0.4 Creatinine Kinase MB 1.00 (Mass) Troponin I 0.014 Total Protein 6.9 # Albumin 3.5 Globulin 3.40 H Albumin/Globulin Ratio 1.02 Triglycerides Level 77 Cholesterol Level 122 LDL Cholesterol, 76 Calculated HDL Cholesterol 31 L Cholesterol/HDL Ratio 3.9 Thyroid Stimulating 0.180 L Hormone (TSH) Exam/Review of Systems Vital Signs Vitals Vital Signs Date Temp Pulse Resp B/P (MAP) Pulse Ox O2 O2 Flow FiO2 Time Delivery Rate 07/11/18 88 20 94 Nasal 2.0 28 09:53 Cannula 07/11/18 98.5 131/62 07:41 (85) Intake and Output 07/10/18 07/10/18 07/11/18 1414:59 22:59 06:59 IntakeIntake Total 300 ml BalanceBalance 300 ml Medications Medications Current Medications Ondansetron HCl (Zofran Inj) 4 mg ER BRIDGE PRN IV NAUSEA AND/OR VOMITING; Start 07/10/18 at 23:30; Stop 07/11/18 at 23:29 Acetaminophen (Tylenol Tab) 650 mg ER BRIDGE PRN PO MILD PAIN(1-3)OR ELEVATED TE MP; Start 07/10/18 at 23:30; Stop 07/11/18 at 23:29 Allopurinol (Zyloprim) 100 mg DAILY PO Last administered on 07/11/18 08:27; Admin Dose 100 MG; Start 07/11/18 at 09:00; Status Hold Amlodipine Besylate (Norvasc) 10 mg DAILY PO Last administered on 07/11/18 08:26; Admin Dose 10 MG; Start 07/11/18 at 09:00 Apixaban (Eliquis) 5 mg BID PO Last administered on 07/11/18 08:27; Admin Dose 5 MG; Start 07/11/18 at 09:00 Loratadine (Claritin) 10 mg DAILY PO Last administered on 07/11/18 08:27; Admin Dose 10 MG; Start 07/11/18 at 09:00 Montelukast Sodium (Singulair) 10 mg QHS PO ; Start 07/11/18 at 21:00 Ferrous Sulfate (Ferrous Sulfate (Ec)) 325 mg DAILY PO Last administered on 07/11/18 08:27; Admin Dose 325 MG; Start 07/10/18 at 23:36 Fluticasone/ Vilanterol (Breo Ellipta 200-25 Mcg Inh) 1 inh DAILY INH Last administered on 07/11/18 09:37; Admin Dose 1 INH; Start 07/11/18 at 09:00 Albuterol/ Ipratropium (Duoneb) 3 ml Q4H RESP THERAPY HHN Last administered on 07/11/18 09:53; Admin Dose 3 ML; Start 07/11/18 at 01:00 Levalbuterol (Xopenex Neb) 1.25 mg Q4H RESP THERAPY PRN HHN SHORTNESS OF POONAM TH; Start 07/11/18 at 00:00 IV Flush (NS 3 ml) 3 ml PER PROTOCOL IV ; Start 07/11/18 at 00:00 Ondansetron HCl (Zofran Inj) 4 mg Q6H PRN IV NAUSEA AND/OR VOMITING; Start 07/11/18 at 00:00 Acetaminophen (Tylenol Tab) 650 mg Q6H PRN PO PAIN LEVEL 1-3 OR FEVER Last administered on 07/11/18at 09:33; Admin Dose 650 MG; Start 07/11/18 at 00:00 Docusate Sodium (Colace) 100 mg Q12H PRN PO CONSTIPATION; Start 07/11/18 at 00:00 Bisacodyl (Dulcolax) 5 mg DAILY PRN PO CONSTIPATION; Start 07/11/18 at 00:00 Pantoprazole (Protonix Tab) 40 mg DAILY@06 PO Last administered on 07/11/18at 05:30; Admin Dose 40 MG; Start 07/11/18 at 06:00 Ceftriaxone Sodium 50 ml @ 100 mls/hr Q24H IVPB ; Start 07/11/18 at 21:00 Azithromycin 250 ml @ 250 mls/hr Q24H IVPB ; Start 07/11/18 at 21:00 Miscellaneous Information 1 ea NOTE XX ; Start 07/11/18 at 00:30 Glucose (Glutose) 15 gm Q15M PRN PO DECREASED GLUCOSE; Start 07/11/18 at 00:30 Glucose (Glutose) 22.5 gm Q15M PRN PO DECREASED GLUCOSE; Start 07/11/18 at 00:30 Dextrose (D50w Syringe) 25 ml Q15M PRN IV DECREASED GLUCOSE; Start 07/11/18 at 00:30 Dextrose (D50w Syringe) 50 ml Q15M PRN IV DECREASED GLUCOSE; Start 07/11/18 at 00:30 Glucagon (Glucagen) 1 mg Q15M PRN IM DECREASED GLUCOSE; Start 07/11/18 at 00:30 Glucose (Glutose) 15 gm Q15M PRN BUCCAL DECREASED GLUCOSE; Start 07/11/18 at 00:30 Prednisone (Prednisone) 60 mg DAILY PO Last administered on 07/11/18at 08:26; Admin Dose 60 MG; Start 07/11/18 at 09:00 Insulin Glargine (Lantus) 40 units QHS SC ; Start 07/11/18 at 21:00 Diagnostic Test (Pha) (Accu-Chek) 1 ea 02 XX ; Start 07/12/18 at 02:00 Insulin Aspart (Novolog Insulin Pen) NOVOLOG *MODERATE* ALGORITHM WITH MEALS BEDTIME SC Last administered on 07/11/18at 09:25; Admin Dose 10 UNIT; Start 07/11/18 at 08:00 Furosemide (Lasix) 40 mg BID DIURETICS IV Last administered on 07/11/18at 08:40; Admin Dose 40 MG; Start 07/11/18 at 09:00 DEBBIE MESA NP Jul 11, 2018 11:18
[2018-07-11] MEDS: METOPROLOL 25 MG TAB PO SCH ×2 (14:31→21:14)
[2018-07-11] MEDS ORDERED: INSULIN ASPART [NOVOLOG] 3 ML PEN SC ONE ×2 (17:30→22:00)
--- NOTE | 2018-07-11 17:46 | RADRPT ---
Echocardiogram Report Patient Name: NEERU REID Gender: Female Date: 1965 Study Date: 11-Jul-2018 Pie Baker: TB Location: 601 Ref. Physician: NORA DOHERTY Quality: Adequate Procedures: Transthoracic echocardiogram with complete 2D, M-Mode, and doppler examination. Indications: Congestive Heart Failure. 2D/M Mode Doppler Measurement Value Normal Ranges Measurement Value Normal Ranges AoR Diam MM 3.0 cm AV Mean Yousuf 1.3 m/sec ACS MM 2.0 cm AV Mean PG 7.0 mmHg LA/Ao MM 1.4 AV Peak Yousuf 1.8 m/sec LA Dimen MM 4.2 cm AV Peak PG 13.0 mmHg LVIDd 2D 5.2 3.5 - 5.6 cm AV VTI 38.0 cm LVIDs 2D 3.8 2.1 - 4.1 cm LVOT Mean Yousuf 1.0 m/sec LVPWd 2D 1.4 0.6 - 1.1 cm LVOT Mean PG 4.0 mmHg IVSd 2D 1.6 0.6 - 1.1 cm LVOT Peak Yousuf 1.4 m/sec AoR Diam 2D 2.6 2.0 - 3.7 cm LVOT Peak PG 8.0 mmHg LA/Ao 2D 2 0 - 1 MV E Peak Yousuf 1.1 m/sec EF 2D 50.0 50.0 - 65.0 % MV A Peak Yousuf 1.1 m/sec LA Dimen 2D 3.9 2.3 - 4.0 cm MV E/A 1.1 IVC Diam 1.9 1.2 - 2.0 MV PHT 68.0 msec MV Decel Time 232 msec MV Decel Crenshaw 5 Lat E` Yousuf 0.3 m/sec Lateral E/E` 6.2 Med E` Yousuf 0.1 m/sec MV E/A 1.1 MV PHT 68.0 msec MVA PHT 3.2 cm2 MR Peak PG 82.0 mmHg MR Peak Yousuf 4.5 m/sec TAPSE 2.7 cm TR Peak Yousuf 3.1 m/sec TR Peak PG 39.0 mmHg PV Peak Yousuf 1.4 m/sec PV Peak PG 8.0 mmHg RVSP 42.0 mmHg RA Pressure 3.0 Findings Left Ventricle: Lower limits of normal systolic function. Normal left ventricular cavity size. Mild concentric left ventricular hypertrophy. Ejection fraction is visually estimated at 5055 %. Right Ventricle: Normal right ventricular size. Normal right ventricular systolic function. Left Atrium: There is mild enlargement of left atrium. Right Atrium: There is mild enlargement of right atrium. Mitral Valve: Normal appearance of the mitral valve. Mild mitral valve regurgitation. Aortic Valve: Normal appearance of the aortic valve. No significant aortic stenosis or insufficiency. Tricuspid Valve: Normal appearance and function of the tricuspid valve with trace physiologic regurgitation. Normal right ventricular systolic pressure. Estimated peak PA systolic pressure 42 mmHg. Pulmonic Valve: Pulmonic valve not well visualized. Pericardium: Normal pericardium with no significant pericardial effusion. Aorta: Normal aortic root. IVC: Normal size and normal respiratory collapse consistent with normal right atrial pressure. Conclusions Lower limits of normal systolic function. Normal left ventricular cavity size. Mild concentric left ventricular hypertrophy. Ejection fraction is visually estimated at 50-55 %. There is mild enlargement of left atrium. There is mild enlargement of right atrium. Normal appearance of the mitral valve. Mild mitral valve regurgitation. Normal appearance and function of the tricuspid valve with trace physiologic regurgitation. Normal right ventricular systolic pressure. Estimated peak PA systolic pressure 42 mmHg. Electronically Signed By: Darrell Clarke 11-Jul-2018 17:45:28 -0800 Patient Name: NEERU REID Study Date: 11-Jul-2018 [id number]
[2018-07-11] MEDS ORDERED: HEPARIN 5,000 UNIT/1 ML VIAL SC SCH (21:00)
[2018-07-11] MEDS ORDERED: INSULIN GLARGINE [LANTus] (100 UNITS/ML) SYG SC SCH ×3 (21:00)
[2018-07-11] MEDS: MONTELUKAST 10 MG TAB PO SCH (21:14)
[2018-07-11] MEDS: CEFTRIAXONE 2 GM/50 ML (PMX) 50 ML IVPB SCH (21:14)
[2018-07-11] MEDS: AZITHROMYCIN 500MG/NS (PMX) 250 ML IVPB SCH (22:12)
[2018-07-11] MEDS ORDERED: ZOLPIDEM 5 MG TAB PO ONE (22:30)
[2018-07-12] VITALS (10 sets, daily range): BP systolic 102–141; BP diastolic 60–64; PULSE 76–94; RESP 19–20
[2018-07-12] MEDS: ALBUTEROL/IPRATROPIUM (NEB) 3 ML AMP HHN SCH ×6 (00:22→20:57)
[2018-07-12] MEDS: ACCU-CHEK XX SCH (02:00)
[2018-07-12] MEDS ORDERED: SOD CHLORIDE 0.9% 500 ML IV ONE (04:00)
[2018-07-12] MEDS ORDERED: INSULIN REGULAR, HUMAN 100 UNIT/1 ML 3ML VIAL IV ONE ×2 (04:00→06:30)
[2018-07-12] MEDS: PANTOPRAZOLE (EC) 40 MG TAB PO SCH (05:59)
[2018-07-12] MEDS: INSULIN ASPART [NOVOLOG] 3 ML PEN SC SCH ×7 (07:59→20:30)
[2018-07-12] MEDS ORDERED: INSULIN ASPART [NOVOLOG] 3 ML PEN SC ONE (09:00)
[2018-07-12] MEDS: FLUTICASONE/VILANTEROL 200-25 INH DEVICE INH SCH ×2 (09:00→10:14)
[2018-07-12] MEDS ORDERED: INSULIN GLARGINE [LANTus] (100 UNITS/ML) SYG SC ONE ×2 (09:00)
--- NOTE | 2018-07-12 09:07 | PN ---
DATE: 07/12/2018 SUBJECTIVE: The patient's shortness of breath has improved. No other acute events noted. OBJECTIVE: VITAL SIGNS: Blood pressure is 139/64, respirations 20, pulse 84, temperature 98.2. HEENT: Head is normocephalic. NECK: Supple. HEART: Regular rate. LUNGS: Show diminished breath sounds at the base. ABDOMEN: Soft, nontender to palpation without rebound or guarding. EXTREMITIES: Negative for clubbing, cyanosis, no edema. DERMATOLOGIC: No rashes. MUSCULOSKELETAL: No joint effusion. NEUROLOGIC: No change in exam. MEDICATIONS: The patient's medications have been reviewed. LABORATORY DATA: Shows a sodium 138, potassium 3.8, chloride 99, bicarbonate 19, BUN 61, creatinine 1.56, glucose level 389, calcium 8.0. White count 16.9, hemoglobin 8.8, platelet count 251. Urinaly sis reviewed, shows FENa greater than 1%, protein creatinine ratio approximately 1 gram per gram of c reatinine. Renal ultrasound was unremarkable. ASSESSMENT AND PLAN: 1. Nonoliguric acute kidney injury on top of chronic kidney disease stage 3b with previous baseline creatinine of 1.5 mg/dL. Etiology of acute kidney injury is secondary to hemodynamics, possible card iorenal syndrome. Renal function has improved after being initiated on diuretic therapy. At this po int, continue current treatment plans, supportive care, renally dose all medicines. 2. Anemia. Continue to monitor hemoglobin and hematocrit levels. 3. Mineral bone disorder, monitor calcium and phosphorus levels. 4. Acute diastolic heart failure. The patient's 2D echo was reviewed, shows preserved ejection frac tion, and concentric hypertrophy. Continue current medical management. Continue diuretics. 5. Pneumonia/asthma exacerbation. Continue antibiotic therapy, and nebulizers. 6. Diabetes. The patient's glucose levels remain markedly elevated. We will defer to primary team for management. 7. Hypertension. Continue current blood pressure regimen. 8. History of pulmonary hypertension. 9. Morbid obesity. Continue dietary modification. 10. History of gastritis. Continue proton pump inhibitor. 11. History of deep venous thrombosis. Continue Eliquis. Dictated By: ROXIE PHILIP/NTS Conf#: [id number] DID#: [id number] CC: NORA DOHERTY MD;*EndCC*
[2018-07-12] MEDS: METOPROLOL 25 MG TAB PO SCH ×2 (10:15→20:23)
[2018-07-12] MEDS: FERROUS SULFATE (EC) 325 MG TAB PO SCH (10:15)
[2018-07-12] MEDS: LORATADINE 10 MG TAB PO SCH (10:15)
[2018-07-12] MEDS: FUROSEMIDE 40 MG INJ IV SCH (10:15)
[2018-07-12] MEDS: APIXABAN 5 MG TABLET PO SCH (10:15)
[2018-07-12] MEDS: predniSONE 20 MG TAB PO SCH ×2 (10:16→12:04)
--- NOTE | 2018-07-12 11:30 | PN ---
Date/Time of Note Date/Time of Note DATE: 07/12/18 TIME: 11:26 Assessment/Plan VTE Prophylaxis Risk score (from Ns)>0 risk: 6 SCD applied (from [facility] [place]): No SCD contraindicated: patient refusal, other Pharmacological prophylaxis: heparin Lines/Catheters IV Catheter Type (from [facility]): Saline Lock Assessment/Plan Hospital Course SUBJECTIVE: No fevers. On 2 L nasal cannula, no respiratory distress. No wheezing reported. OBJECTIVE: Vital signs-see below PHYSICAL EXAM: Constitutional: Obese female, not in acute distress. Psych: nl mood/affect, no complaints Head: atraumatic, normocephalic Eyes: nl conjunctiva, nl sclera ENMT: mucosa pink and moist, nl external ears & nose Neck: non-tender, supple Respiratory:+ Mild wheezing left upper lobes. Clear on right side. Normal work of breathing. Cardiovascular: nl pulses, regular rate and rhythm Gastrointestinal: non-tender, soft, bowel sounds active in all 4 quadrants. Musculoskeletal/extremities: nl extremities to inspection, motor strength equal bilaterally, no focal deficit. Normal pulses,no cyanosis, no edema. Neurological: Alert oriented 3,nl speech, nl strength Skin: nl turgor ASSESSMENT/PLAN: 52-year-old obese female with numerous medical history including CKD stage III, asthma, diastolic heart failure, diabetes, hypertension, here with worsening shortness of breath times 4-day duration with fevers/nonproductive cough/wheezing. 1.Hypoxemic respiratory failure multifactorial with CHF/asthma exacerbation/URI. -Improved -Continue [id number] DuoNeb, diuretics. 2.Asthma exacerbation -Improved. -Continue Breo INH, will taper steroids down to 20 mg. -PRN LULI 3. Upper respiratory infection -Continue antibiotics. -WBC still high, also part of steroids. 4.REMI on CKD stage III with possible diabetic nephropathy. -Improving renal function -Management per nephrology. -Monitor renal function. 5.Diastolic heart failure -Continue diuretics. 6.Hypertension -Continue beta-blockers 7.DMII -Hyperglycemia improving as steroids are tapered down. Continue insulin regimen with up titration. -Accu-Cheks/ISS/Lantus. 8. Left lower extremity DVT -Patient received Eliquis 5 months duration. A repeat ultrasound is negative, as such I will discontinue anticoagulation therapy. 9. Gout -No flares -On allopurinol. 10.Anemia of CKD -Stable H&H. -Continue oral iron 11.Obesity -Weight reduction advised. DVT prophylaxis: Subcu heparin PUD prophylaxis: Protonix CODE STATUS: Full code Diet: Carbohydrate controlled/renal diet. Disposition: Overall, patient with significant improvement in her symptoms. We will taper steroids down and will continue insulin regimen for better glycemic trends. Anticipate discharge in a.m. with outpatient follow-up with her maintenance asthma management. Patient was seen in collaboration with Dr. SOLOMON Result Diagram: 07/12/18 0504 07/12/18 0504 Results 24hrs Laboratory Tests Test 07/11/18 11:31 07/11/18 17:17 07/11/18 21:25 07/12/18 02:10 Bedside Glucose 578 *H 544 *H 586 *H > 595 *H Test 07/12/18 02:35 07/12/18 05:04 07/12/18 07:52 07/12/18 10:02 Glucose Level 646 #*H 593 *H White Blood Count 16.9 H Red Blood Count 3.10 L Hemoglobin 8.8 L Hematocrit 26.7 L Mean Corpuscular 86.1 Volume Mean Corpuscular 28.4 L Hemoglobin Mean Corpuscular 33.0 Hemoglobin Concent Red Cell 13.8 Distribution Width Platelet Count 251 Mean Platelet Volume 10.6 H Immature 0.400 Granulocytes % Neutrophils % 87.8 H Lymphocytes % 6.8 L Monocytes % 4.9 Eosinophils % 0.0 Basophils % 0.1 Nucleated Red Blood 0.0 Cells % Immature 0.060 H Granulocytes # Neutrophils # 14.8 H Lymphocytes # 1.2 Monocytes # 0.8 Eosinophils # 0.0 Basophils # 0.0 Nucleated Red Blood 0.0 Cells # Sodium Level 135 Potassium Level 3.8 Chloride Level 99 Carbon Dioxide Level 19 L Anion Gap 17 H Blood Urea Nitrogen 61 H Creatinine 1.56 H Est Glomerular 35 L Filtrat Rate mL/min Calcium Level 8.0 L Phosphorus Level 4.2 Magnesium Level 2.1 Bedside Glucose 389 H 245 H Exam/Review of Systems Vital Signs Vitals Vital Signs Date Temp Pulse Resp B/P (MAP) Pulse Ox O2 O2 Flow FiO2 Time Delivery Rate 07/12/18 89 20 96 Nasal 2.0 28 09:21 Cannula 07/12/18 98.2 139/64 08:03 (89) Intake and Output 07/11/18 07/11/18 07/12/18 1515:00 23:00 07:00 IntakeIntake Total 500 ml 650 ml OutputOutput Total 650 ml 1300 ml BalanceBalance -150 ml -650 ml Medications Medications Current Medications Allopurinol (Zyloprim) 100 mg DAILY PO Last administered on 07/11/18 08:27; Admin Dose 100 MG; Start 07/11/18 at 09:00; Status Hold Apixaban (Eliquis) 5 mg BID PO Last administered on 07/12/18 10:15; Admin Dose 5 MG; Start 07/11/18 at 09:00 Loratadine (Claritin) 10 mg DAILY PO Last administered on 07/12/18 10:15; Admin Dose 10 MG; Start 07/11/18 at 09:00 Montelukast Sodium (Singulair) 10 mg QHS PO Last administered on 07/11/18 21:14; Admin Dose 10 MG; Start 07/11/18 at 21:00 Ferrous Sulfate (Ferrous Sulfate (Ec)) 325 mg DAILY PO Last administered on 07/12/18 10:15; Admin Dose 325 MG; Start 07/10/18 at 23:36 Fluticasone/ Vilanterol (Breo Ellipta 200-25 Mcg Inh) 1 inh DAILY INH Last administered on 07/12/18 10:14; Admin Dose 1 INH; Start 07/11/18 at 09:00 Albuterol/ Ipratropium (Duoneb) 3 ml Q4H RESP THERAPY HHN Last administered on 07/12/18 09:18; Admin Dose 3 ML; Start 07/11/18 at 01:00 Levalbuterol (Xopenex Neb) 1.25 mg Q4H RESP THERAPY PRN HHN SHORTNESS OF BREATH; Start 07/11/18 at 00:00 IV Flush (NS 3 ml) 3 ml PER PROTOCOL IV ; Start 07/11/18 at 00:00 Ondansetron HCl (Zofran Inj) 4 mg Q6H PRN IV NAUSEA AND/OR VOMITING; Start 07/11/18 at 00:00 Acetaminophen (Tylenol Tab) 650 mg Q6H PRN PO PAIN LEVEL 1-3 OR FEVER Last administered on 1/9/19at 09:33; Admin Dose 650 MG; Start 07/11/18 at 00:00 Docusate Sodium (Colace) 100 mg Q12H PRN PO CONSTIPATION; Start 07/11/18 at 00:00 Bisacodyl (Dulcolax) 5 mg DAILY PRN PO CONSTIPATION; Start 07/11/18 at 00:00 Pantoprazole (Protonix Tab) 40 mg DAILY@06 PO Last administered on 07/12/18at 05:59; Admin Dose 40 MG; Start 07/11/18 at 06:00 Ceftriaxone Sodium 50 ml @ 100 mls/hr Q24H IVPB Last administered on 07/11/18at 21:14; Admin Dose 100 MLS/HR; Start 07/11/18 at 21:00 Azithromycin 250 ml @ 250 mls/hr Q24H IVPB Last administered on 07/11/18at 22:12; Admin Dose 250 MLS/HR; Start 07/11/18 at 21:00 Miscellaneous Information 1 ea NOTE XX ; Start 07/11/18 at 00:30 Glucose (Glutose) 15 gm Q15M PRN PO DECREASED GLUCOSE; Start 07/11/18 at 00:30 Glucose (Glutose) 22.5 gm Q15M PRN PO DECREASED GLUCOSE; Start 07/11/18 at 00:30 Dextrose (D50w Syringe) 25 ml Q15M PRN IV DECREASED GLUCOSE; Start 07/11/18 at 00:30 Dextrose (D50w Syringe) 50 ml Q15M PRN IV DECREASED GLUCOSE; Start 07/11/18 at 00:30 Glucagon (Glucagen) 1 mg Q15M PRN IM DECREASED GLUCOSE; Start 07/11/18 at 00:30 Glucose (Glutose) 15 gm Q15M PRN BUCCAL DECREASED GLUCOSE; Start 07/11/18 at 00:30 Diagnostic Test (Pha) (Accu-Chek) 1 ea 02 XX Last administered on 07/12/18at 02:00; Admin Dose 1 EA; Start 07/12/18 at 02:00 Insulin Aspart (Novolog Insulin Pen) NOVOLOG *MODERATE* ALGORITHM WITH MEALS BEDTIME SC Last administered on 07/12/18at 07:59; Admin Dose 10 UNIT; Start 07/11/18 at 08:00 Furosemide (Lasix) 40 mg DAILY IV Last administered on 07/12/18at 10:15; Admin Dose 40 MG; Start 07/12/18 at 09:00 Prednisone (Prednisone) 40 mg DAILY PO ; Start 07/12/18 at 09:00 Fluticasone/ Vilanterol (Breo Ellipta 200-25 Mcg Inh) 1 inh DAILY INH Last administered on 07/11/18at 14:31; Admin Dose 1 INH; Start 07/11/18 at 11:30 Metoprolol Tartrate (Lopressor) 25 mg BID PO Last administered on 07/12/18at 10:15; Admin Dose 25 MG; Start 07/11/18 at 12:00 Insulin Aspart (Novolog Insulin Pen) 20 unit WITH MEALS SC ; Start 07/12/18 at 12:00 Insulin Glargine (Lantus) 60 units QHS SC ; Start 07/12/18 at 21:00 DEBBIE MESA NP Jul 12, 2018 11:30
[2018-07-12] MEDS: CEFTRIAXONE 2 GM/50 ML (PMX) 50 ML IVPB SCH (20:20)
[2018-07-12] MEDS: AZITHROMYCIN 500MG/NS (PMX) 250 ML IVPB SCH (20:20)
[2018-07-12] MEDS: MONTELUKAST 10 MG TAB PO SCH (20:23)
[2018-07-12] MEDS ORDERED: INSULIN GLARGINE [LANTus] (100 UNITS/ML) SYG SC SCH (21:00)
[2018-07-12] MEDS ORDERED: traZODone 50 MG TAB PO ONE (22:30)
[2018-07-13] VITALS (10 sets, daily range): BP systolic 135–151; BP diastolic 59–71; PULSE 63–85; RESP 18–20
[2018-07-13] MEDS: ALBUTEROL/IPRATROPIUM (NEB) 3 ML AMP HHN SCH ×5 (01:09→16:24)
[2018-07-13] MEDS: ACCU-CHEK XX SCH (02:00)
[2018-07-13] MEDS: PANTOPRAZOLE (EC) 40 MG TAB PO SCH (05:37)
[2018-07-13] MEDS: INSULIN ASPART [NOVOLOG] 3 ML PEN SC SCH ×6 (08:10→18:02)
[2018-07-13] MEDS: FUROSEMIDE 40 MG INJ IV SCH (08:11)
[2018-07-13] MEDS: LORATADINE 10 MG TAB PO SCH (08:14)
[2018-07-13] MEDS: FERROUS SULFATE (EC) 325 MG TAB PO SCH (08:14)
[2018-07-13] MEDS: METOPROLOL 25 MG TAB PO SCH (08:15)
[2018-07-13] MEDS: FLUTICASONE/VILANTEROL 200-25 INH DEVICE INH SCH (08:15)
--- NOTE | 2018-07-13 08:23 | PN ---
DATE: 07/13/2018 SUBJECTIVE: The patient is stable, no events overnight. OBJECTIVE: VITAL SIGNS: Blood pressure is 150/65, respirations 20, pulse 63, temperature 97.5. HEENT: Head is normocephalic. NECK: Supple. HEART: Regular rate. LUNGS: Show diminished breath sounds at the base. ABDOMEN: Soft, nontender to palpation without rebound or guarding. EXTREMITIES: Negative for clubbing, cyanosis. Trace edema. DERMATOLOGIC: No rashes. MUSCULOSKELETAL: No joint effusion. NEUROLOGIC: No change in exam. MEDICATIONS: Reviewed. LABORATORY DATA: Shows white count 17.4, hemoglobin 9.3, platelet count 318. Sodium 141, BUN 53, cr eatinine 1.37, glucose 292. ASSESSMENT AND PLAN: 1. Nonoliguric acute kidney injury on top of chronic kidney disease stage 3b with previous baseline creatinine of around 1.5 mg/dL. Etiology of acute kidney injury is secondary to hemodynamics. Renal function has improved. Continue current treatment plan. Continue diuretic therapy. Continue to re christopher dose all medicines. 2. Anemia. Continue to monitor hemoglobin and hematocrit levels. 3. Mineral bone disorder, monitor calcium and phosphorus levels. 4. Acute diastolic heart failure. The patient is clinically improving. Continue diuretic regimen, 2D echo was reviewed. Follow up with Cardiology. 5. Asthma exacerbation. Continue medical management. Continue antibiotics, nebulizers, prednisone. 6. Systemic inflammatory response syndrome, etiology is secondary to possible upper respiratory infe ction, questionable pneumonia. Continue current treatment plan. 7. Diabetes. Insulin levels are being adjusted. Continue to defer to primary team. 8. Hypertension. Continue current blood pressure regimen. We would start the patient on low-dose A CE inhibitor. 9. Pulmonary hypertension. 10. Morbid obesity. Continue dietary modification. 11. History of gastritis. Continue proton pump inhibitor. 12. History of deep venous thrombosis. Continue Eliquis. Dictated By: ROXIE ZAYAS DO NR/NTS Conf#: [id number] DID#: [id number] CC: NORA DOHERTY MD;*EndCC*
[2018-07-13] MEDS ORDERED: predniSONE 20 MG TAB PO SCH (09:00)
[2018-07-13] MEDS ORDERED: LISINOPRIL 10 MG TAB PO SCH (09:00)
[2018-07-13] MEDS ORDERED: HEPARIN 5,000 UNIT/1 ML VIAL SC SCH (09:00)
--- NOTE | 2018-07-13 09:40 | PDOCDIS ---
Discharge Instructions CONDITION [id number] Patient Condition: [id number] Stable HOME CARE INSTRUCTIONS: [id number] Special Diet: [id number] CARB CONTROLLED FOLLOW UP/APPOINTMENTS Follow-up Plan Follow-up with primary care physician in 1 week DEBBIE MESA NP Jul 13, 2018 09:40
[2018-07-13] MEDS ORDERED: PRED20TA PO (09:56)
[2018-07-13] MEDS ORDERED: LANT3I SC (09:56)
[2018-07-13] MEDS ORDERED: INSU100I12 SQ (09:56)
[2018-07-13] MEDS ORDERED: METO-335 PO (09:56)
[2018-07-13] MEDS ORDERED: FURO40TA4 PO (09:56)
[2018-07-13] MEDS ORDERED: AZIT500T5 PO (09:59)
--- NOTE | 2018-07-13 10:12 | DS ---
Date/Time of Note Date/Time of Note DATE: 07/13/18 TIME: 10:07 Discharge Summary Admission/Discharge Info Admit Date/Time Jul 10, 2018 at 23:20 Discharge Date/Time Discharge Diagnosis 1.status post hypoxemic respiratory failure multifactorial with CHF/asthma ex acerbation/URI. 2.Asthma exacerbation. Stable 3. Upper respiratory infection. Treated 4.REMI on CKD stage III with possible diabetic nephropathy. Stable 5.Diastolic heart failure 6.Hypertension 7.DMII 9. Gout 10.Anemia of CKD 11.Obesity Patient Condition: Stable Consults Dr. Wellington, nephrology Procedures 07/10/2018: Chest x-ray IMPRESSION: Increased interstitial lung markings, right greater than left. Question failure. 07/11/2018 renal ultrasound IMPRESSION: Unremarkable retroperitoneal ultrasound. 07/11/2018. Bilateral lower extremity venous ultrasound. IMPRESSION: No sonographic evidence for deep venous thrombosis. 07/11/2018. Chest x-ray. IMPRESSION: Moderate cardiomegaly with slightly decreased pulmonary vascular congestion. No other significant change. Hospital Course 52-year-old obese female with numerous medical history including CKD stage III, asthma, diastolic heart failure, diabetes, hypertension, here with worsening shortness of breath times 4-day duration with fevers/nonproductive cough/wheezing. Patient was treated for upper respiratory infection. She was treated for asthma exacerbation with [id number] and as needed nebulizers, and systemic corticosteroids. Patient did well. Respiratory failure resolved and she did not require any further supplemental oxygen. Patient was also noted with acute kidney injury secondary to hemodynamics for which she was being followed by [facility] and her renal function improved. She was continued on home medication for underlying comorbidities. Patient's hospitalization was noted for uncontrolled hyperglycemia secondary to poorly managed diabetes as outpatient as well as patient received steroids in house. Patient's blood sugar stabilized on Lantus and pre-meal insulin. At this time, she is feeling back to her baseline. Patient with no wheezing, fever or other symptoms. White count remained high secondary to patient received high-dose steroids. At this time, she with no signs of any infection and can be discharged with outpatient follow- up. Patient was given diabetic education and she was given prescription for Lantus and pre-meal stating at home with discontinuation of Victoza as it seems like it was not helping her blood sugar to get any better. Patient was also taking Eliquis prior to admission secondary to history of lower extremity DVT for which she received a total of 5 months duration. We had repeated an ultrasound which shows resolution of DVT, as such she does not require any further anticoagulation therapy. Approximately 60 m spent on coordinating the discharge on this patient. Patient was seen in collaboration with Dr. SOLOMON [facility] Active Scripts Azithromycin* (Azithromycin*) 500 Mg Tablet, 500 MG PO DAILY, #5 TAB Prov:MESA,DEBBIE V. NIGHT SHIFT 07/13/18 Prednisone* (Prednisone*) 20 Mg Tab, 20 MG PO DAILY, #1 TAB Prov:MESA,DEBBIE V. NIGHT SHIFT 07/13/18 Insulin Lispro (Humalog Kwikpen U-100) 100 Unit/1 Ml Insuln.pen, 20 UNIT SQ AC A, #1 SYR #100 lANCETS #100 Test strips #100 32 gauge pen needles blood sugar check 3 time with meals HOLD HUMALOG DOSE IF BLOOD SUGAR<100 BEFORE MEAL. Prov:MESA,DEBBIE V. NIGHT SHIFT 07/13/18 Metoprolol Succinate* (Toprol XL*) 25 Mg Tab.sr.24h, 25 MG PO BID, #120 TAB Prov:MESA,DEBBIE V. NIGHT SHIFT 07/13/18 Furosemide* (Furosemide*) 40 Mg Tablet, 20 MG PO DAILY, #30 TAB Prov:MESA,DEBBIE V. NIGHT SHIFT 07/13/18 Insulin Glargine* (Lantus*) 100 Unit/Ml Soln, 60 UNIT SC QHS, #1 VIAL Prov:MESA,DEBBIE V. NIGHT SHIFT 07/13/18 Fluconazole* (Fluconazole*) 100 Mg Tablet, 100 MG PO DAILY, #10 TAB Prov:JENNIFER ONEILL MD 02/10/17 Albuterol Sulfate* (Proair HFA*) 8.5 Gm Hfa.aer.ad, 2 PUFF INH Q6, #2 INHALER Prov:JENNIFER ONEILL MD 02/10/17 Lisinopril* (Lisinopril*) 10 Mg Tablet, 10 MG PO BID, #60 TAB Prov:JENNIFER ONEILL MD 02/10/17 Apixaban* (Eliquis*) 5 Mg Tablet, 5 MG PO BID for 30 Days, #60 TAB Prov:JENNIFER ONEILL MD 02/10/17 Mometasone-Formoterol (Dulera) 200-5 Mcg/Inh - 13 Gm Hfa.aer.ad, 2 PUFFS INHALATION BID, #2 INHALER Prov:JENNIFER ONEILL MD 02/10/17 Reported Medications Liraglutide (Victoza 2-Amauri) 0.6 Mg/0.1 Ml Pen.injctr, 1.2 MG SQ QAM, SYR 01/29/17 Allopurinol* (Allopurinol*) 100 Mg Tablet, 100 MG PO DAILY, TAB 01/29/17 Sitagliptin* (Januvia*) 100 Mg Tablet, 100 MG PO DAILY, #30 TAB 01/29/17 Acetaminophen* (Tylenol*) 500 Mg Tab, 1000 MG PO Q4H PRN for PAIN AND OR ELEVATED TEMP, TAB 01/29/17 Amlodipine Besylate* (Amlodipine Besylate*) 10 Mg Tablet, 10 MG PO DAILY, #30 TAB 10/03/16 Hydralazine Hcl* (Hydralazine Hcl*) 50 Mg Tab, 75 MG PO BID, #60 TAB 10/03/16 Montelukast Sodium* (Montelukast Sodium*) 10 Mg Tablet, 10 MG PO QHS, #30 TAB 10/03/16 Ferrous Sulfate* (Ferrous Sulfate*) 325 Mg Tabec, 325 MG PO DAILY, TAB 10/03/16 Loratadine* (Loratadine*) 10 Mg Tablet, 10 MG PO DAILY, #30 TAB 10/03/16 Discontinued Scripts Clindamycin Hcl* (Clindamycin Hcl*) 300 Mg Capsule, 300 MG PO QID, #56 CAP Prov:JENNIFER ONEILL MD 02/10/17 Follow-up Plan Follow-up with primary care physician in 1 week Primary Care Provider [facility] Pending Labs Laboratory Tests Test 07/12/18 12:03 07/12/18 17:38 07/12/18 20:10 07/13/18 02:11 Bedside 198 202 249 292 Glucose mg/dL (70-220) mg/dL (70-220) mg/dL (70-220) mg/dL (70-220) Test 07/13/18 05:04 07/13/18 07:48 White Blood 17.4 Count 10^3/ul (4.8-10 .8) Red Blood 3.35 Count 10^6/ul (4.20-5 .40) Hemoglobin 9.3 g/dl (12.0-16.0 ) Hematocrit 28.9 % (37.0-47.0) Mean 86.3 Corpuscular fl (82.0-101.0) Volume Mean 27.8 Corpuscular pg (29.0-33.0) Hemoglobin Mean 32.2 Corpuscular g/dl (32.0-37.0 Hemoglobin Conc ) ent Red Cell 13.8 Distribution % (11.5-14.5) Width Platelet Count 318 10^3/UL (140-41 5) Mean Platelet 10.5 Volume fl (7.4-10.4) Immature 0.700 Granulocytes % % (0.001-0.429) Neutrophils % 86.4 % (39.0-77.0) Lymphocytes % 8.3 % (15.0-51.0) Monocytes % 4.3 % (0.0-11.0) Eosinophils % 0.2 % (0.0-7.0) Basophils % 0.1 % (0.0-2.0) Nucleated Red 0.0 Blood Cells % /100WBC (0.0-0. 0) Immature 0.120 Granulocytes # 10^3/ul (0.0-0. 031) Neutrophils # 15.0 10^3/ul (1.6-7. 5) Lymphocytes # 1.5 10^3/ul (0.8-2. 9) Monocytes # 0.8 10^3/ul (0.3-0. 9) Eosinophils # 0.0 10^3/ul (0.0-0. 5) Basophils # 0.0 10^3/ul (0.0-0. 1) Nucleated Red 0.0 Blood Cells # 10^3/ul (0.0-0. 0) Sodium Level 141 mmol/L (135-144 ) Potassium 4.3 Level mmol/L (3.5-5.1 ) Chloride Level 104 mmol/L (97-110) Carbon Dioxide 24 Level mmol/L (21-31) Anion Gap 13 (5-13) Blood Urea 53 mg/dl (7-20) Nitrogen Creatinine 1.37 mg/dl (0.44-1.0 0) Est Glomerular 40 mL/min (>60) Filtrat Rate mL/min Glucose Level 305 mg/dl (70-220) Calcium Level 8.4 mg/dl (8.4-10.2 ) Phosphorus 4.6 Level mg/dl (2.5-4.9) Magnesium 2.4 Level mg/dl (1.7-2.5) Bedside 292 Glucose mg/dL (70-220) DEBBIE MESA V. NIGHT SHIFT Jul 13, 2018 10:12
[2018-08-10] MEDS ORDERED: CARV25TA97 PO (08:27)
[2018-08-10] MEDS ORDERED: FOLI-49 PO (08:28)
[2018-08-10] MEDS ORDERED: HYDR100T25 PO (08:29)
[2018-08-10] MEDS ORDERED: AMLO-145 PO (08:29)
[2018-08-10] MEDS ORDERED: GABA100C14 PO (08:30)
[2018-08-10] MEDS ORDERED: FURO40TA4 PO (08:30)
[2018-08-10] MEDS ORDERED: ALBU18HF INHALATION (08:31)
[2018-08-10] MEDS ORDERED: INSU100C SQ (08:32)
[2018-08-10] MEDS ORDERED: INSU100I33 SC (08:32)
== END 2018-07-13 18:10 | disposition home or self-care (01) | DRG 193 ==
LOC: E/R 18:27 → 6WM 23:20
PROVIDERS: ADMIT Family Medicine; ATTEND Family Medicine
DX: J18.9 Pneumonia, unspecified organism (principal); I50.43 Acute on chronic combined systolic (congestive) and diastolic (congestive) heart failure; J96.01 Acute respiratory failure with hypoxia; I13.0 Hypertensive heart and chronic kidney disease with heart failure and stage 1 through stage 4 chronic kidney disease, or unspecified chronic kidney disease; N17.9 Acute kidney failure, unspecified; Z68.42 Body mass index [BMI] 45.0-49.9, adult; J45.901 Unspecified asthma with (acute) exacerbation; E66.2 Morbid (severe) obesity with alveolar hypoventilation; R65.10 Systemic inflammatory response syndrome (SIRS) of non-infectious origin without acute organ dysfunction; E11.22 Type 2 diabetes mellitus with diabetic chronic kidney disease; D63.1 Anemia in chronic kidney disease; I27.20 Pulmonary hypertension, unspecified; Z86.718 Personal history of other venous thrombosis and embolism; Z79.01 Long term (current) use of anticoagulants; N18.3 Chronic kidney disease, stage 3 (moderate); M10.9 Gout, unspecified
CPT/HCPCS: 36415; 71045; 76775; 80048; 80053; 80061; 81003; 82043; 82550; 82553; 82947; 82962; 83036; 83605; 83735; 83880; 84100; 84155; 84300; 84443; 84484; 85025; 87040; 87400; 93005; 93306; 93970; 94640; 94664; 96365; 96375; J0456; J0696; J1644; J1815; J1940; J2930; J7030; J7040; J7512

== ENCOUNTER 2019-02-14 16:34 | Emergency (ER) | payer OTHER ==
[~2019-02-14] VITALS: Ht 152.4 cm; Wt 115.9 kg
[~2019-02-14 16:34] MED LIST changes: +ALBU18HF INHALATION; -ALBU8.5H8 INH; +AMLO-145 PO; -AMLO-147 PO; -APIX5TAB PO; +CARV25TA97 PO; +CEPH-443 PO; -CLIN300C10 PO; -FER325 PO; -FLUC100T39 PO; +FOLI-49 PO; +GABA100C14 PO; -HYDR-3672 PO; +HYDR100T25 PO; +IBUP-1542 PO; +INSU100C SQ; +INSU100I33 SC; -LANT3I SC; -LIRA0.6P SQ; -LISI10TA2 PO; -METO-335 PO; -SITA100T11 PO; -TYL500 PO
[2019-02-14 16:51] VITALS: Ht 152.4 cm; Wt 115.9 kg
[2019-02-14 18:35] VITALS: BP 137/76; PULSE 76; RESP 16
== END 2019-02-14 18:40 | disposition home or self-care (01) ==
LOC: FTE 16:34
DX: R30.0 Dysuria (principal); I10 Essential (primary) hypertension; J45.909 Unspecified asthma, uncomplicated; E11.9 Type 2 diabetes mellitus without complications; Z79.4 Long term (current) use of insulin
CPT/HCPCS: 81001; Z7502; 99283

== ENCOUNTER 2019-02-26 12:05 | Emergency (ER) | payer OTHER ==
[~2019-02-26] VITALS: Ht 152.4 cm; Wt 112.7 kg
[2019-02-26 12:36] VITALS: BP 138/65; PULSE 66; RESP 17; Ht 152.4 cm; Wt 112.7 kg
== END 2019-02-26 15:50 | disposition home or self-care (01) ==
LOC: FTE 12:05
DX: M79.89 Other specified soft tissue disorders (principal); I10 Essential (primary) hypertension; J45.909 Unspecified asthma, uncomplicated; Z79.4 Long term (current) use of insulin
CPT/HCPCS: 81025; 93971; Z7502